=== PATIENT | female | born 1935 | race Caucasian/White ===

== ENCOUNTER 2018-03-11 08:29 | Emergency (ER) | payer MEDICARE, MEDICAID, SELFPAY ==
[2018-03-11 08:36] VITALS: BP 155/79; PULSE 86; RESP 20; TEMP 37.3; O2SAT 99; BMI 23.2
--- NOTE | 2018-03-11 08:41 | ED_ITS ---
HPI - Head Injury General Chief complaint: Head Injury Stated complaint: Fall with Head Laceration Time Seen by Provider: 03/11/18 08:31 Source: patient, family, EMS and RN notes reviewed Limitations: no limitations History of Present Illness HPI Narrative: Patient is an 86-year-old male who presents with head injury. She had an unwitnessed ground level fall at home. She does have a laceration to posterior of her head. No loss of consciousness no nausea no vomiting. She is not on blood thinners. She denies any neck pain numbness or tingling. She is a poor historian so exact history is unknown. Daughter is here now. She was home with a granddaughter and son-in-law. His they did not witness the fall but confirm that there was no loss of consciousness. In fact the patient thinks that she even alerted them to the fact that she fell then they noted blood EMS was called. MD Complaint: head injury Related Data Home Medications Medication Instructions Recorded Confirmed CALCIUM CARBONATE/VITAMIN D3 600 mg PO TID #0 06/27/10 (Oyster Shell Calcium-Vit D Tab) CHOLECALCIFEROL (VITAMIN D3) Q DAY #0 06/27/10 (Vitamin D3) DIPYRIDAMOLE (Persantine) 50 mg PO TID #0 06/27/10 ESCITALOPRAM OXALATE (Lexapro) 20 mg PO Q DAY #0 06/27/10 MULTIVITAMIN (Multivitamin 1 cap PO EVERY DAY #0 06/27/10 -) alendronate 70 mg PO QWEEK #0 06/27/10 03/11/18 docusate sodium [Colace] #0 01/21/17 lovastatin 40 mg PO QDAY #0 01/21/17 03/11/18 propranolol 10 mg PO BID #0 01/21/17 quetiapine [Seroquel] 50 mg PO QDAY #0 01/21/17 03/11/18 lisinopril 10 mg PO BID 03/11/18 03/11/18 sertraline 1 dose PO DIRECTED 03/11/18 03/11/18 Allergies Allergy/AdvReac Type Severity Reaction Status Date / Time No Known Drug Allergies Allergy Verified 03/11/18 09:41 Review of Systems Review of Systems All systems reviewed & are unremarkable except as noted in HPI and below Constitutional Denies chills, Denies fever(s), Denies headache(s), Denies lethargy and Denies weakness Eyes Denies blurry vision, Denies change in vision and Denies diplopia ENT Ears, Nose, Mouth, and Throat: Denies dizziness, Denies facial pain and Denies headache(s) Cardiovascular Denies chest pain, Denies irregular heart rhythm, Denies lightheadedness, Denies palpitations, Denies dyspnea, Denies dyspnea on exertion and Denies orthopnea Respiratory Denies cough, Denies dyspnea, Denies dyspnea on exertion and Denies wheezing Gastrointestinal Gastrointestinal: Denies abdominal pain, Denies change in bowel habits, Denies diarrhea, Denies nausea and Denies vomiting Musculoskeletal Denies back pain, Denies muscle weakness, Denies numbness and Denies tingling Integumentary/Breasts Reports as per HPI Neurologic Denies dizziness, Denies headache(s), Denies numbness, Denies tingling and Denies weakness Endocrine Denies palpitations Hematologic/Lymphatic Denies easy bleeding and Denies easy bruising Allergic/Immunologic Denies wheezing PFSH Social History Smoking Status: Never smoker alcohol intake: never substance use type: does not use Exam Initial Vital Signs Initial Vital Signs: Vital Signs Temperature 99.1 F 03/11/18 08:36 Pulse Rate 86 03/11/18 08:36 Respiratory Rate 20 03/11/18 08:36 Blood Pressure 155/79 H 03/11/18 08:36 Pulse Oximetry 99 03/11/18 08:36 Const General: cooperative and healthy appearing Orientation: alert, awake and oriented x3 HENMT Head: contusion (left posterior scalp) Ears: hearing grossly normal bilaterally Nose: external nose normal Face and sinus: normal facial exam Eyes General: appearance normal, both eyes and all related structures Eyelids: eyelids normal Conjunctivae: conjunctivae normal Sclera: sclerae normal Pupils: PERRL EOM: EOM intact bilaterally Neck Neck: normal visual inspection, trachea midline, No lymphadenopathy, No midline deformity and No JVD Lymphatic: No lymphedema Back/Spine/Pelvis Back: normal to inspection and No back tenderness Cervical Spine: normal cervical lordosis, cervical ROM normal and collar present (placed in ED) Thoracic/Lumbar Spine: thoracic and lumbar spine normal to inspection Skin General: ecchymosis (left posterior scalp) Trauma: abrasion and laceration (1 cm posterior scalp left side) Procedures Laceration Repair Laceration 1: Number of sutures: 1 Technique: other (Staple) Course Orders Ordered: ED Orders 03/11/18 08:59 CT cervical spine wo con Stat 03/11/18 09:59 CT head/brain wo con Stat Vital Signs - 8 hr 03/11/18 08:36 03/11/18 10:11 Temperature 99.1 F Pulse Rate 86 88 Respiratory Rate 20 20 Blood Pressure 155/79 H 141/74 H Pulse Oximetry 99 99 MDM - Head Injury Imaging Data CT scan - head: Radiologist's impression: ROCEDURE: CT HEAD/BRAIN WO CON INDICATIONS: fall backwards hit head TECHNIQUE: Noncontrast 4.5 mm thick angled axial sections acquired from the foramen magnum to the vertex, with coronal and sagittal reformats. For radiation dose reduction, the following was used: automated exposure control, adjustment of mA and/or kV according to patient size. COMPARISON: [facility], , CT HEAD W/O CONTRAST, 08/22/2013, 21: 57. [facility], , CT HEAD W/O CONTRAST, 01/10/2015, 16:06. FINDINGS: Image quality: Excellent. CSF spaces: Basal cisterns are patent. No extra-axial fluid collections. The ventricles are symmetric in size and shape. There is moderate cerebral volume loss, with resultant ventricular and sulcal prominence. Brain: No intracranial hemorrhage, mass, or mass effect. There are subcortical , periventricular and deep white matter hypodensities consistent with moderate to severe chronic small vessel ischemic changes. There is intracranial internal carotid artery atherosclerosis. There is tortuosity of the right vertebral artery redemonstrated with mass effect on the medulla. Skull and face: Calvarium and visualized facial bones appear intact, without suspicious lesions. Sinuses: Visualized sinuses and mastoids are clear. IMPRESSION: 1. No acute intracranial abnormality. 2. Moderate to severe chronic white matter small vessel ischemic changes and moderate cerebral volume loss redemonstrated. C-spine CT: Radiologist's impression: PROCEDURE: CT CERVICAL SPINE WO CON INDICATIONS: fall backwards hit head TECHNIQUE: Noncontrast 3 mm thick sections acquired from the skull base to the T4 level. Sagittal and coronal reformats were then constructed. For radiation dose reduction, the following was used: automated exposure control, adjustment of mA and/or kV according to patient size. COMPARISON: None. FINDINGS: Image quality: Excellent. Bones: No fractures or dislocations. There is minimal retrolisthesis at C4-C5 and C5-C6 as well as minimal anterolisthesis at C6-C7 and C7-T1. These appear similar to the prior study. There is multilevel disc space narrowing including mild/moderate narrowing at C4-C5 and C5-C6. Mild multilevel uncovertebral and facet arthropathy are also demonstrated. Visualized superior ribs are intact. There is cortical scalloping redemonstrated along the inner table of the occipital bone which may represent arachnoid granulations or dural ectasia. Soft tissues: Prevertebral soft tissues are normal in thickness. No paravertebral hematomas. No apical pneumothoraces. There is heterogeneity of the thyroid gland bilaterally with small ill-defined nodules. IMPRESSION: 1. No acute fracture or fixation. 2. Minimal multilevel spondylolisthesis and mild multilevel degenerative changes redemonstrated. Discharge Plan Departure Patient Disposition: Home, Self-Care Clinical Impression: Laceration of occipital scalp, Closed head injury Discharge Date/Time: 03/11/18 10:12 Interventions: ED Discharge Assessment Last Done: 03/11/18 10:11 Instructions: DI for Laceration Repair -- Lissy, Closed Head Injury Activity Restrictions/Additional Instructions: *You have been diagnosed with closed head injury and scalp laceration *What to do: Okay to shower or bathe and shampoo, no hair cuts, no soaking in water no swimming, have staple removed in 5-7 days by her primary care provider *Continue to take medications as directed *Follow up with your primary care provider in 2-3 days *Return to ER if you should have increased confusion, seizure activity, redness , pus, swelling or any new, worsening or concerning symptoms Prescriptions: No Action alendronate 70 mg Tablet 70 mg PO QWEEK Qty: 0 RF: 0 CALCIUM CARBONATE/VITAMIN D3 (Oyster Shell Calcium-Vit D Tab) 600 mg PO TID Qty: 0 RF: 0 DIPYRIDAMOLE (Persantine) 50 mg PO TID Qty: 0 RF: 0 ESCITALOPRAM OXALATE (Lexapro) 20 mg PO Q DAY Qty: 0 RF: 0 MULTIVITAMIN (Multivitamin -) 1 cap PO EVERY DAY Qty: 0 RF: 0 CHOLECALCIFEROL (VITAMIN D3) (Vitamin D3) Q DAY Qty: 0 RF: 0 lovastatin 40 MG tablet 40 mg PO QDAY Qty: 0 RF: 0 docusate sodium [Colace] 100 MG capsule Qty: 0 RF: 0 propranolol 10 MG tablet 10 mg PO BID Qty: 0 RF: 0 quetiapine [Seroquel] 50 MG tablet 50 mg PO QDAY Qty: 0 RF: 0 sertraline 100 mg tablet 1 dose PO DIRECTED RF: 0 lisinopril 10 mg tablet 10 mg PO BID RF: 0 Referrals: Juliet Lucas PA-C [Primary Care Provider] -
--- NOTE | 2018-03-11 08:59 | DI.CT.S_ITS ---
PROCEDURE: CT CERVICAL SPINE WO CON INDICATIONS: fall backwards hit head TECHNIQUE: Noncontrast 3 mm thick sections acquired from the skull base to the T4 level. Sagittal and coronal reformats were then constructed. For radiation dose reduction, the following was used: automated exposure control, adjustment of mA and/or kV according to patient size. COMPARISON: None. FINDINGS: Image quality: Excellent. Bones: No fractures or dislocations. There is minimal retrolisthesis at C4-C5 and C5-C6 as well as minimal anterolisthesis at C6-C7 and C7-T1. These appear similar to the prior study. There is multilevel disc space narrowing including mild/moderate narrowing at C4-C5 and C5-C6. Mild multilevel uncovertebral and facet arthropathy are also demonstrated. Visualized superior ribs are intact. There is cortical scalloping redemonstrated along the inner table of the occipital bone which may represent arachnoid granulations or dural ectasia. Soft tissues: Prevertebral soft tissues are normal in thickness. No paravertebral hematomas. No apical pneumothoraces. There is heterogeneity of the thyroid gland bilaterally with small ill-defined nodules. IMPRESSION: 1. No acute fracture or fixation. 2. Minimal multilevel spondylolisthesis and mild multilevel degenerative changes redemonstrated. Dictated by: Daniel Anand M.D. on 03/11/2018 at 9:12 Approved by: Daniel Anand M.D. on 03/11/2018 at 9:20
[2018-03-11] MEDS: DIPHTH,PERTUSS(ACELL),TET VAC 0.5 ML SYRINGE IM (09:42)
--- NOTE | 2018-03-11 09:59 | DI.CT.S_ITS ---
PROCEDURE: CT HEAD/BRAIN WO CON INDICATIONS: fall backwards hit head TECHNIQUE: Noncontrast 4.5 mm thick angled axial sections acquired from the foramen magnum to the vertex, with coronal and sagittal reformats. For radiation dose reduction, the following was used: automated exposure control, adjustment of mA and/or kV according to patient size. COMPARISON: [facility], , CT HEAD W/O CONTRAST, 08/22/2013, 21:57. [facility], , CT HEAD W/O CONTRAST, 01/10/2015, 16:06. FINDINGS: Image quality: Excellent. CSF spaces: Basal cisterns are patent. No extra-axial fluid collections. The ventricles are symmetric in size and shape. There is moderate cerebral volume loss, with resultant ventricular and sulcal prominence. Brain: No intracranial hemorrhage, mass, or mass effect. There are subcortical, periventricular and deep white matter hypodensities consistent with moderate to severe chronic small vessel ischemic changes. There is intracranial internal carotid artery atherosclerosis. There is tortuosity of the right vertebral artery redemonstrated with mass effect on the medulla. Skull and face: Calvarium and visualized facial bones appear intact, without suspicious lesions. Sinuses: Visualized sinuses and mastoids are clear. IMPRESSION: 1. No acute intracranial abnormality. 2. Moderate to severe chronic white matter small vessel ischemic changes and moderate cerebral volume loss redemonstrated. Dictated by: Daniel Anand M.D. on 03/11/2018 at 9:08 Approved by: Daniel Anand M.D. on 03/11/2018 at 9:12
[2018-03-11 10:11] VITALS: BP 141/74; PULSE 88; RESP 20; O2SAT 99
== END 2018-03-11 10:12 | disposition home or self-care (01) ==
PROVIDERS: Emergency Provider Emergency Medicine; PCP Physician Assistant
DX: S01.01XA Laceration without foreign body of scalp, initial encounter (principal); S09.90XA Unspecified injury of head, initial encounter; W18.30XA Fall on same level, unspecified, initial encounter
CPT/HCPCS: 12001; 70450; 72125; 90471; 90715; 99282; 99284

== ENCOUNTER 2019-07-13 01:07 | Emergency (ER) | payer MEDICARE, SELFPAY ==
[2019-05-26 08:59] VITALS: BMI 22.6
[2019-07-13 01:18] VITALS: BP 95/47; PULSE 77; RESP 18; TEMP 37.1; O2SAT 98
--- NOTE | 2019-07-13 01:28 | DI.RAD.S_ITS ---
PROCEDURE: XR T AND L SPINE 2 TO 3 VIEWS INDICATIONS: recent surgery, fall TECHNIQUE: 2 views acquired of the thoracolumbar spine. COMPARISON: [facility], MR, MR THORACIC SPINE WO CON, 05/27/2019, 11:31. [facility], CR, XR T AND L SPINE 2 TO 3 VIEWS, 05/29/2019, 10:25. FINDINGS: Bones: Thoracolumbar fixation hardware is seen, extending T8-L2. Compression deformities are again seen of T11 and T12, which appear stable. Age-appropriate bony degenerative changes are seen. S-shaped scoliotic curvature is seen. Accentuated thoracic kyphosis is seen. Soft tissues: No suspicious soft tissue calcifications. IMPRESSION: Stable T11 and T12 fractures, without an acute fracture identified. Intact appearing hardware, T8-L2. Note: No significant discrepancy from the preliminary report. Dictated by: Juancho Oneil M.D. on 07/13/2019 at 8:58 Approved by: Juancho Oneil M.D. on 07/13/2019 at 9:00
--- NOTE | 2019-07-13 01:28 | DI.RAD.S_ITS ---
PROCEDURE: XR CHEST 1V INDICATIONS: weakness TECHNIQUE: One view of the chest was acquired. COMPARISON: [facility], CR, XR CHEST 2V, 05/25/2019, 19:27. FINDINGS: Surgical changes and devices: Posterior spinal fixation hardware partially visualized. Lungs and pleura: No interval change or new consolidation. Retrocardiac opacity appears unchanged. No pleural effusions or pneumothorax. Mediastinum: Mediastinal contours appear normal. Heart size is normal. Bones and chest wall: No suspicious bony lesions. Overlying soft tissues appear unremarkable. IMPRESSION: Retrocardiac opacity appears unchanged. This probably represents hiatal hernia based on the appearance of the comparison study dated 05/25/19. No new focal consolidation. Dictated by: Channing Linares M.D. on 07/13/2019 at 8:17 Approved by: Channing Linares M.D. on 07/13/2019 at 8:34
--- NOTE | 2019-07-13 01:32 | ED_ITS ---
HPI - Weakness General Chief complaint: Dizziness Stated complaint: came home from rehab/had another fall/very low bp Time Seen by Provider: 07/13/19 01:11 Source: patient and family Mode of arrival: Wheelchair Limitations: no limitations History of Present Illness HPI Narrative: 83-year-old female nonsmoker with history of hypertension and recent thoracolumbar surgery after a fall resulting in multiple fractures presents with family for evaluation low blood pressure at home. Patient was discharged on Wednesday to home from the rehab facility after 3 weeks. Soon after arrival home the patient had difficulty ambulating to the bathroom and fell, she denies any head, neck or back pain. She denies any trouble controlling bowel or bladder. She denies any pain. She does state that she has felt a bit weak and she has lost 10 lb since being discharged from the hospital into the rehab facility. Patient felt in her baselines state of health and her son did her 11:00 a.m. blood pressure check and noted it to be in the 70s, he recheck him multiple times with the same result. They called the nursing hotline and were directed to the emergency department. MD Complaint: generalized weakness Onset (ago): day(s) Duration: constant Location: generalized Severity: moderate Relieving factors: none Exacerbating factors: none Context: recent surgery Associated symptoms: denies other symptoms Related Data Home Medications Medication Instructions Recorded Confirmed DIPYRIDAMOLE (Persantine) 50 mg PO TID #0 06/27/10 05/26/19 MULTIVITAMIN (Multivitamin 1 cap PO EVERY DAY #0 06/27/10 05/25/19 -) docusate sodium [Colace] 100 mg PO DAILY #0 01/21/17 05/25/19 quetiapine [Seroquel] 50 mg PO QDAY #0 01/21/17 05/25/19 lisinopril 10 mg PO BID 03/11/18 05/25/19 sertraline 1 dose PO DIRECTED 03/11/18 05/25/19 aspirin [Adult Low Dose Aspirin] 81 mg PO DAILY 05/25/19 05/25/19 calcium carbonate [Calcium 500] 500 mg PO DAILY 05/25/19 05/25/19 flaxseed oil 1,000 mg PO DAILY 05/25/19 05/25/19 niacin 500 mg PO DAILY 05/25/19 05/25/19 omega [id number]-oha-iow-fish oil [Fish Oil] 1 cap PO DAILY 05/25/19 05/25/19 Previous Rx's Medication Instructions Recorded acetaminophen 650 mg PO Q6HR PRN #60 tab 06/03/19 bisacodyl 10 mg ME PRN PRN #30 ea 06/03/19 celecoxib [Celebrex] 200 mg PO BID #30 cap 06/03/19 lovastatin 20 mg PO DAILY #30 tab 06/03/19 metoprolol tartrate 25 mg PO Q6HR #30 tab 06/03/19 oxybutynin chloride 5 mg PO DAILY #30 tab 06/03/19 oxycodone 5 mg PO Q3HR PRN #40 tab 06/03/19 cephalexin [Keflex] 500 mg PO TID 7 Days #21 cap 07/13/19 Allergies Allergy/AdvReac Type Severity Reaction Status Date / Time No Known Drug Allergies Allergy Verified 06/14/19 11:26 Review of Systems Constitutional Constitutional: Denies chills, Denies fatigue, Denies fever(s), Denies frequent falls, Denies lethargy and Reports weakness Eyes Eyes: Denies change in vision, Denies eye discharge, Denies irritation and Denies loss of vision ENT Ears, Nose, Mouth, and Throat: Denies change in voice, Denies dizziness, Denies neck pain, Denies sore throat and Denies throat swelling Cardiovascular Cardiovascular: Denies chest pain, Denies irregular heart rhythm, Denies lightheadedness, Denies palpitations, Denies dyspnea, Denies dyspnea on exertion and Denies orthopnea Respiratory Respiratory: Denies cough, Denies dyspnea, Denies dyspnea on exertion and Denies wheezing Gastrointestinal Gastrointestinal: Denies abdominal pain, Denies change in bowel habits, Denies diarrhea, Denies nausea and Denies vomiting Genitourinary Genitourinary: Denies hematuria, Denies flank pain, Denies urinary incontinence and Denies urinary urgency Musculoskeletal Musculoskeletal: Reports back pain, Denies muscle weakness, Denies neck pain, Denies numbness and Denies tingling Integumentary/Breasts Skin/Breast: Denies pruritus, Denies erythema, Denies rash and Denies wounds Neurologic Neurologic: Denies behavioral changes, Denies confusion, Denies dizziness, Denies frequent falls, Denies loss of vision, Denies numbness, Denies tingling and Reports weakness Psychiatric Psychiatric: Denies anxiety, Denies behavioral changes, Denies confusion, Denies depression, Denies homicidal ideation and Denies suicidal ideation Endocrine Endocrine: Denies fatigue, Denies flushing and Denies palpitations Hematologic/Lymphatic Hematologic/Lymphatic: Denies easy bruising Allergic/Immunologic Allergic/Immunologic: Denies urticaria, Denies throat swelling and Denies wheezing Patient History Medical History Atrial fibrillation, new onset (Acute) Compression fracture (Acute) Dehydration (Acute) Leukemia (Acute) Memory deficit (Acute) Urinary incontinence (Acute) Social History (System 06/14/19 @ 11:26 by Madelaine Porter) household members: family Smoking Status: Never smoker alcohol intake: never substance use type: does not use Social History household members: family Smoking Status: Never smoker alcohol intake: never substance use type: does not use alcohol intake frequency: a few times a month Substance Use Type: does not use Exam Narrative Exam Narrative: GENERAL: [84] year old patient appears stated age. Well- nourished, well-developed patient, in mild distress. HEAD: Atraumatic. Normocephalic. EYES: Pupils equal round and reactive. Extraocular motions intact. No scleral icterus. No injection or drainage. ENT: Nose without bleeding, purulent drainage. Throat without erythema, tonsillar hypertrophy or exudate. Airway patent. NECK: Trachea midline. Non tender CARDIOVASCULAR: Regular rate and rhythm without murmurs, gallops, or rubs. RESPIRATORY: Clear to auscultation. Breath sounds equal bilaterally. No wheezes, rales, or rhonchi. GASTROINTESTINAL: Abdomen soft, non-tender, nondistended. EXTREMITIES: No edema or joint tenderness. BACK: Mild tenderness, incision is clean, dry and intact.. No flank tenderness. NEURO: AOx3. SKIN: No rash or erythema of visible areas Initial Vital Signs Initial Vital Signs: Vital Signs Temperature 98.8 F 07/13/19 01:18 Pulse Rate 77 07/13/19 01:18 Respiratory Rate 18 07/13/19 01:18 Blood Pressure 95/47 L 07/13/19 01:18 Pulse Oximetry 98 07/13/19 01:18 Course Orders Ordered: ED Orders 07/13/19 01:28 XR chest 1V Stat XR t and l spine 2 to 3 views Stat 07/13/19 01:32 EKG-12 Lead Stat 07/13/19 01:35 Basic Metabolic Panel Stat Complete Blood Count AUTO DIFF Stat Procalcitonin Stat Troponin I Stat 07/13/19 03:00 Urine Culture Stat Urine Microscopic Stat Discontinued Medications Sodium Chloride (Normal Saline 0.9%) 1,000 mls @ 150 mls/hr IV CONT BABATUNDE Last Infusion: 07/13/19 04:00 Dose: 150 mls/hr Documented by: Admin: 07/13/19 02:00 Dose: 150 mls/hr Documented by: GERRI Sodium Chloride (Normal Saline 0.9%) 500 mls @ 1,000 mls/hr IV BOLUS ONE Stop: 07/13/19 02:50 Last Admin: 07/13/19 02:26 Dose: Not Given Documented by: GERRI Vital Signs Vital signs: Vital Signs - 8 hr 07/13/19 01:18 07/13/19 02:30 07/13/19 03:00 Temperature 98.8 F Pulse Rate 77 90 88 Respiratory Rate 18 22 20 Blood Pressure 95/47 L Blood Pressure [Left Arm] 105/49 L 123/54 L Pulse Oximetry 98 95 96 07/13/19 03:30 Temperature Pulse Rate 97 H Respiratory Rate 18 Blood Pressure Blood Pressure [Left Arm] 123/54 L Pulse Oximetry 96 MDM - Weakness Lab Data Result diagrams: 07/13/19 01:35 07/13/19 01:35 Labs: Lab Results 07/13/19 07/13/19 07/13/19 Range/Units 01:35 01:35 01:35 WBC 29.9 H (4.5-11.0) X10^3/uL RBC 3.79 L (4.0-5.2) X10^6/uL Hgb 10.4 L (12.0-16.0) g/dL Hct 32.7 L (36-46) % MCV 86.2 (80-100) fL MCH 27.4 (26-34) PG MCHC 31.8 (30-36) % RDW 16.1 H (11.6-14.8) % Plt Count 286 (150-400) X10^3/uL Neut % (Auto) Not Reportable Lymph % (Auto) Not Reportable [place] % (Auto) Not Reportable Eos % (Auto) Not Reportable Baso % (Auto) Not Reportable Lymph # (Auto) Not Reportable [place] # (Auto) Not Reportable Baso # (Auto) Not Reportable Total Counted 100 Seg Neutrophils % 26.0 L (38-70) % Lymphocytes % (Manual) 56.0 H (25-45) % Atypical Lymphs % 11.0 H ( - 0) % Monocytes % (Manual) 2.0 (2-11) % Eosinophils % (Manual) 5.0 H (2-4) % Neutrophils # (Manual) 7774 H (2051-6169) /uL Smudge Cells 3+ H RBC Morphology See below Anisocytosis 1+ H Sodium 135 L (137-145) mmol/L Potassium 4.3 (3.4-5.1) mmol/L Chloride 101 (98-107) mmol/L Carbon Dioxide 28 (22-32) mmol/L BUN 25 H (7-17) mg/dL Creatinine 0.60 (0.52-1.04) mg/dL Estimated GFR > 60.0 (>60) mL/min BUN/Creatinine Ratio 41.7 H (6-22) Glucose 105 (80-110) mg/dL Calcium 9.2 (8.4-10.2) mg/dL Troponin I < 0.012 (0.01-0.034) ng/mL Procalcitonin < 0.05 (<0.5) ng/mL Urine RBC (0-5/HPF) Urine WBC (0-5/HPF) Triple Phos Crystals Urine Bacteria (None) Ur Culture Indicated? 07/13/19 Range/Units 03:00 WBC (4.5-11.0) X10^3/uL RBC (4.0-5.2) X10^6/uL Hgb (12.0-16.0) g/dL Hct (36-46) % MCV (80-100) fL MCH (26-34) PG MCHC (30-36) % RDW (11.6-14.8) % Plt Count (150-400) X10^3/uL Neut % (Auto) Lymph % (Auto) [place] % (Auto) Eos % (Auto) Baso % (Auto) Lymph # (Auto) [place] # (Auto) Baso # (Auto) Total Counted Seg Neutrophils % (38-70) % Lymphocytes % (Manual) (25-45) % Atypical Lymphs % ( - 0) % Monocytes % (Manual) (2-11) % Eosinophils % (Manual) (2-4) % Neutrophils # (Manual) (2458-8835) /uL Smudge Cells RBC Morphology Anisocytosis Sodium (137-145) mmol/L Potassium (3.4-5.1) mmol/L Chloride (98-107) mmol/L Carbon Dioxide (22-32) mmol/L BUN (7-17) mg/dL Creatinine (0.52-1.04) mg/dL Estimated GFR (>60) mL/min BUN/Creatinine Ratio (6-22) Glucose (80-110) mg/dL Calcium (8.4-10.2) mg/dL Troponin I (0.01-0.034) ng/mL Procalcitonin (<0.5) ng/mL Urine RBC 0-1/hpf (0-5/HPF) Urine WBC 30-100/hpf H (0-5/HPF) Triple Phos Crystals Few Urine Bacteria Many (>30) H (None) Ur Culture Indicated? Specimen cultured Urine Dip Bedside Urine Glucose Negative Bedside Urine Bilirubin - Negative Bedside Urine Ketone - Negative Urine Specific [place] 1.010 Bedside Urine Occult Blood +/- Bedside Urine Protein + 30 Bedside Urine Urobilinogen - Negative Bedside Urine Nitrite - Negative Bedside Urine Leukocytes +++ 500 Esterase MDM Narrative Medical decision making narrative: Patient is doing much better after IV fluids. She is asymptomatic with orthostatics and able to ambulate without difficulty and the use of a walker. Her labs are very reassuring and after extensive discussion at the bedside there is no admission criteria. We did discuss at length the various options the patient and family have including attempt at admission under observation status but this is thought to not be the most appropriate course. I offered to have them stay here in the department until Case Management comes in later in the morning but they would prefer not to stay in the emergency department until then. They were given contact information for case management and encouraged to speak with their primary care provider to look into other options for placement at home. They have been given return precautions and had questions answered to their apparent satisfaction. Discharge Plan Departure Patient Disposition: Home Clinical Impression: Compression fracture Discharge Date/Time: 07/13/19 04:20 Instructions: Vertebral Compression Fracture Activity Restrictions/Additional Instructions: *You have been diagnosed with [ ongoing pain from compression fracture, UTI ] *What to do: *Take medications as directed: Prescription sent to [facility] in [place] at your request *Follow up with your primary care provider in 2-3 days, call for an appo intment. Let them know you were seen in the Emergency Department and that we ask that you be seen in follow up *Return to ER if you should have any new, worsening or concerning symptoms Prescriptions: New cephalexin [Keflex] 500 mg capsule 500 mg PO TID 7 Days Qty: 21 RF: 0 No Action DIPYRIDAMOLE (Persantine) 50 mg PO TID Qty: 0 RF: 0 MULTIVITAMIN (Multivitamin -) 1 cap PO EVERY DAY Qty: 0 RF: 0 docusate sodium [Colace] 100 MG capsule 100 mg PO DAILY Qty: 0 RF: 0 quetiapine [Seroquel] 50 MG tablet 50 mg PO QDAY Qty: 0 RF: 0 sertraline 100 mg tablet 1 dose PO DIRECTED RF: 0 lisinopril 10 mg tablet 10 mg PO BID RF: 0 omega [id number] oil [Fish Oil] 1,000 mg (120 mg-180 mg) Capsule 1 cap PO DAILY RF: 0 flaxseed oil 1,000 mg Capsule 1,000 mg PO DAILY RF: 0 niacin 500 mg Tablet 500 mg PO DAILY RF: 0 aspirin [Adult Low Dose Aspirin] 81 mg Tablet,Delayed Release (Dr/Ec) 81 mg PO DAILY RF: 0 calcium carbonate [Calcium 500] 500 mg calcium (1,250 mg) Tablet 500 mg PO DAILY RF: 0 celecoxib [Celebrex] 200 mg Capsule 200 mg PO BID Qty: 30 RF: 0 acetaminophen 325 mg Tablet 650 mg PO Q6HR PRN (Reason: As Needed For Fever/Mild Pain) Qty: 60 RF: 0 bisacodyl 10 mg Suppository 10 mg ME PRN PRN (Reason: Constipation) Qty: 30 RF: 0 lovastatin 20 mg Tablet 20 mg PO DAILY Qty: 30 RF: 0 oxybutynin chloride 5 mg Tablet 5 mg PO DAILY Qty: 30 RF: 0 oxycodone 5 mg Tablet 5 mg PO Q3HR PRN (Reason: Pain, Moderate (4-6)) Qty: 40 RF: 0 metoprolol tartrate 25 mg Tablet 25 mg PO Q6HR Qty: 30 RF: 0 Referrals: [facility] [Outside]
[2019-07-13] MEDS: SODIUM CHLORIDE 0.9% 1,000 ML 150 ML IV (02:00)
[2019-07-13 02:03] LABS: Hematocrit 32.7 % (36-46); Hemoglobin 10.4 g/dL (12.0-16.0); Mean Corpuscular HGB Conc 31.8 % (30-36); Mean Corpuscular Hemoglobin 27.4 PG (26-34); Mean Corpuscular Volume 86.2 fL (80-100); Platelet Count 286 X10^3/uL (150-400); Red Blood Cell Count 3.79 X10^6/uL (4.0-5.2); Red Cell Distribution Width 16.1 % (11.6-14.8); White Blood Cell Count 29.9 X10^3/uL (4.5-11.0)
[2019-07-13 02:05] LABS: Add Manual Diff / Slide Review YES
[2019-07-13 02:06] LABS: BUN Creatinine Ratio 41.7 (6-22); Blood Urea Nitrogen 25 mg/dL (7-17); Calcium 9.2 mg/dL (8.4-10.2); Carbon Dioxide 28 mmol/L (22-32); Chloride 101 mmol/L (98-107); Estimated Glomerular Filt Rate > 60.0 mL/min (>60); Glucose 105 mg/dL (80-110); HEMOLYSIS < 15 (0-50); Potassium 4.3 mmol/L (3.4-5.1); Sodium 135 mmol/L (137-145)
[2019-07-13 02:18] LABS: Troponin I < 0.012 ng/mL (0.01-0.034)
[2019-07-13 02:23] LABS: Procalcitonin < 0.05 ng/mL (<0.5)
[2019-07-13 02:30] VITALS: BP 100/35; BP 105/49; PULSE 88; PULSE 90; RESP 11; RESP 22; O2SAT 95
[2019-07-13 03:00] VITALS: BP 123/54; PULSE 88; RESP 20; O2SAT 96
[2019-07-13 03:20] LABS: Bacteria Urine Many (>30); RBC Urine 0-1/HPF (0-5/HPF); WBC Urine 30-100/HPF (0-5/HPF)
[2019-07-13 03:21] LABS: Culture Indicated Urine Specimen Cultured; Triple Phosphate Crystal Urine Few
[2019-07-13 03:30] VITALS: BP 123/54; PULSE 97; RESP 18; O2SAT 96
[2019-07-13 03:43] LABS: Neutrophils Absolute Manual 7774 /uL (3000-5900); Total Cells Counted 100
[2019-07-13 03:44] LABS: Anisocytosis 1+; Smudge Cells 3+
--- NOTE | 2019-07-13 03:45 | PC.NURSE ---
PT was able to sucessfully independently ambulate out of room with walker and RN at side. Dr. hays.
== END 2019-07-13 04:20 | disposition home or self-care (01) ==
PROVIDERS: Emergency Provider Emergency Medicine
DX: S22.089G Unspecified fracture of T11-T12 vertebra, subsequent encounter for fracture with delayed healing (principal); I95.9 Hypotension, unspecified; R53.1 Weakness
CPT/HCPCS: 36415; 71045; 72082; 80048; 81003; 81015; 84145; 84484; 85025; 87077; 87086; 87186; 93005; 96360; 96361; 99283; 99285

== ENCOUNTER 2019-09-23 13:21 | Emergency (ER) | payer MEDICARE, MEDICAID, SELFPAY ==
[2019-05-26 08:59] VITALS: BMI 22.6
--- NOTE | 2019-09-23 13:28 | DI.CT.S_ITS ---
PROCEDURE: CT HEAD/BRAIN WO CON INDICATIONS: glf, confused TECHNIQUE: Noncontrast 4.5 mm thick angled axial sections acquired from the foramen magnum to the vertex, with coronal and sagittal reformats. For radiation dose reduction, the following was used: automated exposure control, adjustment of mA and/or kV according to patient size. COMPARISON: [facility], RG, MRI BRAIN (IAC) W/O CONTRAST, 11/15/2012, 10:48. [facility], RG, MRI BRAIN (IAC) W/O CONTRAST, 11/16/2011, 10:54. [facility], RG, CT HEAD W/O CONTRAST, 10/04/2011, 13:35. [facility], RG, CT HEAD W/O CONTRAST, 01/10/2015, 16:06. [facility], RG, CT HEAD W/O CONTRAST, 08/22/2013, 21:57. [facility], CT, CT FACIAL BONES WO CON, 09/23/2019, 13:35. [facility], CT, CT CERVICAL SPINE WO CON, 09/23/2019, 13:35. [facility], CR, XR LUMBAR SPINE 2-3V, 09/23/2019, 13:26. [facility], CR, XR THORACIC SPINE 2V, 09/23/2019, 13:26. [facility], CT, CT HEAD/BRAIN WO CON, 03/11/2018, 8:46. FINDINGS: Image quality: Excellent. CSF spaces: Basal cisterns are patent. No extra-axial fluid collections. The ventricles are symmetric in size and shape. Brain: No intracranial bleeds or masses. There is cerebral volume loss for age, with resultant ventricular and sulcal prominence. There are periventricular and deep white matter chronic small vessel ischemic changes. There is intracranial internal carotid artery atherosclerosis. Skull and face: There is a right temporal hematoma seen, without an underlying calvarial fracture. Calvarium and visualized facial bones appear intact, without suspicious lesions. Sinuses: Visualized sinuses and mastoids are clear. IMPRESSION: No acute intracranial hemorrhage is seen. Right temporal scalp hematoma seen, without an associated fracture. Note is made of age-appropriate brain parenchymal volume loss and chronic small vessel ischemic changes. Dictated by: Juancho Oneil M.D. on 09/23/2019 at 13:43 Approved by: Juancho Oneil M.D. on 09/23/2019 at 13:46
--- NOTE | 2019-09-23 13:28 | DI.CT.S_ITS ---
PROCEDURE: CT CERVICAL SPINE WO CON INDICATIONS: glf TECHNIQUE: Noncontrast 3 mm thick sections acquired from the skull base to the T4 level. Sagittal and coronal reformats were then constructed. For radiation dose reduction, the following was used: automated exposure control, adjustment of mA and/or kV according to patient size. COMPARISON: [facility], RG, CT CERVICAL SPINE, 08/22/2013, 22:00. [facility], CT, CT FACIAL BONES WO CON, 09/23/2019, 13:35. [facility], CT, CT HEAD/BRAIN WO CON, 09/23/2019, 13:35. [facility], CR, XR LUMBAR SPINE 2-3V, 09/23/2019, 13:26. [facility], CR, XR THORACIC SPINE 2V, 09/23/2019, 13:26. [facility], CT, CT CERVICAL SPINE WO CON, 03/11/2018, 8:46. FINDINGS: Image quality: Excellent. Bones: No fractures or dislocations. Visualized superior ribs are intact. Age-appropriate degenerative changes are seen, including moderate disc space narrowing at C4-C5 and mild to space narrowing at C5-C6. Soft tissues: Prevertebral soft tissues are normal in thickness. No paravertebral hematomas. No apical pneumothoraces. IMPRESSION: No acute fractures are seen. Cervical spine degenerative changes are noted. Dictated by: Juancho Oneil M.D. on 09/23/2019 at 13:46 Approved by: Juancho Oneil M.D. on 09/23/2019 at 13:48
--- NOTE | 2019-09-23 13:28 | DI.RAD.S_ITS ---
PROCEDURE: XR THORACIC SPINE 2V INDICATIONS: glf TECHNIQUE: 2 views of the thoracic spine were acquired. COMPARISON: [facility], CR, XR LUMBAR SPINE 2-3V, 05/25/2019, 19:27. [facility], CR, XR T AND L SPINE 2 TO 3 VIEWS, 05/29/2019, 10:25. [facility], MR, MR THORACIC SPINE WO CON, 05/27/2019, 11:31. [facility], CT, CT FACIAL BONES WO CON, 09/23/2019, 13:35. [facility], CT, CT HEAD/BRAIN WO CON, 09/23/2019, 13:35. [facility], CT, CT CERVICAL SPINE WO CON, 09/23/2019, 13:35. [facility], CR, XR LUMBAR SPINE 2-3V, 09/23/2019, 13:26. [facility], CR, XR T AND L SPINE 2 TO 3 VIEWS, 07/13/2019, 1:37. FINDINGS: Bones: Anterior wedge deformities are again seen involving T11 and T12, which are stable. No acute fractures or dislocations. No suspicious bony lesions. 12 pairs of ribs are noted, and appear intact where visualized. Fixation hardware is again seen T8-L2. Soft tissues: No paravertebral stripe thickening. IMPRESSION: No acute bony abnormalities can be seen. Stable anterior T11 and T12 wedge deformities. Intact appearing hardware, T8-L2. Dictated by: Juancho Oneil M.D. on 09/23/2019 at 13:35 Approved by: Juancho Oneil M.D. on 09/23/2019 at 13:38
--- NOTE | 2019-09-23 13:28 | DI.RAD.S_ITS ---
PROCEDURE: XR LUMBAR SPINE 2-3V INDICATIONS: glf TECHNIQUE: 2 views of the lumbar spine were acquired. COMPARISON: [facility], MR, MR THORACIC SPINE WO CON, 05/27/2019, 11:31. [facility], CT, CT FACIAL BONES WO CON, 09/23/2019, 13:35. [facility], CT, CT HEAD/BRAIN WO CON, 09/23/2019, 13:35. [facility], CT, CT CERVICAL SPINE WO CON, 09/23/2019, 13:35. [facility], CR, XR THORACIC SPINE 2V, 09/23/2019, 13:26. [facility], CR, XR T AND L SPINE 2 TO 3 VIEWS, 07/13/2019, 1:37. [facility], CR, XR CHEST 1V, 07/13/2019, 1:37. [facility], CR, XR T AND L SPINE 2 TO 3 VIEWS, 05/29/2019, 10:25. [facility], CR, XR LUMBAR SPINE 2-3V, 05/25/2019, 19:27. FINDINGS: Bones: 5 nonrib-bearing, lumbar type vertebral bodies are seen. Stable anterior wedge deformities are seen involving T11, T12, and L4. No acute fractures can be seen. No suspicious lytic or blastic lesions are seen. Stable fixation hardware can be seen T8-L2. No findings of hardware failure or hardware loosening are seen. Soft tissues: Overlying bowel gas pattern is normal. No suspicious soft tissue calcifications. IMPRESSION: No acute fractures are seen. Stable anterior wedge deformities are seen at T11, T12, and L4. Intact hardware, T8-L2. Dictated by: Juancho Oneil M.D. on 09/23/2019 at 13:38 Approved by: Juancho Oneil M.D. on 09/23/2019 at 13:40
--- NOTE | 2019-09-23 13:29 | DI.CT.S_ITS ---
PROCEDURE: CT FACIAL BONES WO CON INDICATIONS: hematoma, orbit pain glf TECHNIQUE: Noncontrast 2.5 mm thick axial images acquired from the mandible through the frontal sinuses, with coronal and sagittal reformatting. For radiation dose reduction, the following was used: automated exposure control, adjustment of mA and/or kV according to patient size. COMPARISON: [facility], CT, CT HEAD/BRAIN WO CON, 09/23/2019, 13:35. [facility], CT, CT CERVICAL SPINE WO CON, 09/23/2019, 13:35. [facility], CR, XR LUMBAR SPINE 2-3V, 09/23/2019, 13:26. [facility], CR, XR THORACIC SPINE 2V, 09/23/2019, 13:26. [facility], CR, XR T AND L SPINE 2 TO 3 VIEWS, 07/13/2019, 1:37. FINDINGS: Image quality: Excellent. Bones and teeth: Orbital arrieta are intact. Sinus arrieta show no fracture or deformity. Nasal bones and septum are intact. Visualized portions of the mandible demonstrate no fractures or subluxation. Zygomatic arches are intact. Pterygoid plates are intact. Visualized portions of the skull base and auditory canals are intact. Sinuses: Paranasal sinuses are aerated, without fluid levels, mucosal thickening, or mucoceles. Mastoid air cells are aerated. Soft tissues: A right temporal hematoma can be seen. No enlarged lymph nodes. No soft tissue lacerations or debris. Vascular: Visualized vascular structures appear normal in the absence of contrast. Bony vascular foramina and canals are intact. IMPRESSION: No displaced fractures are seen. There is a right temporal hematoma seen. Dictated by: Juancho Oneil M.D. on 09/23/2019 at 13:41 Approved by: Juancho Oneil M.D. on 09/23/2019 at 13:43
[2019-09-23 13:35] VITALS: BP 155/75; PULSE 86; RESP 16; TEMP 36.4; O2SAT 96
--- NOTE | 2019-09-23 13:44 | ED_ITS ---
HPI - Fall <Sofia Sanabria BURGLAR ALARM INSPECTOR-BC - Last Filed: 09/23/19 16:02> General Chief Complaint: Fall Stated Complaint: Fall Time Seen by Provider: 09/23/19 13:28 Source: EMS Mode of arrival: EMS Limitations: altered mental status History of Present Illness HPI Narrative: The patient is an 83-year-old female nonsmoker with history of compression fracture and her back presents with a chief complaint of a fall. She presents by EMS. Daughter called EMS because the patient fell today. The patient presents without complaints, stated that she has not fallen in a week. The patient states that nothing hurts. She has a visible hematoma on her head lateral to her right eye, bleeding lateral to her right eye. The patient does not know what month it is she does not know who her primary care providers, she does not know where her surgery occurred, but states that it was not here. There are operative notes and the patient's chart from it to for an unstable T12 burst fracture with Dr. Stewart. The patient's family and daughter are not present with her in the emergency department on initial exam. Illustrate a history of leukemia, memory impairment, a poor historian. Given the patient's exam and confusion, modified trauma was activated upon arrival. She presented by ems in a C-collar on backboard. Related Data Home Medications Medication Instructions Recorded Confirmed DIPYRIDAMOLE (Persantine) 50 mg PO TID #0 06/27/10 05/26/19 MULTIVITAMIN (Multivitamin 1 cap PO EVERY DAY #0 06/27/10 05/25/19 -) docusate sodium [Colace] 100 mg PO DAILY #0 01/21/17 05/25/19 quetiapine [Seroquel] 50 mg PO QDAY #0 01/21/17 05/25/19 lisinopril 10 mg PO BID 03/11/18 05/25/19 sertraline 1 dose PO DIRECTED 03/11/18 05/25/19 aspirin [Adult Low Dose Aspirin] 81 mg PO DAILY 05/25/19 05/25/19 calcium carbonate [Calcium 500] 500 mg PO DAILY 05/25/19 05/25/19 flaxseed oil 1,000 mg PO DAILY 05/25/19 05/25/19 niacin 500 mg PO DAILY 05/25/19 05/25/19 omega 2-yfa-fyo-fish oil [Fish Oil] 1 cap PO DAILY 05/25/19 05/25/19 Previous Rx's Medication Instructions Recorded acetaminophen 650 mg PO Q6HR PRN #60 tab 06/03/19 bisacodyl 10 mg UT PRN PRN #30 ea 06/03/19 celecoxib [Celebrex] 200 mg PO BID #30 cap 06/03/19 lovastatin 20 mg PO DAILY #30 tab 06/03/19 metoprolol tartrate 25 mg PO Q6HR #30 tab 06/03/19 oxybutynin chloride 5 mg PO DAILY #30 tab 06/03/19 oxycodone 5 mg PO Q3HR PRN #40 tab 06/03/19 Allergies Allergy/AdvReac Type Severity Reaction Status Date / Time No Known Drug Allergies Allergy Verified 06/14/19 11:26 Review of Systems <MANUELA Kulkarni - Last Filed: 09/23/19 16:02> Review of Systems ROS Unobtainable: Unobtainable due to mental status/LOC Patient History <MANUELA Kulkarni - Last Filed: 09/23/19 16:02> Medical History Atrial fibrillation, new onset (Acute) Compression fracture (Acute) Dehydration (Acute) Leukemia (Acute) Memory deficit (Acute) Urinary incontinence (Acute) Social History household members: family Smoking Status: Never smoker alcohol intake: never substance use type: does not use Smoking Status: Never smoker alcohol intake frequency: a few times a month Substance Use Type: does not use Exam <MANUELA Kulkarni - Last Filed: 09/23/19 16:02> Narrative Exam Narrative: GENERAL: Thin chronically ill-appearing female lying on stretcher HEAD: A see skin exam. No other temporal or scalp tenderness. EYES: Pupils equal round and reactive. Extraocular motions intact. No scleral icterus. No injection or drainage. ENT: Nose without bleeding, purulent drainage or septal hematoma. Throat without erythema, tonsillar hypertrophy or exudate. Uvula midline. Airway patent. NECK: Trachea midline. No JVD or lymphadenopathy. Supple, nontender, no meningeal signs. CARDIOVASCULAR: Regular rate and rhythm without murmurs, gallops, or rubs. RESPIRATORY: Clear to auscultation. Breath sounds equal bilaterally. No wheezes, rales, or rhonchi. No cough. No increased respiratory effort. No accessory muscle use. GASTROINTESTINAL: Abdomen soft, non-tender, nondistended. No hepato- splenomegaly, or palpable masses. No guarding. EXTREMITIES: No clubbing, cyanosis, or edema. No joint tenderness, effusion, or edema noted. Using all extremities. Able to make bilateral office. No pain to pelvis palpation. Able to bridge up to use a bedpan. BACK: Nontender without deformity or crepitance. No flank tenderness. No CT or L-spine pain to palpation. NEURO: Alert to name. Alert to place. Not oriented to situation. Follows commands. SKIN: Hematoma 2 x 3 cm noted lateral to right eye on temporal region. Small abrasion noted lateral to right eye. Ecchymosis noted to right ring finger. Ecchymosis to it to left hand. Initial Vital Signs Initial Vital Signs: Vital Signs Temperature 97.6 F 09/23/19 13:35 Pulse Rate 86 09/23/19 13:35 Respiratory Rate 16 09/23/19 13:35 Blood Pressure 155/75 H 09/23/19 13:35 Pulse Oximetry 96 09/23/19 13:35 <Roberto Metz DO - Last Filed: 09/23/19 16:20> Initial Vital Signs Initial Vital Signs: Vital Signs Temperature 97.6 F 09/23/19 13:35 Pulse Rate 86 09/23/19 13:35 Respiratory Rate 16 09/23/19 13:35 Blood Pressure 155/75 H 09/23/19 13:35 Pulse Oximetry 96 09/23/19 13:35 Scores <MANUELA Kulkarni - Last Filed: 09/23/19 16:02> GCS Chris coma scale eye opening: Spontaneous Crhis coma scale verbal response: Orientated Chris coma scale motor response: Obey commands Chris coma scale total score: 15 Course <MANUELA Kulkarni - Last Filed: 09/23/19 16:02> Orders Ordered: ED Orders 09/23/19 13:28 CT cervical spine wo con Stat CT head/brain wo con Stat XR lumbar spine 2-3V Stat XR thoracic spine 2V Stat 09/23/19 13:29 CT facial bones wo con Stat 09/23/19 14:01 Complete Blood Count AUTO DIFF Stat Comprehensive Metabolic Panel Stat Partial Thromboplastin Time Stat Prothrombin Time INR Stat Reevaluation(s) Reevaluation #1: C-collar removed given negative C-spine CT Time: 14:00 Reevaluation #2: I spoke at length with the patient and her daughter, who the patient lives with. Daughter states that she heard a fall, went upstairs and found her mother on the kitchen. The patient is wheelchair-bound, but the patient's daughter states that she was making a sandwich and had a sandwich making is, knife etcetera out on the counter, indicating that she was out of her wheelchair at the time. She states that the patient was unconscious initially, but then started responding when she was on the phone with EMS dispatch. Time: 15:16 Vital Signs Vital signs: Vital Signs - 8 hr 09/23/19 13:35 09/23/19 14:19 09/23/19 14:30 Temperature 97.6 F Pulse Rate 86 86 85 Respiratory Rate 16 16 16 Blood Pressure 155/75 H Blood Pressure [Left Arm] 154/84 H Blood Pressure [Right Arm] 154/84 H 155/74 H Pulse Oximetry 96 96 96 09/23/19 15:00 09/23/19 15:30 Temperature Pulse Rate 89 87 Respiratory Rate 15 Blood Pressure Blood Pressure [Left Arm] 135/84 Blood Pressure [Right Arm] 136/80 Pulse Oximetry 99 98 <Roberto Metz, DO - Last Filed: 09/23/19 16:20> Orders Ordered: ED Orders 09/23/19 13:28 CT cervical spine wo con Stat CT head/brain wo con Stat XR lumbar spine 2-3V Stat XR thoracic spine 2V Stat 09/23/19 13:29 CT facial bones wo con Stat 09/23/19 14:01 Complete Blood Count AUTO DIFF Stat Comprehensive Metabolic Panel Stat Partial Thromboplastin Time Stat Prothrombin Time INR Stat Vital Signs Vital signs: Vital Signs - 8 hr 09/23/19 13:35 09/23/19 14:19 09/23/19 14:30 Temperature 97.6 F Pulse Rate 86 86 85 Respiratory Rate 16 16 16 Blood Pressure 155/75 H Blood Pressure [Left Arm] 154/84 H Blood Pressure [Right Arm] 154/84 H 155/74 H Pulse Oximetry 96 96 96 09/23/19 15:00 09/23/19 15:30 Temperature Pulse Rate 89 87 Respiratory Rate 15 Blood Pressure Blood Pressure [Left Arm] 135/84 Blood Pressure [Right Arm] 136/80 Pulse Oximetry 99 98 MDM - Fall <Sofia Sanabria, BURGLAR ALARM INSPECTOR-BC - Last Filed: 09/23/19 16:02> Lab Data Result diagrams: 09/23/19 14:01 09/23/19 14:01 Labs: Lab Results 09/23/19 09/23/19 09/23/19 Range/Units 14:01 14:01 14:01 WBC 24.4 H (4.5-11.0) X10^3/uL RBC 4.68 (4.0-5.2) X10^6/uL Hgb 13.0 (12.0-16.0) g/dL Hct 40.6 (36-46) % MCV 86.7 (80-100) fL MCH 27.7 (26-34) PG MCHC 31.9 (30-36) % RDW 16.8 H (11.6-14.8) % Plt Count 145 L (150-400) X10^3/uL Neut % (Auto) Not Reportable Lymph % (Auto) Not Reportable Gates % (Auto) Not Reportable Eos % (Auto) Not Reportable Baso % (Auto) Not Reportable Lymph # (Auto) Not Reportable Gates # (Auto) Not Reportable Baso # (Auto) Not Reportable Total Counted 100 Seg Neutrophils % 41.0 (38-70) % Lymphocytes % (Manual) 17.0 L (25-45) % Atypical Lymphs % 23.0 H ( - 0) % Monocytes % (Manual) 5.0 (2-11) % Eosinophils % (Manual) 2.0 (2-4) % Basophils % (Manual) 9.0 H (0-1) % Blast Cells % 3.0 H (-0) % Neutrophils # (Manual) 44788 H (9359-5961) /uL RBC Morphology See below Anisocytosis 2+ H PT 11.5 (10.1-12.7) SECONDS INR 1.0 (0.9-1.3) APTT 26 L D (26.4-36.2) SECONDS Sodium 140 (137-145) mmol/L Potassium 4.0 (3.4-5.1) mmol/L Chloride 105 (98-107) mmol/L Carbon Dioxide 29 (22-32) mmol/L BUN 23 H (7-17) mg/dL Creatinine 0.60 (0.52-1.04) mg/dL Estimated GFR > 60.0 (>60) mL/min BUN/Creatinine Ratio 38.3 H (6-22) Glucose 111 H (80-110) mg/dL Calcium 8.9 (8.4-10.2) mg/dL Total Bilirubin 0.4 (0.2-1.3) mg/dL AST 33 (14-36) IU/L ALT 16 (<35) IU/L Alkaline Phosphatase 77 (38-126) U/L Total Protein 6.3 (6.3-8.2) g/dL Albumin 3.9 (3.5-5.0) g/dL Globulin 2.4 (1.7-4.1) g/dL Albumin/Globulin Ratio 1.6 (1.0-2.8) Urine Dip Bedside Urine Glucose Negative Bedside Urine Bilirubin - Negative Bedside Urine Ketone - Negative Urine Specific [place] 1.010 Bedside Urine Occult Blood - Negative Bedside Urine pH 6.5 Bedside Urine Protein - Negative Bedside Urine Urobilinogen - Negative Bedside Urine Nitrite - Negative Bedside Urine Leukocytes - Negative Esterase Imaging Data CT face: Radiologist's Impression: [address] [address] [address] Scan Report Signed Patient: Amber Mota BMR#: [id number] : 5Acct:[id number] Age/Sex: 83 / FDate of Service: 09/23/19 Loc: ED Accession Number: [id number] Procedure: CT facial bones wo con Ordering Provider: Sofia Sanabria PROCEDURE: CT FACIAL BONES WO CON INDICATIONS: hematoma, orbit pain glf TECHNIQUE: Noncontrast 2.5 mm thick axial images acquired from the mandible through the frontal sinuses, with coronal and sagittal reformatting. For radiation dose reduction, the following was used: automated exposure control, adjustment of mA and/or kV according to patient size. COMPARISON: [facility], CT, CT HEAD/BRAIN WO CON, 09/23/2019, 13:35. [facility], CT, CT CERVICAL SPINE WO CON, 09/23/2019, 13:35. [facility], CR, XR LUMBAR SPINE 2-3V, 09/23/2019, 13:26. [facility], CR, XR THORACIC SPINE 2V, 09/23/2019, 13:26. [facility], CR, XR T AND L SPINE 2 TO 3 VIEWS, 07/13/2019, 1:37. FINDINGS: Image quality: Excellent. Bones and teeth: Orbital arrieta are intact. Sinus arrieta show no fracture or deformity. Nasal bones and septum are intact. Visualized portions of the mandible demonstrate no fractures or subluxation. Zygomatic arches are intact. Pterygoid plates are intact. Visualized portions of the skull base and auditory canals are intact. Sinuses: Paranasal sinuses are aerated, without fluid levels, mucosal thickening, or mucoceles. Mastoid air cells are aerated. Soft tissues: A right temporal hematoma can be seen. No enlarged lymph nodes. No soft tissue lacerations or debris. Vascular: Visualized vascular structures appear normal in the absence of contrast. Bony vascular foramina and canals are intact. IMPRESSION: No displaced fractures are seen. There is a right temporal hematoma seen. Dictated by: Juancho Oneil M.D. on 09/23/2019 at 13:41 Approved by: Juancho Oneil M.D. on 09/23/2019 at 13:43 T-spine x-ray: Radiologist's Impression: Amber Mota 83 F [address] [address] XRay Report Signed Patient: Amber Mota BMR#: [id number] : 5Acct:[id number] Age/Sex: 83 / FDate of Service: 09/23/19 Loc: ED Accession Number: [id number] Procedure: XR thoracic spine 2V Ordering Provider: Sofia Sanabria PROCEDURE: XR THORACIC SPINE 2V INDICATIONS: glf TECHNIQUE: 2 views of the thoracic spine were acquired. COMPARISON: [facility], CR, XR LUMBAR SPINE 2-3V, 05/25/2019, 19:27. [facility], CR, XR T AND L SPINE 2 TO 3 VIEWS, 05/29/2019, 10:25. [facility], MR, MR THORACIC SPINE WO CON, 05/27/2019, 11:31. [facility], CT, CT FACIAL BONES WO CON, 09/23/2019, 13:35. [facility], CT, CT HEAD/BRAIN WO CON, 09/23/2019, 13:35. [facility], CT, CT CERVICAL SPINE WO CON, 09/23/2019, 13:35. [facility], CR, XR LUMBAR SPINE 2-3V, 09/23/2019, 13:26. [facility], CR, XR T AND L SPINE 2 TO 3 VIEWS, 07/13/2019, 1:37. FINDINGS: Bones: Anterior wedge deformities are again seen involving T11 and T12, which are stable. No acute fractures or dislocations. No suspicious bony lesions. 12 pairs of ribs are noted, and appear intact where visualized. Fixation hardware is again seen T8-L2. Soft tissues: No paravertebral stripe thickening. IMPRESSION: No acute bony abnormalities can be seen. Stable anterior T11 and T12 wedge deformities. Intact appearing hardware, T8-L2. Dictated by: Juancho Oneil M.D. on 09/23/2019 at 13:35 Approved by: Juancho Oneil M.D. on 09/23/2019 at 13:38 Lumbar spine x-ray: Radiologist's Impression: [place] [address] XRay Report Signed Patient: Amber Mota BMR#: [id number] : 5Acct:[id number] Age/Sex: 83 / FDate of Service: 09/23/19 Loc: ED Accession Number: [id number] Procedure: XR lumbar spine 2-3V Ordering Provider: Sofia Sanabria PROCEDURE: XR LUMBAR SPINE 2-3V INDICATIONS: glf TECHNIQUE: 2 views of the lumbar spine were acquired. COMPARISON: [facility], MR, MR THORACIC SPINE WO CON, 05/27/2019, 11:31. [facility], CT, CT FACIAL BONES WO CON, 09/23/2019, 13:35. [facility], CT, CT HEAD/BRAIN WO CON, 09/23/2019, 13:35. [facility], CT, CT CERVICAL SPINE WO CON, 09/23/2019, 13:35. [facility], CR, XR THORACIC SPINE 2V, 09/23/2019, 13:26. [facility], CR, XR T AND L SPINE 2 TO 3 VIEWS, 07/13/2019, 1:37. [facility], CR, XR CHEST 1V, 07/13/2019, 1:37. [facility], CR, XR T AND L SPINE 2 TO 3 VIEWS, 05/29/2019, 10:25. [facility], CR, XR LUMBAR SPINE 2-3V, 05/25/2019, 19:27. FINDINGS: Bones: 5 nonrib-bearing, lumbar type vertebral bodies are seen. Stable anterior wedge deformities are seen involving T11, T12, and L4. No acute fractures can be seen. No suspicious lytic or blastic lesions are seen. Stable fixation hardware can be seen T8-L2. No findings of hardware failure or hardware loosening are seen. Soft tissues: Overlying bowel gas pattern is normal. No suspicious soft tissue calcifications. IMPRESSION: No acute fractures are seen. Stable anterior wedge deformities are seen at T11, T12, and L4. Intact hardware, T8-L2. Dictated by: Juancho Oneil M.D. on 09/23/2019 at 13:38 Approved by: Juancho Oneil M.D. on 09/23/2019 at 13:40 CT scan - head: Radiologist's Impression: [place] [address] CT Scan Report Signed Patient: Amber Mota BMR#: [id number] : 5Acct:[id number] Age/Sex: 83 / FDate of Service: 09/23/19 Loc: ED Accession Number: [id number] Procedure: CT head/brain wo con Ordering Provider: Sofia Sanabria PROCEDURE: CT HEAD/BRAIN WO CON INDICATIONS: glf, confused TECHNIQUE: Noncontrast 4.5 mm thick angled axial sections acquired from the foramen magnum to the vertex, with coronal and sagittal reformats. For radiation dose reduction, the following was used: automated exposure control, adjustment of mA and/or kV according to patient size. COMPARISON: [facility], , MRI BRAIN (IAC) W/O CONTRAST, 2012, 10:48. [facility], RG, MRI BRAIN (IAC) W/O CONTRAST, 11/16/2011, 10:54. [facility], RG, CT HEAD W/O CONTRAST, 10/04/2011, 13:35. [facility], RG, CT HEAD W/O CONTRAST, 01/10/2015, 16:06. [facility], RG, CT HEAD W/O CONTRAST, 08/22/2013, 21:57. [facility], CT, CT FACIAL BONES WO CON, 09/23/2019, 13:35. [facility], CT, CT CERVICAL SPINE WO CON, 09/23/2019, 13:35. [facility], CR, XR LUMBAR SPINE 2-3V, 09/23/2019, 13:26. [facility], CR, XR THORACIC SPINE 2V, 09/23/2019, 13:26. [facility], CT, CT HEAD/BRAIN WO CON, 03/11/2018, 8:46. FINDINGS: Image quality: Excellent. CSF spaces: Basal cisterns are patent. No extra-axial fluid collections. The ventricles are symmetric in size and shape. Brain: No intracranial bleeds or masses. There is cerebral volume loss for age, with resultant ventricular and sulcal prominence. There are periventricular and deep white matter chronic small vessel ischemic changes. There is intracranial internal carotid artery atherosclerosis. Skull and face: There is a right temporal hematoma seen, without an underlying calvarial fracture. Calvarium and visualized facial bones appear intact, without suspicious lesions. Sinuses: Visualized sinuses and mastoids are clear. IMPRESSION: No acute intracranial hemorrhage is seen. Right temporal scalp hematoma seen, without an associated fracture. Note is made of age-appropriate brain parenchymal volume loss and chronic small vessel ischemic changes. Dictated by: Juancho Oneil M.D. on 09/23/2019 at 13:43 Approved by: Juancho Oneil M.D. on 09/23/2019 at 13:46 CT - cervical spine: Radiologist's Impression: [address] [address] [address] Scan Report Signed Patient: Amber Mota BMR#: [id number] : 5Acct:[id number] Age/Sex: 83 / FDate of Service: 09/23/19 Loc: ED Accession Number: [id number] Procedure: CT cervical spine wo con Ordering Provider: Sofia Sanabria PROCEDURE: CT CERVICAL SPINE WO CON INDICATIONS: glf TECHNIQUE: Noncontrast 3 mm thick sections acquired from the skull base to the T4 level. Sagittal and coronal reformats were then constructed. For radiation dose reduction, the following was used: automated exposure control, adjustment of mA and/or kV according to patient size. COMPARISON: [facility], RG, CT CERVICAL SPINE, 08/22/2013, 22:00. [facility], CT, CT FACIAL BONES WO CON, 09/23/2019, 13:35. [facility], CT, CT HEAD/BRAIN WO CON, 09/23/2019, 13:35. [facility], CR, XR LUMBAR SPINE 2- 3V, 09/23/2019, 13:26. [facility], CR, XR THORACIC SPINE 2V, 09/23/2019, 13:26. [facility], CT, CT CERVICAL SPINE WO CON, 03/11/2018, 8:46. FINDINGS: Image quality: Excellent. Bones: No fractures or dislocations. Visualized superior ribs are intact. Age-appropriate degenerative changes are seen, including moderate disc space narrowing at C4-C5 and mild to space narrowing at C5-C6. Soft tissues: Prevertebral soft tissues are normal in thickness. No paravertebral hematomas. No apical pneumothoraces. IMPRESSION: No acute fractures are seen. Cervical spine degenerative changes are noted. Dictated by: Juancho Oneil M.D. on 09/23/2019 at 13:46 Approved by: Juancho Oneil M.D. on 09/23/2019 at 13:48 [facility] Narrative Medical decision making narrative: The patient is an 83-year-old female who presents after ground level fall. It is suspected that the patient was at of wheelchair standing at the counter making a sandwich when she fell. She is supposed to stay in her wheelchair per her daughter. Given her level of confusion upon arrival, a modified trauma was activated even though she is not on blood thinners. Images showed no acute fractures. However given the patient's repetitive questioning, I believe she likely has a concussion in addition to her dementia, though it is at times difficult to differentiate between the two. The patient lives with her daughter, her daughter's and her daughter states her main concern is checking the integrity of her hardware from her spinal surgery. This is shown be intact on x-rays. I discussed the findings at length with the daughter, recommended very close monitoring for the next few days especially given the possibility of concussion. Encourage that the patient and family keep eyes on the patient at all times. Daughter states comfort with taking the patient home. Discussed at length the importance of following up with primary care provider. Encouraged ice on temporal hematoma. Discussed at length coming back to the emergency department for any acute concerns such as chest pain, shortness of breath etcetera <Roberto Ryalyson, DO - Last Filed: 09/23/19 16:20> Lab Data Labs: Lab Results 09/23/19 09/23/19 09/23/19 Range/Units 14:01 14:01 14:01 WBC 24.4 H (4.5-11.0) X10^3/uL RBC 4.68 (4.0-5.2) X10^6/uL Hgb 13.0 (12.0-16.0) g/dL Hct 40.6 (36-46) % MCV 86.7 (80-100) fL MCH 27.7 (26-34) PG MCHC 31.9 (30-36) % RDW 16.8 H (11.6-14.8) % Plt Count 145 L (150-400) X10^3/uL Neut % (Auto) Not Reportable Lymph % (Auto) Not Reportable Gates % (Auto) Not Reportable Eos % (Auto) Not Reportable Baso % (Auto) Not Reportable Lymph # (Auto) Not Reportable [place] # (Auto) Not Reportable Baso # (Auto) Not Reportable Total Counted 100 Seg Neutrophils % 41.0 (38-70) % Lymphocytes % (Manual) 17.0 L (25-45) % Atypical Lymphs % 23.0 H ( - 0) % Monocytes % (Manual) 5.0 (2-11) % Eosinophils % (Manual) 2.0 (2-4) % Basophils % (Manual) 9.0 H (0-1) % Blast Cells % 3.0 H (-0) % Neutrophils # (Manual) 29924 H (6758-9355) /uL RBC Morphology See below Anisocytosis 2+ H PT 11.5 (10.1-12.7) SECONDS INR 1.0 (0.9-1.3) APTT 26 L D (26.4-36.2) SECONDS Sodium 140 (137-145) mmol/L Potassium 4.0 (3.4-5.1) mmol/L Chloride 105 (98-107) mmol/L Carbon Dioxide 29 (22-32) mmol/L BUN 23 H (7-17) mg/dL Creatinine 0.60 (0.52-1.04) mg/dL Estimated GFR > 60.0 (>60) mL/min BUN/Creatinine Ratio 38.3 H (6-22) Glucose 111 H (80-110) mg/dL Calcium 8.9 (8.4-10.2) mg/dL Total Bilirubin 0.4 (0.2-1.3) mg/dL AST 33 (14-36) IU/L ALT 16 (<35) IU/L Alkaline Phosphatase 77 (38-126) U/L Total Protein 6.3 (6.3-8.2) g/dL Albumin 3.9 (3.5-5.0) g/dL Globulin 2.4 (1.7-4.1) g/dL Albumin/Globulin Ratio 1.6 (1.0-2.8) Urine Dip Bedside Urine Glucose Negative Bedside Urine Bilirubin - Negative Bedside Urine Ketone - Negative Urine Specific [place] 1.010 Bedside Urine Occult Blood - Negative Bedside Urine pH 6.5 Bedside Urine Protein - Negative Bedside Urine Urobilinogen - Negative Bedside Urine Nitrite - Negative Bedside Urine Leukocytes - Negative Esterase Discharge Plan Departure Patient Disposition: Home Clinical Impression: Fall from ground level, Laceration Concussion with loss of consciousness Qualifiers: Encounter type: initial encounter Qualified Code(s): S06.0X9A - Concussion with loss of consciousness of unspecified duration, initial encounter Contusion of finger Qualifiers: Encounter type: initial encounter Finger: ring finger Damage to nail status: without damage Laterality: right Qualified Code(s): S60.041A - Contusion of right ring finger without damage to nail, initial encounter Traumatic hematoma of head Qualifiers: Encounter type: initial encounter Qualified Code(s): S00.93XA - Contusion of unspecified part of head, initial encounter Discharge Date/Time: 09/23/19 15:51 Instructions: DI for Concussion, DI for Contusion, DI for Hematoma (Bruise), How to Prevent Falls, DI for Closed Head Injury Activity Restrictions/Additional Instructions: Today your images came back with no acute findings. We did pictures of your fa ce, head, neck, midback and lower back. Your surgical hardware is intact per x-ray However given your exam, I am concerned about a concussion. Please rest. Please be safe at home and try to avoid falls. Please stay in your wheelchair. As discussed, I would like you to stay with family and preferably stay within sight for the next few days. Please follow-up with primary care provider soon as possible Please come back to the emergency department for any acute concerns Prescriptions: No Action DIPYRIDAMOLE (Persantine) 50 mg PO TID Qty: 0 RF: 0 MULTIVITAMIN (Multivitamin -) 1 cap PO EVERY DAY Qty: 0 RF: 0 docusate sodium [Colace] 100 MG capsule 100 mg PO DAILY Qty: 0 RF: 0 quetiapine [Seroquel] 50 MG tablet 50 mg PO QDAY Qty: 0 RF: 0 sertraline 100 mg tablet 1 dose PO DIRECTED RF: 0 lisinopril 10 mg tablet 10 mg PO BID RF: 0 omega [id number] oil [Fish Oil] 1,000 mg (120 mg-180 mg) Capsule 1 cap PO DAILY RF: 0 flaxseed oil 1,000 mg Capsule 1,000 mg PO DAILY RF: 0 niacin 500 mg Tablet 500 mg PO DAILY RF: 0 aspirin [Adult Low Dose Aspirin] 81 mg Tablet,Delayed Release (Dr/Ec) 81 mg PO DAILY RF: 0 calcium carbonate [Calcium 500] 500 mg calcium (1,250 mg) Tablet 500 mg PO DAILY RF: 0 celecoxib [Celebrex] 200 mg Capsule 200 mg PO BID Qty: 30 RF: 0 acetaminophen 325 mg Tablet 650 mg PO Q6HR PRN (Reason: As Needed For Fever/Mild Pain) Qty: 60 RF: 0 bisacodyl 10 mg Suppository 10 mg UT PRN PRN (Reason: Constipation) Qty: 30 RF: 0 lovastatin 20 mg Tablet 20 mg PO DAILY Qty: 30 RF: 0 oxybutynin chloride 5 mg Tablet 5 mg PO DAILY Qty: 30 RF: 0 oxycodone 5 mg Tablet 5 mg PO Q3HR PRN (Reason: Pain, Moderate (4-6)) Qty: 40 RF: 0 metoprolol tartrate 25 mg Tablet 25 mg PO Q6HR Qty: 30 RF: 0 Referrals: Radha Farfan [Non-Staff] - <Roberto Metz DO - Last Filed: 09/23/19 16:20> Sign Out Provider Sign Out Attestation: Dr Metz Co-Sign Statement: I was available for consultation during this patient's emergency department visit. This chart is signed by myself for administrative purposes only. I did not have direct contact with this patient during this visit. They were seen independently by the APC.
[2019-09-23 14:16] LABS: Prothrombin Time 11.5 SECONDS (10.1-12.7)
--- NOTE | 2019-09-23 14:18 | PC.NURSE ---
reports, daughter heard a fall, found pt in the kitchen, blood on the face, pt falling and hitting head on the linoleum floor. occured at 1235 today. takes aspirin 81mg , s/p spine surgery last may. hx of leukemia, osteoporosis, mild dementia.'
[2019-09-23 14:19] VITALS: BP 154/84; PULSE 86; RESP 16; O2SAT 96; O2SAT 97
[2019-09-23 14:19] LABS: PTT Partial Thromboplastin Tim 26 SECONDS (26.4-36.2)
[2019-09-23 14:22] LABS: Alanine Aminotransferase 16 IU/L (<35); Albumin 3.9 g/dL (3.5-5.0); Albumin Globulin Ratio 1.6 (1.0-2.8); Alkaline Phosphatase 77 U/L (38-126); Aspartate Aminotransferase 33 IU/L (14-36); BUN Creatinine Ratio 38.3 (6-22); Bilirubin Total 0.4 mg/dL (0.2-1.3); Blood Urea Nitrogen 23 mg/dL (7-17); Calcium 8.9 mg/dL (8.4-10.2); Carbon Dioxide 29 mmol/L (22-32); Chloride 105 mmol/L (98-107); Estimated Glomerular Filt Rate > 60.0 mL/min (>60); Globulin 2.4 g/dL (1.7-4.1); Glucose 111 mg/dL (80-110); HEMOLYSIS < 15 (0-50); Sodium 140 mmol/L (137-145); Total Protein 6.3 g/dL (6.3-8.2)
[2019-09-23 14:27] LABS: Hematocrit 40.6 % (36-46); Mean Corpuscular HGB Conc 31.9 % (30-36); Mean Corpuscular Hemoglobin 27.7 PG (26-34); Mean Corpuscular Volume 86.7 fL (80-100); Platelet Count 145 X10^3/uL (150-400); Red Blood Cell Count 4.68 X10^6/uL (4.0-5.2); Red Cell Distribution Width 16.8 % (11.6-14.8); White Blood Cell Count 24.4 X10^3/uL (4.5-11.0)
[2019-09-23 14:28] LABS: Add Manual Diff / Slide Review YES
[2019-09-23 14:30] VITALS: BP 155/74; PULSE 85; RESP 16; O2SAT 96
[2019-09-23 15:00] VITALS: BP 135/84; PULSE 89; O2SAT 99
[2019-09-23 15:30] VITALS: BP 136/80; PULSE 87; RESP 15; O2SAT 98
--- NOTE | 2019-09-23 15:51 | PC.NURSE ---
ambulate with assist, steady gait.
--- NOTE | 2019-09-23 15:52 | PC.NURSE ---
hemostasis. pt smiling in good spirit and cooperative with care. skin warm dry pink.
[2019-09-23 16:18] LABS: Anisocytosis 2+; Neutrophils Absolute Manual 10004 /uL (3000-5900); Total Cells Counted 100
== END 2019-09-23 15:51 | disposition home or self-care (01) ==
PROVIDERS: Emergency Provider Nurse Practitioner Family
DX: S00.83XA Contusion of other part of head, initial encounter (principal); S06.0X9A Concussion with loss of consciousness of unspecified duration, initial encounter; S60.041A Contusion of right ring finger without damage to nail, initial encounter; W18.30XA Fall on same level, unspecified, initial encounter; Z87.311 Personal history of (healed) other pathological fracture
CPT/HCPCS: 36415; 70450; 70486; 72070; 72100; 72125; 80053; 81003; 85025; 85610; 85730; 99283; 99284

== ENCOUNTER 2019-11-26 11:05 | Emergency (ER) | payer MEDICARE, MEDICAID, SELFPAY ==
[2019-05-26 08:59] VITALS: BMI 22.6
[2019-11-26 11:08] VITALS: BP 177/110; PULSE 88; RESP 18; TEMP 36.6; O2SAT 99
--- NOTE | 2019-11-26 11:21 | DI.CT.S_ITS ---
PROCEDURE: CT HEAD/BRAIN WO CON INDICATIONS: Unwitnessed fall TECHNIQUE: Noncontrast 4.5 mm thick angled axial sections acquired from the foramen magnum to the vertex, with coronal and sagittal reformats. For radiation dose reduction, the following was used: automated exposure control, adjustment of mA and/or kV according to patient size. COMPARISON: [facility], CT, CT HEAD/BRAIN WO CON, 09/23/2019, 13:35. FINDINGS: Image quality: Excellent. CSF spaces: Basal cisterns are patent. No extra-axial fluid collections. The ventricles are symmetric in size and shape. There is moderate cerebral volume loss, with resultant ventricular and sulcal prominence redemonstrated. Brain: No intracranial hemorrhage, mass, or mass effect. There are subcortical, periventricular and deep white matter hypodensities consistent with moderate chronic small vessel ischemic changes. There is intracranial internal carotid artery atherosclerosis. Skull and face: Calvarium and visualized facial bones appear intact, without suspicious lesions. Sinuses: Visualized sinuses and mastoids are clear. IMPRESSION: 1. No acute intracranial abnormality. 2. Moderate cerebral volume loss and chronic white matter small vessel ischemic changes. Dictated by: Daniel Anand M.D. on 11/26/2019 at 10:54 Approved by: Daniel Anand M.D. on 11/26/2019 at 10:56
--- NOTE | 2019-11-26 11:22 | DI.CT.S_ITS ---
PROCEDURE: CT CERVICAL SPINE WO CON INDICATIONS: Unwitnessed fall TECHNIQUE: Noncontrast 3 mm thick sections acquired from the skull base to the T4 level. Sagittal and coronal reformats were then constructed. For radiation dose reduction, the following was used: automated exposure control, adjustment of mA and/or kV according to patient size. COMPARISON: [facility], CT, CT CERVICAL SPINE WO CON, 03/11/2018, 8:46. [facility], CT, CT CERVICAL SPINE WO CON, 09/23/2019, 13:35. FINDINGS: Image quality: There is mild motion artifact. Bones: No fractures or dislocations. There is a minimal rightward curvature of the cervicothoracic spine. Minimal retrolisthesis demonstrated at C4-C5. There is minimal anterolisthesis at C3-C4. Findings are unchanged from the prior study. There is multilevel degenerative disc disease including [id number] narrowing at C4-C5 and C5-C6. Mild multilevel facet arthropathy also demonstrated throughout the cervical spine. There is cortical scalloping along the inner table of the occipital bone again noted likely representing arachnoid granulations. These appear similar to the prior studies. Visualized superior ribs are intact. Soft tissues: Prevertebral soft tissues are normal in thickness. No paravertebral hematomas. No apical pneumothoraces. IMPRESSION: 1. No acute fracture or subluxation. 2. Mild degenerative changes within the cervical spine and minimal spondylolisthesis as described. 3. Bony scalloping with associated marked cortical thinning of the occipital bone likely representing arachnoid granulations redemonstrated. Dictated by: Daniel Anand M.D. on 11/26/2019 at 10:56 Approved by: Daniel Anand M.D. on 11/26/2019 at 11:02
[2019-11-26 11:32] LABS: Hemoglobin 13.7 g/dL (12.0-16.0); Mean Corpuscular HGB Conc 32.6 % (30-36); Mean Corpuscular Hemoglobin 28.8 PG (26-34); Mean Corpuscular Volume 88.3 fL (80-100); Platelet Count 142 X10^3/uL (150-400); Red Blood Cell Count 4.75 X10^6/uL (4.0-5.2); Red Cell Distribution Width 15.2 % (11.6-14.8)
[2019-11-26 11:43] LABS: Add Manual Diff / Slide Review YES
[2019-11-26 11:46] LABS: Ammonia (NH3) < 9 umol/L (9-30)
[2019-11-26 11:47] LABS: Creatine Kinase 361 U/L (30-135)
[2019-11-26 11:49] LABS: Alanine Aminotransferase 18 IU/L (<35); Albumin 4.1 g/dL (3.5-5.0); Albumin Globulin Ratio 1.5 (1.0-2.8); Alkaline Phosphatase 60 U/L (38-126); BUN Creatinine Ratio 23.3 (6-22); Bilirubin Total 1.1 mg/dL (0.2-1.3); Blood Urea Nitrogen 14 mg/dL (7-17); Calcium 9.1 mg/dL (8.4-10.2); Carbon Dioxide 29 mmol/L (22-32); Chloride 104 mmol/L (98-107); Estimated Glomerular Filt Rate > 60.0 mL/min (>60); Globulin 2.8 g/dL (1.7-4.1); Glucose 97 mg/dL (80-110); Lipase 42 U/L (23-300); Potassium 4.3 mmol/L (3.4-5.1); Sodium 140 mmol/L (137-145); Total Protein 6.9 g/dL (6.3-8.2)
[2019-11-26 11:51] LABS: HEMOLYSIS 97 (0-50)
--- NOTE | 2019-11-26 12:16 | DI.RAD.S_ITS ---
PROCEDURE: XR HIP W PEL IF DONE RT 2V INDICATIONS: was unable to bear weight after fall TECHNIQUE: AP pelvis with lateral view of the right hip. COMPARISON: None. FINDINGS: Bones: No displaced fractures or dislocations. Pelvic ring appears intact. No suspicious bony lesions. Soft tissues: The visualized bowel gas pattern is normal. No suspicious soft tissue calcifications. IMPRESSION: 1. No displaced fracture or dislocation. If clinical concern persists for a radio-occult fracture, further evaluation may be obtained with CT or MRI. Dictated by: Daniel Anand M.D. on 11/26/2019 at 11:58 Approved by: Daniel Anand M.D. on 11/26/2019 at 12:04
[2019-11-26 12:23] LABS: Neutrophils Absolute Manual 7200 /uL (3000-5900); RBC Morphology Normal Morphology; Smudge Cells 2+; Total Cells Counted 100
--- NOTE | 2019-11-26 12:24 | ED.FALL ---
HPI - Fall <SAL Peterson - Last Filed: 11/26/19 22:50> General Chief Complaint: Fall Stated Complaint: unwitnessed fall, ASA 81 mg Time Seen by Provider: 11/26/19 11:21 Source: EMS Mode of arrival: EMS Limitations: other (memory) History of Present Illness HPI Narrative: This is a pleasantly confused 83-year-old female due to dementia, former smoker, who presents to ED with EMS and family member with chief complain of unwitnessed fall this morning. Daughter reports patient has history of dementia, chronic leukemia, frequent falls and AFib who takes daily baby aspirin. Daughter states patient does not complain of pain even she had spine fracture last May 2019. Patient usually uses a walker to transfer herself to a wheelchair with limited ambulation. Patient was found this morning on the floor by family member and daughter noticed patient was not willing to bear weight on the right leg. Also, daughter noticed patient has been vomiting once a day for last 3 days but unsure of fever and patient does not complain of abdominal pain. Patient is usually incontinent for urination. Related Data Home Medications Medication Instructions Recorded Confirmed DIPYRIDAMOLE (Persantine) 50 mg PO TID #0 06/27/10 05/26/19 MULTIVITAMIN (Multivitamin 1 cap PO EVERY DAY #0 06/27/10 05/25/19 -) docusate sodium [Colace] 100 mg PO DAILY #0 01/21/17 05/25/19 quetiapine [Seroquel] 50 mg PO QDAY #0 01/21/17 05/25/19 lisinopril 10 mg PO BID 03/11/18 05/25/19 sertraline 1 dose PO DIRECTED 03/11/18 05/25/19 aspirin [Adult Low Dose Aspirin] 81 mg PO DAILY 05/25/19 05/25/19 calcium carbonate [Calcium 500] 500 mg PO DAILY 05/25/19 05/25/19 flaxseed oil 1,000 mg PO DAILY 05/25/19 05/25/19 niacin 500 mg PO DAILY 05/25/19 05/25/19 omega 8-are-sws-fish oil [Fish Oil] 1 cap PO DAILY 05/25/19 05/25/19 Previous Rx's Medication Instructions Recorded acetaminophen 650 mg PO Q6HR PRN #60 tab 06/03/19 bisacodyl 10 mg RI PRN PRN #30 ea 06/03/19 celecoxib [Celebrex] 200 mg PO BID #30 cap 06/03/19 lovastatin 20 mg PO DAILY #30 tab 06/03/19 metoprolol tartrate 25 mg PO Q6HR #30 tab 06/03/19 oxybutynin chloride 5 mg PO DAILY #30 tab 06/03/19 oxycodone 5 mg PO Q3HR PRN #40 tab 06/03/19 Allergies Allergy/AdvReac Type Severity Reaction Status Date / Time No Known Drug Allergies Allergy Verified 06/14/19 11:26 Review of Systems <SAL Peterson - Last Filed: 11/26/19 22:50> Review of Systems Narrative: General: Denies fever, chills, fatigue, malaise, sweats. HEENT: Denies sinus pain, ear pain, sore throat, difficulty swallowing, dizziness. Respiratory: Denies dyspnea, cough, wheezing, hemoptysis, sputum. Cardiovascular: Denies chest pain, palpitations, orthopnea, edema. Gastrointestinal: Denies nausea, (+) vomiting, abdominal pain, diarrhea, constipation, melena. : Denies dysuria, frequency, (+) history of urinaryincontinence, hematuria, urinary retention. Musculoskeletal: Denies weakness, joint pain or bony pain. Skin: Denies rash, skin lesions, or other. Neurologic: Denies weakness, headache, numbness, change in speech, (+) baseline confusion from dementia, seizures, incoordination. Psychiatric: No concerning psychosocial issues. 12-point review of systems is negative except for those stated above. Patient History <SAL Peterson - Last Filed: 11/26/19 22:50> Medical History Atrial fibrillation, new onset (Acute) Compression fracture (Acute) Dehydration (Acute) Leukemia (Acute) Memory deficit (Acute) Urinary incontinence (Acute) Social History household members: family Smoking Status: Never smoker alcohol intake: never substance use type: does not use Smoking Status: Never smoker alcohol intake frequency: a few times a month Substance Use Type: does not use Exam <DONAVAN PetersonP - Last Filed: 11/26/19 22:50> Narrative Exam Narrative: GEN: Alert, oriented x 3, well appearing and nourished, and in no acute distress. Head: Normal cephalic, atraumatic. No scalp or temporal tenderness, step-offs, palpable mass or rash. EYES: Pupils are equal, round, and reactive to light and accommodation. Extraocular muscles are intact bilaterally. There is no subconjunctival hemorrhage, exudate and sclera non-icteric. ENT: Bilateral auditory canals and tympanic membranes clear without hemotympanum or drainage. Hearing grossly intact. Nose without bleeding, purulent discharge or deviation. Facial sinuses nontender to palpate. Mucous membrane moist, no mucosal lesion. Throat without erythema, tonsillar hypertrophy or exudate. Uvula in midline, airway patent. Neck: Trachea in midline. No JVD, non-tender in mid cervical without lymphadenopathy. No masses or thyroid megaly. Supple, non-tender and no meningeal signs. CARDIAC: Irregular rhythm without murmurs, gallops, or rubs. No chest wall tenderness. No peripheral edema, cyanosis or pallor. Capillary refill is less than 2 seconds. RESPIRATORY: Lungs are clear to auscultate bilaterally. No cough, wheezes, rales, or rhonchi. No stridor, respiratory distress, increase work of breathing, or accessary muscle used. ABD: Abdomen soft, nontender and non-distended. No guarding or rebound tenderness to palpate. Bowel sounds are normal in all 4 quadrants. There is no palpable masses or organomegaly. EXT: Full painless ROM of all extremities with no loss of sensation, strength, effusion or edema. SKIN: Warm, dry, normal color for patient. No erythema, lesions or rash over visible areas. BACK: Nontender without deformity or crepitance. No flank tenderness. NEUROLOGICAL: Alert and oriented to person, place-hospital when given several options to chose. Sensation and motor function intact bilaterally. No facial droops, dysphasia. PSYCHIATRIC: Good judgement and reason, without hallucinations, abnormal affect or abnormal behaviors during the examination. Initial Vital Signs Initial Vital Signs: Vital Signs Temperature 97.9 F 11/26/19 11:08 Pulse Rate 88 11/26/19 11:08 Respiratory Rate 18 11/26/19 11:08 Blood Pressure 177/110 H 11/26/19 11:08 Pulse Oximetry 99 11/26/19 11:08 <Roberto Metz DO - Last Filed: 11/27/19 06:57> Initial Vital Signs Initial Vital Signs: Vital Signs Temperature 97.9 F 11/26/19 11:08 Pulse Rate 88 11/26/19 11:08 Respiratory Rate 18 11/26/19 11:08 Blood Pressure 177/110 H 11/26/19 11:08 Pulse Oximetry 99 11/26/19 11:08 Scores <[facility] - Last Filed: 11/26/19 22:50> GCS Crowder coma scale eye opening: Spontaneous Chris coma scale verbal response: Confused Crowder coma scale motor response: Obey commands Crowder coma scale total score: 14 Course <[facility] - Last Filed: 11/26/19 22:50> Orders Ordered: Discontinued Medications Sodium Chloride (Normal Saline 0.9%) 1,000 mls @ 200 mls/hr IV CONT BABATUNDE Last Infusion: 11/26/19 14:37 Dose: 0 mls/hr Documented by: Infusion: 11/26/19 14:07 Dose: 999 mls/hr Documented by: Admin: 11/26/19 13:30 Dose: 200 mls/hr Documented by: CALIN Vital Signs Vital signs: Vital Signs - 8 hr 11/26/19 14:45 Pulse Rate 90 Respiratory Rate 18 Blood Pressure [Right Arm] 180/80 H <DO Martin Neely Last Filed: 11/27/19 06:57> Orders Ordered: Discontinued Medications Sodium Chloride (Normal Saline 0.9%) 1,000 mls @ 200 mls/hr IV CONT BABATUNDE Last Infusion: 11/26/19 14:37 Dose: 0 mls/hr Documented by: Infusion: 11/26/19 14:07 Dose: 999 mls/hr Documented by: Admin: 11/26/19 13:30 Dose: 200 mls/hr Documented by: CALIN Vital Signs Vital signs: Vital Signs - 8 hr 11/26/19 14:45 Pulse Rate 90 Respiratory Rate 18 Blood Pressure [Right Arm] 180/80 H MDM - Fall <Olaf Huang [facility] - Last Filed: 11/26/19 22:50> Differential Diagnosis Differential diagnosis: Likely other (fall, syncope, fracture, CHI) Medical Records Attestation: I reviewed the patient's medical records. Lab Data Attestation: I reviewed the patient's lab results. Result diagrams: 11/26/19 11:20 11/26/19 11:20 Labs: Lab Results 11/26/19 11/26/19 11/26/19 Range/Units 11:20 11:20 11:20 WBC 24.0 H (4.5-11.0) X10^3/uL RBC 4.75 (4.0-5.2) X10^6/uL Hgb 13.7 (12.0-16.0) g/dL Hct 42.0 (36-46) % MCV 88.3 (80-100) fL MCH 28.8 (26-34) PG MCHC 32.6 (30-36) % RDW 15.2 H (11.6-14.8) % Plt Count 142 L (150-400) X10^3/uL Neut % (Auto) Not Reportable Lymph % (Auto) Not Reportable [place] % (Auto) Not Reportable Eos % (Auto) Not Reportable Baso % (Auto) Not Reportable Lymph # (Auto) Not Reportable [place] # (Auto) Not Reportable Baso # (Auto) Not Reportable Total Counted 100 Seg Neutrophils % 28.0 L (38-70) % Band Neutrophils % 2.0 L (3-7) % Lymphocytes % (Manual) 66.0 H (25-45) % Monocytes % (Manual) 4.0 (2-11) % Neutrophils # (Manual) 7200 H (3703-3888) /uL Smudge Cells 2+ H RBC Morphology Normal morphology Sodium 140 (137-145) mmol/L Potassium 4.3 (3.4-5.1) mmol/L Chloride 104 (98-107) mmol/L Carbon Dioxide 29 (22-32) mmol/L BUN 14 (7-17) mg/dL Creatinine 0.60 (0.52-1.04) mg/dL Estimated GFR > 60.0 (>60) mL/min BUN/Creatinine Ratio 23.3 H (6-22) Glucose 97 (80-110) mg/dL Calcium 9.1 (8.4-10.2) mg/dL Total Bilirubin 1.1 (0.2-1.3) mg/dL AST TNP ALT 18 (<35) IU/L Alkaline Phosphatase 60 (38-126) U/L Ammonia < 9 L (9-30) umol/L Total Creatine Kinase (30-135) U/L Total Protein 6.9 (6.3-8.2) g/dL Albumin 4.1 (3.5-5.0) g/dL Globulin 2.8 (1.7-4.1) g/dL Albumin/Globulin Ratio 1.5 (1.0-2.8) Lipase 42 (23-300) U/L Urine RBC (0-5/HPF) Urine WBC (0-5/HPF) Urine Bacteria (None) Ur Culture Indicated? 11/26/19 11/26/19 Range/Units 11:20 13:45 WBC (4.5-11.0) X10^3/uL RBC (4.0-5.2) X10^6/uL Hgb (12.0-16.0) g/dL Hct (36-46) % MCV (80-100) fL MCH (26-34) PG MCHC (30-36) % RDW (11.6-14.8) % Plt Count (150-400) X10^3/uL Neut % (Auto) Lymph % (Auto) [place] % (Auto) Eos % (Auto) Baso % (Auto) Lymph # (Auto) [place] # (Auto) Baso # (Auto) Total Counted Seg Neutrophils % (38-70) % Band Neutrophils % (3-7) % Lymphocytes % (Manual) (25-45) % Monocytes % (Manual) (2-11) % Neutrophils # (Manual) (6919-0862) /uL Smudge Cells RBC Morphology Sodium (137-145) mmol/L Potassium (3.4-5.1) mmol/L Chloride (98-107) mmol/L Carbon Dioxide (22-32) mmol/L BUN (7-17) mg/dL Creatinine (0.52-1.04) mg/dL Estimated GFR (>60) mL/min BUN/Creatinine Ratio (6-22) Glucose (80-110) mg/dL Calcium (8.4-10.2) mg/dL Total Bilirubin (0.2-1.3) mg/dL AST ALT (<35) IU/L Alkaline Phosphatase (38-126) U/L Ammonia (9-30) umol/L Total Creatine Kinase 361 H (30-135) U/L Total Protein (6.3-8.2) g/dL Albumin (3.5-5.0) g/dL Globulin (1.7-4.1) g/dL Albumin/Globulin Ratio (1.0-2.8) Lipase (23-300) U/L Urine RBC 5-10/hpf H (0-5/HPF) Urine WBC None seen (0-5/HPF) Urine Bacteria None seen (None) Ur Culture Indicated? Cult not indicated Urine Dip Bedside Urine Glucose Negative Bedside Urine Bilirubin - Negative Bedside Urine Ketone - Negative Urine Specific [place] 1.015 Bedside Urine Occult Blood + Bedside Urine pH 8.5 Bedside Urine Protein +/- 15 Bedside Urine Urobilinogen - Negative Bedside Urine Nitrite - Negative Bedside Urine Leukocytes - Negative Esterase Imaging Data CT-Head: Radiologist's Impression: According to PACS reports-no acute intracranial abnormality. Moderate cerebral volume loss and chronic white matter small-vessel ischemic changes. Read by Dr. Daniel Anand. CT-C spine: Radiologist's Impression: No acute fracture or subluxation. Mild degenerative changes within the cervical spine and minimal spondylolisthesis. Bony scalloping with associated marked cortical thinning of the occipital bones likely representing arachnoid granulations redemonstrated. Read by Dr. Daniel Anand XR-Hip and pelvis RT: Radiologist's Impression: [place] [address] XRay Report Signed Patient: Amber Mota BMR#: [id number] : 5Acct:[id number] Age/Sex: 83 / FDate of Service: 11/26/19 Loc: ED Accession Number: [id number] Procedure: XR hip w pel if done RT 2V Ordering Provider: lOaf Huang PROCEDURE: XR HIP W PEL IF DONE RT 2V INDICATIONS: was unable to bear weight after fall TECHNIQUE: AP pelvis with lateral view of the right hip. COMPARISON: None. FINDINGS: Bones: No displaced fractures or dislocations. Pelvic ring appears intact. No suspicious bony lesions. Soft tissues: The visualized bowel gas pattern is normal. No suspicious soft tissue calcifications. IMPRESSION: 1. No displaced fracture or dislocation. If clinical concern persists for a radio-occult fracture, further evaluation may be obtained with CT or MRI. Dictated by: Daniel Anand M.D. on 11/26/2019 at 11:58 Approved by: Daniel Anand M.D. on 11/26/2019 at 12:04 ECG Data Interpretation: SR with PAC rate at 89. Left [place] deviation RI int 146, QRS dur 72, QT/QTc 392/[address] elevation or depression Previous EKG shows afib MDM Narrative Medical decision making narrative: This is a pleasantly confused 83 year female who came in to ED from home by EMS after she had sustained a fall and found on the floor for unknown duration of period. Daughter of patient reports patient had emesis times once per day for last 3 days. Patient's physical exam was on remarkable and denies any discomfort. Patient was afebrile with stable vital signs. Given patient's age and difficulty getting information from the patient, obtained CT of head and neck which were negative for acute findings. Daughter of patient reports patient had difficult time bearing weight on right-sided lower extremities even though patient did not exhibit any discomfort with deep palpation and movement. X-ray of right hip/pelvis obtained with negative for acute findings. Patient has chronic leukemia and showed white count of 24 today (in the past ranged from 54.6-18.8). H&H was stable. Chemistry test was unremarkable except mildy elevated BUN/creatinine ratio of 23.3 and total CK of 361. Patient was medicated with 500 mL of normal saline bolus. Ammonia level was normal. Urine test was negative for infection. According to daughter, patient hardly walks she uses walker to move herself from bed to bedside commode and uses wheelchair for mobility at home. However, patient has been falling frequently with unstable gait. Patient usually stays at home alone during days when family members are work and has a history of dementia and problem with memories. When discussing with family member on test findings and plan to discharge patient to home, daughter states she has difficult time managing the patient's care at home at this time. The patient has been staying with daughter last 11 years. Patient instructed to follow-up with primary care physician for referrals for home health care, physical therapy, occupational therapy for evaluation for unstable gaits and treatment. Patient's daughter states this has been done in the past. I discussed with daughter that to consider long-term care facility for the patient and her safety and she states there were 3 visits from geriatric social work professor in the past but there was no follow-ups made from these visits and she had not follow-up with phone calls. Discussed that the patient was not meeting the criteria for admission today and is not be able be transferred to LTC facility from ER and should follow up with PCP with these requests. The daughter was upset when she was informed with these options. PT was not available to evaluate patient's gait and strength at the time. reinforcing iron worker helper has been contacted for the assistance with community resources and to consider for long-term care. Vidhya was able to visit the patient member's family member at the bedside provided with community resources and she will be following up tomorrow morning and contact a family member as well. Patient was able to stand with a walker and assistance. The family member verbalized understanding in agreement with the treatment plan and discharged to home. <Roberto Metz, DO - Last Filed: 11/27/19 06:57> Lab Data Labs: Lab Results 11/26/19 11/26/19 11/26/19 Range/Units 11:20 11:20 11:20 WBC 24.0 H (4.5-11.0) X10^3/uL RBC 4.75 (4.0-5.2) X10^6/uL Hgb 13.7 (12.0-16.0) g/dL Hct 42.0 (36-46) % MCV 88.3 (80-100) fL MCH 28.8 (26-34) PG MCHC 32.6 (30-36) % RDW 15.2 H (11.6-14.8) % Plt Count 142 L (150-400) X10^3/uL Neut % (Auto) Not Reportable Lymph % (Auto) Not Reportable [place] % (Auto) Not Reportable Eos % (Auto) Not Reportable Baso % (Auto) Not Reportable Lymph # (Auto) Not Reportable [place] # (Auto) Not Reportable Baso # (Auto) Not Reportable Total Counted 100 Seg Neutrophils % 28.0 L (38-70) % Band Neutrophils % 2.0 L (3-7) % Lymphocytes % (Manual) 66.0 H (25-45) % Monocytes % (Manual) 4.0 (2-11) % Neutrophils # (Manual) 7200 H (5484-3476) /uL Smudge Cells 2+ H RBC Morphology Normal morphology Sodium 140 (137-145) mmol/L Potassium 4.3 (3.4-5.1) mmol/L Chloride 104 (98-107) mmol/L Carbon Dioxide 29 (22-32) mmol/L BUN 14 (7-17) mg/dL Creatinine 0.60 (0.52-1.04) mg/dL Estimated GFR > 60.0 (>60) mL/min BUN/Creatinine Ratio 23.3 H (6-22) Glucose 97 (80-110) mg/dL Calcium 9.1 (8.4-10.2) mg/dL Total Bilirubin 1.1 (0.2-1.3) mg/dL AST TNP ALT 18 (<35) IU/L Alkaline Phosphatase 60 (38-126) U/L Ammonia < 9 L (9-30) umol/L Total Creatine Kinase (30-135) U/L Total Protein 6.9 (6.3-8.2) g/dL Albumin 4.1 (3.5-5.0) g/dL Globulin 2.8 (1.7-4.1) g/dL Albumin/Globulin Ratio 1.5 (1.0-2.8) Lipase 42 (23-300) U/L Urine RBC (0-5/HPF) Urine WBC (0-5/HPF) Urine Bacteria (None) Ur Culture Indicated? 11/26/19 11/26/19 Range/Units 11:20 13:45 WBC (4.5-11.0) X10^3/uL RBC (4.0-5.2) X10^6/uL Hgb (12.0-16.0) g/dL Hct (36-46) % MCV (80-100) fL MCH (26-34) PG MCHC (30-36) % RDW (11.6-14.8) % Plt Count (150-400) X10^3/uL Neut % (Auto) Lymph % (Auto) [place] % (Auto) Eos % (Auto) Baso % (Auto) Lymph # (Auto) [place] # (Auto) Baso # (Auto) Total Counted Seg Neutrophils % (38-70) % Band Neutrophils % (3-7) % Lymphocytes % (Manual) (25-45) % Monocytes % (Manual) (2-11) % Neutrophils # (Manual) (4446-8133) /uL Smudge Cells RBC Morphology Sodium (137-145) mmol/L Potassium (3.4-5.1) mmol/L Chloride (98-107) mmol/L Carbon Dioxide (22-32) mmol/L BUN (7-17) mg/dL Creatinine (0.52-1.04) mg/dL Estimated GFR (>60) mL/min BUN/Creatinine Ratio (6-22) Glucose (80-110) mg/dL Calcium (8.4-10.2) mg/dL Total Bilirubin (0.2-1.3) mg/dL AST ALT (<35) IU/L Alkaline Phosphatase (38-126) U/L Ammonia (9-30) umol/L Total Creatine Kinase 361 H (30-135) U/L Total Protein (6.3-8.2) g/dL Albumin (3.5-5.0) g/dL Globulin (1.7-4.1) g/dL Albumin/Globulin Ratio (1.0-2.8) Lipase (23-300) U/L Urine RBC 5-10/hpf H (0-5/HPF) Urine WBC None seen (0-5/HPF) Urine Bacteria None seen (None) Ur Culture Indicated? Cult not indicated Urine Dip Bedside Urine Glucose Negative Bedside Urine Bilirubin - Negative Bedside Urine Ketone - Negative Urine Specific [place] 1.015 Bedside Urine Occult Blood + Bedside Urine pH 8.5 Bedside Urine Protein +/- 15 Bedside Urine Urobilinogen - Negative Bedside Urine Nitrite - Negative Bedside Urine Leukocytes - Negative Esterase Discharge Plan Departure Patient Disposition: Home Clinical Impression: Fall Qualifiers: Encounter type: initial encounter Qualified Code(s): W19.XXXA - Unspecified fall, initial encounter Discharge Date/Time: 11/26/19 16:25 Instructions: How to Prevent Falls Activity Restrictions/Additional Instructions: You have been diagnosed with [ frequent falls and unsteady gait. CT tests of head, c spine, and pelvis/hip with negative findings. Blood counts were stable. Electrolyte tests were unremarkable. CK test result was mildly elevated as 361 with signs of mild dehydration which has been corrected with IV fluid. Urine test result does not indicate infection]. What to do: *Take your medications as directed. No new medications to go home with. [employer] BELT FINISHER was contacted to provide you with some resources to help with you and to navigate the process with your mother's assistance and possible termite inspector care assistance. *Follow up with your primary care provider in 2-3 days, call for an appointment. Let them know you were seen in the ED and that we asked you to be seen in follow up. Please follow-up with a referral for social work, physical therapy, occupational therapy and evaluation. *Return to ED if you have any new, worsening, or concerning symptoms, such as [chest pain, breathing difficulty, unable to tolerate fluids, pain, fever or any acute concerns]. Prescriptions: No Action DIPYRIDAMOLE (Persantine) 50 mg PO TID Qty: 0 RF: 0 MULTIVITAMIN (Multivitamin -) 1 cap PO EVERY DAY Qty: 0 RF: 0 docusate sodium [Colace] 100 MG capsule 100 mg PO DAILY Qty: 0 RF: 0 quetiapine [Seroquel] 50 MG tablet 50 mg PO QDAY Qty: 0 RF: 0 sertraline 100 mg tablet 1 dose PO DIRECTED RF: 0 lisinopril 10 mg tablet 10 mg PO BID RF: 0 omega 5-mos-lri-fish oil [Fish Oil] 1,000 mg (120 mg-180 mg) Capsule 1 cap PO DAILY RF: 0 flaxseed oil 1,000 mg Capsule 1,000 mg PO DAILY RF: 0 niacin 500 mg Tablet 500 mg PO DAILY RF: 0 aspirin [Adult Low Dose Aspirin] 81 mg Tablet,Delayed Release (Dr/Ec) 81 mg PO DAILY RF: 0 calcium carbonate [Calcium 500] 500 mg calcium (1,250 mg) Tablet 500 mg PO DAILY RF: 0 celecoxib [Celebrex] 200 mg Capsule 200 mg PO BID Qty: 30 RF: 0 acetaminophen 325 mg Tablet 650 mg PO Q6HR PRN (Reason: As Needed For Fever/Mild Pain) Qty: 60 RF: 0 bisacodyl 10 mg Suppository 10 mg RI PRN PRN (Reason: Constipation) Qty: 30 RF: 0 lovastatin 20 mg Tablet 20 mg PO DAILY Qty: 30 RF: 0 oxybutynin chloride 5 mg Tablet 5 mg PO DAILY Qty: 30 RF: 0 oxycodone 5 mg Tablet 5 mg PO Q3HR PRN (Reason: Pain, Moderate (4-6)) Qty: 40 RF: 0 metoprolol tartrate 25 mg Tablet 25 mg PO Q6HR Qty: 30 RF: 0 <Roberto Metz, DO - Last Filed: 11/27/19 06:57> Sign Out Provider Sign Out Attestation: Dr Metz Co-Sign Statement: I was available for consultation during this patient's emergency department visit. This chart is signed by myself for administrative purposes only. I did not have direct contact with this patient during this visit. They were seen independently by the APC.
[2019-11-26 13:09] VITALS: BP 138/77; PULSE 85; RESP 18; O2SAT 97
--- NOTE | 2019-11-26 13:23 | PC.NURSE ---
Pt arrived via EMS with c-spine immobilized as precaution. No tenderness upon palpation.
[2019-11-26] MEDS: SODIUM CHLORIDE 0.9% 1,000 ML 200 ML IV (13:30)
[2019-11-26 13:58] LABS: Bacteria Urine None Seen; WBC Urine None Seen (0-5/HPF)
[2019-11-26 14:03] LABS: RBC Urine 5-10/HPF (0-5/HPF)
[2019-11-26 14:04] LABS: Culture Indicated Urine Cult Not Indicated
[2019-11-26 14:45] VITALS: BP 180/80; PULSE 90; RESP 18
--- NOTE | 2019-11-27 09:31 | CM.SWNOTE ---
Addendum entered by Katherine Hallman 11/27/19 16:30: Spoke with Kris at [facility] and he reports that he will touch base with PCP office. Notified daughter of contact. Hopeful that HH can be arranged in outpatient setting. Faxed [facility] expedited referral and received confirmation. 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 Patient is a 83yr old female presenting to the ED via private vehicle after GLF fall? Daughter/Senia Hallman is primary caregiver in the home and at bedside. Additional family members at bedside include granddaughter, and great grandchildren. Spoke with ED provider/SAL Peterson. She reports patient medically cleared for discharge home. At this time no medical diagnosis to admit patient for hospitalization. Documented medical history includes AFIB, Compression fx, dehydration, leukemia, memory deficit, and urinary incontinence. PCP confirmed to be at [facility]# [phone]. Daughter reports patient sees JULIETA Neal. Met with patient and family explained LADLE REPAIRMAN role. Daughter reports that she has had increased difficulty caring for her Mother in the home. Daughter indicates patient requiring more assistance with ADL's than she can provide. LADLE REPAIRMAN discussed long-term options. Patient has 1)Medicare 2)Medicaid as payors. Daughter unsure if patient has applied for [facility]? Currently daughter reports no services in the residence. Notified daughter that LADLE REPAIRMAN would put in expedited referral for [facility]. In addition, encouraged daughter to follow up with PCP in AM on 11-27-19 for home health referral. Daughter provided with senior resource guide with numbers marked for outpatient f/u. Patient resides with daughter in residence in [place] Daughter reports that patient has been primarily w/c bound. Daughter reports increased difficulty with changing patient's diaper. Patient previously has been able to stand up while being changed however, due to increased weakness/falls daughter has had more difficulty. Plus daughter and her spouse work outside the residence. In addition they have disabled daughter in the residence that they care for. During interview patient was able to stand when asked. However, she appeared unstable to stay standing. Daughter did become very emotional during visit, indicating that she is just run down. LADLE REPAIRMAN provided emotional support and reiterated the importance of patient following up with PCP for HH and getting [facility] for long-term services. Expedited application completed and faxed on 11-27-19. In addition, message left with PCP office requesting outpatient appointment MICHELINE. Patient and daughter provided LADLE REPAIRMAN with verbal permission to assist with [facility] and call PCP office in AM on 11-27-19. Daughter notified this AM that office has been called and expedited [facility] application faxed. P: Patient discharging home on 11-26-2019. LADLE REPAIRMAN to follow up with [facility] and PCP. Patient and daughter aware and agreeable. ANALILIA Olmos
== END 2019-11-26 16:25 | disposition home or self-care (01) ==
PROVIDERS: Emergency Medicine; Emergency Provider Nurse Practitioner Family
DX: R41.0 Disorientation, unspecified (principal); F03.90 Unspecified dementia, unspecified severity, without behavioral disturbance, psychotic disturbance, mood disturbance, and anxiety; R79.89 Other specified abnormal findings of blood chemistry; W19.XXXA Unspecified fall, initial encounter; C95.10 Chronic leukemia of unspecified cell type not having achieved remission
CPT/HCPCS: 36415; 70450; 72125; 73502; 80053; 81003; 81015; 82140; 82550; 83690; 85025; 93005; 96360; 99285

== ENCOUNTER 2019-12-21 13:00 | Emergency (ER) | payer MEDICARE, MEDICAID, SELFPAY ==
[2019-05-26 08:59] VITALS: BMI 22.6
[2019-12-21] VITALS (10 sets, daily range): BP systolic 129–196; BP diastolic 70–92; PULSE 87–104; RESP 18–21; TEMP 37; O2SAT 93–98; BMI 24.3
--- NOTE | 2019-12-21 13:32 | DI.RAD.S_ITS ---
PROCEDURE: XR ABDOMEN 1V INDICATIONS: vomiting TECHNIQUE: One view of the abdomen acquired. COMPARISON: [facility], CR, XR LUMBAR SPINE 2-3V, 09/23/2019, 13:26. [facility], CR, XR THORACIC SPINE 2V, 09/23/2019, 13:26. FINDINGS: Surgical changes and devices: Thoracolumbar spine fusion. Bowel: Bowel gas pattern is normal. There is a large amount of stool in colon. Soft tissues: No suspicious abdominal calcifications. Visualized solid organ contours appear normal in size. Bones: No suspicious bony lesions. T7 and T12 compression fractures. IMPRESSION: Large amounts and colon consistent with fecal impaction. Dictated by: Paty House M.D. on 12/21/2019 at 14:21 Approved by: Paty House M.D. on 12/21/2019 at 14:23
--- NOTE | 2019-12-21 13:32 | DI.RAD.S_ITS ---
PROCEDURE: XR CHEST 1V INDICATIONS: sob TECHNIQUE: One view of the chest was acquired. COMPARISON: [facility], CR, XR CHEST 2V, 05/25/2019, 19:27. [facility], CR, XR CHEST 1V, 07/13/2019, 1:37. FINDINGS: Surgical changes and devices: Thoracolumbar spine fusion. Lungs and pleura: There is chronic diffuse interstitial prominence. No pleural effusions or pneumothorax. Mediastinum: Mediastinal contours appear normal. Heart size is moderately increased. Tortuous thoracic aorta which appears aneurysmal. Bones and chest wall: No suspicious bony lesions. Overlying soft tissues appear unremarkable. IMPRESSION: 1. No acute cardiopulmonary disease. 2. Moderate cardiomegaly. 3. Chronic interstitial prominence. 4. Tortuous aorta appears aneurysmal. If clinically indicated, CT may be helpful. Dictated by: Paty House M.D. on 12/21/2019 at 14:10 Approved by: Paty House M.D. on 12/21/2019 at 14:21
--- NOTE | 2019-12-21 13:36 | ED.NAVMDI ---
HPI - Nausea/Vomiting/Diarrhea <Sofia Sanabria, [employer]-BC - Last Filed: 12/21/19 17:44> General Chief complaint: Nausea/Vomiting/Diarrhea Stated complaint: NVD/Fever/Cough/Fatigue Time Seen by Provider: 12/21/19 13:18 Source: patient and family Mode of arrival: Wheelchair Limitations: altered mental status (dementia ) History of Present Illness HPI Narrative: Her the patient is an 84-year-old female nonsmoker with history of memory deficit who presents with a chief complaint of low-grade fevers, nausea, vomiting, shortness of breath and a dry cough for the past week. All family members in the house have similar symptoms, though to varying degrees. Patient does have dementia, she presents with the daughter who gives the majority of her history and symptoms. Patient has been vomiting at least once per day, at various times. She has not taken anything to feel better at home. She does have a history of AFib, T11 compression fracture, memory deficit and urinary incontinence. That the patient has been very tired with decreased appetite. Related Data Home Medications Medication Instructions Recorded Confirmed DIPYRIDAMOLE (Persantine) 50 mg PO TID #0 06/27/10 05/26/19 MULTIVITAMIN (Multivitamin 1 cap PO EVERY DAY #0 06/27/10 05/25/19 -) docusate sodium [Colace] 100 mg PO DAILY #0 01/21/17 05/25/19 quetiapine [Seroquel] 50 mg PO QDAY #0 01/21/17 05/25/19 lisinopril 10 mg PO BID 03/11/18 05/25/19 sertraline 1 dose PO DIRECTED 03/11/18 05/25/19 aspirin [Adult Low Dose Aspirin] 81 mg PO DAILY 05/25/19 05/25/19 calcium carbonate [Calcium 500] 500 mg PO DAILY 05/25/19 05/25/19 flaxseed oil 1,000 mg PO DAILY 05/25/19 05/25/19 niacin 500 mg PO DAILY 05/25/19 05/25/19 omega 1-fws-spt-fish oil [Fish Oil] 1 cap PO DAILY 05/25/19 05/25/19 Previous Rx's Medication Instructions Recorded acetaminophen 650 mg PO Q6HR PRN #60 tab 06/03/19 bisacodyl 10 mg MA PRN PRN #30 ea 06/03/19 celecoxib [Celebrex] 200 mg PO BID #30 cap 06/03/19 lovastatin 20 mg PO DAILY #30 tab 06/03/19 metoprolol tartrate 25 mg PO Q6HR #30 tab 06/03/19 oxybutynin chloride 5 mg PO DAILY #30 tab 06/03/19 oxycodone 5 mg PO Q3HR PRN #40 tab 06/03/19 furosemide 20 mg PO DAILY #14 tab 12/21/19 ondansetron 4 mg PO Q6H PRN #14 tab 12/21/19 Allergies Allergy/AdvReac Type Severity Reaction Status Date / Time No Known Drug Allergies Allergy Verified 06/14/19 11:26 Review of Systems <MANUELA Kulkarni - Last Filed: 12/21/19 17:44> Review of Systems Narrative: GENERAL: See HPI HEENT: Denies sinus pain, ear pain, sore throat, difficulty swallowing, dizziness. RESPIRATORY: See HPI CARDIOVASCULAR: Denies chest pain, palpitations, orthopnea, edema, GASTROINTESTINAL: See HPI : Denies dysuria, frequency, incontinence, hematuria, urinary retention. MUSCULOSKELETAL: denies weakness, joint pain, or bony pain SKIN: Denies rash, skin lesions, or other NEUROLOGIC: Denies weakness, headache, numbness, change in speech, confusion, seizures, incoordination. PSYCHIATRIC: No concerning psychosocial issues. 12 point review of systems is negative except for those stated above Patient History <MANUELA Kulkarni - Last Filed: 12/21/19 17:44> Medical History Atrial fibrillation, new onset (Acute) Compression fracture (Acute) Dehydration (Acute) Leukemia (Acute) Memory deficit (Acute) Urinary incontinence (Acute) Social History household members: family Smoking Status: Never smoker alcohol intake: never substance use type: does not use Smoking Status: Never smoker alcohol intake frequency: a few times a month Substance Use Type: does not use Exam <MANUELA Kulkarni - Last Filed: 12/21/19 17:44> Narrative Exam Narrative: GENERAL: Elderly female lying on stretcher with mask on in no acute distress HEAD: Atraumatic. Normocephalic. No temporal or scalp tenderness. EYES: Pupils equal round and reactive. Extraocular motions intact. No scleral icterus. No injection or drainage. ENT: Nose without bleeding, purulent drainage or septal hematoma. Throat without erythema, tonsillar hypertrophy or exudate. Uvula midline. Airway patent. NECK: Trachea midline. No JVD or lymphadenopathy. Supple, nontender, no meningeal signs. CARDIOVASCULAR: Regular rate and rhythm without murmurs, gallops, or rubs. RESPIRATORY: Clear to auscultation. Breath sounds equal bilaterally. No wheezes, rales, or rhonchi. No cough. No increased respiratory effort. No accessory muscle use. GASTROINTESTINAL: Abdomen soft, non-tender, nondistended. No hepato-splenomegaly, or palpable masses. No guarding. Active bowel sounds all 4 quadrants. EXTREMITIES: No clubbing, cyanosis, or edema. No joint tenderness, effusion, or edema noted. BACK: Nontender without deformity or crepitance. No flank tenderness. NEURO: AOx3. SKIN: No rash or erythema on visible skin Initial Vital Signs Initial Vital Signs: Vital Signs Temperature 98.6 F 12/21/19 13:14 Pulse Rate 104 H 12/21/19 13:14 Respiratory Rate 18 12/21/19 13:14 Blood Pressure 129/76 12/21/19 13:14 Pulse Oximetry 93 12/21/19 13:14 <Roberto Metz DO - Last Filed: 12/21/19 17:50> Initial Vital Signs Initial Vital Signs: Vital Signs Temperature 98.6 F 12/21/19 13:14 Pulse Rate 104 H 12/21/19 13:14 Respiratory Rate 18 12/21/19 13:14 Blood Pressure 129/76 12/21/19 13:14 Pulse Oximetry 93 12/21/19 13:14 Course <MANUELA Kulkarni - Last Filed: 12/21/19 17:44> Orders Ordered: ED Orders 12/21/19 13:20 C-Reactive Protein Quant Stat Complete Blood Count AUTO DIFF Stat Comprehensive Metabolic Panel Stat D Dimer Stat Ferritin Stat Lactate (Lactic Acid) Stat Magnesium Stat NT-proBNP (BNP-Adult 18+) Stat Partial Thromboplastin Time Stat Procalcitonin Stat Prothrombin Time INR Stat Troponin & CK Cardiac Panel Stat 12/21/19 13:32 XR abdomen 1V Stat XR chest 1V Stat 12/21/19 13:45 Influenza A & B (PCR) Stat 12/21/19 13:47 EKG-12 Lead Stat 12/21/19 14:30 Blood Culture Stat 12/21/19 15:15 CT chest w con Stat Sodium Chloride (Normal Saline 0.9%) 1,000 mls @ 150 mls/hr IV CONT BABATUNDE Last Infusion: 12/21/19 17:46 Dose: 0 mls/hr Documented by: Admin: 12/21/19 15:45 Dose: 150 mls/hr Documented by: MARTIN Discontinued Medications Albuterol (Ventolin Hfa Prepack) 1 box MISC SEEINSTR ONE Stop: 12/21/19 16:57 Last Admin: 12/21/19 17:09 Dose: 1 box Documented by: VERNA Furosemide (Lasix) 20 mg PO NOW ONE Stop: 12/21/19 17:07 Last Admin: 12/21/19 17:26 Dose: 20 mg Documented by: MARTIN Sodium Chloride (Normal Saline 0.9%) 1,000 mls @ 1,000 mls/hr IV BOLUS ONE Stop: 12/21/19 16:24 Last Admin: 12/21/19 17:26 Dose: Not Given Documented by: MARTIN Vital Signs Vital signs: Vital Signs - 8 hr 12/21/19 13:14 12/21/19 13:30 12/21/19 14:00 Temperature 98.6 F Pulse Rate 104 H 91 H 88 Respiratory Rate 18 20 19 Blood Pressure 129/76 Blood Pressure [Left Arm] 137/70 154/85 H Pulse Oximetry 93 94 98 12/21/19 14:30 12/21/19 14:35 12/21/19 15:00 Temperature Pulse Rate 88 87 94 H Respiratory Rate 20 21 21 Blood Pressure Blood Pressure [Left Arm] 154/85 H 170/82 H 196/92 H Pulse Oximetry 98 98 94 12/21/19 15:30 12/21/19 16:00 12/21/19 17:10 Temperature Pulse Rate 94 H 93 H 98 H Respiratory Rate 21 20 Blood Pressure Blood Pressure [Left Arm] 178/87 H 187/75 H Pulse Oximetry 96 96 95 12/21/19 17:24 Temperature Pulse Rate 93 H Respiratory Rate 20 Blood Pressure Blood Pressure [Left Arm] 158/72 H Pulse Oximetry 94 <Roberto Isaías, DO - Last Filed: 12/21/19 17:50> Orders Ordered: ED Orders 12/21/19 13:20 C-Reactive Protein Quant Stat Complete Blood Count AUTO DIFF Stat Comprehensive Metabolic Panel Stat D Dimer Stat Ferritin Stat Lactate (Lactic Acid) Stat Magnesium Stat NT-proBNP (BNP-Adult 18+) Stat Partial Thromboplastin Time Stat Procalcitonin Stat Prothrombin Time INR Stat Troponin & CK Cardiac Panel Stat 12/21/19 13:32 XR abdomen 1V Stat XR chest 1V Stat 12/21/19 13:45 Influenza A & B (PCR) Stat 12/21/19 13:47 EKG-12 Lead Stat 12/21/19 14:30 Blood Culture Stat 12/21/19 15:15 CT chest w con Stat Sodium Chloride (Normal Saline 0.9%) 1,000 mls @ 150 mls/hr IV CONT BABATUNDE Last Infusion: 12/21/19 17:46 Dose: 0 mls/hr Documented by: Admin: 12/21/19 15:45 Dose: 150 mls/hr Documented by: MARTIN Discontinued Medications Albuterol (Ventolin Hfa Prepack) 1 box MISC SEEINSTR ONE Stop: 12/21/19 16:57 Last Admin: 12/21/19 17:09 Dose: 1 box Documented by: VERNA Furosemide (Lasix) 20 mg PO NOW ONE Stop: 12/21/19 17:07 Last Admin: 12/21/19 17:26 Dose: 20 mg Documented by: MARTIN Sodium Chloride (Normal Saline 0.9%) 1,000 mls @ 1,000 mls/hr IV BOLUS ONE Stop: 12/21/19 16:24 Last Admin: 12/21/19 17:26 Dose: Not Given Documented by: MARTIN Vital Signs Vital signs: Vital Signs - 8 hr 12/21/19 13:14 12/21/19 13:30 12/21/19 14:00 Temperature 98.6 F Pulse Rate 104 H 91 H 88 Respiratory Rate 18 20 19 Blood Pressure 129/76 Blood Pressure [Left Arm] 137/70 154/85 H Pulse Oximetry 93 94 98 12/21/19 14:30 12/21/19 14:35 12/21/19 15:00 Temperature Pulse Rate 88 87 94 H Respiratory Rate 20 21 21 Blood Pressure Blood Pressure [Left Arm] 154/85 H 170/82 H 196/92 H Pulse Oximetry 98 98 94 12/21/19 15:30 12/21/19 16:00 12/21/19 17:10 Temperature Pulse Rate 94 H 93 H 98 H Respiratory Rate 21 20 Blood Pressure Blood Pressure [Left Arm] 178/87 H 187/75 H Pulse Oximetry 96 96 95 12/21/19 17:24 Temperature Pulse Rate 93 H Respiratory Rate 20 Blood Pressure Blood Pressure [Left Arm] 158/72 H Pulse Oximetry 94 MDM - Nausea/Vomiting/Diarrhea <RAMONA Kulkarni-BC - Last Filed: 12/21/19 17:44> Lab Data Result diagrams: 12/21/19 13:20 12/21/19 13:20 Labs: Lab Results 12/21/19 12/21/19 12/21/19 Range/Units 13:20 13:20 13:20 WBC 21.6 H (4.5-11.0) X10^3/uL RBC 4.52 (4.0-5.2) X10^6/uL Hgb 12.9 (12.0-16.0) g/dL Hct 39.7 (36-46) % MCV 87.8 (80-100) fL MCH 28.5 (26-34) PG MCHC 32.5 (30-36) % RDW 14.8 (11.6-14.8) % Plt Count 204 (150-400) X10^3/uL Neut % (Auto) Not Reportable Lymph % (Auto) Not Reportable [place] % (Auto) Not Reportable Eos % (Auto) Not Reportable Baso % (Auto) Not Reportable Lymph # (Auto) Not Reportable [place] # (Auto) Not Reportable Baso # (Auto) Not Reportable Total Counted 100 Seg Neutrophils % 30.0 L (38-70) % Lymphocytes % (Manual) 64.0 H (25-45) % Atypical Lymphs % 3.0 H ( - 0) % Monocytes % (Manual) 2.0 (2-11) % Eosinophils % (Manual) 1.0 L (2-4) % Neutrophils # (Manual) 6480 H (0936-8832) /uL Smudge Cells 1+ H RBC Morphology Normal morphology PT 12.6 (10.1-12.7) SECONDS INR 1.1 (0.9-1.3) APTT 25 L (26.4-36.2) SECONDS D-Dimer (<230) ng/mL Sodium (137-145) mmol/L Potassium (3.4-5.1) mmol/L Chloride (98-107) mmol/L Carbon Dioxide (22-32) mmol/L BUN (7-17) mg/dL Creatinine (0.52-1.04) mg/dL Estimated GFR (>60) mL/min BUN/Creatinine Ratio (6-22) Glucose (80-110) mg/dL Lactate (0.7-2.1) mmol/L Calcium (8.4-10.2) mg/dL Magnesium 2.6 H (1.6-2.3) mg/dL Ferritin (11-264) ng/mL Total Bilirubin (0.2-1.3) mg/dL AST (14-36) IU/L ALT (<35) IU/L Alkaline Phosphatase (38-126) U/L Total Creatine Kinase 87 (30-135) U/L CK-MB (CK-2) TNP CK-MB (CK-2) Rel Index TNP Troponin I < 0.012 (0.01-0.034) ng/mL C-Reactive Protein (<1.0) mg/dL NT-Pro-B Natriuret Pep 2090 H (<450) pg/mL Total Protein (6.3-8.2) g/dL Albumin (3.5-5.0) g/dL Globulin (1.7-4.1) g/dL Albumin/Globulin Ratio (1.0-2.8) Procalcitonin (<0.5) ng/mL Influenza A (RT-PCR) (NEGATIVE) Influenza B (RT-PCR) (NEGATIVE) 12/21/19 12/21/19 12/21/19 Range/Units 13:20 13:20 13:20 WBC (4.5-11.0) X10^3/uL RBC (4.0-5.2) X10^6/uL Hgb (12.0-16.0) g/dL Hct (36-46) % MCV (80-100) fL MCH (26-34) PG MCHC (30-36) % RDW (11.6-14.8) % Plt Count (150-400) X10^3/uL Neut % (Auto) Lymph % (Auto) [place] % (Auto) Eos % (Auto) Baso % (Auto) Lymph # (Auto) [place] # (Auto) Baso # (Auto) Total Counted Seg Neutrophils % (38-70) % Lymphocytes % (Manual) (25-45) % Atypical Lymphs % ( - 0) % Monocytes % (Manual) (2-11) % Eosinophils % (Manual) (2-4) % Neutrophils # (Manual) (3861-6645) /uL Smudge Cells RBC Morphology PT (10.1-12.7) SECONDS INR (0.9-1.3) APTT (26.4-36.2) SECONDS D-Dimer (<230) ng/mL Sodium 139 (137-145) mmol/L Potassium 3.7 (3.4-5.1) mmol/L Chloride 99 (98-107) mmol/L Carbon Dioxide 31 (22-32) mmol/L BUN 21 H (7-17) mg/dL Creatinine 0.59 (0.52-1.04) mg/dL Estimated GFR > 60.0 (>60) mL/min BUN/Creatinine Ratio 35.6 H (6-22) Glucose 137 H (80-110) mg/dL Lactate 2.5 H (0.7-2.1) mmol/L Calcium 10.1 (8.4-10.2) mg/dL Magnesium (1.6-2.3) mg/dL Ferritin (11-264) ng/mL Total Bilirubin 0.9 (0.2-1.3) mg/dL AST 43 H (14-36) IU/L ALT 17 (<35) IU/L Alkaline Phosphatase 59 (38-126) U/L Total Creatine Kinase (30-135) U/L CK-MB (CK-2) CK-MB (CK-2) Rel Index Troponin I (0.01-0.034) ng/mL C-Reactive Protein (<1.0) mg/dL NT-Pro-B Natriuret Pep (<450) pg/mL Total Protein 7.0 (6.3-8.2) g/dL Albumin 4.2 (3.5-5.0) g/dL Globulin 2.8 (1.7-4.1) g/dL Albumin/Globulin Ratio 1.5 (1.0-2.8) Procalcitonin < 0.05 (<0.5) ng/mL Influenza A (RT-PCR) (NEGATIVE) Influenza B (RT-PCR) (NEGATIVE) 12/21/19 12/21/19 12/21/19 Range/Units 13:20 13:20 13:20 WBC (4.5-11.0) X10^3/uL RBC (4.0-5.2) X10^6/uL Hgb (12.0-16.0) g/dL Hct (36-46) % MCV (80-100) fL MCH (26-34) PG MCHC (30-36) % RDW (11.6-14.8) % Plt Count (150-400) X10^3/uL Neut % (Auto) Lymph % (Auto) [place] % (Auto) Eos % (Auto) Baso % (Auto) Lymph # (Auto) [place] # (Auto) Baso # (Auto) Total Counted Seg Neutrophils % (38-70) % Lymphocytes % (Manual) (25-45) % Atypical Lymphs % ( - 0) % Monocytes % (Manual) (2-11) % Eosinophils % (Manual) (2-4) % Neutrophils # (Manual) (2586-9457) /uL Smudge Cells RBC Morphology PT (10.1-12.7) SECONDS INR (0.9-1.3) APTT (26.4-36.2) SECONDS D-Dimer 484 H (<230) ng/mL Sodium (137-145) mmol/L Potassium (3.4-5.1) mmol/L Chloride (98-107) mmol/L Carbon Dioxide (22-32) mmol/L BUN (7-17) mg/dL Creatinine (0.52-1.04) mg/dL Estimated GFR (>60) mL/min BUN/Creatinine Ratio (6-22) Glucose (80-110) mg/dL Lactate (0.7-2.1) mmol/L Calcium (8.4-10.2) mg/dL Magnesium (1.6-2.3) mg/dL Ferritin 22 (11-264) ng/mL Total Bilirubin (0.2-1.3) mg/dL AST (14-36) IU/L ALT (<35) IU/L Alkaline Phosphatase (38-126) U/L Total Creatine Kinase (30-135) U/L CK-MB (CK-2) CK-MB (CK-2) Rel Index Troponin I (0.01-0.034) ng/mL C-Reactive Protein < 0.5 (<1.0) mg/dL NT-Pro-B Natriuret Pep (<450) pg/mL Total Protein (6.3-8.2) g/dL Albumin (3.5-5.0) g/dL Globulin (1.7-4.1) g/dL Albumin/Globulin Ratio (1.0-2.8) Procalcitonin (<0.5) ng/mL Influenza A (RT-PCR) (NEGATIVE) Influenza B (RT-PCR) (NEGATIVE) 12/21/19 12/21/19 Range/Units 13:45 16:00 WBC (4.5-11.0) X10^3/uL RBC (4.0-5.2) X10^6/uL Hgb (12.0-16.0) g/dL Hct (36-46) % MCV (80-100) fL MCH (26-34) PG MCHC (30-36) % RDW (11.6-14.8) % Plt Count (150-400) X10^3/uL Neut % (Auto) Lymph % (Auto) [place] % (Auto) Eos % (Auto) Baso % (Auto) Lymph # (Auto) [place] # (Auto) Baso # (Auto) Total Counted Seg Neutrophils % (38-70) % Lymphocytes % (Manual) (25-45) % Atypical Lymphs % ( - 0) % Monocytes % (Manual) (2-11) % Eosinophils % (Manual) (2-4) % Neutrophils # (Manual) (6663-1777) /uL Smudge Cells RBC Morphology PT (10.1-12.7) SECONDS INR (0.9-1.3) APTT (26.4-36.2) SECONDS D-Dimer (<230) ng/mL Sodium (137-145) mmol/L Potassium (3.4-5.1) mmol/L Chloride (98-107) mmol/L Carbon Dioxide (22-32) mmol/L BUN (7-17) mg/dL Creatinine (0.52-1.04) mg/dL Estimated GFR (>60) mL/min BUN/Creatinine Ratio (6-22) Glucose (80-110) mg/dL Lactate 1.6 (0.7-2.1) mmol/L Calcium (8.4-10.2) mg/dL Magnesium (1.6-2.3) mg/dL Ferritin (11-264) ng/mL Total Bilirubin (0.2-1.3) mg/dL AST (14-36) IU/L ALT (<35) IU/L Alkaline Phosphatase (38-126) U/L Total Creatine Kinase (30-135) U/L CK-MB (CK-2) CK-MB (CK-2) Rel Index Troponin I (0.01-0.034) ng/mL C-Reactive Protein (<1.0) mg/dL NT-Pro-B Natriuret Pep (<450) pg/mL Total Protein (6.3-8.2) g/dL Albumin (3.5-5.0) g/dL Globulin (1.7-4.1) g/dL Albumin/Globulin Ratio (1.0-2.8) Procalcitonin (<0.5) ng/mL Influenza A (RT-PCR) Flu a negative (NEGATIVE) Influenza B (RT-PCR) Flu b negative (NEGATIVE) Urine Dip Bedside Urine Glucose Negative Bedside Urine Bilirubin - Negative Bedside Urine Ketone - Negative Urine Specific [place] 1.010 Bedside Urine Occult Blood +/- Bedside Urine pH 8.5 Bedside Urine Protein - Negative Bedside Urine Urobilinogen - Negative Bedside Urine Nitrite - Negative Bedside Urine Leukocytes - Negative Esterase Imaging Data Chest x-ray: Radiologist's Impression: [facility] [address] [place] [id number] XRay Report Signed Patient: Amber Mota BMR#: [id number] : 5Acct:[id number] Age/Sex: 84 / FDate of Service: 12/21/19 Loc: ED Accession Number: [id number] Procedure: XR chest 1V Ordering Provider: Elly,Sofia [employer]-BC PROCEDURE: XR CHEST 1V INDICATIONS: sob TECHNIQUE: One view of the chest was acquired. COMPARISON: [facility], CR, XR CHEST 2V, 05/25/2019, 19:27. [facility], CR, XR CHEST 1V, 07/13/2019, 1:37. FINDINGS: Surgical changes and devices: Thoracolumbar spine fusion. Lungs and pleura: There is chronic diffuse interstitial prominence. No pleural effusions or pneumothorax. Mediastinum: Mediastinal contours appear normal. Heart size is moderately increased. Tortuous thoracic aorta which appears aneurysmal. Bones and chest wall: No suspicious bony lesions. Overlying soft tissues appear unremarkable. IMPRESSION: 1. No acute cardiopulmonary disease. 2. Moderate cardiomegaly. 3. Chronic interstitial prominence. 4. Tortuous aorta appears aneurysmal. If clinically indicated, CT may be helpful. Dictated by: Paty House M.D. on 12/21/2019 at 14:10 Approved by: Paty House M.D. on 12/21/2019 at 14:21 Abdominal x-ray: Radiologist's Impression: [address] [place] [address] XRay Report Signed Patient: Amber Mota BMR#: [id number] : 5Acct:[id number] Age/Sex: 84 / FDate of Service: 12/21/19 Loc: ED Accession Number: [id number] Procedure: XR abdomen 1V Ordering Provider: Sofia SanabriaP-BC PROCEDURE: XR ABDOMEN 1V INDICATIONS: vomiting TECHNIQUE: One view of the abdomen acquired. COMPARISON: [facility], CR, XR LUMBAR SPINE 2-3V, 09/23/2019, 13:26. [facility], CR, XR THORACIC SPINE 2V, 09/23/2019, 13:26. FINDINGS: Surgical changes and devices: Thoracolumbar spine fusion. Bowel: Bowel gas pattern is normal. There is a large amount of stool in colon. Soft tissues: No suspicious abdominal calcifications. Visualized solid organ contours appear normal in size. Bones: No suspicious bony lesions. T7 and T12 compression fractures. IMPRESSION: Large amounts and colon consistent with fecal impaction. Dictated by: Paty House M.D. on 12/21/2019 at 14:21 Approved by: Paty House M.D. on 12/21/2019 at 14:23 CT scan - chest: Radiologist's Impression: [address] [place] [address] CT Scan Report Signed Patient: Amber Mota BMR#: [id number] : 5Acct:[id number] Age/Sex: 84 / FDate of Service: 12/21/19 Loc: ED Accession Number: [id number] Procedure: CT chest w con Ordering Provider: Sofia Sanabria PROCEDURE: CT CHEST W CON INDICATIONS: sob, aorta irreg on xray TECHNIQUE: After the administration of intravenous contrast, 5 mm thick sections acquired from the pulmonary apices to the posterior costophrenic angles. 1 mm axial lung, 5 mm thick coronal and sagittal reformats and 7 mm axial MIP were acquired. For radiation dose reduction, the following was used: automated exposure control, adjustment of mA and/or kV according to patient size. COMPARISON: [facility], CR, XR LUMBAR SPINE 2-3V, 09/23/2019, 13:26. [facility], CR, XR CHEST 1V, 12/21/2019, 13:44. FINDINGS: Image quality: Diagnostic. Lungs and pleura: No acute air space opacities. No pleural effusions or pneumothorax. Central and peripheral airways are patent and normal in caliber. Mediastinum: Heart size is normal. No pericardial effusion. No mediastinal or hilar adenopathy by size criteria. Coronary and aortic atherosclerosis is present. There is no evidence of aneurysm of the thoracic aorta. The soft tissue density noted on the chest radiograph is related to a large hiatal hernia with partial extension of the stomach into the left hemithorax. Fluid is seen within the esophagus. The wall of the esophagus does not appear to be significantly thickened. Bones and chest wall: No suspicious bony lesions. Postoperative changes at the thoracolumbar junction are identified. Compression deformities are noted involving the T11 and T12 vertebra, unchanged. No new compression deformities or displaced fractures are appreciated. No axillary or supraclavicular adenopathy by size criteria. Thyroid gland is not adequately evaluated on this study.. Abdomen: Visualized upper abdominal solid organs appear normal. Upper abdominal bowel loops are normal in caliber. IMPRESSION: 1. No evidence of thoracic aortic aneurysm. 2. Soft tissue density on the chest radiographs correlates with a large hiatal hernia with partial extension of the stomach into the left thoracic cavity. 3. No acute cardiopulmonary process. ECG Data Attestation: I personally reviewed and interpreted this ECG as follows: Interpretation: Sinus rhythm. Ventricular 92. PC noted. QRS 77. No ST elevation or depression MDM Narrative Medical decision making narrative: The patient is an 84-year-old female who presents with a chief complaint of fatigue, cough, fevers at home per visiting nurse, vomiting. 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 The patient was without vomiting throughout her stay in the emergency department, denies pain and in no acute distress. Her influenza test came back negative, x-rays concerning for constipation/developing the fecal impaction x-ray has no acute findings. I discussed at length with the patient's daughter treating her constipation. She has no pain to abdominal palpation and is in no acute distress throughout her stay in the emergency department. She is without chest pain, oxygenating well, has a negative troponin. The patient has abnormal LFTs, normal ferritin, negative procalcitonin, and repeat lactate is negative at 1.6. The patient does have a elevated BNP at 2090, and daughter states that she has been on Lasix in the past. Her troponin is negative and she is without chest pain, oxygenating well. Patient was given dose of Lasix in the emergency department. Given that the patient is hemodynamically stable, without acute complaints, I discussed patient with Dr Metz, and we elected to discharge the patient home with p.o. Lasix as this would be an optimal environment for her. Daughter is in accordance with this and states understanding of plan of care. She states she will follow up with primary care provider. Discussed that chronic virus testing will take almost a week to come back, that she needs to take severe precautions in the meantime. Discussed at length treatment for constipation, coming back to the emergency department any acute concerns. Patient daughter no questions or concerns upon discharge and state understanding of return precautions as well as follow-up care. She was that vomiting throughout her stay in the emergency department is able to tolerate p.o. fluids. <Roberto Metz, DO - Last Filed: 12/21/19 17:50> Lab Data Labs: Lab Results 03/26/20 03/26/20 03/26/20 Range/Units 13:20 13:20 13:20 WBC 21.6 H (4.5-11.0) X10^3/uL RBC 4.52 (4.0-5.2) X10^6/uL Hgb 12.9 (12.0-16.0) g/dL Hct 39.7 (36-46) % MCV 87.8 (80-100) fL MCH 28.5 (26-34) PG MCHC 32.5 (30-36) % RDW 14.8 (11.6-14.8) % Plt Count 204 (150-400) X10^3/uL Neut % (Auto) Not Reportable Lymph % (Auto) Not Reportable [place] % (Auto) Not Reportable Eos % (Auto) Not Reportable Baso % (Auto) Not Reportable Lymph # (Auto) Not Reportable [place] # (Auto) Not Reportable Baso # (Auto) Not Reportable Total Counted 100 Seg Neutrophils % 30.0 L (38-70) % Lymphocytes % (Manual) 64.0 H (25-45) % Atypical Lymphs % 3.0 H ( - 0) % Monocytes % (Manual) 2.0 (2-11) % Eosinophils % (Manual) 1.0 L (2-4) % Neutrophils # (Manual) 6480 H (5977-7220) /uL Smudge Cells 1+ H RBC Morphology Normal morphology PT 12.6 (10.1-12.7) SECONDS INR 1.1 (0.9-1.3) APTT 25 L (26.4-36.2) SECONDS D-Dimer (<230) ng/mL Sodium (137-145) mmol/L Potassium (3.4-5.1) mmol/L Chloride (98-107) mmol/L Carbon Dioxide (22-32) mmol/L BUN (7-17) mg/dL Creatinine (0.52-1.04) mg/dL Estimated GFR (>60) mL/min BUN/Creatinine Ratio (6-22) Glucose (80-110) mg/dL Lactate (0.7-2.1) mmol/L Calcium (8.4-10.2) mg/dL Magnesium 2.6 H (1.6-2.3) mg/dL Ferritin (11-264) ng/mL Total Bilirubin (0.2-1.3) mg/dL AST (14-36) IU/L ALT (<35) IU/L Alkaline Phosphatase (38-126) U/L Total Creatine Kinase 87 (30-135) U/L CK-MB (CK-2) TNP CK-MB (CK-2) Rel Index TNP Troponin I < 0.012 (0.01-0.034) ng/mL C-Reactive Protein (<1.0) mg/dL NT-Pro-B Natriuret Pep 2090 H (<450) pg/mL Total Protein (6.3-8.2) g/dL Albumin (3.5-5.0) g/dL Globulin (1.7-4.1) g/dL Albumin/Globulin Ratio (1.0-2.8) Procalcitonin (<0.5) ng/mL Influenza A (RT-PCR) (NEGATIVE) Influenza B (RT-PCR) (NEGATIVE) 12/21/19 12/21/19 12/21/19 Range/Units 13:20 13:20 13:20 WBC (4.5-11.0) X10^3/uL RBC (4.0-5.2) X10^6/uL Hgb (12.0-16.0) g/dL Hct (36-46) % MCV (80-100) fL MCH (26-34) PG MCHC (30-36) % RDW (11.6-14.8) % Plt Count (150-400) X10^3/uL Neut % (Auto) Lymph % (Auto) [place] % (Auto) Eos % (Auto) Baso % (Auto) Lymph # (Auto) [place] # (Auto) Baso # (Auto) Total Counted Seg Neutrophils % (38-70) % Lymphocytes % (Manual) (25-45) % Atypical Lymphs % ( - 0) % Monocytes % (Manual) (2-11) % Eosinophils % (Manual) (2-4) % Neutrophils # (Manual) (4984-4548) /uL Smudge Cells RBC Morphology PT (10.1-12.7) SECONDS INR (0.9-1.3) APTT (26.4-36.2) SECONDS D-Dimer (<230) ng/mL Sodium 139 (137-145) mmol/L Potassium 3.7 (3.4-5.1) mmol/L Chloride 99 (98-107) mmol/L Carbon Dioxide 31 (22-32) mmol/L BUN 21 H (7-17) mg/dL Creatinine 0.59 (0.52-1.04) mg/dL Estimated GFR > 60.0 (>60) mL/min BUN/Creatinine Ratio 35.6 H (6-22) Glucose 137 H (80-110) mg/dL Lactate 2.5 H (0.7-2.1) mmol/L Calcium 10.1 (8.4-10.2) mg/dL Magnesium (1.6-2.3) mg/dL Ferritin (11-264) ng/mL Total Bilirubin 0.9 (0.2-1.3) mg/dL AST 43 H (14-36) IU/L ALT 17 (<35) IU/L Alkaline Phosphatase 59 (38-126) U/L Total Creatine Kinase (30-135) U/L CK-MB (CK-2) CK-MB (CK-2) Rel Index Troponin I (0.01-0.034) ng/mL C-Reactive Protein (<1.0) mg/dL NT-Pro-B Natriuret Pep (<450) pg/mL Total Protein 7.0 (6.3-8.2) g/dL Albumin 4.2 (3.5-5.0) g/dL Globulin 2.8 (1.7-4.1) g/dL Albumin/Globulin Ratio 1.5 (1.0-2.8) Procalcitonin < 0.05 (<0.5) ng/mL Influenza A (RT-PCR) (NEGATIVE) Influenza B (RT-PCR) (NEGATIVE) 12/21/19 12/21/19 12/21/19 Range/Units 13:20 13:20 13:20 WBC (4.5-11.0) X10^3/uL RBC (4.0-5.2) X10^6/uL Hgb (12.0-16.0) g/dL Hct (36-46) % MCV (80-100) fL MCH (26-34) PG MCHC (30-36) % RDW (11.6-14.8) % Plt Count (150-400) X10^3/uL Neut % (Auto) Lymph % (Auto) [place] % (Auto) Eos % (Auto) Baso % (Auto) Lymph # (Auto) [place] # (Auto) Baso # (Auto) Total Counted Seg Neutrophils % (38-70) % Lymphocytes % (Manual) (25-45) % Atypical Lymphs % ( - 0) % Monocytes % (Manual) (2-11) % Eosinophils % (Manual) (2-4) % Neutrophils # (Manual) (2102-9545) /uL Smudge Cells RBC Morphology PT (10.1-12.7) SECONDS INR (0.9-1.3) APTT (26.4-36.2) SECONDS D-Dimer 484 H (<230) ng/mL Sodium (137-145) mmol/L Potassium (3.4-5.1) mmol/L Chloride (98-107) mmol/L Carbon Dioxide (22-32) mmol/L BUN (7-17) mg/dL Creatinine (0.52-1.04) mg/dL Estimated GFR (>60) mL/min BUN/Creatinine Ratio (6-22) Glucose (80-110) mg/dL Lactate (0.7-2.1) mmol/L Calcium (8.4-10.2) mg/dL Magnesium (1.6-2.3) mg/dL Ferritin 22 (11-264) ng/mL Total Bilirubin (0.2-1.3) mg/dL AST (14-36) IU/L ALT (<35) IU/L Alkaline Phosphatase (38-126) U/L Total Creatine Kinase (30-135) U/L CK-MB (CK-2) CK-MB (CK-2) Rel Index Troponin I (0.01-0.034) ng/mL C-Reactive Protein < 0.5 (<1.0) mg/dL NT-Pro-B Natriuret Pep (<450) pg/mL Total Protein (6.3-8.2) g/dL Albumin (3.5-5.0) g/dL Globulin (1.7-4.1) g/dL Albumin/Globulin Ratio (1.0-2.8) Procalcitonin (<0.5) ng/mL Influenza A (RT-PCR) (NEGATIVE) Influenza B (RT-PCR) (NEGATIVE) 12/21/19 12/21/19 Range/Units 13:45 16:00 WBC (4.5-11.0) X10^3/uL RBC (4.0-5.2) X10^6/uL Hgb (12.0-16.0) g/dL Hct (36-46) % MCV (80-100) fL MCH (26-34) PG MCHC (30-36) % RDW (11.6-14.8) % Plt Count (150-400) X10^3/uL Neut % (Auto) Lymph % (Auto) [place] % (Auto) Eos % (Auto) Baso % (Auto) Lymph # (Auto) [place] # (Auto) Baso # (Auto) Total Counted Seg Neutrophils % (38-70) % Lymphocytes % (Manual) (25-45) % Atypical Lymphs % ( - 0) % Monocytes % (Manual) (2-11) % Eosinophils % (Manual) (2-4) % Neutrophils # (Manual) (9236-7939) /uL Smudge Cells RBC Morphology PT (10.1-12.7) SECONDS INR (0.9-1.3) APTT (26.4-36.2) SECONDS D-Dimer (<230) ng/mL Sodium (137-145) mmol/L Potassium (3.4-5.1) mmol/L Chloride (98-107) mmol/L Carbon Dioxide (22-32) mmol/L BUN (7-17) mg/dL Creatinine (0.52-1.04) mg/dL Estimated GFR (>60) mL/min BUN/Creatinine Ratio (6-22) Glucose (80-110) mg/dL Lactate 1.6 (0.7-2.1) mmol/L Calcium (8.4-10.2) mg/dL Magnesium (1.6-2.3) mg/dL Ferritin (11-264) ng/mL Total Bilirubin (0.2-1.3) mg/dL AST (14-36) IU/L ALT (<35) IU/L Alkaline Phosphatase (38-126) U/L Total Creatine Kinase (30-135) U/L CK-MB (CK-2) CK-MB (CK-2) Rel Index Troponin I (0.01-0.034) ng/mL C-Reactive Protein (<1.0) mg/dL NT-Pro-B Natriuret Pep (<450) pg/mL Total Protein (6.3-8.2) g/dL Albumin (3.5-5.0) g/dL Globulin (1.7-4.1) g/dL Albumin/Globulin Ratio (1.0-2.8) Procalcitonin (<0.5) ng/mL Influenza A (RT-PCR) Flu a negative (NEGATIVE) Influenza B (RT-PCR) Flu b negative (NEGATIVE) Urine Dip Bedside Urine Glucose Negative Bedside Urine Bilirubin - Negative Bedside Urine Ketone - Negative Urine Specific [place] 1.010 Bedside Urine Occult Blood +/- Bedside Urine pH 8.5 Bedside Urine Protein - Negative Bedside Urine Urobilinogen - Negative Bedside Urine Nitrite - Negative Bedside Urine Leukocytes - Negative Esterase Discharge Plan Departure Patient Disposition: Home Clinical Impression: Elevated brain natriuretic peptide (BNP) level, Viral illness Constipation Qualifiers: Constipation type: unspecified constipation type Qualified Code(s): K59.00 - Constipation, unspecified Clinical Impression: (Ruled Out): Compression fracture Instructions: DI for Viral Upper Respiratory Infection -- Adult, DI for Constipation, DI for Nausea -- Adult, DI for Vomiting -- Adult, Furosemide (By mouth) Activity Restrictions/Additional Instructions: Thank you for trusting us with your care today. Your lab work is suspicious for fluid retention. I have sent a prescription of Lasix to [facility]. You have taken this before. Please do not combine this does with your as needed for leg swelling dose. Your abdominal x-ray is very concerning for severe constipation. Please use your MiraLax, docusate, senna as needed. You can always try prbd-sho-cdojbmt milk of magnesia and/or magnesium citrate. And old nursing tract is warm prune juice mixed with warm applesauce topped with a tab of butter. You have been diagnosed with a viral illness, which based on your symptoms, labs and imaging is suspicious for coronavirus. We will call you when your [place] virus testing results, whether it is positive or negative. This can take almost a week. *What to do: * per recommendations from the CDC and the [facility] Department of Health * stay home except to get medical care. Restrict activities outside your home, except for getting medical care. Do not go to work, school, or public areas. Avoid using public transportation, ride sharing, or taxis. * separate yourself from other people in your home. * call ahead before visiting your doctor * Wear a face mask * Cover your coughs and sneezes * Clean your hands often * Avoid sharing household items * Clean all high-touch services every day * Monitor your symptoms and seek prompt medical attention if your illness is worsening, particularly with difficulty in breathing. I also sent a prescription of an as-needed nausea medication to [facility]. Please follow-up with primary care provider in the next few days. Please call to make an appointment. Please come back to emergency department for any acute concerns such as inability keep down fluids, chest pain, concern of heart attack or stroke. Prescriptions: New furosemide 20 mg tablet 20 mg PO DAILY Qty: 14 RF: 0 ondansetron 4 mg tablet,disintegrating 4 mg PO Q6H PRN (Reason: nausea and vomiting) Qty: 14 RF: 0 No Action DIPYRIDAMOLE (Persantine) 50 mg PO TID Qty: 0 RF: 0 MULTIVITAMIN (Multivitamin -) 1 cap PO EVERY DAY Qty: 0 RF: 0 docusate sodium [Colace] 100 MG capsule 100 mg PO DAILY Qty: 0 RF: 0 quetiapine [Seroquel] 50 MG tablet 50 mg PO QDAY Qty: 0 RF: 0 sertraline 100 mg tablet 1 dose PO DIRECTED RF: 0 lisinopril 10 mg tablet 10 mg PO BID RF: 0 omega 8-ywl-sow-fish oil [Fish Oil] 1,000 mg (120 mg-180 mg) Capsule 1 cap PO DAILY RF: 0 flaxseed oil 1,000 mg Capsule 1,000 mg PO DAILY RF: 0 niacin 500 mg Tablet 500 mg PO DAILY RF: 0 aspirin [Adult Low Dose Aspirin] 81 mg Tablet,Delayed Release (Dr/Ec) 81 mg PO DAILY RF: 0 calcium carbonate [Calcium 500] 500 mg calcium (1,250 mg) Tablet 500 mg PO DAILY RF: 0 celecoxib [Celebrex] 200 mg Capsule 200 mg PO BID Qty: 30 RF: 0 acetaminophen 325 mg Tablet 650 mg PO Q6HR PRN (Reason: As Needed For Fever/Mild Pain) Qty: 60 RF: 0 bisacodyl 10 mg Suppository 10 mg MA PRN PRN (Reason: Constipation) Qty: 30 RF: 0 lovastatin 20 mg Tablet 20 mg PO DAILY Qty: 30 RF: 0 oxybutynin chloride 5 mg Tablet 5 mg PO DAILY Qty: 30 RF: 0 oxycodone 5 mg Tablet 5 mg PO Q3HR PRN (Reason: Pain, Moderate (4-6)) Qty: 40 RF: 0 metoprolol tartrate 25 mg Tablet 25 mg PO Q6HR Qty: 30 RF: 0 Referrals: Radha Farfan [Non-Staff] - <Roebrto Metz DO - Last Filed: 12/21/19 17:50> [facility] Dr Metz Co-Sign Statement: I was available for consultation during this patient's emergency department visit. This chart is signed by myself for administrative purposes only. I did not have direct contact with this patient during this visit. They were seen independently by the APC.
[2019-12-21 13:49] LABS: INR 1.1 (0.9-1.3); Prothrombin Time 12.6 SECONDS (10.1-12.7)
[2019-12-21 13:51] LABS: PTT Partial Thromboplastin Tim 25 SECONDS (26.4-36.2)
[2019-12-21 13:54] LABS: Add Manual Diff / Slide Review YES; Hematocrit 39.7 % (36-46); Hemoglobin 12.9 g/dL (12.0-16.0); Mean Corpuscular HGB Conc 32.5 % (30-36); Mean Corpuscular Hemoglobin 28.5 PG (26-34); Mean Corpuscular Volume 87.8 fL (80-100); Platelet Count 204 X10^3/uL (150-400); Red Blood Cell Count 4.52 X10^6/uL (4.0-5.2); Red Cell Distribution Width 14.8 % (11.6-14.8); White Blood Cell Count 21.6 X10^3/uL (4.5-11.0)
[2019-12-21 13:55] LABS: Creatine Kinase 87 U/L (30-135); Magnesium 2.6 mg/dL (1.6-2.3)
[2019-12-21 13:56] LABS: Lactate (Lactic Acid) 2.5 mmol/L (0.7-2.1)
[2019-12-21 13:57] LABS: Alanine Aminotransferase 17 IU/L (<35); Albumin 4.2 g/dL (3.5-5.0); Albumin Globulin Ratio 1.5 (1.0-2.8); Alkaline Phosphatase 59 U/L (38-126); Aspartate Aminotransferase 43 IU/L (14-36); BUN Creatinine Ratio 35.6 (6-22); Bilirubin Total 0.9 mg/dL (0.2-1.3); Blood Urea Nitrogen 21 mg/dL (7-17); Calcium 10.1 mg/dL (8.4-10.2); Carbon Dioxide 31 mmol/L (22-32); Chloride 99 mmol/L (98-107); Estimated Glomerular Filt Rate > 60.0 mL/min (>60); Globulin 2.8 g/dL (1.7-4.1); Glucose 137 mg/dL (80-110); HEMOLYSIS 27 (0-50); Potassium 3.7 mmol/L (3.4-5.1); Sodium 139 mmol/L (137-145)
[2019-12-21 14:10] LABS: Troponin I < 0.012 ng/mL (0.01-0.034)
[2019-12-21 14:21] LABS: D Dimer 484 ng/mL (<230)
[2019-12-21 14:27] LABS: Procalcitonin < 0.05 ng/mL (<0.5)
[2019-12-21 14:35] LABS: Influenza A - CEPHEID Flu A NEGATIVE (NEGATIVE); Influenza B - CEPHEID Flu B NEGATIVE (NEGATIVE)
[2019-12-21 14:40] LABS: NT-proBNP (BNP-Adult 18+) 2090 pg/mL (<450)
[2019-12-21 14:51] LABS: Ferritin 22 ng/mL (11-264)
[2019-12-21 14:54] LABS: Neutrophils Absolute Manual 6480 /uL (3000-5900); Smudge Cells 1+; Total Cells Counted 100
[2019-12-21 14:55] LABS: RBC Morphology Normal Morphology
[2019-12-21 15:01] LABS: C-Reactive Protein Quant < 0.5 mg/dL (<1.0)
--- NOTE | 2019-12-21 15:15 | DI.CT.S_ITS ---
PROCEDURE: CT CHEST W CON INDICATIONS: sob, aorta irreg on xray TECHNIQUE: After the administration of intravenous contrast, 5 mm thick sections acquired from the pulmonary apices to the posterior costophrenic angles. 1 mm axial lung, 5 mm thick coronal and sagittal reformats and 7 mm axial MIP were acquired. For radiation dose reduction, the following was used: automated exposure control, adjustment of mA and/or kV according to patient size. COMPARISON: [facility], CR, XR LUMBAR SPINE 2-3V, 09/23/2019, 13:26. [facility], CR, XR CHEST 1V, 12/21/2019, 13:44. FINDINGS: Image quality: Diagnostic. Lungs and pleura: No acute air space opacities. No pleural effusions or pneumothorax. Central and peripheral airways are patent and normal in caliber. Mediastinum: Heart size is normal. No pericardial effusion. No mediastinal or hilar adenopathy by size criteria. Coronary and aortic atherosclerosis is present. There is no evidence of aneurysm of the thoracic aorta. The soft tissue density noted on the chest radiograph is related to a large hiatal hernia with partial extension of the stomach into the left hemithorax. Fluid is seen within the esophagus. The wall of the esophagus does not appear to be significantly thickened. Bones and chest wall: No suspicious bony lesions. Postoperative changes at the thoracolumbar junction are identified. Compression deformities are noted involving the T11 and T12 vertebra, unchanged. No new compression deformities or displaced fractures are appreciated. No axillary or supraclavicular adenopathy by size criteria. Thyroid gland is not adequately evaluated on this study.. Abdomen: Visualized upper abdominal solid organs appear normal. Upper abdominal bowel loops are normal in caliber. IMPRESSION: 1. No evidence of thoracic aortic aneurysm. 2. Soft tissue density on the chest radiographs correlates with a large hiatal hernia with partial extension of the stomach into the left thoracic cavity. 3. No acute cardiopulmonary process. Dictated by: Rakan Gutiérrez M.D. on 12/21/2019 at 14:55 Approved by: Rakan Gutiérrez M.D. on 12/21/2019 at 14:59
[2019-12-21 15:43] LABS: Reflexed Lactate in 2 Hours Y
[2019-12-21] MEDS: SODIUM CHLORIDE 0.9% 1,000 ML 150 ML IV (15:45)
[2019-12-21 16:20] LABS: Lactate 2HR (Lactic Acid Rflx) 1.6 mmol/L (0.7-2.1)
[2019-12-21] MEDS: ALBUTEROL HFA PREPACK 1 BOX MISC (17:09)
[2019-12-21] MEDS: FUROSEMIDE 20 MG TABLET PO (17:26)
[2019-12-23 09:10] LABS: COVID19 Sendout Not Detected (Not Detected)
== END 2019-12-21 18:14 | disposition home or self-care (01) ==
PROVIDERS: Emergency Provider Nurse Practitioner Family
DX: R79.89 Other specified abnormal findings of blood chemistry (principal); B34.9 Viral infection, unspecified; K59.00 Constipation, unspecified; I48.91 Unspecified atrial fibrillation; R41.3 Other amnesia; F03.90 Unspecified dementia, unspecified severity, without behavioral disturbance, psychotic disturbance, mood disturbance, and anxiety; R06.02 Shortness of breath; R11.10 Vomiting, unspecified; R50.9 Fever, unspecified
CPT/HCPCS: 36415; 71045; 71260; 74018; 80053; 81003; 82550; 82728; 83605; 83735; 83880; 84145; 84484; 85025; 85379; 85610; 85730; 86140; 87040; 87502; 87635; 93005; 94640; 96360; 96361; 99285; Q9967

== ENCOUNTER → 2020-02-23 14:24 | Outpatient (CLI) | payer MEDICARE, MEDICAID, SELFPAY ==
[2019-05-26 08:59] VITALS: BMI 22.6
--- NOTE | 2020-02-23 | DI.CT.S_ITS ---
PROCEDURE: CT ABDOMEN PELVIS W CON INDICATIONS: Nausea with vomiting, unspecified TECHNIQUE: After the administration of oral and intravenous contrast, 5 mm thick sections acquired from the diaphragms to the symphysis. 5 mm thick coronal and sagittal reformats were performed. For radiation dose reduction, the following was used: automated exposure control, adjustment of mA and/or kV according to patient size. COMPARISON: [facility], CR, XR CHEST 1V, 12/21/2019, 13:44. [facility], CR, XR CHEST 1V, 07/13/2019, 1:37. [facility], CT, CT CHEST W CON, 12/21/2019, 15:33. FINDINGS: Image quality: Excellent. ABDOMEN: Lung bases: Lung bases are free of pneumonia but there is compressive atelectasis at the left lung base associated with a very large hiatal hernia that contains oral contrast. This structure has a transverse dimension of approximately 15.2 cm and a maximal AP dimension of up to 9.9 cm. The morphology of this hiatal hernia raises question of whether a gastric inversion is present with the greater curvature of the stomach directed cephalad. Heart size is normal but the heart is somewhat displaced forward by the large hiatal hernia behind. The descending thoracic aorta is tortuous through this area of the lower left hemithorax. Solid organs: Liver is normal in size and enhancement. Gallbladder appears normal. Biliary system is non-dilated. Pancreas enhances normally but there is at the pancreatic head a water density cystlike structure measuring up to 1.5 x 1.7 cm seen on series 2 image 30. No pancreatic ductal distention is associated.. Spleen is normal in size and enhancement. No adrenal nodules. Kidneys are normal in size and enhancement, without hydronephrosis. Peritoneum and bowel: Stomach, small bowel, and colon loops are normal in caliber and wall thickness. No free fluid or air. Nodes and vessels: No retroperitoneal or mesenteric adenopathy. Aorta and inferior vena cava are normal in caliber. Miscellaneous: No ventral hernias. PELVIS: Genitourinary: Bladder wall thickness is mildly prominent, without polypoid mass, but with the bladder wall along much of its perimeter measuring up to 7 mm.. Miscellaneous: No adenopathy. There is a moderate-sized inguinal hernia on the right, with small bowel extending into the subcutaneous fat in that area with the hernia protrusion measuring up to 4.4 cm. There is no sign of incarceration or strangulation of the small bowel involved at this time. What appears to be the appendix at the right lower quadrant contains several rounded calcifications, but no inflammation is associated. Bones: No suspicious bony lesions. No vertebral body compression fractures. Extensive spine fusion procedure has been performed extending from the low thoracic through the lumbosacral spine. No operative complications seen. IMPRESSION: 1. Unusually large hiatal hernia compressing the cardiac silhouette anteriorly, and with a morphology raising concern for presence of gastric inversion (greater curvature of the stomach rotated into the chest and directed cephalad). Surgical consultation is recommended if this has not yet been evaluated. 2. Compressive atelectasis is present to a mild degree adjacent to the left lung base but no pneumonia is seen. 3. Within the abdomen there is moderate colonic obstipation, and at the right lower quadrant what may be several rounded calcific phleboliths can be seen in the expected area of the appendix, without appendiceal dilatation or inflammation. 4. Water density cystlike structure at the pancreatic head is present measuring up to 1.7 x 1.5 cm. A sidebranch IPMN could produce this appearance and followup contrast enhanced CT or MR scanning through this area in 6 months is recommended. 5. Extensive spine fusion surgery, no operative complications seen. Metal artifact mildly degrades quality of visualization, however. Dictated by: Neto Nolasco M.D. on 02/23/2020 at 16:43 Approved by: Neto Nolasco M.D. on 02/23/2020 at 16:53
[2020-02-23 15:39] LABS: Estimated Glomerular Filt Rate > 60.0 mL/min (>60)
== END ==
PROVIDERS: Family Medicine; PCP Physician Assistant Medical; Referring Provider Physician Assistant Medical; Visit Provider Physician Assistant Medical
DX: R11.2 Nausea with vomiting, unspecified (principal); K44.9 Diaphragmatic hernia without obstruction or gangrene; K86.9 Disease of pancreas, unspecified; K59.00 Constipation, unspecified; K40.90 Unilateral inguinal hernia, without obstruction or gangrene, not specified as recurrent; J98.11 Atelectasis; Z98.1 Arthrodesis status
CPT/HCPCS: 36415; 74177; 82565

== ENCOUNTER → 2020-03-09 14:39 | Outpatient (CLI) | payer MEDICARE, MEDICAID, SELFPAY ==
[2019-05-26 08:59] VITALS: BMI 22.6
[2020-03-10 02:35] LABS: COVID19 Sendout Not Detected (Not Detect)
== END ==
PROVIDERS: PCP Physician Assistant Medical; Visit Provider Physician Assistant
DX: Z01.812 Encounter for preprocedural laboratory examination (principal)
CPT/HCPCS: 87635

== ENCOUNTER 2020-03-12 10:40 | Inpatient (IN) | payer MEDICARE, MEDICAID, SELFPAY ==
[2019-05-26 08:59] VITALS: BMI 22.6
[2020-03-06 13:30] VITALS: BMI 22.8
[2020-03-11 15:00] VITALS: BP 162/72; PULSE 72; RESP 14; TEMP 36.5; O2SAT 92
[2020-03-12] VITALS (16 sets, daily range): BP systolic 108–154; BP diastolic 61–87; PULSE 66–82; RESP 12–24; TEMP 36.2–37.2; O2SAT 69–100; BMI 22.8
[2020-03-12] MEDS: LACTATED RINGERS 1,000 ML 42 ML IV (11:15)
--- NOTE | 2020-03-12 11:28 | SUR.PREOP ---
Dr. Hinds made aware of bolus protocol for epidural, ordered 250 mls bolus. In room 5 for spinal
[2020-03-12] MEDS: CEFAZOLIN 2 GM/100 ML FROZ.PIGGY IV (11:50)
--- NOTE | 2020-03-12 11:52 | SUR.PREOP ---
See documentation flow sheet for epidural cath placed pre-op by Dr. Valadez. Pt position assisted by Rosa Carmona, LUPILLO. Pt drowsy and awake throughout procedure, responses appropriate. Daughter present throughout. Tolerated test dose well; did not report any change in how she felt, even when asked. End procedure 1148. To OR by Rosa Carmona RN. Stable
--- NOTE | 2020-03-12 12:15 | SUR.OPER ---
Supine on padded OR bed, head on pillow, arms secured on padded arm boards at <90 degrees abduction, legs uncrossed, safety belt at thigh, tape over blanket over lower legs.
[2020-03-12] MEDS: LACTATED RINGERS 1,000 ML 100 ML IV ×2 (13:23→15:34)
--- NOTE | 2020-03-12 13:56 | DI.RAD.S_ITS ---
PROCEDURE: XR CHEST 1V INDICATIONS: status post hiatal hernia repair r/o pneumothorax TECHNIQUE: One view of the chest was acquired. COMPARISON: [facility], CR, XR CHEST 1V, 12/21/2019, 13:44. FINDINGS: Surgical changes and devices: Thoracolumbar fixation rods. Lungs and pleura: Mild increased pulmonary vascularity. No pneumothorax. Increased left lobe/retrocardiac opacities. Mediastinum: Mediastinal contours appear normal. Heart size is normal. Hiatal hernia is present. Bones and chest wall: No suspicious bony lesions. Overlying soft tissues appear unremarkable. IMPRESSION: Increased vascularity suggestive of edema. Opacities are present in the left base and retrocardiac region. This could represent focal edema and/or development of atelectasis or pneumonia. Dictated by: Brooke Salguero M.D. on 03/12/2020 at 14:53 Approved by: Brooke Salguero M.D. on 03/12/2020 at 14:57
--- NOTE | 2020-03-12 14:02 | P.OP_ITS ---
Operative Date/Time/Diagnoses Date of procedure: 03/12/20 Time of procedure: 14:02 Pre-op diagnosis: Hiatal hernia Post-op diagnosis: same Procedure & Clinicians Procedure: Open hiatal hernia repair, gastrostomy tube placement Same procedure as scheduled: Yes Indications: This 84-year-old woman in a wheelchair who has severe dysphagia and difficulty breathing secondary to a large paraesophageal hernia. The majority of her stomach is within the left chest as well as partially twisted upon itself. Surgeon: Glenroy Douglass Tannery Gummer: Amor Goff Click Yes if Unassisted: Yes Anesthesia Type: General Operative Notes Findings: Large paraesophageal hernia within the left chest Specimen(s): none sent Estimated Blood Loss (mL): 50 Procedure in detail: Patient was brought to the operating room and placed on table. Bilateral lower extremity compression devices were applied. General anesthesia was induced she was intubated with an endotracheal tube. She received 2 g of Ancef prior to skin incision. She was prepped and draped in sterile fashion. Time-out was performed. An upper midline incision was made with a knife and the subcutaneous tissues were divided with electrocautery. The falciform ligament was resected using the LigaSure. The Bookwalter retractor was placed. And the patient was placed in steep reverse Trendelenburg. Left lobe of the liver was retracted away and the stomach was carefully reduced out of the left chest. At this point a nasogastric tube could be advanced into the stomach and its position palpated within the stomach and the esophagus. Working on the lesser curvature of the stomach the pars flacida was carefuly incisied and the right heri was approached. The right heri was then carefully dissected off of the gastroesophageal junction. With the right heri free its anterior and posterior leaflets were identified. With the stomach entirely retracted into the abdomen the right heri was then reapproximated using interrupted Ethibond suture x 2 to close to diaphramatic defect. Next a gastrostomy tube was fashioned. Two concentric rings of pursestring using 2 0 silk were fashioned in the proximal aspect of the stomach. Four-quadrant pexy sutures were then placed in the stomach into the anterior abdominal wall in all 4 quadrants. A incision was made in the left upper quadrant through the skin subcutaneous tissue and then the gastrostomy tube 22 [place] was then and the 1st through the abdominal wall and a gastrostomy was made in the stomach within the pursestring. The tube was advanced into the stomach and then the pursestrings were tied. The stomach was then pexy to the anterior abdominal wall using the silk sutures. Two additional and some interrupted silk sutures were used to pexy the fundus of the stomach to the anterior abdominal wall. Hemostasis was checked and satisfied with this the abdomen was closed. The fascia was closed in a running fashion using 0 point PDS suture the subcutaneous tissues reapproximated using 3 0 Vicryl the skin closed in a running fashion with 4 0 Monocryl. Patient t olerated the procedure well she was extubated transferred to the postoperative care unit in stable condition. A postoperative chest x-ray demonstrates no evidence of pneumothorax. Complications: none Post-operative Condition: stable Disposition: ICU
--- NOTE | 2020-03-12 14:35 | SUR.PHASEI ---
patient has sensation to torso when I touch her. States it feels like pressure when I touch her, Epidural infusing at a continuos rate of 6ml/hr.
--- NOTE | 2020-03-12 15:12 | SUR.PHASEI ---
Per mariam Tamayo for epidural site to have a small amount of blood at insertion site.
--- NOTE | 2020-03-12 15:19 | PC.NURSE ---
Postop Note Pt arrived to room 229 at 1500. Drowsy but awakens readily to voice, able to answer questions. Denies pain. Epidural infusing at 6 ml/hr, site with sanguinous drainage but with intact dressing. NSR in the 70s. Beltran in place and draining clear yellow urine. Dressing to abdomen is C/D/I, G tube intact. Belongings at bedside. Oriented to room and to bed/tv/call light controls and call light within reach. Bed alarm on.
[2020-03-12] MEDS: FENT 2MCG/ML BUPIV 0.125% EPI 200 MCG/100 ML PLAST..BAG 6 MCG EPIDURAL ×2 (15:39→23:28)
--- NOTE | 2020-03-12 19:21 | PC.NURSE ---
Evening shift note: Pt arrived via bed from PACU at 1510, connected to monitor, post-op vitals taken. Pt denies pain, VSS, epidural infusing at 6ml/hr continuous rate. Abdominal dressing CDI with G tube present and not connected to suction per Dr. Douglass. Pt is alert and answers yes to all questions, per Dr. Douglass pt is a poor historian and daughter (who usually answers her questions) has left for the day.Oriented to call light system and room, pt states she has not further needs at this time, will continue to monitor.
[2020-03-12] MEDS: HYDROMORPHONE 0.5 MG INJ IV (19:33)
[2020-03-12] MEDS: METOPROLOL IR 25 MG TABLET PO (20:28)
[2020-03-12] MEDS: QUETIAPINE 25 MG TABLET 50 MG PO (20:28)
[2020-03-13] VITALS (7 sets, daily range): BP systolic 111–170; BP diastolic 58–81; PULSE 71–87; RESP 13–84; TEMP 36.3–37.9; O2SAT 90–97
[2020-03-13] MEDS: LACTATED RINGERS 1,000 ML 100 ML IV ×2 (01:37→13:36)
--- NOTE | 2020-03-13 04:53 | PC.NURSE ---
AM shift Assumed care of Pt. @ 0300, resting quietly, no c/o pain. On assessment, epidural @ 6mls/hr, site with slight serosang weeping. Pt has PP+ able to wiggle toes and lift feet slightly from bed. Denies pain, unable to verbalize dermatome level. Will agree to assessment questions,( Can you feel pressure when I touch here?) But cannot differentiate sensation to this RN. Appears to have a change in sensation at the L1 dermatome, but pt has been inconsistant. Comfortable, according to Pt. Oral care provided, and mouth swabs at bedside. Call light in reach. BA active.
[2020-03-13 05:08] LABS: Hematocrit 34.8 % (36-46); Hemoglobin 11.4 g/dL (12.0-16.0); Mean Corpuscular HGB Conc 32.8 % (30-36); Mean Corpuscular Hemoglobin 27.9 PG (26-34); Platelet Count 168 X10^3/uL (150-400); Red Cell Distribution Width 14.6 % (11.6-14.8); White Blood Cell Count 19.5 X10^3/uL (4.5-11.0)
[2020-03-13 05:14] LABS: Add Manual Diff / Slide Review YES; Blood Urea Nitrogen 15 mg/dL (7-17); Calcium 8.9 mg/dL (8.4-10.2); Carbon Dioxide 27 mmol/L (22-32); Chloride 103 mmol/L (98-107); Estimated Glomerular Filt Rate > 60.0 mL/min (>60); Glucose 86 mg/dL (80-110); HEMOLYSIS < 15 (0-50); Phosphorous 4.3 mg/dL (2.8-4.1); Potassium 4.2 mmol/L (3.4-5.1); Sodium 136 mmol/L (137-145)
[2020-03-13 05:41] LABS: Neutrophils Absolute Manual 7215 /uL (3000-5900); RBC Morphology Normal Morphology; Total Cells Counted 100
--- NOTE | 2020-03-13 06:00 | DI.RAD.S_ITS ---
PROCEDURE: FL BARIUM SWALLOW INDICATIONS: POD 1 SP hiatal hernia repair COMPARISON: [facility], CT, CT CHEST W CON, 12/21/2019, 15:33. FINDINGS: Patient is unable to stand. Patient was inclined on the fluoroscopy table to about 35?. Features Reporter image was acquired. The patient was given 2 sips of water which was well tolerated. The patient was administered sips of oral contrast. Oral contrast is seen transiting the esophagus and into the stomach. No obvious leak is demonstrated. There is some pooling of contrast in the periform sinus region. The patient had mild coughing. No aspiration of oral contrast is identified. Overall the exam was well tolerated. Evaluation of the complication is limited due to patient positioning. IMPRESSION: No obvious leak of the oral enteric contrast post fundoplication. Dictated by: Zeferino Brock M.D. on 03/13/2020 at 9:42 Approved by: Zeferino Brock M.D. on 03/13/2020 at 9:49
[2020-03-13] MEDS: METOPROLOL IR 25 MG TABLET PO ×2 (09:39→21:34)
[2020-03-13] MEDS: SERTRALINE 50 MG TABLET 150 MG PO (09:39)
[2020-03-13] MEDS: LOVASTATIN 20 MG TABLET PO (09:50)
--- NOTE | 2020-03-13 10:12 | PC.NURSE ---
Addendum entered by Yulisa Mackenzie R.N. 03/13/20 14:52: tele d/c'd, after epidural removal, also d/c'd ubaldo all per md orders- tolerating advancement of diet to soft diet- denies nausea - medicated with oxycodone at 1330 for abd pain- g-tube stable - required transfer of 2 to chair and bed Addendum entered by Yulisa Mackenzie R.N. 03/13/20 11:30: pt bathed and assisted by 2 staff members to chair- she is able to transfer with assistance but unable to bear full weight and is a fall risk as is her baseline- she is mostly wheelchair bound and tolerating clear liquids well and advanced diet to full liquids for noon time meal- updated daughter via telephone and she will be arriving around lunch time. Grain Roaster and discharge planning to meet with pt and daughter upon her arrival. Original Note: pt denies pain and is pleasant affect- decreased epidural gtt to 3mls from 6mls with no change in pain c/o- but increased hr from 72-82 bpm- resp rate 4-16 - taking clear liquids without difficulty or cough noted- denies any nausea - tolerated po rx well this am
--- NOTE | 2020-03-13 11:03 | CM.DANOTE ---
Addendum entered by ANALILIA Garcia 03/13/20 14:03: ADD: Per RN, epidural is now out and ordered PT/OT and still pending for initial eval. SW met bedside with pt and Dtr/JOHN Bai and confirmed pt lives at home with Dtr the past 10 years and was recently on service with [facility] but pt improved enough to be discharged off HH. Dtr states pt can ambulate fairly well but gets dizzy spells and a high fall risk so pt does not ambulate without family nearby and therefore mostly uses the w/c to reduce risk of fall. Dtr states that pt has been accepted at [facility] in [place] and they were anticipating pt move in soon but no set date as Dtr states she was waiting for patient to complete her multiple medical appointments first as pt will need to be on a 2 week quarantine when she moves into their facility. SW discussed d/c plans and Dtr plans on d/c home with new HH prior to move into [facility]. SW provided the HH Choice List and Dtr preference is to try a new HH agency [facility] SW called [facility] and she states they are a week out before they can open pt to service and recommended calling another agency. [facility] called [facility] with new referral and TALIB Nichols faxed clinicals to review. Plan: SW to follow closely for PT/OT initial eval and recommendations to confirm pt safe for d/c home with Dtr and new HH referral to [facility] . F2F needed if HH at d/c. ANALILIA Garcia Original Note: Patient is an 84 year old female who was admitted on 03/12/20 for Lap Leslie. Pt has [facility] and [facility] for insurance and her PCP is Dr. Radha Farfan. EMR was reviewed. Per Surgeon, pt with large paraesophogeal hernia requiring surgery as limiting pt's airway. Per RN, pt had surgical procedure and a poor historian who currently has epidural and tolerating full liquids this morning. SW met bedside with pt and RN briefly as pt is a poor historian and explained role and updated white board and pt's Dtr/JOHN Bai to be bedside today around noon. Pt confirmed that she lives in [place] with her Dtr Joselin and son inlaw and is mostly independent with ADL's and relies on family for transportation. Pt states its been challenging to adjust to the change of living with her Dtr rather than independently but she feels that its been very helpful not living alone and having family for regular assist when needed. Pt was last admitted in Apr 2019 for fall and compression fx and discharged to [facility] rehab prior to d/c home. PT/OT orders may be needed towards helping identify discharge planning needs. Plan: SW to follow for further bedside assessment when Dtr arrives today around 1200 as pt poor historian towards determining d/c planning needs. ANALILIA Garcia Discharge Planning/Care Management CM Discharge Assessment Start: 03/13/20 10:53 Freq: Status: Active Protocol: Document 03/13/20 10:53 BF (Rec: 03/13/20 11:03 BF [id number]) Discharge Planning Assessment Assigned Catapult And Arresting Gear Officer MODESTO Wooten DPOA/Assigned Designee Name Bhumika Hallman Dtr Contact Information [phone] Advance Directives? Yes Advance Directives on File No: Unknown History Provided By Patient,Family Member,Medical Record Has Patient been admitted in last 30 No days? Prior Living Arrangements House Household Members family Type of transporation used prior to Relies on Others admit Comment Lives with Dtbeatris and son israel and relies on their transportation Independent with ADL's Yes: mostly Is patient alert and oriented? Yes: mostly Needs Assistance With Meal Prep,Managing Medications ,Home Chores / Shopping Caregiver for Another No Comment Waiting for possible PT/OT orders towards determining d/c needs Barriers to Discharge No Discharge Plan Home with Home Health Transportation Arrangement Dtr will be bedside today and available for transport if safe for home Additional Comment Waiting for further eval and assessment to determine needs Whiteboard Updated in Patient Room with Yes name and ext. # of Catapult And Arresting Gear Officer Review Status In Process Please Provide Date Initial DC 03/13/20 Assessment Was Performed Next Review Type Continued Stay Review Pre-Anesthesia Assessment Start: 03/06/20 13:30 Freq: Status: Complete Protocol: Document 03/06/20 13:30 CAB (Rec: 03/06/20 14:28 CAB [id number]) Pre-Anesthesia Assessment PAC Comment Daughter states Mom never complains of pain Patient Information Reviewed Via On-site Review Assessment Completed With Child Comment Pt w/mobility, memory issues. Comment COVID-19 screen scheduled @ Primary Care Provider Radha Farfan Seen Specialist in Last 12 Months Yes Specialist Seen Emergency,General surgeon, Oncologist,Orthopedist Primary Language British Preferred Language British Chart Calculator Required No Height 154.94 cm Weight 54.885 kg Body Mass Index (BMI) 22.8 Hearing Ability Hard of Hearing,Use of Hearing Aid Visual Assist Glasses Dentition Type Partial- Upper,Full- Upper Barriers to Learning Memory Hx Anesthesia Reactions No Hx Family Anesthesia Reaction Yes: Daughter became violent, combative Hx Malignant Hyperthermia No Hx Blood Transfusions No Anesthesia Review Requested No Steam Cleaning Machine Operator Yes alcohol intake current alcohol intake frequency holidays/special occasions only Smoking Status Former smoker how long ago did patient quit smoking Quit 30+ years ago Substance Use Type does not use Pain Present Denied Pain History of Falling (Recent or History of Yes ) Patient is completely paralyzed or No completely immobile Prosthesis or Orthotic Device Wheelchair Mental Status Forgets limitations Comment Pt able to walk, has instability and balance issues Is patient on oxygen? No Does patient have SEN/SOB No: Daughter states pt denies Hx Sleep Apnea No Comment Cough w/eating Currently Taking a Beta Mario Yes: Metoprolol Can You Climb a Flight of Stairs Without Doesn't use stairs SOB Hx Chest Pain No Hx SOB No Hx Syncope or Dizziness No Anti-Coagulant Therapy Yes: 81mg ASA Hx Pacemaker/ICD No Pacemaker Rep Required? No Diet Type At Home Regular dysphagia No: Boost 2x/day Gastrointestinal Symptoms Constipation,Vomiting Bladder Pattern Incontinent Urinary Catheter Present No Hx Urinary Self Catheterization No Diabetes No Patient No Lactating No Hx Drug Resistant Organism No Presence of External or Internal Medical Yes: Lumbar hardware Devices Have you had any close contact with No someone diagnosed with COVID-19? Evaluation/Screening for possible COVID- Yes 19 infection completed? Marital Status / Lives With family Prior Living Arrangements House Support System Child/Children Does the Patient Have Assistance After Yes Surgery Patient Discharge Plan Description Return Home Comment Pt advised 1 week length of stay per surgeon Feels Safe in Current Environment Yes Been Physically Hurt or Threatened By a No Person in Current Environment Do you have thoughts of harming yourself None or others? Are you currently considering suicide? No Do you have a plan to hurt yourself or No Plan others? Do You Have Any Spiritual Beliefs That No May Affect Your HC Choices? Do You Have Any Cultural Practices That No May Affect Your HC Choices? Who Can We Speak to About Patient's Care Family, friends Identifying Code for Release of Patient Declines to issue Information Health Care Proxy/Next of Kin Bhumika (daughter) Health Care Proxy [phone] Emergency Contact Name Bhumika (daughter) Emergency Contact [phone] Advance Directives? Yes Advance Directives on File Yes: Unknown Power of Cotton Farmer Yes: Unknown Power of Cotton Farmer Name Bhumika (temi) Power of Cotton Farmer [phone] PAC Instructions Durable medical equipment, Medications to take/avoid,No ETOH/petroleum product on skin DOS,NPO,Pre-surgical wash, Sturdy shoes/comfortable clothes,Do not bring valuables and remove jewelry
[2020-03-13] MEDS: OXYCODONE IR 5 MG TABLET PO ×2 (13:36→22:16)
--- NOTE | 2020-03-13 14:34 | DIET.PN ---
Dietary Progress Note Assessment: 84y 1d s/p daniela r/t severe dysphagia and difficulty breathing secondary to a large paraesophageal hernia. The majority of her stomach is within the left chest as well as partially twisted upon itself. Pt has g-tube but family prefers not to need to use it for nutrition support if at all possible. Pt has been living c daughter for 10 years, no one knew about this condition until recently. Per doctor reccs pt has been drinking 3 Boosts per day for ~1mo to maintain weight. Pt went to SNF last fall and lost 10#, today, pt is within 3kg of her UBW. Per pt's daughter, pt takes 1.5 hours to eat a meal, often pocketing meat in cheeks and spitting out into garbage can. Recc 1:1 cueing for meals. Pt has issues c chronic constipation, is taking senna and dulcolax daily, if no BM in 2d, pt has magnesium citrate. Per pt's daughter, when BMs happen they are huge, dry, and compacted, needing to be cut apart with military exchange wireless manager to flush down toilet. BM schedule is something that pt's daughter monitors closely. Questions for surgeon includes how to manage hernia on right abdomen, to use belt or not, and how to care for g-tube site. HT: 154.9cm WT: 54.9kg UBW: 57kg BMI: 22.9 Labs: phos 4.3 H MNA: 8 @ risk for malnutrition Maged: 14 @ risk for skin breakdown Interventions: 1. Per surgery will trial pt on easy chew POs (1/2 serving meatloaf c potatoes) tonight for tolerance. 2. Recc pt's familiar chocolate ONS daily, will send up bid. Diet Order: Full Liquid advancing to Easy Chew for dinner EER: 60g PRO (1.2g/kg per healing), 1600kcal (30kcal/kg) Monitoring/Evaluations: PO tolerance
--- NOTE | 2020-03-13 16:17 | PM.PNPO.1 ---
Subjective Subjective Date Patient Seen: 03/13/20 Time Patient Seen: 16:17 Interval history: Feeling well. No acute overnight events. No nausea no vomiting no fever. Was started on liquid diet today and tolerated without dysphagia Exam Vital Signs (past 8 hours): - 03/13/20 11:39 03/13/20 15:00 Temperature 100.3 F H 99.4 F Pulse Rate 80 78 Respiratory Rate 14 15 Blood Pressure 111/58 L 150/67 H Pulse Oximetry 91 96 Oxygen Delivery Method Room Air Oxygen Flow Rate 0 Narrative Exam Narrative: General elderly woman alert following commands no acute distress appears comfortable Abdomen soft appropriately tender to palpation midline incision clean dry intact. Clamped gastric tube Extremities warm well perfused Objective Labs Result Diagrams: 03/13/20 04:35 03/13/20 04:35 Labs: Laboratory Results - last 24 hr 03/12/20 03/13/20 03/13/20 15:00 04:35 04:35 WBC 19.5 H RBC 4.10 Hgb 11.4 L Hct 34.8 L MCV 85.0 MCH 27.9 MCHC 32.8 RDW 14.6 Plt Count 168 Neut % (Auto) Not Reportable Lymph % (Auto) Not Reportable [place] % (Auto) Not Reportable Eos % (Auto) Not Reportable Baso % (Auto) Not Reportable Lymph # (Auto) Not Reportable [place] # (Auto) Not Reportable Baso # (Auto) Not Reportable Total Counted 100 Seg Neutrophils % 36.0 L Band Neutrophils % 1.0 L Lymphocytes % (Manual) 51.0 H Atypical Lymphs % 8.0 H Monocytes % (Manual) 4.0 Neutrophils # (Manual) 7215 H RBC Morphology Normal morphology Sodium 136 L Potassium 4.2 Chloride 103 Carbon Dioxide 27 BUN 15 Creatinine 0.60 Estimated GFR > 60.0 BUN/Creatinine Ratio 25.0 H Glucose 86 Calcium 8.9 Phosphorus 4.3 H Magnesium 2.0 Nasal Screen MRSA (PCR) Negative for mrsa Assessment & Plan Post-op Postoperative Procedures: Procedures Operation Date: 03/12/20 11:45 Actual Procedures Side Surgeon p Open Hiatal Hernia Repair with gastrostomy tube placement Not Applicable Glenroy Douglass MD Postoperative status narrative: 84-year-old woman postoperative day 1 status post open hiatal hernia repair with gastropexy and gastrostomy tube placement doing well. She had a postoperative esophagram today which demonstrates no evidence of leak. She was started on a clear liquid diet which she tolerated will advance to regular today. Pain is been very well controlled the epidural was leaking it was some wean her pain remained under control and it was subsequently removed. Beltran removed. -regular diet -PT OT -decrease IV fluids to 75 -SCDs will start prophylactic Lovenox tomorrow
[2020-03-13] MEDS: HYDROMORPHONE 0.5 MG INJ IV (18:44)
--- NOTE | 2020-03-13 19:01 | PT.IIE ---
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 (03/12/20) Surgery Performed Operation Date: 03/12/20 11:45 Actual Procedures p Open Hiatal Hernia Repair with gastrostomy tube placement(Not Applicable) - Glenroy Douglass MD Surgical History (Last Updated 03/06/20 @ 14:20 by Ritika Payne RN) H/O spinal fusion (Acute 05/29/19) H/O: hysterectomy (Acute) History of 2 sections (Acute) Medical History (Last Updated 03/06/20 @ 14:20 by Ritika Payne RN) Atrial fibrillation, new onset (Acute) Compression fracture (Acute) Dehydration (Acute) Edema (Acute) Fracture, finger (Acute) Leukemia (Acute) Memory deficit (Acute) Syncope (Acute) Urinary incontinence (Acute) Physical Therapy Inpatient Evaluation/Re-Eval M1 PT/OT-IP Prior Functional Status Start: 03/13/20 17:53 Freq: NEEDED Status: Active Protocol: Document 03/13/20 17:54 (Rec: 03/13/20 19:01 [id number]) Medical Review Prior Functional Status Medical History Reviewed Yes Diet/Fluid Consistency Regular Communication Per nursing, pt is a poor historian and has dementia at [facility]. Mobility and Gait Per SW, Dtr states pt can ambulate fairly well with 4 WW but gets dizzy spells and a high fall risk so pt does not ambulate without family nearby and therefore mostly uses the w/c to reduce risk of fall. Activities of Daily Living and IADL's Per SW, pt is mostly independent with ADL's and relies on family for transportation. Dtr has been assisting with some patrick care after toileting recently. Pt is incontinent of bowel and bladder at times. Dtr assists with showering, manage medication. Pt states its been challenging to adjust to the change of living with her Dtr rather than independently but she feels that its been very helpful not living alone and having family for regular assist when needed Prior Functional Level (Other details) Pt had multiple falls. Social History Household Members family Living Arrangements House Number of Floors (Floors) One Floor Number of Stairs To Enter/Railing? 3 LIYAH with L rail back door with B rails x 3 steps Home Environment Standard Height Toilet,Walk in Shower,Built-In Shower Seat Home Equipment Four Wheel Walker,Straight Cane,Raised Toilet Seat w/ Armrests,Grab Bars In Shower Employment Status Retired Additional Social History Comment Pt lives with her dtr Joselin and son in law in [facility]. Dtr states that pt has been accepted at [facility] in [place]. PMG includes HTN, hyperlipidemia,dementia, hydrocephalus, leukemia. Pt had hx of falls and had severe compresison deformities of T11-T12. Pt was last admitted in Apr 2019 for fall and compression fx and discharged to [facility] rehab prior to d/c home. M2 PT-IP Current Condition Start: 03/13/20 17:53 Freq: NEEDED Status: Active Protocol: Document 03/13/20 17:54 (Rec: 03/13/20 19:01 [id number]) Physical Therapy Current Condition Current Condition Evaluation Date 03/13/20 Treatment Diagnosis s/p Open Hiatal Hernia Repair, difficulty in walking Onset Date 03/12/20 Precautions Abdominal Surgery Precautions Log Roll,Lifting Restrictions, Gait Belt above Incisional Area Weight Bearing Status Weight Bearing Status Full Weight Bearing M3 PT-IP Subjective Start: 03/13/20 17:53 Freq: NEEDED Status: Active Protocol: Document 03/13/20 17:54 (Rec: 03/13/20 19:01 [id number]) Subjective Physical Therapy Visit Type Type Initial Evaluation Visit Start Time 18:10 Visit Stop Time 18:35 Total Visit Minutes 25 Number of TRAVELING PASSENGER AGENT Visits 0 Physical Therapy Visit Comments Patient Comments Im doing pretty good Therapy Pain Assessment Pain When Pain Assessed During Mobility Pain Present Pain Present Denied Pain M4 PT-IP Mobility and Gait Start: 03/13/20 17:53 Freq: NEEDED Status: Active Protocol: Document 03/13/20 17:54 (Rec: 03/13/20 19:01 [id number]) PT-Bed Mobility Assessment Supine to Sit Supine to Sit Minimal Assistance,Bedrails Scooting Scooting to Edge of Bed Contact Guard Assistance PT-Transfer Assessment Sit to and From Stand Sit to and from Stand Minimal Assistance,Use of Upper Extremities Equipment Transfer Assistive Device Bed Rail,Gait Belt,Front Wheeled Walker Orthotic/Prosthetic Devices or Brace: No Transfers Transfer Destination Bed,Chair Transfer Technique FWW/ counter Transfer Ability Level of Assist Moderate Assistance,2 Person Assistance,Use of Upper Extremities Comments Mobility Comments Pt was in elevated head of bed finishing her dinner upon PT arrival. BP at 154/74. Pt was unable to recall date, time, events and home situation but able to follow 1 step simple command. She agreed to get OOB and sit in chair afterwards. Pt was able to pivot herself from seated position (40 degrees elevated HOB) to R side slowly with use of bedrails to pull. She then scooted towards EOB by pulling edge of bed and nearby chair armrest. Pt then stood up with min A by pull to stand from FWW. Pt instructed pt to amb to sink counter for pericare with chair follow. She needed assistance to manuever her walk for turns and needed cues to keep herself close to walker. Pt amb with R foot drag and needed cue for clearance. She then held on to sink counter with 1UE and combed her hair who also has difficulty standing upright. Pt then requested to sit down and she needed cue for hand placement for descend. Wheeled [facility] and requested RN to place chair alarm. Pt BP at 170/81 with HR 114. Pt appeared to have slight SOB but denied any discomfort. Gait Assessment Gait Gait Assistance Required: Moderate Assistance,2 Person Assist Distance (Feet) 4 Able to Maintain Weight Bearing Status Yes During Gait Assistive Devices Assistive Device Gait Belt,Front Wheeled Walker Orthotic/Prosthetic Devices or Brace: No Gait Deviations General Gait Pattern Antalgic,Decreased Stride Length,Decreased Feet Clearance,Flexed Trunk,Step-to Gait Factors Limiting Gait Function Factors Limiting Gait Function Decreased Activity Tolerance, Decreased Strength,Difficulty Following Directions,Limited Range of Motion,Pain,Poor Balance,Poor Safety Awareness, Respiratory Distress Comments Gait Comments see mobility comments Stair Climbing Assessment Comments Stair Climbing Comments did not assess PT-Balance Assessment Sitting Balance and Reactions Static Sitting Balance Ability Good Dynamic Sitting Balance Ability Good Standing Balance and Reactions Static Standing Balance Ability Fair Dynamic Standing Balance Ability Poor Device Used FWW M5 PT-IP Objective Assessments Start: 03/13/20 17:53 Freq: NEEDED Status: Active Protocol: Document 03/13/20 17:54 (Rec: 03/13/20 19:01 [id number]) Orientation Orientation/Cognition Level of Alertness Alert Orientation Name Language Function Ability Word Finding Difficulties,Hard of Hearing Safety Awareness Decreased Safety Awareness Memory Description Short Term Impaired,Head Teller Impaired Comments pt able to follow 1 step simple command but did not recall recent and past event. She also does not know her home environment. Gross Range of Motion Upper Extremity ROM Assessment Within Functional Limits Lower Extremity ROM Assessment Within Functional Limits Strength Upper Extremity Strength Assessment Within Functional Limits Lower Extremity Strength Assessment Within Functional Limits Coordination Assessment Gross Coordination Gross Coordination WNL Sensation Assessment Sensation Gross Sensation WNL Muscle Tone Muscle Tone WNL Yes M6 PT-IP Treatment Start: 03/13/20 17:53 Freq: NEEDED Status: Active Protocol: Document 03/13/20 17:54 (Rec: 03/13/20 19:01 [id number]) Physical Therapy Treatment Education Education Provided Precautions,Safety M7 PT-IP Assessment and Plan Start: 03/13/20 17:53 Freq: NEEDED Status: Active Protocol: Document 03/13/20 17:54 (Rec: 03/13/20 19:01 [id number]) PT Summary Assessment and Plan Potential Rehabilitation Potential Good Status of Condition at Evaluation Evolving Summary Impairments Pain,ROM,Strength,Balance, Cognition,Bed Mobility, Transfers,Gait,Activity Tolerance Assessment Summary This is a high complexity evalution for this 84 yo female s/p POD1 Open Hiatal Hernia Repair with gastrostomy tube placement. Pt 's PLOF = w/c bound mostly but ambulatory with 4WW with constant supervision from family, along with hx of falls ; mod independent for ADLs with family assistance as needed. Upon assessment, pt denies discomfort / pain but overall needed 2PA and FWW for minimal mobility. Pt has poor safety awareness and only able to follow 1step simple command possibly d/t dementia. Pt currently will need SNF care due to high fall risks, extensive care needed for her medical condition. However, . Pt is possibly able to return home with family assistance and partipate outpatient wound care rehab if she's medically stable and cont to progress. Goals Bed Mobility Goal Minimal Assistance Transfer Goal Minimal Assistance,Front Wheeled Walker Gait Goal Minimal Assistance,Front Wheel Walker Gait Distance 20 Other Goals w/c transfer with 1pa with FWW toilet/ BSC transfer with 1pa with FWW family education on post op precautions Days to Meet Goals 10 Frequency of Treatment Frequency Of Treatment Once a Day Treatment Plan Physical Therapy Treatment Plan Bed Mobility Training,Transfer Training,Gait Training, Therapeutic Exercise,Balance Retraining,Post Op Education, Discharge Planning,Hot or Cold Pack,Manual Therapy Other Recommendations and Next Treatment w/c transfer with FWW Focus toilet/ BSC transfer with FWW family education on post op precautions Recommendations To Nursing Amount of Assist Needed 2 Person Assist Discharge Recommendations PT Discharge Recommendations Home with Assistance,Home Health Equipment Needed for Home Before FWW needed if d/c home Discharge Transportation Needs at Discharge Private Vehicle
[2020-03-13] MEDS: QUETIAPINE 25 MG TABLET 50 MG PO (21:34)
[2020-03-14 00:50] VITALS: BP 142/87; PULSE 88; RESP 16; TEMP 36.5; O2SAT 91
[2020-03-14] MEDS: LACTATED RINGERS 1,000 ML 75 ML IV (00:58)
[2020-03-14] MEDS: HYDROMORPHONE 0.5 MG INJ IV (00:58)
[2020-03-14 05:04] VITALS: BP 143/83; PULSE 85; RESP 16; TEMP 36.8; O2SAT 92
[2020-03-14 05:12] LABS: Hematocrit 33.5 % (36-46); Mean Corpuscular HGB Conc 32.9 % (30-36); Mean Corpuscular Hemoglobin 27.9 PG (26-34); Mean Corpuscular Volume 84.8 fL (80-100); Platelet Count 162 X10^3/uL (150-400); Red Blood Cell Count 3.95 X10^6/uL (4.0-5.2); Red Cell Distribution Width 14.5 % (11.6-14.8); White Blood Cell Count 22.2 X10^3/uL (4.5-11.0)
[2020-03-14 05:15] LABS: Add Manual Diff / Slide Review YES
[2020-03-14 05:19] LABS: BUN Creatinine Ratio 18.6 (6-22); Blood Urea Nitrogen 11 mg/dL (7-17); Calcium 8.7 mg/dL (8.4-10.2); Carbon Dioxide 31 mmol/L (22-32); Chloride 99 mmol/L (98-107); Estimated Glomerular Filt Rate > 60.0 mL/min (>60); Glucose 115 mg/dL (80-110); HEMOLYSIS < 15 (0-50); Magnesium 1.9 mg/dL (1.6-2.3); Phosphorous 3.5 mg/dL (2.8-4.1); Potassium 4.2 mmol/L (3.4-5.1); Sodium 133 mmol/L (137-145)
[2020-03-14 05:46] LABS: Neutrophils Absolute Manual 7104 /uL (3000-5900); Poikilocytosis 1+; Total Cells Counted 100
[2020-03-14 08:06] VITALS: BP 137/64; PULSE 88; RESP 14; TEMP 37; O2SAT 90
[2020-03-14 09:31] LABS: Procalcitonin 0.42 ng/mL (<0.5)
[2020-03-14 11:00] VITALS: BP 149/72; PULSE 82; RESP 18; TEMP 37.1; O2SAT 93
[2020-03-14] MEDS: OXYCODONE IR 5 MG TABLET PO (13:15)
[2020-03-14] MEDS: ENOXAPARIN 30 MG/0.3 ML SYRINGE SUBCUT (13:16)
[2020-03-14] MEDS: METOPROLOL IR 25 MG TABLET PO (13:16)
--- NOTE | 2020-03-14 13:22 | PC.NURSE ---
Addendum entered by Stephanie Terrazas R.N. 03/14/20 15:55: Daughter became quite frustrated about getting walker and PT prior to leaving hospital, I am having a panic attack from wearing this mask I need to leave now! Assist Pt and daughter to car, with d/c paperwork and teaching cut short, but daughter has number to nurses station and surgery office for concerns. Addendum entered by Stephanie Terrazas R.N. 03/14/20 15:27: Pt working with OT, has needed 2 P transfer for weakness as w/c bound at home. Daughter into discuss teaching, and brought up placement at [facility] in [place], which was pending prior to surgery. Daughter requesting further PT, discussion with daughter about baseline w/c status and what goals of PT would be with home health. Apperently able to get admitted to [facility] facility 03/19/2020 This has caused concern with nursing d/t new g tube placement. Education provided about g tube and no care needed, except monitor for excess drainage ect. Binder requested from chief nursing executive to protect from clothing. Original Note: Am shift pt tolerating soft general diet well. No c/o pain. PO oxycodone given prior to d/c home. Await d/c teaching for daughter to arrive.
[2020-03-14] MEDS: SERTRALINE 50 MG TABLET 150 MG PO (14:01)
[2020-03-14] MEDS: LOVASTATIN 20 MG TABLET PO (14:02)
--- NOTE | 2020-03-14 14:16 | PM.DS.1 ---
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 She has significant dysphagia and tolerates mostly liquids has significant regurgitation and presents for an open hiatal hernia repair. Discharge Providers Provider Date of admission: 03/12/20 10:40 Discharge Date: 03/14/20 Primary care physician: Radha Farfan Consults: 03/12/20 16:06 Consult to Dietitian, Adult Routine Comment: Reason For Exam: weight loss 03/13/20 12:25 Consult to Occupational Therapy Evaluate & Treat Comment: Physician Instructions: Evaluate and treat Consult to Physical Therapy Evaluate & Treat Comment: Physician Instructions: Evaluate and Treat Discharge provider: Glenroy Douglass MD Summary Hospital Course Discharge Diagnosis: Paraesophageal hernia Hospital Course: Patient underwent a open paraesophageal hernia repair with gastropexy and gastrostomy tube placement on 03/12. She tolerated the operation well she had no pneumothorax. An esophagram done on postoperative day 1 demonstrates no leak and normal passage of contrast. She was started on a diet which was advanced and on the day of discharge 03/14 she is tolerating a regular diet without nausea vomiting or dysphagia. Her a gastrostomy tube has remained clamped. 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 She is stable for discharge at this time. Status at Discharge Cognitive/behavioral status at discharge: oriented Time Spent with Patient Time spent: Greater than 30 minutes Exam Vital Signs (past 8 hours): - 03/14/20 08:06 03/14/20 11:00 Temperature 98.6 F 98.7 F Pulse Rate 88 82 Respiratory Rate 14 18 Blood Pressure 137/64 149/72 H Pulse Oximetry 90 L 93 Oxygen Delivery Method Room Air Oxygen Flow Rate 0 Narrative Exam Narrative: General elderly woman alert following commands noted acute distress uncomfortable Chest nonlabored respiration Abdomen soft appropriately tender to palpation midline incision clean dry intact. Gastrostomy tube left upper quadrant in place and clamped Objective Labs Result Diagrams: 03/14/20 04:47 03/14/20 04:47 Labs: Laboratory Results - last 24 hr 03/14/20 03/14/20 03/14/20 04:47 04:47 04:47 WBC 22.2 H RBC 3.95 L Hgb 11.0 L Hct 33.5 L MCV 84.8 MCH 27.9 MCHC 32.9 RDW 14.5 Plt Count 162 Neut % (Auto) Not Reportable Lymph % (Auto) Not Reportable [place] % (Auto) Not Reportable Eos % (Auto) Not Reportable Baso % (Auto) Not Reportable Lymph # (Auto) Not Reportable [place] # (Auto) Not Reportable Baso # (Auto) Not Reportable Total Counted 100 Seg Neutrophils % 32.0 L Lymphocytes % (Manual) 60.0 H Atypical Lymphs % 5.0 H Monocytes % (Manual) 2.0 Eosinophils % (Manual) 1.0 L Neutrophils # (Manual) 7104 H RBC Morphology See below Poikilocytosis 1+ H Sodium 133 L Potassium 4.2 Chloride 99 Carbon Dioxide 31 BUN 11 Creatinine 0.59 Estimated GFR > 60.0 BUN/Creatinine Ratio 18.6 Glucose 115 H Calcium 8.7 Phosphorus 3.5 Magnesium 1.9 Procalcitonin 0.42 Discharge Plan Discharge Plan Patient Disposition: Home Discharge comment: Keep gastrostomy tube in place. No need to flush or otherwise manipulate. Will remove in 6 weeks time. Diet as tolerated. Discharge orders & Medications Prescriptions: New docusate sodium [Colace] 100 mg capsule 100 mg PO BID Qty: 30 RF: 0 oxycodone 5 mg tablet 5 mg PO Q6H PRN (Reason: pain) Qty: 25 RF: 0 acetaminophen [Tylenol] 325 mg capsule 650 mg PO QID PRN (Reason: pain) Qty: 60 RF: 0 Continued multivitamin Capsule 1 cap PO DAILY Qty: 0 RF: 0 docusate sodium [Colace] 100 MG capsule 100 mg PO DAILY Qty: 0 RF: 0 quetiapine [Seroquel] 50 MG tablet 50 mg PO QDAY Qty: 0 RF: 0 sertraline 100 mg tablet 150 mg PO DAILY RF: 0 omega 1-[id number] oil [Fish Oil] 1,000 mg (120 mg-180 mg) Capsule 1 cap PO DAILY RF: 0 flaxseed oil 1,000 mg Capsule 1,000 mg PO DAILY RF: 0 aspirin [Adult Low Dose Aspirin] 81 mg Tablet,Delayed Release (Dr/Ec) 81 mg PO DAILY RF: 0 calcium carbonate [Calcium 500] 500 mg calcium (1,250 mg) Tablet 500 mg PO DAILY RF: 0 acetaminophen 325 mg Tablet 650 mg PO Q6HR PRN (Reason: As Needed For Fever/Mild Pain) Qty: 60 RF: 0 bisacodyl 10 mg Suppository 10 mg FL PRN PRN (Reason: Constipation) Qty: 30 RF: 0 lovastatin 20 mg Tablet 20 mg PO DAILY Qty: 30 RF: 0 ondansetron 4 mg tablet,disintegrating 4 mg PO Q6H PRN (Reason: nausea and vomiting) Qty: 14 RF: 0 omeprazole 20 mg Capsule,Delayed Release(Dr/Ec) 20 mg PO DAILY RF: 0 furosemide 20 mg tablet 20 mg PO DAILY PRN (Reason: Edema) RF: 0 metoprolol tartrate 25 mg tablet 25 mg PO BID RF: 0 Follow up/Referrals: Glenroy Douglass MD [Physician] - Radha Farfan [Primary Care Provider] - Diet/Activity/Treatments Diet: Regular Skin/Wound/Dressing Care Report to your healthcare provider any signs of infection, such as:: chills, fever, increased pain, unusual drainage and unusual redness Visit Report/Discharge Packet Instructions: Gastrostomy: Permanent and Temporary, DI for Hiatal Hernia, DI for Prescription Opioid Use, [facility]: Wound Care Visit Report Forms: Patient Portal/API, Stroke Signs & Symptoms Discharge Data Primary Care Provider: Radha Farfan
--- NOTE | 2020-03-14 14:59 | CM.DPC ---
Addendum entered by Brenna Bermudez LPN 03/14/20 15:22: DCP proves to be a bit tangled with some misunderstanding on all sides. Have worked with OT/RN Stephanie/pt's daughter Bhumika/Amina Mcgowan and RN team of [facility] in [place] to get a plan in place. All is now set for pt to admit to [facility] on Monday 03/12. PCP Radha Farfan will be part of this process as she will be doing the admission orders. This has been weeks in the planning with RNs Marnie and Mona at the facility confirming that pt has been accepted for some time but daughter Bhumika has been putting it off. Bhumika is now wanting to do this move MICHELINE. Roslyn/Amina BENOIT will call the PCP and obtain orders for HH RN for wound care as the [facility] cannot admit someone with this need without the HH. She will follow up for the Face/Face and etc with the PCP. She provides her cell number for followup with [facility] Marnie and Mona and is available by her cell for further discussion with Bhumika. Roslyn Bose's cell: [phone]. Bhumika will now take pt home as planned and be caring for her until Wednesday. RN Stephanie doing teach for small gauze dressing around G-tube site. Am faxing d/c orders which address the G[facility] to [facility]. ( [facility]: tel: [phone] and fax: [phone].) Original Note: DCP: continued: case received and a d/c to home order was noted by Dr. Douglass. HH services were not ordered. had stated that pt would be going into a facility and thus HH was not needed. Pt will have the gastrostomy in place for 6 weeks in case it is needed but is not being used at this time. Pt's daughter is here now to discuss this further.
--- NOTE | 2020-03-14 15:19 | OT.IP.EVAL ---
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 (03/12/20) Surgery Performed Operation Date: 03/12/20 11:45 Actual Procedures p Open Hiatal Hernia Repair with gastrostomy tube placement(Not Applicable) - Glenroy Douglass MD Past Medical History (Last Updated 03/06/20 @ 14:20 by Ritika Payne, RN) Atrial fibrillation, new onset (Acute) Compression fracture (Acute) Dehydration (Acute) Edema (Acute) Fracture, finger (Acute) Leukemia (Acute) Memory deficit (Acute) Syncope (Acute) Urinary incontinence (Acute) Surgical History (Last Updated 03/06/20 @ 14:20 by Ritika Payne RN) H/O spinal fusion (Acute 05/29/19) H/O: hysterectomy (Acute) History of 2 sections (Acute) Occupational Therapy Inpatient Evaluation/Re-Eval M2 OT-IP Current Condition Start: 03/14/20 16:51 Freq: Status: Active Protocol: Document 03/14/20 14:22 [facility] (Rec: 03/14/20 17:14 [facility] [id number]) Occupational Therapy Current Condition Current Condition Evaluation Date 03/14/20 Treatment Diagnosis s/p open hiatal hernia repair Diagnosis Onset Date 03/12/20 Post Operative Precautions Abdominal Surgery Precautions Log Roll,Lifting Restrictions, Gait Belt above Incisional Area Weight Bearing Status Weight Bearing Status Weight Bear as Tolerated M3 OT- IP Subjective and Pain Start: 03/14/20 16:51 Freq: Status: Active Protocol: Document 03/14/20 14:22 [facility] (Rec: 03/14/20 17:14 [facility] [id number]) OT- Subjective Occupational Therapy Visit Type Type Initial Evaluation Visit Start Time 14:22 Visit Stop Time 15:19 Total Visit Minutes 57 Occupational Therapy Visit Comments Patient Comments Pt with nursing aid and in the process on getting dressed to go home. Pt's daughter present for caregiver training . Patient/Caregiver Goals TO go home. OT Pain Assessment Pain When Pain Assessed At Rest Pain Present Pain Present Denied Pain M4 OT- IP ADL's Start: 03/14/20 16:51 Freq: Status: Active Protocol: Document 03/14/20 14:22 [facility] (Rec: 03/14/20 17:14 [facility] [id number]) OT [id number] Comments OT Self-Feeding Comments Not at meal time. OT ADL-Grooming Comments OT Grooming Comments Not performed. OT ADL-Dressing General Eval Upper Body Dressing Ability Minimal Assistance Lower Body Dressing Ability Maximum Assistance Areas Needing Assistance Underpants/Brief,Pants/Shorts, Socks,Shoes Comments OT Dressing Comments MAX A for all LB dressing needs and ALBERTA for UB dressing needs. Prior pr able to assist for al ADL needs. OT ADL-Toileting General Evaluation Toileting Ability Total Assistance Areas Needing Assistance Manage Clothing,Perform Perineal Hygiene Devices Toileting Assistive Devices Commode Comments OT Toileting Comments Pt incontinent and needing two person assist to help one person to stand with pt and another for hygiene and pants management needs. At home per daughter pt able to stand with grab bar next to the toilet. Suggested pt to wear brief at all times. OT ADL-Bathing Comments OT Bathing Comments Not performed M5 OT- IP IADL's Start: 03/14/20 16:51 Freq: Status: Active Protocol: Document 03/14/20 14:22 [facility] (Rec: 03/14/20 17:14 [facility] [id number]) OT-Instrumental Activities of Daily Living Deficits IADL Deficits Identified Deficits Home Safety Awareness Awareness of Need for Assistance at Home Decreased Awareness Medication Management Medication Management Caregiver Administers Money Management Money Management Caregiver Provides Assistance Meal Preparation Meal Preparation Caregiver Provides Assist Real Estate Instructor Real Estate Instructor Caregiver Provides Assist Driving Driving Caregiver Provides Assist M6 OT- IP Functional Cognition Start: 03/14/20 16:51 Freq: Status: Active Protocol: Document 03/14/20 14:22 [facility] (Rec: 03/14/20 17:14 [facility] [id number]) Cognitive Factors Limiting Selfcare Function Cognitive Ability Level of Alertness Alert Patient Orientation Name Attention Span Ability Capable of Focused Attention, Capable of Sustained Attention Ability to Follow Commands Able to Follow One Step Commands Memory Description Short Term Impaired Safety Awareness Underestimates Need for Assistance Problem Solving Ability Unable to Identify Errors, Needs Assist to Identify Solutions Cognitive Comments Cognitive Assessment Comments Pt a bit hard of hearing, decreased short term memory and needing simple concrete cues to follow. M7 OT- IP Mobility and Balance Start: 03/14/20 16:51 Freq: Status: Active Protocol: Document 03/14/20 14:22 [facility] (Rec: 03/14/20 17:14 [facility] [id number]) OT-Transfer Assessment Sit to and From Stand Sit to and from Stand Moderate Assistance,Maximum Assistance Transfers Transfer Ability Moderate Assistance,Maximum Assistance Technique Transfer Destination Bedside Commode,Chair, Wheelchair Transfer Technique Stand Step Pivot Devices Transfer Assistive Devices Gait Belt,Standard Walker Comments Mobility Comments Able to educated pt's daughter to lane/doff gait belt and how to assist pt for transfer needs. Pt's daughter states her daughter does the physical lifting. Pt's daughter states they just mainly do transfers to and from the wc at this time. COMB TENDER came in and joined the discussion of how pt gets into the house. Pt's daughter states they carry the wc up and down the steps, recommended to call for fire department or get an ambulance. COMB TENDER to trial steps with pt . OT- Balance Assessment Sitting Balance and Reactions Static Sitting Balance Ability Good Dynamic Sitting Balance Ability Fair Standing Balance and Reactions Static Standing Balance Ability Poor Dynamic Standing Balance Ability Poor M8 OT- IP Objective Assessments Start: 03/14/20 16:51 Freq: Status: Active Protocol: Document 03/14/20 14:22 [facility] (Rec: 03/14/20 17:14 [facility] [id number]) OT Gross Range of Motion Upper Extremity Range of Motion Assessment Within Functional Limits OT Strength Upper Extremity Strength Assessment Within Functional Limits M9 OT- IP Assessment and Plan Start: 03/14/20 16:51 Freq: Status: Active Protocol: Document 03/14/20 14:22 [facility] (Rec: 03/14/20 17:14 [facility] [id number]) OT Summary Assessment and Plan Potential Rehabilitation Potential Good Analytic Complexity at Evaluation Low Summary OT Impairments Balance,Functional Cognition, Functional Mobility,Dressing, Toileting,Bathing,Toilet Transfers,Shower Transfers, Activity Tolerance Progress Towards Goals Slow Progress due to Activity Tolerance,Slow Progress due to Cognition Assessment Summary Pt low complexity and s/p hiatal hernia repair and now needing more assist for ADL and functional mobility needs. Pt daughter present for caregiver training and aware that pt will need more assist at home. Home health would also be beneficial for pt to do and beneficial to family to continue the caregiver training needs. Goals Grooming Goal Independent Dressing Goal Minimal Assistance Toileting Goal Minimal Assistance Bathing Goal Moderate Assistance Toilet Transfer Goal Minimal Assistance Shower Transfer Goal Minimal Assistance Patient/Caregiver Education Goal Caregiver Independent Assisting Patient Days to Meet Goals 10 Frequency of Treatment Frequency Of Treatment Once a Day Treatment Plan OT Treatment Plan ADL Training,Functional Cognition Training,Functional Mobility,Patient/Family Education,Discharge Planning Discharge Recommendations OT Discharge Recommendations Home with / Assist,Home Health Home Equipment Needs BSC,FWW Transportation Needs at Discharge Private Vehicle
--- NOTE | 2020-03-14 16:03 | PT.IPTN ---
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 (03/12/20) Surgery Performed Operation Date: 03/12/20 11:45 Actual Procedures p Open Hiatal Hernia Repair with gastrostomy tube placement(Not Applicable) - Glenroy Douglass MD Physical Therapy Treatment Note M2 PT-IP Current Condition Start: 03/13/20 17:53 Freq: NEEDED Status: Discharge Protocol: Document 03/13/20 17:54 [facility] (Rec: 03/13/20 19:01 HH [id number]) Physical Therapy Current Condition Current Condition Evaluation Date 03/13/20 Treatment Diagnosis s/p Open Hiatal Hernia Repair, difficulty in walking Onset Date 03/12/20 Precautions Abdominal Surgery Precautions Log Roll,Lifting Restrictions, Gait Belt above Incisional Area Weight Bearing Status Weight Bearing Status Full Weight Bearing M3 PT-IP Subjective Start: 03/13/20 17:53 Freq: NEEDED Status: Discharge Protocol: Document 03/14/20 16:37 SP (Rec: 03/14/20 17:40 SP [id number]) Subjective Physical Therapy Visit Type Type Treatment Note Visit Start Time 15:10 Visit Stop Time 16:03 Total Visit Minutes 53 Notes Daughter in room for caregiver training. Number of VOCATIONAL REHABILITATION TEACHER Visits 1 Physical Therapy Visit Comments Patient Comments Pt willing to work with therapy pre DC including gait, stair mgt. Therapy Pain Assessment Pain Present Pain Present Denied Pain M4 PT-IP Mobility and Gait Start: 03/13/20 17:53 Freq: NEEDED Status: Discharge Protocol: Document 03/14/20 16:37 SP (Rec: 03/14/20 17:40 SP [id number]) PT-Transfer Assessment Sit to and From Stand Sit to and from Stand Minimal Assistance,Moderate Assistance,1 Person Assistance ,Use of Upper Extremities Equipment Transfer Assistive Device Gait Belt,Front Wheeled Walker Orthotic/Prosthetic Devices or Brace: No Transfers Transfer Destination Wheelchair Transfer Technique pt ambulated using fWW. Transfer Ability Level of Assist Moderate Assistance,1 Person Assistance,Use of Upper Extremities Comments Mobility Comments Pt was seated in w/c when arrived finishing up OT session and nursing initiating DC paperwork. VOCATIONAL REHABILITATION TEACHER/ OT discussed importance of 4 stair (home) mgt training before discharge for awareness patient's strength ability to mobilize using 1 HR with support through gait belt safer over family's plan to lift patient in w/c with many persons as has done in the past. VOCATIONAL REHABILITATION TEACHER discouraged lifting patient due to safety concerns for everyone involved. Therapist provided Mod A of 1 Sit to stand from w/c Max cuing pushup from w/chair, upright posture and body close to FWW during forward movement approx 10 ft with therapist before required seated rest and provided cuing to daughter to please follow with w/c secondary to decreased strength and activity tolerance. VOCATIONAL REHABILITATION TEACHER pushed patient down to stairs in w/c . Daughter completed sit to stand wtih patient from w/c near stairs side cuing to daughter to linotype operator front while using gait belt under arms and telling patient Max cues for hand placement push up from chair and upright posture. Pt required Max cuing and YAVAP[place]-APACHE for only use of L HR assimulate home environment facing L HR best while side stepping, daughter unable to assist and redirect patient safely so therapist took over Mod A of 1 person to assist patient ascend/descend 3 stairs and support of therapist leg behind patient's hips for further support for upright posture and decrease hip hinge trunk flexion with Max cues for UE/ LE repositioning and good follow through for completion. Pt step pivot transfer stairs to w/c Min A of 1 person. VOCATIONAL REHABILITATION TEACHER suggested use of fWW during transfers and UE support provided from front to daughter and agreeable for home use. DC planning personnel placed orders for FWW and VOCATIONAL REHABILITATION TEACHER dispensed. Therapy recommending SNF or 19/04 assist with HH PT. Pt able to go when when medically cleared . Daughter asked for assist with car transfer, Mod of 1 person SPT, Max A to lateral scoot to center in front passengar's seat and Mod A for BLE into car. Gait Assessment Gait Gait Assistance Required: Moderate Assistance,1 Person Assist Distance (Feet) 10 Able to Maintain Weight Bearing Status Yes During Gait Assistive Devices Assistive Device Gait Belt,Front Wheeled Walker Orthotic/Prosthetic Devices or Brace: No Gait Deviations General Gait Pattern Antalgic,Decreased Stride Length,Decreased Feet Clearance,Flexed Trunk,Step-to Gait Factors Limiting Gait Function Factors Limiting Gait Function Decreased Activity Tolerance, Decreased Strength,Difficulty Following Directions,Limited Range of Motion,Pain,Poor Balance,Poor Safety Awareness Comments Gait Comments see mobility comments Stair Climbing Assessment Evaluation Level of Assist On Stairs Moderate Assistance,1 Person Assistance Devices Stair Climbing Assistive Devices Left Railing Technique/Endurance Stair Climbing Direction Ascend and Descend Stair Climbing Technique Step to Step Number of Steps Climbed 3 Stair Climbing Set # Repetitions (reps) 1 Comments Stair Climbing Comments See mobility comments. PT-Balance Assessment Sitting Balance and Reactions Static Sitting Balance Ability Good Dynamic Sitting Balance Ability Fair Standing Balance and Reactions Static Standing Balance Ability Poor Dynamic Standing Balance Ability Poor Device Used FWW M5 PT-IP Objective Assessments Start: 03/13/20 17:53 Freq: NEEDED Status: Discharge Protocol: Document 03/13/20 17:54 HH (Rec: 03/13/20 19:01 HH [id number]) Orientation Orientation/Cognition Level of Alertness Alert Orientation Name Language Function Ability Word Finding Difficulties,Hard of Hearing Safety Awareness Decreased Safety Awareness Memory Description Short Term Impaired,Mcc Impaired Comments pt able to follow 1 step simple command but did not recall recent and past event. She also does not know her home environment. Gross Range of Motion Upper Extremity ROM Assessment Within Functional Limits Lower Extremity ROM Assessment Within Functional Limits Strength Upper Extremity Strength Assessment Within Functional Limits Lower Extremity Strength Assessment Within Functional Limits Coordination Assessment Gross Coordination Gross Coordination WNL Sensation Assessment Sensation Gross Sensation WNL Muscle Tone Muscle Tone WNL Yes M6 PT-IP Treatment Start: 03/13/20 17:53 Freq: NEEDED Status: Discharge Protocol: Document 03/14/20 16:37 SP (Rec: 03/14/20 17:40 SP [id number]) Physical Therapy Treatment Education Education Provided Precautions,Safety M7 PT-IP Assessment and Plan Start: 03/13/20 17:53 Freq: NEEDED Status: Discharge Protocol: Document 03/14/20 16:37 SP (Rec: 03/14/20 17:40 SP [id number]) PT Summary Assessment and Plan Potential Rehabilitation Potential Good Status of Condition at Evaluation Evolving Summary Impairments Pain,ROM,Strength,Balance, Cognition,Bed Mobility, Transfers,Gait,Activity Tolerance Assessment Summary Pt has poor safety awareness and only able to follow 1 step simple command possibly d/t dementia. sit to stand Mod A of 1 person using FWW. Unsafe to use 4WW at this time, family and patient agreed for placing order adn dispensing FWW pre DC today. Gait Mod A of 1 person from front using FWW with therapist pacing pace /speed/ positioning of FWW with need and second person follow with w/c secondary to decrease strength and activity tolerance, max cuing for body closer to/stay within FWW ( demonstrates flexed trunk posture and unable to control FWW speed. Pt currently will require SNF care due to high fall risks, extensive care needed for her medical condition. However pt is able to return home with family assistance and partipate outpatient wound care rehab if she's medically stable and cont to progress. Goals Bed Mobility Goal Minimal Assistance Transfer Goal Minimal Assistance,Front Wheeled Walker Gait Goal Minimal Assistance,Front Wheel Walker Gait Distance 20 Other Goals w/c transfer with 1pa with FWW toilet/ BSC transfer with 1pa with FWW family education on post op precautions Days to Meet Goals 10 Frequency of Treatment Frequency Of Treatment Once a Day Treatment Plan Physical Therapy Treatment Plan Bed Mobility Training,Transfer Training,Gait Training, Therapeutic Exercise,Balance Retraining,Post Op Education, Discharge Planning,Hot or Cold Pack,Manual Therapy Other Recommendations and Next Treatment w/c transfer with FWW Focus toilet/ BSC transfer with FWW family education on post op precautions Recommendations To Nursing Amount of Assist Needed 1 Person Assist Discharge Recommendations PT Discharge Recommendations Home with Assistance,Home Health Equipment Needed for Home Before FWW needed if d/c home Discharge Transportation Needs at Discharge Private Vehicle
== END 2020-03-14 16:00 | disposition home or self-care (01) | DRG 327 ==
LOC: AC 10:42 → ICU 10:47
PROVIDERS: Admitting Provider Surgery; PCP Physician Assistant Medical; Referring Provider Surgery; Visit Provider Surgery
PROC: 0BQT0ZZ Repair Diaphragm, Open Approach (ICD-10-PCS; CPT 44140; principal; 2020-03-12 11:45)
DX: K44.9 Diaphragmatic hernia without obstruction or gangrene (principal); C95.10 Chronic leukemia of unspecified cell type not having achieved remission; I48.91 Unspecified atrial fibrillation; Z01.812 Encounter for preprocedural laboratory examination; Z11.59 Encounter for screening for other viral diseases
CPT/HCPCS: 36415; 71045; 74220; 80048; 83735; 84100; 84145; 85025; 87635; 87797; 94762; 97116; 97163; 97165; 97530; 97535; J0330; J0690; J1170; J1650; J2405; J2704; J3010

== ENCOUNTER 2020-04-24 13:17 | Inpatient (IN) | payer MEDICARE, MEDICAID, SELFPAY ==
[2020-04-18 12:16] VITALS: BMI 22.8
[2020-04-24] VITALS (20 sets, daily range): BP systolic 100–148; BP diastolic 52–101; PULSE 68–144; RESP 12–25; TEMP 36.7–37.1; O2SAT 92–98; BMI 22.4
--- NOTE | 2020-04-24 13:47 | DI.RAD.S_ITS ---
PROCEDURE: XR CHEST 1V INDICATIONS: Chest pain TECHNIQUE: One view of the chest was acquired. COMPARISON: [facility], [facility], XR CHEST 1V, 03/12/2020, 14:00. FINDINGS: Surgical changes and devices: Postoperative changes are present related to previous thoracolumbar fusion, which is not adequately characterized. Lungs and pleura: The aeration of the lungs is similar to the previous exam. No definite areas of consolidation are evident. An area of increased attenuation is seen overlying the anterior right 4th rib, likely representing superimposed shadows. No pleural effusions or pneumothorax. Mediastinum: Mediastinal contours appear normal. Heart size is normal. Bones and chest wall: No suspicious bony lesions. Overlying soft tissues appear unremarkable. IMPRESSION: No definite acute cardiopulmonary process is evident. Small focus of increased density within the right mid to lower lung probably represents superimposed soft tissues, including the anterior right 4th rib. However, pneumonia cannot be completely excluded. Dictated by: Rakan Gutiérrez M.D. on 04/24/2020 at 13:08 Approved by: Rakan Gutiérrez M.D. on 04/24/2020 at 13:10
--- NOTE | 2020-04-24 13:54 | ED.ARRPALP ---
HPI - Arrhythmia/Palpitations General Chief Complaint: Arrhythmia/Palpitations Stated Complaint: rapid heart palps Time Seen by Provider: 04/24/20 13:45 Source: patient and family Mode of arrival: Wheelchair Limitations: no limitations History of Present Illness HPI narrative: Patient complains of palpitations constantly for the past 2 days. No chest pain no dyspnea. No syncope. History atrial fibrillation on baby aspirin and metoprolol. Over the past year family physician has tapered metoprolol. Due to low blood pressure. No history of cardioversion. Patient here with daughter No recent illness cough cold congestion fever chills. White count noted on CBC. Patient has history of leukemia MD complaint: rapid heart beat and heart racing Related Data Home Medications Medication Instructions Recorded Confirmed multivitamin 1 cap PO DAILY #0 06/27/10 04/24/20 docusate sodium [Colace] 100 mg PO DAILY #0 01/21/17 04/24/20 quetiapine [Seroquel] 50 mg PO QDAY #0 01/21/17 04/24/20 sertraline 200 mg PO DAILY 03/11/18 04/24/20 aspirin [Adult Low Dose Aspirin] 81 mg PO DAILY 05/25/19 04/24/20 calcium carbonate [Calcium 500] 500 mg PO DAILY 05/25/19 04/24/20 flaxseed oil 1,000 mg PO DAILY 05/25/19 04/24/20 omega 1-ias-occ-fish oil [Fish Oil] 1 cap PO DAILY 05/25/19 04/24/20 furosemide 20 mg PO DAILY PRN 03/06/20 04/24/20 metoprolol tartrate 25 mg PO BID 03/06/20 04/24/20 omeprazole 20 mg PO DAILY 03/06/20 04/24/20 Previous Rx's Medication Instructions Recorded acetaminophen 650 mg PO Q6HR PRN #60 tab 06/03/19 lovastatin 20 mg PO DAILY #30 tab 06/03/19 ondansetron 4 mg PO Q6H PRN #14 tab 12/21/19 acetaminophen [Tylenol] 650 mg PO QID PRN #60 cap 03/14/20 docusate sodium [Colace] 100 mg PO BID #30 cap 03/14/20 Allergies Allergy/AdvReac Type Severity Reaction Status Date / Time No Known Drug Allergies Allergy Verified 04/18/20 12:15 Review of Systems Review of Systems Narrative: GENERAL: Denies chills, fatigue, malaise, fever, sweats. HEENT: Denies sinus pain, ear pain, sore throat, difficulty swallowing, dizziness. RESPIRATORY: Denies dyspnea, cough, wheezing, hemoptysis, sputum. CARDIOVASCULAR: Denies chest pain, orthopnea, edema, complains of palpitations GASTROINTESTINAL: Denies nausea, vomiting, abdominal pain, diarrhea, constipation, melena. : Denies dysuria, frequency, incontinence, hematuria, urinary retention. MUSCULOSKELETAL: denies weakness, joint pain, or bony pain SKIN: Denies rash, skin lesions, or other NEUROLOGIC: Denies weakness, headache, numbness, change in speech, confusion, seizures, incoordination. PSYCHIATRIC: No concerning psychosocial issues. ROS Unobtainable: All systems reviewed & are unremarkable except as noted in HPI and below Patient History Medical History Atrial fibrillation, new onset (Acute) Compression fracture (Acute) Dehydration (Acute) Edema (Acute) Fracture, finger (Acute) Leukemia (Acute) Memory deficit (Acute) Syncope (Acute) Urinary incontinence (Acute) Surgical History H/O spinal fusion (Acute 05/29/19) H/O: hysterectomy (Acute) History of 2 sections (Acute) Social History household members: family Smoking Status: Former smoker alcohol intake: never substance use type: does not use Smoking Status: Former smoker alcohol intake frequency: a few times a month Substance Use Type: does not use Exam Narrative Exam Narrative: GENERAL: patient appears stated age. Well-nourished, well-developed patient, in no distress, not toxic HEAD: Atraumatic. Normocephalic. EYES: Pupils equal round and reactive. Extraocular motions intact. No scleral icterus. No injection or drainage. ENT: Nose without bleeding, purulent drainage. Throat without erythema, tonsillar hypertrophy or exudate. Airway patent. NECK: Trachea midline. Non tender CARDIOVASCULAR: Regular rate and rhythm without murmurs, gallops, or rubs. Tachycardic RESPIRATORY: Clear to auscultation. Breath sounds equal bilaterally. No wheezes, rales, or rhonchi. GASTROINTESTINAL: Abdomen soft, non-tender, nondistended. EXTREMITIES: No edema or joint tenderness. BACK: Nontender without deformity or crepitance. No flank tenderness. NEURO: AOx3. SKIN: No rash or erythema of visible areas PSYCH: Not anxious, is cooperative Initial Vital Signs Initial Vital Signs: Vital Signs Pulse Rate 144 H 04/24/20 13:38 Respiratory Rate 19 04/24/20 13:38 Blood Pressure 138/85 04/24/20 13:38 Pulse Oximetry 98 04/24/20 13:38 Course Course Decision to Admit Date: 04/24/20 Decision to Admit time: 14:34 Orders Ordered: Acetaminophen (Tylenol) 650 mg PO Q6HR PRN PRN Reason: Fever/Mild Pain (1-3) Aspirin (Aspirin Ec) 81 mg PO DAILY BABATUNDE Enoxaparin Sodium (Lovenox) 50 mg 1 mg/kg (50 mg) SUBCUT BID BABATUNDE DILTIAZEM (Diltiazem 125 Mg/125 Ml-D5w) 125 mg in 125 mls @ 5 mls/hr IV TITRATE BABATUNDE; Protocol Last Admin: 04/25/20 06:51 Dose: 15 mg/hr, 15 mls/hr Documented by: Titration: 04/25/20 06:51 Dose: 15 mg/hr, 15 mls/hr Documented by: Titration: 04/25/20 06:31 Dose: 15 mg/hr, 15 mls/hr Documented by: Titration: 04/25/20 05:33 Dose: 10 mg/hr, 10 mls/hr Documented by: Titration: 04/25/20 00:55 Dose: 5 mg/hr, 5 mls/hr Documented by: Titration: 04/24/20 23:31 Dose: 2.5 mg/hr, 2.5 mls/hr Documented by: Titration: 04/24/20 20:58 Dose: 5 mg/hr, 5 mls/hr Documented by: Titration: 04/24/20 16:29 Dose: 10 mg/hr, 10 mls/hr Documented by: Titration: 04/24/20 15:45 Dose: 10 mg/hr, 10 mls/hr Documented by: Titration: 04/24/20 15:16 Dose: 7.5 mg/hr, 7.5 mls/hr Documented by: Admin: 04/24/20 14:49 Dose: 5 mg/hr, 5 mls/hr Documented by: RICHARDIN Sodium Chloride (Normal Saline 0.9%) 1,000 mls @ 100 mls/hr IV CONT BABATUNDE Last Admin: 04/25/20 05:17 Dose: 100 mls/hr Documented by: Infusion: 04/25/20 05:17 Dose: 100 mls/hr Documented by: Admin: 04/24/20 19:38 Dose: 100 mls/hr Documented by: JAS Lovastatin (Mevacor) 20 mg PO DAILY [facility] Metoprolol Tartrate (Lopressor) 25 mg PO BID [facility] Last Admin: 04/24/20 20:17 Dose: 25 mg Documented by: JAS Quetiapine Fumarate (Seroquel) 50 mg PO DAILY [facility] Last Admin: 04/24/20 20:17 Dose: 50 mg Documented by: JAS Sertraline HCl (Zoloft) 200 mg PO DAILY [facility] Discontinued Medications Diltiazem HCl (Cardizem) 10 mg IV NOW ONE Stop: 04/24/20 13:48 Last Admin: 04/24/20 14:20 Dose: 10 mg Documented by: BROOK Enoxaparin Sodium (Lovenox) 50 mg 1 mg/kg (50 mg) SUBCUT NOW ONE Stop: 04/24/20 15:57 Last Admin: 04/24/20 16:06 Dose: 50 mg Documented by: RICHARDIN Sodium Chloride (Normal Saline 0.9%) 500 mls @ 1,000 mls/hr IV BOLUS ONE Stop: 04/24/20 14:35 Last Infusion: 04/24/20 15:05 Dose: 0 mls/hr Documented by: Admin: 04/24/20 14:22 Dose: 1,000 mls/hr Documented by: VIRIM Sodium Chloride (Normal Saline 0.9%) 1,000 mls @ 1,000 mls/hr IV BOLUS ONE Stop: 04/24/20 18:37 Last Admin: 04/24/20 18:07 Dose: 1,000 mls/hr Documented by: TERESAART Metoprolol Tartrate (Lopressor) 5 mg IV NOW ONE Stop: 04/24/20 15:48 Last Admin: 04/24/20 16:07 Dose: 5 mg Documented by: JORDANA Ondansetron HCl (Zofran) 4 mg IV NOW ONE Stop: 04/24/20 14:07 Last Admin: 04/24/20 14:21 Dose: 4 mg Documented by: AUSTINOTEDorie Reevaluation(s) Reevaluation #1: There is no change with 10 mg bolus of Cardizem. Starting Cardizem drip now Time: 14:35 Reevaluation #2: Heart rate still 141 but stable blood pressure. Will increase Cardizem drip. Adding metoprolol 5 mg IV as requested by dovetailer Time: 15:49 Consultations Consultation #1: s/w dr topete, dovetailer. Recommends increasing Cardizem drip as well as adding metoprolol 5 mg IV, need to speak with family regarding anticoagulation, possibly heparin. Admit to hospitalist Time: 15:49 Consultation #2: Spoke with hospitalist Dr. Torres, do not start heparin, give Lovenox, I did speak with patient and family they do agree at this time during hospital visit with Lovenox Vital Signs Vital signs: Vital Signs - 8 hr 04/24/20 13:38 04/24/20 14:20 04/24/20 14:25 Pulse Rate 144 H 140 H Respiratory Rate 19 Blood Pressure 138/85 142/85 H 123/71 Pulse Oximetry 98 04/24/20 14:30 04/24/20 14:45 04/24/20 14:47 Pulse Rate 143 H 143 H 143 H Respiratory Rate 19 17 14 Blood Pressure 100/64 123/79 148/64 H Pulse Oximetry 93 95 96 04/24/20 15:00 04/24/20 15:15 04/24/20 15:30 Pulse Rate 141 H 141 H 141 H Respiratory Rate 12 19 17 Blood Pressure 132/76 133/84 137/82 Pulse Oximetry 94 92 96 MDM - Arrhythmia/Palpitations Differential Diagnosis Differential diagnosis: Likely palpitations, artial fibrillation and artial flutter Lab Data Result diagrams: 04/24/20 13:51 04/24/20 13:51 Labs: Lab Results 04/24/20 04/24/2020 Range/Units 13:51 13:51 13:51 WBC 30.9 H* (4.5-11.0) X10^3/uL RBC 5.14 (4.0-5.2) X10^6/uL Hgb 13.5 (12.0-16.0) g/dL Hct 42.7 (36-46) % MCV 83.0 (80-100) fL MCH 26.3 (26-34) PG MCHC 31.7 (30-36) % RDW 15.8 H (11.6-14.8) % Plt Count 245 (150-400) X10^3/uL Neut % (Auto) Not Reportable Lymph % (Auto) Not Reportable [place] % (Auto) Not Reportable Eos % (Auto) Not Reportable Baso % (Auto) Not Reportable Lymph # (Auto) Not Reportable [place] # (Auto) Not Reportable Baso # (Auto) Not Reportable Total Counted 100 Seg Neutrophils % 39.0 (38-70) % Lymphocytes % (Manual) 43.0 (25-45) % Atypical Lymphs % 17.0 H ( - 0) % Basophils % (Manual) 1.0 (0-1) % Neutrophils # (Manual) 14807 H (5482-3936) /uL Smudge Cells 2+ H RBC Morphology See below PT 13.1 H (10.1-12.7) SECONDS INR 1.1 (0.9-1.3) APTT 29 D (26.4-36.2) SECONDS Sodium 136 L (137-145) mmol/L Potassium 3.8 (3.4-5.1) mmol/L Chloride 98 (98-107) mmol/L Carbon Dioxide 31 (22-32) mmol/L BUN 28 H (7-17) mg/dL Creatinine 0.63 (0.52-1.04) mg/dL Estimated GFR > 60.0 (>60) mL/min BUN/Creatinine Ratio 44.4 H (6-22) Glucose 123 H (80-110) mg/dL Calcium 9.2 (8.4-10.2) mg/dL Magnesium 2.6 H (1.6-2.3) mg/dL Total Bilirubin 1.2 (0.2-1.3) mg/dL AST 27 (14-36) IU/L ALT 12 (<35) IU/L Alkaline Phosphatase 107 (38-126) U/L Total Creatine Kinase 33 (30-135) U/L CK-MB (CK-2) TNP CK-MB (CK-2) Rel Index TNP Troponin I < 0.012 (0.01-0.034) ng/mL Total Protein 7.1 (6.3-8.2) g/dL Albumin 4.2 (3.5-5.0) g/dL Globulin 2.9 (1.7-4.1) g/dL Albumin/Globulin Ratio 1.4 (1.0-2.8) TSH (0.47-4.68) uIU/mL 04/24/20 Range/Units 13:51 WBC (4.5-11.0) X10^3/uL RBC (4.0-5.2) X10^6/uL Hgb (12.0-16.0) g/dL Hct (36-46) % MCV (80-100) fL MCH (26-34) PG MCHC (30-36) % RDW (11.6-14.8) % Plt Count (150-400) X10^3/uL Neut % (Auto) Lymph % (Auto) [place] % (Auto) Eos % (Auto) Baso % (Auto) Lymph # (Auto) [place] # (Auto) Baso # (Auto) Total Counted Seg Neutrophils % (38-70) % Lymphocytes % (Manual) (25-45) % Atypical Lymphs % ( - 0) % Basophils % (Manual) (0-1) % Neutrophils # (Manual) (7584-3257) /uL Smudge Cells RBC Morphology PT (10.1-12.7) SECONDS INR (0.9-1.3) APTT (26.4-36.2) SECONDS Sodium (137-145) mmol/L Potassium (3.4-5.1) mmol/L Chloride (98-107) mmol/L Carbon Dioxide (22-32) mmol/L BUN (7-17) mg/dL Creatinine (0.52-1.04) mg/dL Estimated GFR (>60) mL/min BUN/Creatinine Ratio (6-22) Glucose (80-110) mg/dL Calcium (8.4-10.2) mg/dL Magnesium (1.6-2.3) mg/dL Total Bilirubin (0.2-1.3) mg/dL AST (14-36) IU/L ALT (<35) IU/L Alkaline Phosphatase (38-126) U/L Total Creatine Kinase (30-135) U/L CK-MB (CK-2) CK-MB (CK-2) Rel Index Troponin I (0.01-0.034) ng/mL Total Protein (6.3-8.2) g/dL Albumin (3.5-5.0) g/dL Globulin (1.7-4.1) g/dL Albumin/Globulin Ratio (1.0-2.8) TSH 1.97 (0.47-4.68) uIU/mL Imaging Data Chest x-ray: Radiologist's Impresson: [address] [address] XRay Report Signed Patient: Amber Mota BMR#: [id number] : 5Acct:[id number] Age/Sex: 84 / FDate of Service: 04/24/20 Loc: ED Accession Number: [id number] Procedure: XR chest 1V Ordering Provider: Malvin Mixon MD PROCEDURE: XR CHEST 1V INDICATIONS: Chest pain TECHNIQUE: One view of the chest was acquired. COMPARISON: [facility], , XR CHEST 1V, 03/12/2020, 14:00. FINDINGS: Surgical changes and devices: Postoperative changes are present related to previous thoracolumbar fusion, which is not adequately characterized. Lungs and pleura: The aeration of the lungs is similar to the previous exam. No definite areas of consolidation are evident. An area of increased attenuation is seen overlying the anterior right 4th rib, likely representing superimposed shadows. No pleural effusions or pneumothorax. Mediastinum: Mediastinal contours appear normal. Heart size is normal. Bones and chest wall: No suspicious bony lesions. Overlying soft tissues appear unremarkable. IMPRESSION: No definite acute cardiopulmonary process is evident. Small focus of increased density within the right mid to lower lung probably represents superimposed soft tissues, including the anterior right 4th rib. However, pneumonia cannot be completely excluded. Dictated by: Rakan Gutiérrez M.D. on 04/24/2020 at 13:08 Approved by: Rakan Gutiérrez M.D. on 04/24/2020 at 13:10 ECG Data Attestation: I personally reviewed and interpreted this ECG as follows: Interpretation: Atrial flutter ventricular rate 143 with RVR MDM Narrative Medical decision making narrative: Patient admitted 1 year ago for new onset atrial fibrillation. Anticoagulation contraindicated due to frequent falls. Patient was placed on Cardizem drip last time to help rate control. Starting Cardizem drip today Discharge Plan Departure Patient Disposition: Admitted As Inpatient Clinical Impression: Atrial flutter Qualifiers: Atrial flutter type: unspecified Qualified Code(s): I48.92 - Unspecified atrial flutter Discharge Date/Time: 04/24/20 16:45 Referrals: Radha Farfan [Primary Care Provider] - Admit Date/Time: 04/24/20 16:11 Admit Provider: Kendell Torres
--- NOTE | 2020-04-24 13:55 | PC.NURSE ---
Patient arrives to ED accompanied by her daughter. Both have difficulty giving description of symptoms and patient history and state her PCP should have called. Patient states her feeling of abnormal HR and chest flutter began on Wednesday evening. She was being seen at her PCP office today and they told her to come into the ED after seeing her abnormal HR on their monitor. Patient denies current chest pain and SOB. Patient is A&Ox2. Per daughter patient does have cardiac history and sees a provider in town but unable to remember name. States patient has been on metoprolol for last year and that has helped with her HR and BP.
[2020-04-24 13:59] LABS: Hematocrit 42.7 % (36-46); Hemoglobin 13.5 g/dL (12.0-16.0); Mean Corpuscular HGB Conc 31.7 % (30-36); Mean Corpuscular Hemoglobin 26.3 PG (26-34); Platelet Count 245 X10^3/uL (150-400); Red Blood Cell Count 5.14 X10^6/uL (4.0-5.2); Red Cell Distribution Width 15.8 % (11.6-14.8)
[2020-04-24 14:01] LABS: Add Manual Diff / Slide Review YES; White Blood Cell Count 30.9 X10^3/uL (4.5-11.0)
[2020-04-24 14:08] LABS: INR 1.1 (0.9-1.3); Prothrombin Time 13.1 SECONDS (10.1-12.7)
[2020-04-24 14:10] LABS: PTT Partial Thromboplastin Tim 29 SECONDS (26.4-36.2)
[2020-04-24 14:14] LABS: Alanine Aminotransferase 12 IU/L (<35); Albumin 4.2 g/dL (3.5-5.0); Albumin Globulin Ratio 1.4 (1.0-2.8); Alkaline Phosphatase 107 U/L (38-126); Aspartate Aminotransferase 27 IU/L (14-36); BUN Creatinine Ratio 44.4 (6-22); Bilirubin Total 1.2 mg/dL (0.2-1.3); Blood Urea Nitrogen 28 mg/dL (7-17); Calcium 9.2 mg/dL (8.4-10.2); Carbon Dioxide 31 mmol/L (22-32); Chloride 98 mmol/L (98-107); Creatine Kinase 33 U/L (30-135); Estimated Glomerular Filt Rate > 60.0 mL/min (>60); Globulin 2.9 g/dL (1.7-4.1); Glucose 123 mg/dL (80-110); HEMOLYSIS < 15 (0-50); Magnesium 2.6 mg/dL (1.6-2.3); Potassium 3.8 mmol/L (3.4-5.1); Sodium 136 mmol/L (137-145); Total Protein 7.1 g/dL (6.3-8.2)
[2020-04-24] MEDS: dilTIAZem 5 MG/ML SDV 10 MG IV (14:20)
[2020-04-24] MEDS: ONDANSETRON 4 MG/2 ML INJ IV (14:21)
[2020-04-24 14:22] LABS: Neutrophils Absolute Manual 12051 /uL (3000-5900); Total Cells Counted 100
[2020-04-24] MEDS: SODIUM CHLORIDE 0.9% 500 ML 1000 ML IV (14:22)
[2020-04-24 14:26] LABS: Smudge Cells 2+; Troponin I < 0.012 ng/mL (0.01-0.034)
[2020-04-24 14:47] LABS: Thyroid Stimulating Hormone 1.97 uIU/mL (0.47-4.68)
[2020-04-24] MEDS: DILTIAZEM 125 MG/125 ML PIGGYBACK IV (14:49)
[2020-04-24] MEDS: ENOXAPARIN 100 MG/ML SYRINGE 50 MG SUBCUT (16:06)
[2020-04-24] MEDS: METOPROLOL TARTRATE 5 MG/5 ML INJ IV (16:07)
--- NOTE | 2020-04-24 17:40 | DI.CT.S_ITS ---
PROCEDURE: CT ABDOMEN W CON INDICATIONS: leukocytosis, recent g-tube removal, nausea/vomiting TECHNIQUE: After the administration of oral and intravenous contrast, 5 mm thick sections acquired from the diaphragms to the iliac crests. 5 mm thick coronal and sagittal reformats were acquired. For radiation dose reduction, the following was used: automated exposure control, adjustment of mA and/or kV according to patient size. COMPARISON: [facility], CT, CT ABDOMEN PELVIS W CON, 02/23/2020, 15:26. FINDINGS: Image quality: Excellent. Lung bases: Lung bases demonstrate mild atelectatic changes, particularly at the left lung base overlying a hiatal hernia. There is a small left pleural effusion.. Heart size is normal. Solid organs: Liver is mildly diffusely hypodense. Gallbladder contains dependent hyperdense bile and a few stones at the fundus. The distal common duct appears mildly prominent, redundant, and tortuous. A discrete calcification is not identified. The pancreas is diminutive and the visible portion enhances normally. No ductal dilatation. There is a corticomedullary cyst in the medial lower pole of the right kidney. No hydronephrosis. The spleen is normal size. Peritoneum and bowel: Moderate to large hiatal hernia is present containing the gastric cardia. The gastric antrum is closely apposed to the anterior abdominal wall. A G-tube tract is identified. There is no associated fluid collection or inflammation. There is no gastric outlet obstruction as contrast is seen in small and large bowel. The visible small and large bowel loops are normal caliber. No visible free fluid or free air Nodes and vessels: No retroperitoneal or mesenteric adenopathy by size criteria. Aorta and inferior vena cava are normal in size. There is considerable tortuosity of the abdominal aorta Bones: No suspicious bony lesions. There are numerous vertebral body fractures in the visible thoracic and lumbar spine. There is fusion hardware in the visible lower thoracic spine.. Miscellaneous: No ventral hernias. IMPRESSION: 1. The G-tube tract is identified and there is no surrounding inflammation or adjacent fluid collection. The distal stomach remains apposed to the anterior abdominal wall. 2. No free fluid or free air. 3. Moderate to large stomach containing hiatal hernia, decreased in size compared to the prior study. 4. Small left pleural effusion. 5. Probable cholelithiasis. 6. Mild hepatic steatosis. 7. Numerous thoracolumbar compression fractures. No change in number or extent compared to the prior study. Dictated by: Cally Lovelace M.D. on 04/24/2020 at 20:05 Approved by: Cally Lovelace M.D. on 04/24/2020 at 20:14
[2020-04-24 17:57] LABS: COVID19 -Nasal RAPID Negative (Negative)
[2020-04-24] MEDS: SODIUM CHLORIDE 0.9% 1,000 ML 1000 ML IV (18:07)
--- NOTE | 2020-04-24 18:36 | P.HP_ITS ---
History of Present Illness History of Present Illness Date Patient Seen: 04/24/20 Time Patient Seen: 18:38 Chief complaint: heart palps Narrative: Amber Mota is an 83-year-old female patient with a past medical history significant for hypertension, hyperlipidemia, dementia, hydrocephalus, CLL which is not currently under treatment, paroxysmal atrial fibrillation, and gait disturbance who presented to the ED at the direction for primary care provider who found the patient to have a heart rate of 143 in her office. For the past 2 weeks patient has complained of nausea and vomiting and difficulty eating. She had a paraesophageal hernia repair approximately [address] Douglass. She had her G-tube which was securing the stomach removed approximately a week ago. Dr. Douglass urge her to follow-up with her primary care provider who she saw today, and in the primary care provider's office she had the fast heart rate as noted above. At times the patient will both endorsed chest pain, palpitations, shortness of breath and at times will denies these symptoms. She has a history of dementia and history is difficult to obtain. Obtain history primarily from daughter who was at bedside, but has been unable to see the patient due to COVID-19 at her care facility. Daughter states that that care facilities reported some emesis after pills. But was more shocked when she was weighed today and she has lost 30 lb over the past 6 weeks or so since her surgery. In the emergency room, patient was tachycardic to the 140s in atrial fibrillation. Her blood pressure was unremarkable. She was normotensive. ER discussed with the patient's cart pusher, Dr. topete whom recommended dilt gtt and IV metoprolol. Patient was then admitted to ICU for afib with dilt gtt. Patient History Medical History Atrial fibrillation, new onset (Acute) Compression fracture (Acute) Dehydration (Acute) Edema (Acute) Fracture, finger (Acute) Leukemia (Acute) Memory deficit (Acute) Syncope (Acute) Urinary incontinence (Acute) Surgical History H/O spinal fusion (Acute 05/29/19) H/O: hysterectomy (Acute) History of 2 sections (Acute) Family & Social History Social History: household members family Safety & Behavioral: Feels Safe in Current Yes Environment Been Physically Hurt or No Threatened By a Person Suicidal Ideation Description None Tobacco & Substance use: Smoking Status Former smoker alcohol intake never alcohol intake frequency a few times a month Substance Use Type does not use Meds Home Medications and Allergies Home Medications Medication Instructions Recorded Confirmed Type multivitamin 1 cap PO DAILY #0 06/27/10 04/24/20 History docusate sodium [Colace] 100 mg PO DAILY #0 01/21/17 04/24/20 History quetiapine [Seroquel] 50 mg PO QDAY #0 01/21/17 04/24/20 History sertraline 200 mg PO DAILY 03/11/18 04/24/20 History aspirin [Adult Low Dose Aspirin] 81 mg PO DAILY 05/25/19 04/24/20 History calcium carbonate [Calcium 500] 500 mg PO DAILY 05/25/19 04/24/20 History flaxseed oil 1,000 mg PO DAILY 05/25/19 04/24/20 History omega 0-gkb-xmc-fish oil [Fish Oil] 1 cap PO DAILY 05/25/19 04/24/20 History acetaminophen 650 mg PO Q6HR PRN #60 tab 06/03/19 04/24/20 Rx lovastatin 20 mg PO DAILY #30 tab 06/03/19 04/24/20 Rx ondansetron 4 mg PO Q6H PRN #14 tab 12/21/19 04/24/20 Rx furosemide 20 mg PO DAILY PRN 03/06/20 04/24/20 History metoprolol tartrate 25 mg PO BID 03/06/20 04/24/20 History omeprazole 20 mg PO DAILY 03/06/20 04/24/20 History acetaminophen [Tylenol] 650 mg PO QID PRN #60 cap 03/14/20 04/24/20 Rx docusate sodium [Colace] 100 mg PO BID #30 cap 03/14/20 04/24/20 Rx Allergies Allergy/AdvReac Type Severity Reaction Status Date / Time No Known Drug Allergies Allergy Verified 04/18/20 12:15 Review of Systems Review of Systems Narrative: All other systems reviewed with the patient and are negative unless otherwise stated. Exam Vital Signs (past 8 hours): - 04/24/20 13:38 04/24/20 14:20 04/24/20 14:25 Temperature Pulse Rate 144 H 140 H Respiratory Rate 19 Blood Pressure 138/85 142/85 H 123/71 Pulse Oximetry 98 04/24/20 14:30 04/24/20 14:45 04/24/20 14:47 Temperature Pulse Rate 143 H 143 H 143 H Respiratory Rate 19 17 14 Blood Pressure 100/64 123/79 148/64 H Pulse Oximetry 93 95 96 04/24/20 15:00 04/24/20 15:15 04/24/20 15:30 Temperature Pulse Rate 141 H 141 H 141 H Respiratory Rate 12 19 17 Blood Pressure 132/76 133/84 137/82 Pulse Oximetry 94 92 96 04/24/20 15:45 04/24/20 16:00 04/24/20 16:15 Temperature Pulse Rate 142 H 143 H 141 H Respiratory Rate 20 14 15 Blood Pressure 144/101 H 129/88 108/78 Pulse Oximetry 96 94 94 04/24/20 16:22 04/24/20 16:45 04/24/20 17:45 Temperature 98.8 F 98.1 F Pulse Rate 135 H 134 H 122 H Respiratory Rate 25 H 24 15 Blood Pressure 114/77 111/71 113/58 L Pulse Oximetry 94 92 92 Oxygen Delivery Method Room Air Narrative Exam Narrative: GENERAL APPEARANCE: chronically ill appearing, elderly female, thin, in no acute distress. SKIN: Inspection of the skin reveals no rashes, ulcerations or petechiae. HEENT: Normocephalic atraumatic, extraocular muscles are intact, oropharynx is clear and mucous membranes are moist, neck is supple without adenopathy NECK: Supple and symmetric. There was no thyroid enlargement, and no tenderness, or masses were felt. CHEST: Normal AP diameter and normal contour without any kyphoscoliosis. LUNGS: Auscultation of the lungs revealed no wheezes, rhonchi, or rales. CARDIOVASCULAR: There was a regular rate and rhythm without any murmurs, gallops, rubs. Peripheral pulses were 2+ and symmetric. ABDOMEN: Soft and nontender with normal bowel sounds. No ascites was noted. MUSCULOSKELETAL: There was no tenderness or effusions noted. Muscle strength and tone were normal. EXTREMITIES: No cyanosis, clubbing or edema. NEUROLOGIC: Alert and oriented x 2. Normal affect. Gait was normal. Strength is +5/5 in the Upper Extremities and Lower Extremities Bilaterally. Sensation to touch was normal. Objective Labs Result Diagrams: 04/24/20 13:51 04/24/20 13:51 Labs: Laboratory Results - last 24 hr 04/24/20 04/24/20 04/24/20 13:51 13:51 13:51 WBC 30.9 H* RBC 5.14 Hgb 13.5 Hct 42.7 MCV 83.0 MCH 26.3 MCHC 31.7 RDW 15.8 H Plt Count 245 Neut % (Auto) Not Reportable Lymph % (Auto) Not Reportable Gaston % (Auto) Not Reportable Eos % (Auto) Not Reportable Baso % (Auto) Not Reportable Lymph # (Auto) Not Reportable Gaston # (Auto) Not Reportable Baso # (Auto) Not Reportable Total Counted 100 Seg Neutrophils % 39.0 Lymphocytes % (Manual) 43.0 Atypical Lymphs % 17.0 H Basophils % (Manual) 1.0 Neutrophils # (Manual) 56588 H Smudge Cells 2+ H RBC Morphology See below PT 13.1 H INR 1.1 APTT 29 D Sodium 136 L Potassium 3.8 Chloride 98 Carbon Dioxide 31 BUN 28 H Creatinine 0.63 Estimated GFR > 60.0 BUN/Creatinine Ratio 44.4 H Glucose 123 H Calcium 9.2 Magnesium 2.6 H Total Bilirubin 1.2 AST 27 ALT 12 Alkaline Phosphatase 107 Total Creatine Kinase 33 CK-MB (CK-2) TNP CK-MB (CK-2) Rel Index TNP Troponin I < 0.012 Total Protein 7.1 Albumin 4.2 Globulin 2.9 Albumin/Globulin Ratio 1.4 TSH Nasal Screen MRSA (PCR) COVID-19 PCR 04/24/20 04/24/20 13:51 17:00 WBC RBC Hgb Hct MCV MCH MCHC RDW Plt Count Neut % (Auto) Lymph % (Auto) Gaston % (Auto) Eos % (Auto) Baso % (Auto) Lymph # (Auto) Gaston # (Auto) Baso # (Auto) Total Counted Seg Neutrophils % Lymphocytes % (Manual) Atypical Lymphs % Basophils % (Manual) Neutrophils # (Manual) Smudge Cells RBC Morphology PT INR APTT Sodium Potassium Chloride Carbon Dioxide BUN Creatinine Estimated GFR BUN/Creatinine Ratio Glucose Calcium Magnesium Total Bilirubin AST ALT Alkaline Phosphatase Total Creatine Kinase CK-MB (CK-2) CK-MB (CK-2) Rel Index Troponin I Total Protein Albumin Globulin Albumin/Globulin Ratio TSH 1.97 Nasal Screen MRSA (PCR) Negative for mrsa COVID-19 PCR Negative Assessment & Plan Assessment & Plan narrative: Amber Mota is an 83-year-old female patient with a past medical history significant for hypertension, hyperlipidemia, dementia, hydrocephalus, CLL which is not currently under treatment, paroxysmal atrial fibrillation, and gait disturbance who presented to the ED at the direction for primary care provider who found the patient to have a heart rate of 143 in her office, admitted for afib with RVR to the ICU on diltiazem infusion and for protein calorie malnutrition. 1.. Atrial fibrillation /flutter with rapid ventricular response, paroxysmal, present on admission. - likely secondary to severe dehydration and protein calorie malnutrition based on history of losing 30 pounds recently. -12 lead EKG demonstrated atrial fibrillation with RVR without heart block or no signs of acute ischemia such as ST elevation or depression. -Troponin within normal limits <0.012 -CHADS2 Vasc score 6. However, patient was previously deemed high risk of bleeding due to recurrent falls. ER discussed with daughter regarding AC and she reportedly agreed for continued AC. Will continue on lovenox for now, but will need re-discussion. -Initial potassium 3.8 and Mg 1.2. Will replete with IV K+ 40 meq. -Previous Echocardiogram demonstrated atrial fibrillation, normal LV size, wall thickness and systolic function with EF 60-65%, severe left atrial enlargement; moderate right atrial enlargement.normal chamber sizes, mild mitral annular calcification with moderate associated mitral regurgitation, otherwise no significant valvular abnormalities. Will order repeat. -Patient received diltiazem infusino in the ER with IV metoprolol x1. If no pathology with abdomen resume metoprolol 25 mg BID and continue fluid hydration. Continue diltiazem infusion for now. 2. Moderate to severe dementia with dehydration, chronic, present on admission. Stable. -Patient has history of behavioral disturbance that is well controlled on Seroquel and sertraline. 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 -Occupational therapy performed SLUMS previous admission which the patient scored 12/30 indicative of moderate to severe dementia. -Continue home Seroquel 50 mg daily and sertraline 100 mg daily. -Unclear if dehydration and malnutrition is due to progressive dementia, abdominal pathology ,esophageal pathology. 3. nausea / vomiting, present on admission - recent paraesophageal hernia repair [address] Douglass. Gastric tube removed 1 week ago (placed for support). - will further evaluate for intra-abdominal pathology with CT abd/pelvis - consider surgery consultation urgently if abdominal pathology or tomorrow with Dr. Douglass if more benign. 4. Hyperlipidemia, chronic, present on admission. Stable. -Continue home lovastatin 40 mg daily at bedtime. -Continue heart healthy diet. 5. Hypertension, chronic, present on admission. Stable. -Discontinued lisinopril initially due to hypotension from several long-acting rate control medications. Restarted but changed lisinopril from 10 mg twice daily to once daily to avoid hypotension. 6. History of CLL, untreated, present on admission. Presumed stable. -Patient has history of CLL which is indolent and has never underwent treatment. 7. Osteoporosis, chronic, present on admission. Stable. -Patient has been on alendronate. -Once compression fractures have healed in 2-3 months may consider initiation of Prolia or Forteo. -Continue calcium and vitamin D3 supplementation 1 tab twice daily. 8. Acute severe protein calorie malnutrition - weight loss of 30 lbs reported in 6 weeks. Milk Vendor has been consulted. Disposition: Admit to ICU for afib requiring diltiazem infusion. Daughter is requesting possibility of alternative placement given nutrition issues at her current living facility. DVT: started on lovenox FENGI: NPO pending CT scan.
[2020-04-24] MEDS: SODIUM CHLORIDE 0.9% 1,000 ML 100 ML IV (19:38)
--- NOTE | 2020-04-24 19:49 | PC.NURSE ---
164 Pt arrived via gurney from ED with daughter at bedside, pt moved to bed via slide board. Diltiazem gtt infusing at 10ml/hr per order. Pt able to state name, situation, place and . Connect pt to monitor, during the weight process, daughter noted that mother had lost almost 30 pounds in the last 5 weeks. Daughter Bhumika stated that she was not aware that pt had not been eating much (pt currently resides at [facility] in [place]) due to COVID 19 daughter is not allowed to see mother. Both daughter and pt are poor historians, not quite sure of Provider names. Daughter Bhumika able to confirm pt medication list, but not sure when pt took medications last. Pt noted to be retching and provided a emesis bag for pt, both daughter and pt noted that pt had been vomiting for at least a week (if not 2 weeks), daughter was told by the facility that it was happening mostly after taking pills. Daughter also stated that she had been notified that pt was a picky eater and only wants to drink ensures. Dr Torres at bedside, talking to both patient and daughter, orders placed for CT with oral contrast, able to have pt drink almost half, but it was a struggle for pt to drink. Pt taken down to CT, tolerated procedure well. Back to room, oriented to room and call light system, no further needs at this time, will continue to monitor.
[2020-04-24] MEDS: QUETIAPINE 25 MG TABLET 50 MG PO (20:17)
[2020-04-24] MEDS: METOPROLOL IR 25 MG TABLET PO (20:17)
--- NOTE | 2020-04-24 21:58 | DI.ECHO.S_ITS ---
[facility]---------+ [facility] +---------+ : : [address] [place] : : : : [id number] : : : : Phone: [phone]+ Echocardiogram Report + + :Name: JAMSHID CORLEY Study Date: 04/25/2020 Height: 60 in : :[facility] Weight: 114 lb: : Gender: Female BSA: 1.5 m2 : :: 1935 Age: 84 yrs BP: 90/52 mmHg: :Reason For Study: AFIB W/ RVR : :Ordering Physician: : :HOWARDISTALESIA Performed By: Cristine Mckoy : :Referring: LACHELLE CAMACHO : + + Interpretation Summary The left ventricle is normal in size and wall thickness. The ejection fraction is estimated to be 55-60%. LVEF has not changed since prior study. Diastolic parameters suggest a restrictive filling pattern consistent with probable significantly elevated filling pressures. The right ventricle is mildly dilated. The right ventricular systolic function is normal. There is severe pulmonary hypertension. The right ventricular systolic pressure is estimated to be at least 86 mmHg based on an estimated right atrial pressure of 15 mm Hg. Compared to the prior echo exam, there has been an increase in the severity of pulmonary hypertension. Prior RVSP was around 30-35 mmHg. The left atrium is severely dilated. The right atrium is moderate to severely dilated. There is mild to moderate mitral annular calcification. There is mild to moderate mitral regurgitation. There is severe tricuspid regurgitation. Compared to the prior echo exam, there has been no change in TR severity. The aortic root is normal size. Procedure: A two-dimensional transthoracic echocardiogram with color flow and Doppler was performed. The study quality was technically adequate. Comparison is made with the echocardiogram of 05/26/2019. The patient was in atrial fibrillation with heart rates between 74-110 bpm during the exam. Left Ventricle: The left ventricle is normal in size and wall thickness. The ejection fraction is estimated to be 55-60%. Diastolic parameters suggest a restrictive filling pattern consistent with probable significantly elevated filling pressures. Right Ventricle: The right ventricle is mildly dilated. The right ventricular systolic function is normal. Atria: The left atrium is severely dilated. The right atrium is moderate to severely dilated. There is no Doppler evidence for an interatrial shunt. Mitral Valve: The mitral valve leaflets are mildly calcified. There is mild to moderate mitral annular calcification. There is mild to moderate mitral regurgitation. There are multiple regurgitant jets present. Aortic Valve: The aortic valve is trileaflet. The aortic valve opens well. The aortic valve is mildly calcified. There is no aortic valve stenosis. There is mild aortic regurgitation. Tricuspid Valve: The tricuspid valve is normal in structure but is abnormal in function. There is severe tricuspid regurgitation. Compared to the prior echo exam, there has been no change in TR severity. There is severe pulmonary hypertension. The right ventricular systolic pressure is estimated to be at least 86 mmHg based on an estimated right atrial pressure of 15 mm Hg. Compared to the prior echo exam, there has been an increase in the severity of pulmonary hypertension. Pulmonic Valve: The pulmonic valve is not well visualized. There is mild pulmonic regurgitation. Great Vessels: The aortic root is normal size. The ascending aorta is normal in size. The IVC is dilated (diameter is greater than 2.1 cm) and it collapses less than 50% with a sniff. This suggests a high right atrial pressure of 15 mm Hg. Pericardium/ Pleura There is no pericardial effusion. There is no pleural effusion. MMode/2D Measurements & Calculations LVIDd: 3.7 cm LVOT diam: 2.0 cm LVIDs: 2.5 cm Ao root diam: 3.1 cm FS: 33.7 % asc Aorta Diam: 3.1 cm EPSS: 1.1 cm Ao Arch Diam (Prox Trans): 2.0 cm IVSd: 0.86 cm LVPWd: 0.86 cm LV marquez. diameter/BSA (cm/m^2): 2.5 LV sys. diameter/BSA (cm/m^2): 1.7 LA A2 area: 27.2 cm2 RA long axis: 5.3 cm LA A4 area: 19.4 cm2 RA area: 19.8 cm2 LA length (vol): 5.7 cm RA vol: 62.7 ml LA vol: 78.4 ml RA : 42.6 ml/m2 LA vol index: 53.4 ml/m2 IVC diam: 2.4 cm RVD1 (basal): 4.0 cm TAPSE: 2.0 cm Doppler Measurements & Calculations Ao V2 max: 125.6 cm/sec LVOT Max J Luis: 79.6 cm/sec Ao V2 mean: 86.1 cm/sec LV V1 max P.5 mmHg Ao max P.3 mmHg LV V1 VTI: 14.0 cm Ao mean P.4 mmHg ARLENE(I,D): 2.1 cm2 Ao V2 VTI: 21.3 cm ARLENE(V,D): 2.0 cm2 sev ratio: 0.66 ARLENE indexed to BSA (cm^2/m^2): 1.4 AI P1/2t: 660.7 msec AI dec slope: 185.9 cm/sec2 MV E max j luis: 133.5 cm/sec TR max j luis: 414.9 cm/sec MV A max j luis: 59.6 cm/sec TR max P.9 mmHg MV E/A: 2.2 Med Peak E' J Luis: 6.3 cm/sec E/E' med: 21.1 Lat Peak E' J Luis: 7.9 cm/sec E/E' lat: 16.8 E/e' average: 19.0 MV dec time: 0.22 sec SV(LVOT): 44.4 ml Reading Physician:05:48 PM
[2020-04-25] VITALS (17 sets, daily range): BP systolic 90–142; BP diastolic 50–76; PULSE 67–132; RESP 12–24; TEMP 35.8–37.1; O2SAT 93–98
--- NOTE | 2020-04-25 00:31 | PC.NURSE ---
Addendum entered by Marlee José R.N. 04/25/20 05:34: HR continues to run in the 120-130s. BP Stable. Increased dilt gtt to 10ml/hr per protocol Addendum entered by Marlee José R.N. 04/25/20 00:55: Pt HR now sustaining 130s. Dilt gtt increased to 5ml/hr. Bp at 95/60. Vijay HUANG aware Original Note: Late entry 2330 - 7 beat vtach run. Pt asymptomatic denies any complaints. BP at 96/52 HR runnning in the 60-70s. Dilt gtt decreased to 2.5 mls/HR. Notified Vijay HUANG. Per Vijay continue with Dilt gtt and continue to monitor
[2020-04-25] MEDS: SODIUM CHLORIDE 0.9% 1,000 ML 100 ML IV ×2 (05:17→18:50)
[2020-04-25] MEDS: DILTIAZEM 125 MG/125 ML PIGGYBACK 15 MG IV (06:51)
[2020-04-25 08:46] LABS: Alanine Aminotransferase 11 IU/L (<35); Albumin 3.2 g/dL (3.5-5.0); Albumin Globulin Ratio 1.4 (1.0-2.8); Alkaline Phosphatase 84 U/L (38-126); Aspartate Aminotransferase 26 IU/L (14-36); BUN Creatinine Ratio 31.4 (6-22); Bilirubin Unconjugated 0.8 mg/dL (0.0-1.1); Blood Urea Nitrogen 16 mg/dL (7-17); Calcium 7.8 mg/dL (8.4-10.2); Carbon Dioxide 23 mmol/L (22-32); Chloride 106 mmol/L (98-107); Estimated Glomerular Filt Rate > 60.0 mL/min (>60); Globulin 2.3 g/dL (1.7-4.1); Glucose 92 mg/dL (80-110); HEMOLYSIS < 15 (0-50); Hematocrit 35.9 % (36-46); Hemoglobin 11.4 g/dL (12.0-16.0); Magnesium 2.2 mg/dL (1.6-2.3); Mean Corpuscular HGB Conc 31.9 % (30-36); Mean Corpuscular Hemoglobin 26.5 PG (26-34); Mean Corpuscular Volume 83.1 fL (80-100); Platelet Count 195 X10^3/uL (150-400); Potassium 3.6 mmol/L (3.4-5.1); Red Blood Cell Count 4.32 X10^6/uL (4.0-5.2); Red Cell Distribution Width 15.6 % (11.6-14.8); Sodium 135 mmol/L (137-145); Total Protein 5.5 g/dL (6.3-8.2); White Blood Cell Count 25.4 X10^3/uL (4.5-11.0)
[2020-04-25 08:51] LABS: Add Manual Diff / Slide Review YES
[2020-04-25 09:06] LABS: Neutrophils Absolute Manual 10160 /uL (3000-5900); Platelet Estimate Adequate on smear; RBC Morphology Normal Morphology; Smudge Cells 2+; Total Cells Counted 100
[2020-04-25] MEDS: METOPROLOL IR 25 MG TABLET 50 MG PO (09:15)
[2020-04-25] MEDS: LOVASTATIN 20 MG TABLET PO (09:15)
[2020-04-25] MEDS: ASPIRIN EC 81 MG TABLET PO (09:15)
[2020-04-25] MEDS: SERTRALINE 50 MG TABLET 200 MG PO (09:15)
[2020-04-25] MEDS: ENOXAPARIN 60 MG/0.6 ML SYRINGE 50 MG SUBCUT ×2 (09:15→20:49)
[2020-04-25] MEDS: QUETIAPINE 25 MG TABLET 50 MG PO (09:15)
[2020-04-25 09:25] LABS: Procalcitonin < 0.05 ng/mL (<0.5)
--- NOTE | 2020-04-25 11:08 | PM.CN ---
History of Present Illness Consult details Date Patient Seen: 04/25/20 Time Patient Seen: 11:08 Chief complaint: heart palps Narrative: This is a 84-year-old woman who underwent a open hiatal hernia repair with gastrostomy tube placement 6 weeks ago. She was admitted to the hospital yesterday for atrial fibrillation with RVR. Her gastrostomy tube was removed last week and a surgical clinic and at that time she was tolerating a diet. She was having some occasional nausea and vomiting at her care facility when she was given her meds on an empty stomach however she was drinking protein shakes and eating small meals. At the time of admission she is afebrile, white blood cell count 25, hematocrit 36, creatinine 0.5. Imaging on admission includes a chest x-ray which was grossly normal, and a CT of her abdomen which demonstrates that the stomach is well apposed to the abdominal wall at the gastrostomy tube site there is no free fluid or 5 air, and there is a partial recurrence of her hiatal hernia. Meds Home Medications and Allergies Home Medications Medication Instructions Recorded Confirmed Type multivitamin 1 cap PO DAILY #0 06/27/10 04/24/20 History docusate sodium [Colace] 100 mg PO DAILY #0 01/21/17 04/24/20 History quetiapine [Seroquel] 50 mg PO QDAY #0 01/21/17 04/24/20 History sertraline 200 mg PO DAILY 03/11/18 04/24/20 History aspirin [Adult Low Dose Aspirin] 81 mg PO DAILY 05/25/19 04/24/20 History calcium carbonate [Calcium 500] 500 mg PO DAILY 05/25/19 04/24/20 History flaxseed oil 1,000 mg PO DAILY 05/25/19 04/24/20 History omega 7-mmf-tne-fish oil [Fish Oil] 1 cap PO DAILY 05/25/19 04/24/20 History acetaminophen 650 mg PO Q6HR PRN #60 tab 06/03/19 04/24/20 Rx lovastatin 20 mg PO DAILY #30 tab 06/03/19 04/24/20 Rx ondansetron 4 mg PO Q6H PRN #14 tab 12/21/19 04/24/20 Rx furosemide 20 mg PO DAILY PRN 03/06/20 04/24/20 History metoprolol tartrate 25 mg PO BID 03/06/20 04/24/20 History omeprazole 20 mg PO DAILY 03/06/20 04/24/20 History acetaminophen [Tylenol] 650 mg PO QID PRN #60 cap 03/14/20 04/24/20 Rx docusate sodium [Colace] 100 mg PO BID #30 cap 03/14/20 04/24/20 Rx Allergies Allergy/AdvReac Type Severity Reaction Status Date / Time No Known Drug Allergies Allergy Verified 04/18/20 12:15 Review of Systems Review of Systems ROS: Yes All systems reviewed with the patient and are negative except as otherwise documented Exam Vital Signs (past 8 hours): - 04/25/20 04:00 04/25/20 04:39 04/25/20 05:00 Temperature Pulse Rate 76 119 H 128 H Respiratory Rate 12 Blood Pressure 118/69 110/63 124/76 Pulse Oximetry 93 94 04/25/20 06:02 04/25/20 06:30 04/25/20 08:00 Temperature 98.7 F Pulse Rate 125 H 132 H 75 Respiratory Rate 17 18 20 Blood Pressure 126/67 104/71 126/75 Pulse Oximetry 95 96 04/25/20 10:15 Temperature 97.6 F Pulse Rate 71 Respiratory Rate 24 Blood Pressure 130/52 L Pulse Oximetry 93 Oxygen Delivery Method Room Air Oxygen Flow Rate 0 Narrative Exam Narrative: General-no acute distress, thin elderly woman HEENT-moist mucous membranes, no scleral icterus Neck-supple, no lymphadenopathy Chest- non labored respirations, clear to auscultation bilaterally Cardiac-atrial fibrillation on the monitor, no peripheral edema Abdomen-soft, nontender, non distended, gastrostomy tube site is healed Extremities-warm, well perfused Neurological-alert, no focal deficits Objective Labs Result Diagrams: 04/25/20 08:16 04/25/20 08:16 Labs: Laboratory Results - last 24 hr 04/24/20 04/24/20 04/24/20 13:51 13:51 13:51 WBC 30.9 H* RBC 5.14 Hgb 13.5 Hct 42.7 MCV 83.0 MCH 26.3 MCHC 31.7 RDW 15.8 H Plt Count 245 Neut % (Auto) Not Reportable Lymph % (Auto) Not Reportable [place] % (Auto) Not Reportable Eos % (Auto) Not Reportable Baso % (Auto) Not Reportable Lymph # (Auto) Not Reportable [place] # (Auto) Not Reportable Baso # (Auto) Not Reportable Total Counted 100 Seg Neutrophils % 39.0 Lymphocytes % (Manual) 43.0 Atypical Lymphs % 17.0 H Monocytes % (Manual) Basophils % (Manual) 1.0 Neutrophils # (Manual) 24575 H Smudge Cells 2+ H Platelet Estimate RBC Morphology See below PT 13.1 H INR 1.1 APTT 29 D Sodium 136 L Potassium 3.8 Chloride 98 Carbon Dioxide 31 BUN 28 H Creatinine 0.63 Estimated GFR > 60.0 BUN/Creatinine Ratio 44.4 H Glucose 123 H Calcium 9.2 Magnesium 2.6 H Total Bilirubin 1.2 Conjugated Bilirubin Unconjugated Bilirubin AST 27 ALT 12 Alkaline Phosphatase 107 Total Creatine Kinase 33 CK-MB (CK-2) TNP CK-MB (CK-2) Rel Index TNP Troponin I < 0.012 Total Protein 7.1 Albumin 4.2 Globulin 2.9 Albumin/Globulin Ratio 1.4 Procalcitonin TSH Nasal Screen MRSA (PCR) COVID-19 PCR 04/24/20 04/24/20 04/25/20 13:51 17:00 08:16 WBC 25.4 H RBC 4.32 Hgb 11.4 L Hct 35.9 L MCV 83.1 MCH 26.5 MCHC 31.9 RDW 15.6 H Plt Count 195 Neut % (Auto) Not Reportable Lymph % (Auto) Not Reportable [place] % (Auto) Not Reportable Eos % (Auto) Not Reportable Baso % (Auto) Not Reportable Lymph # (Auto) Not Reportable [place] # (Auto) Not Reportable Baso # (Auto) Not Reportable Total Counted 100 Seg Neutrophils % 40.0 Lymphocytes % (Manual) 57.0 H Atypical Lymphs % Monocytes % (Manual) 3.0 Basophils % (Manual) Neutrophils # (Manual) 13528 H Smudge Cells 2+ H Platelet Estimate Adequate on smear RBC Morphology Normal morphology PT INR APTT Sodium Potassium Chloride Carbon Dioxide BUN Creatinine Estimated GFR BUN/Creatinine Ratio Glucose Calcium Magnesium Total Bilirubin Conjugated Bilirubin Unconjugated Bilirubin AST ALT Alkaline Phosphatase Total Creatine Kinase CK-MB (CK-2) CK-MB (CK-2) Rel Index Troponin I Total Protein Albumin Globulin Albumin/Globulin Ratio Procalcitonin TSH 1.97 Nasal Screen MRSA (PCR) Negative for mrsa COVID-19 PCR Negative 04/25/20 04/25/20 08:16 08:16 WBC RBC Hgb Hct MCV MCH MCHC RDW Plt Count Neut % (Auto) Lymph % (Auto) [place] % (Auto) Eos % (Auto) Baso % (Auto) Lymph # (Auto) [place] # (Auto) Baso # (Auto) Total Counted Seg Neutrophils % Lymphocytes % (Manual) Atypical Lymphs % Monocytes % (Manual) Basophils % (Manual) Neutrophils # (Manual) Smudge Cells Platelet Estimate RBC Morphology PT INR APTT Sodium 135 L Potassium 3.6 Chloride 106 Carbon Dioxide 23 BUN 16 Creatinine 0.51 L Estimated GFR > 60.0 BUN/Creatinine Ratio 31.4 H Glucose 92 Calcium 7.8 L Magnesium 2.2 Total Bilirubin 1.0 Conjugated Bilirubin 0.0 Unconjugated Bilirubin 0.8 AST 26 ALT 11 Alkaline Phosphatase 84 Total Creatine Kinase CK-MB (CK-2) CK-MB (CK-2) Rel Index Troponin I Total Protein 5.5 L Albumin 3.2 L Globulin 2.3 Albumin/Globulin Ratio 1.4 Procalcitonin < 0.05 TSH Nasal Screen MRSA (PCR) COVID-19 PCR Assessment & Plan Assessment & Plan narrative: 84-year-old woman 6 weeks after a open hiatal hernia repair admitted to the hospital for atrial fibrillation with RVR. I reviewed her imaging and laboratory studies, the imaging shows that she has partial recurrence of her hiatal hernia however majority of her stomach is within the abdomen and it is also adherent to the abdominal wall where the gastrostomy tube had been previously placed. There is no evidence of free air free or free fluid. She has been able to tolerate liquid diet and addition to small meals for the past 6 weeks and she may resume a regular diet at this time. In regards to the partial recurrence of her hiatal hernia I would recommend no further surgical intervention for several reasons. #1. She had a operation 6 weeks ago and at this time she would have extremely dense intra-abdominal adhesions making any sort of operation extremely difficult with a significant risk of injury/morbidity. #2. She is elderly, has poor functional status is wheelchair-bound and becoming increasingly demented and therefore I think she is no longer a candidate for any further elective surgery. I suspect she will need more intensive outpatient caregiving for her advancing dementia once her afib is resolved.
--- NOTE | 2020-04-25 11:20 | P.PN_ITS ---
Subjective Subjective Date Patient Seen: 04/25/20 Interval history: Amber Mota is an 84-year-old female patient with a past medical history significant for hypertension, hyperlipidemia, dementia, hydrocephalus, CLL which is not currently under treatment, paroxysmal atrial fibrillation and gait disturbance who presented to the ED at the [facility] for primary care provider who found the patient to have a heart rate of 143 in office. The patient is resting in bed and appears comfortable. Patient has advanced dementia at baseline and is alert oriented to person only. She has no complaints and denies headache, shortness of breath, chest pain, abdominal pain, nausea, vomiting, fever, chills, dysuria, diarrhea or constipation. She is incontinent but voiding without difficulty. She has not had a bowel movement since admission and bowel regimen will be implemented. Exam Vital Signs (past 8 hours): - 04/25/20 04:00 04/25/20 04:39 04/25/20 05:00 Temperature Pulse Rate 76 119 H 128 H Respiratory Rate 12 Blood Pressure 118/69 110/63 124/76 Pulse Oximetry 93 94 04/25/20 06:02 04/25/20 06:30 04/25/20 08:00 Temperature 98.7 F Pulse Rate 125 H 132 H 75 Respiratory Rate 17 18 20 Blood Pressure 126/67 104/71 126/75 Pulse Oximetry 95 96 04/25/20 10:15 Temperature 97.6 F Pulse Rate 71 Respiratory Rate 24 Blood Pressure 130/52 L Pulse Oximetry 93 Oxygen Delivery Method Room Air Oxygen Flow Rate 0 Narrative Exam Narrative: General: Elderly thin frail female lying in bed and in no acute distress, moderate to severe dementia at baseline but appropriately interactive otherwise. HEENT: Normocephalic, atraumatic. External ears without defect. Pupils equal, round, and reactive to light. Anicteric sclerae, moist conjunctivae, and no lid lag. Oropharynx free of erythema and cobble stoning with moist mucosa. Neck: Supple with full range of motion. No jugular venous distension. No lymphadenopathy or thyromegaly. Cardiovascular: Irregularly irregular without murmurs, rubs, or gallops appreciated. Pulmonary: Clear to auscultation bilaterally without crackles, wheezes, or rhonchi. Normal respiratory effort with no use of accessory muscles. Abdomen: Soft, bowel sounds nontender, nondistended. No hepatosplenomegaly or masses appreciated. Extremities: No clubbing, cyanosis, or edema. Skin: Normal temperature, turgor, and texture; no rash, ulcers, or subcutaneous nodules appreciated. Neurological: Cranial nerves grossly intact. Psychiatric: Normal mood and affect. Alert and oriented to person only. Modera te to severe dementia at baseline with short and long-term memory recall deficit. Objective Labs Result Diagrams: 04/25/20 08:16 04/26/20 04:35 Labs: Laboratory Results - last 24 hr 04/24/20 04/24/20 04/24/20 13:51 13:51 13:51 WBC 30.9 H* RBC 5.14 Hgb 13.5 Hct 42.7 MCV 83.0 MCH 26.3 MCHC 31.7 RDW 15.8 H Plt Count 245 Neut % (Auto) Not Reportable Lymph % (Auto) Not Reportable [place] % (Auto) Not Reportable Eos % (Auto) Not Reportable Baso % (Auto) Not Reportable Lymph # (Auto) Not Reportable [place] # (Auto) Not Reportable Baso # (Auto) Not Reportable Total Counted 100 Seg Neutrophils % 39.0 Lymphocytes % (Manual) 43.0 Atypical Lymphs % 17.0 H Monocytes % (Manual) Basophils % (Manual) 1.0 Neutrophils # (Manual) 30109 H Smudge Cells 2+ H Platelet Estimate RBC Morphology See below PT 13.1 H INR 1.1 APTT 29 D Sodium 136 L Potassium 3.8 Chloride 98 Carbon Dioxide 31 BUN 28 H Creatinine 0.63 Estimated GFR > 60.0 BUN/Creatinine Ratio 44.4 H Glucose 123 H Calcium 9.2 Magnesium 2.6 H Total Bilirubin 1.2 Conjugated Bilirubin Unconjugated Bilirubin AST 27 ALT 12 Alkaline Phosphatase 107 Total Creatine Kinase 33 CK-MB (CK-2) TNP CK-MB (CK-2) Rel Index TNP Troponin I < 0.012 Total Protein 7.1 Albumin 4.2 Globulin 2.9 Albumin/Globulin Ratio 1.4 Procalcitonin TSH Nasal Screen MRSA (PCR) COVID-19 PCR 04/24/20 04/24/20 04/25/20 13:51 17:00 08:16 WBC 25.4 H RBC 4.32 Hgb 11.4 L Hct 35.9 L MCV 83.1 MCH 26.5 MCHC 31.9 RDW 15.6 H Plt Count 195 Neut % (Auto) Not Reportable Lymph % (Auto) Not Reportable [place] % (Auto) Not Reportable Eos % (Auto) Not Reportable Baso % (Auto) Not Reportable Lymph # (Auto) Not Reportable [place] # (Auto) Not Reportable Baso # (Auto) Not Reportable Total Counted 100 Seg Neutrophils % 40.0 Lymphocytes % (Manual) 57.0 H Atypical Lymphs % Monocytes % (Manual) 3.0 Basophils % (Manual) Neutrophils # (Manual) 54100 H Smudge Cells 2+ H Platelet Estimate Adequate on smear RBC Morphology Normal morphology PT INR APTT Sodium Potassium Chloride Carbon Dioxide BUN Creatinine Estimated GFR BUN/Creatinine Ratio Glucose Calcium Magnesium Total Bilirubin Conjugated Bilirubin Unconjugated Bilirubin AST ALT Alkaline Phosphatase Total Creatine Kinase CK-MB (CK-2) CK-MB (CK-2) Rel Index Troponin I Total Protein Albumin Globulin Albumin/Globulin Ratio Procalcitonin TSH 1.97 Nasal Screen MRSA (PCR) Negative for mrsa COVID-19 PCR Negative 04/25/20 04/25/20 08:16 08:16 WBC RBC Hgb Hct MCV MCH MCHC RDW Plt Count Neut % (Auto) Lymph % (Auto) [place] % (Auto) Eos % (Auto) Baso % (Auto) Lymph # (Auto) [place] # (Auto) Baso # (Auto) Total Counted Seg Neutrophils % Lymphocytes % (Manual) Atypical Lymphs % Monocytes % (Manual) Basophils % (Manual) Neutrophils # (Manual) Smudge Cells Platelet Estimate RBC Morphology PT INR APTT Sodium 135 L Potassium 3.6 Chloride 106 Carbon Dioxide 23 BUN 16 Creatinine 0.51 L Estimated GFR > 60.0 BUN/Creatinine Ratio 31.4 H Glucose 92 Calcium 7.8 L Magnesium 2.2 Total Bilirubin 1.0 Conjugated Bilirubin 0.0 Unconjugated Bilirubin 0.8 AST 26 ALT 11 Alkaline Phosphatase 84 Total Creatine Kinase CK-MB (CK-2) CK-MB (CK-2) Rel Index Troponin I Total Protein 5.5 L Albumin 3.2 L Globulin 2.3 Albumin/Globulin Ratio 1.4 Procalcitonin < 0.05 TSH Nasal Screen MRSA (PCR) COVID-19 PCR Assessment & Plan Assessment & Plan narrative: Amber Mota is an 84-year-old female patient with a past medical history significant for hypertension, hyperlipidemia, dementia, hydrocephalus, CLL which is not currently under treatment, paroxysmal atrial fibrillation and gait disturbance who presented to the ED at the direction for primary care provider who found the patient to have a heart rate of 143 in office. 1. Paroxysmal atrial fibrillation/flutter with rapid ventricular response, present on admission. RVR resolved. -Likely secondary to severe dehydration and protein calorie malnutrition. -EKG demonstrated atrial fibrillation with RVR without heart block or acute ischemia such as ST elevation or depression. -Troponin negative at <0.012. -CHADS2 Vasc score 6. However, patient was previously deemed high risk of bl eeding due to recurrent falls. ED discussed with daughter regarding anticoagulation and she reportedly agreed for continued AC. Will continue on lovenox for now, but will need re-discussion. -Continue to monitor electrolytes and replete as necessary. Potassium 3.6 and Mg 2.2. Plan to give potassium chloride 40 mEq IV x1. Goal K > 4.0 and Mg > 2.0. -Previous Echocardiogram demonstrated atrial fibrillation, normal LV size, wall thickness and systolic function with EF 60-65%, severe left atrial enlargement; moderate right atrial enlargement, normal chamber sizes, mild mitral annular calcification with moderate associated mitral regurgitation, otherwise no significant valvular abnormalities. Ordered repeat echocardiogram, pending. -Patient was on diltiazem gtt and received metoprolol tartrate 50 mg PO x 1 and converted to sinus rhythm and was titrated off diltiazem gtt. Plan to continue metoprolol tartrate 25 mg twice daily and may need to adjust dose depending upon heart rate. Continue IV fluid hydration with normal saline at 100 mL/hr for now. -Urinalysis appears grossly infected with urine culture pending. No systemic signs of infection and will hold off on antibiotics until urine culture results. 2. Moderate to severe dementia with dehydration, chronic, present on admission. Stable. -Patient has history of behavioral disturbance that is well controlled on Seroquel and sertraline. Patient is pleasant and cooperative with significantly short and fpc memory impairment. -Occupational therapy previously performed SLUMS in which the patient scored +12/30 indicative of moderate to severe dementia. -Continue home Seroquel 50 mg daily and sertraline 200 mg daily. -Etiology of dehydration and malnutrition is most likely due to progressive dementia and to a lesser extent persistent hiatal hernia. 3. Nausea and vomiting, acute on chronic present on admission -Patient with recent paraesophageal hernia repair and gastric tube placed for nutritional support by Dr. Douglass 6 weeks ago. Gastric tube removed 1 week ago. -CT abdomen and pelvis demonstrated G-tube tract is identified without surrounding inflammation or adjacent fluid collection, distal stomach remains apposed to the anterior abdominal wall with no free fluid or free air, moderate to large stomach containing hiatal hernia, decreased in size compared to the prior study. -Consulted general surgery, Dr. Douglass, who recommended continued nutritional support and stomach with hiatal hernia and previous gastrostomy tube with removal are stable. He also recommends against any further elective surgical intervention as patient is a poor candidate due to age, nutritional status and advancing dementia. 4. Hyperlipidemia, chronic, present on admission. Stable. -Continue home lovastatin 20 mg daily at bedtime. 5. Hypertension, chronic, present on admission. Stable. -Continue metoprolol tartrate as above. Discontinued furosemide. 6. History of CLL, untreated, present on admission. Presumed stable. -Patient has history of CLL which is indolent and she has never underwent treatment. 7. Osteoporosis, chronic, present on admission. Stable. -Patient is currently not medically treated. Previously the patient was treated with alendronate. 8. Severe protein calorie malnutrition, likely acute on chronic, present on admission. Stable. -Consulted dietitian for evaluation treatment. We appreciate her time and recommendations. Code status: Full code DVT: Lovenox Disposition: Patient likely discharge to assisted living facility tomorrow if heart rate remains controlled.
--- NOTE | 2020-04-25 11:34 | PC.NURSE ---
Addendum entered by Channing Linares R.N. 04/25/20 14:47: Pt was assisted up to the chair for weight by chair scale and for lunch. Pt required 2PA with FWW and gait belt. Pt mostly sleeping this afternoon. Did not eat lunch. She ate very little breakfast. She mostly just chewed the food up and spit it back out. Gave pt ensure enlive. Currently sitting up to the chair, sleeping. Chair alarm on. Call light in reach. Original Note: Pt coverted to SR PACS ~1005. Subsequent BPs trending low. Called to Dr. Hodgson 1115. Reported BP 75/43 (55). Pt denies symptoms such as dizziness/lightheadedness. She is mentating at baseline. Currently irritable due to having been straight cath'd for UA. Orders rec'd to monitor BP and notify for MAP less than 55 and/or symptoms of hypotension.
[2020-04-25 11:36] LABS: Bilirubin Urine UA NEGATIVE (NEGATIVE); Color Urine UA YELLOW; Glucose Urine UA NEGATIVE (Negative); Ketones Urine UA 1+ (NEGATIVE); Leukocyte Esterase Urine UA NEGATIVE (NEGATIVE); Nitrite Urine UA POSITIVE (Negative); Occult Blood Urine UA 2+ (Negative); Protein Urine UA NEGATIVE (Negative); Specific Gravity Urine UA 1.015 (1.000-1.035); Urobilinogen Urine UA 0.2 E.U./dL (0.2)
[2020-04-25 11:37] LABS: Appearance Urine UA SL CLOUDY; pH Urine UA 5.5 (4.5-8.0)
[2020-04-25 11:48] LABS: Bacteria Urine Many (>30); RBC Urine 1-5/HPF (0-5/HPF); WBC Urine 10-30/HPF (0-5/HPF)
[2020-04-25 11:49] LABS: Culture Indicated Urine Specimen Cultured
--- NOTE | 2020-04-25 11:49 | CM.DANOTE ---
Addendum entered by Brenna Bermudez LPN 04/25/20 14:30: Spoke now with Sandee/automobile contract clerk. She is seeing pt now. Confirms no significant weight loss and has requested the incorrect 41 Kg be removed from the pt's white board. (she discussed same with LUPILLO Snell). She will update Dr. Hodgson re her recommendations. She notes the specialized jello product given to pt at the [facility] is an excellent choice. She agrees to call pt's daughter to give her an update. Will fax her note tomorrow to both [facility] and to [facility]. Addendum entered by Brenna Bermudez LPN 04/25/20 12:16: Have spoken now with pt's daughter Bhumika, with [facility] LUPILLO Dye and with [facility]. Bhumika says it has been difficult having her mother in a facility during COVID times as family cannot visit. She says her mother tells her everything is fine but she is now concerned re ? of weight loss. She states she was in the room when the staff at obtains wt of 41 kg. Have looked at the EMR weight records and see 54.9 kg when pt was here 03/12/20 and then 52 kg on 04/24. Have spoken to the facility and they see a wt of 117 lbs around time of pt's admission and recent wt was 115 lbs. LUPILLO Dye says that pt does have a poor appetite and they are using alternatives such as Ensure clear and a specialized high protein jello product that pt seems to like. Dr. Hodgson is aware and have alerted LUPILLO Snell (as the room white board currently states wt of 41 kg). Bhumika says this is her major concern about keeping her mother at the facility. Bhumika also wondered about [facility] and if they were still seeing her mother. [facility] confirms pt did go off RN services a couple weeks ago. Bhumika would like to see them back in again. Referral is given now with plan for RN and PT. Will obtain Face/Face from Dr. Hodgson. All, including Bhumika, are aware that Dr. Hodgson is planning for a d/c back to the facility tomorrow. LUPILLO Dye says only new medication changes will be needed in script form. Bhumika will pick pt up but says she has an appt she cannot miss and wonders about 1730 tile picker time. Advised her to talk with Marnie to see pt they can take pt back that late. Had discussion with Bhumika regarding her thought of getting pt to a different memory care or other care home setting. Explained that pt would need to d/c to her facility setting at this time, unless Bhumika wishes to take her to her home again but that she could continue to work with her mother's Kurt electronics commodity manager on alternative facilities. Bhumika said she had already sent a letter to that person with her complaints. P: at this point plan is for a return to [facility] tomorrow with [facility] and PT and daughter transport. Did ask Dr. Hodgson to talk with Bhumika if at all possible for an overall update. ANASTACIO Bray has now confirmed admissions status as INPT. CMsp Magdalena has agreed to fax clinicals to [facility] and to [facility]. Original Note: Discharge Planning/Care Management DCP: assessment: case received, EMR reviewed and met with pt during Team Bedside Rounds. Pt is an 84 year old female who admitted yesterday afternoon to care of hospitalist team. Consulting: Dr. Douglass/[facility] Payer: Medicare and Medicaid Pt carries dx of dementia and her daughter Bhumika Hallman is her advocate: Home # [phone] (her cell has very poor reception clerk). Admission status: in review, per ANASTACIO Bray. Dr. Hodgson states that pt will likely be ready to return to her facility tomorrow. CM Discharge Assessment Start: 04/25/20 11:42 Freq: Status: Active Protocol: Document 04/25/20 11:42 ITV (Rec: 04/25/20 11:49 ITV [id number]) Discharge Planning Assessment Advance Directives? Yes Advance Directives on File No: Unknown History Provided By Patient,Family Member,Medical Record Has Patient been admitted in last 30 No days? Comment last admission was in February: to 03/14 with a d/c to home and then to [facility] with [facility] with a couple of days. Pt continues to reside at the Memory care facility under her Medicaid. Prior Living Arrangements Assisted Living Facility Name Admitted From: [facility] Willing to Return to Facility? Yes Independent with ADL's No Is patient alert and oriented? No: is alert Comment was open to [facility] which was d/c'd on 04/10. Whiteboard Updated in Patient Room with Yes name and ext. # of Orthotic Assistant Review Status In Process
[2020-04-25] MEDS: POTASSIUM CHLORIDE 40 MEQ in SODIUM CHLORIDE 0.9% 500 ML 130 ML IV (13:40)
--- NOTE | 2020-04-25 14:14 | DIET.PN ---
Addendum entered by Sandee Nolan 04/25/20 15:43: attempted to contact pts daughter, Bhumika at [phone] to reassure pt has not lost significant weight, but went to voicemail both times. Can try again Wednesday or message can be relayed by Care Management. Original Note: Dietary Progress Note Assessment: 84y F admitted for heart palpitations and rapid heart beat referred to nutrition for pt reported wt loss of 20# in 6w and assess for malnutrition. Pt is s/p daniela procedure for paraesophageal hernia c Dr. Douglass. Pt had G-tube installed to help secure stomach in place, but not to be used for nutrition support. This Gtube was removed 1w ago and pt has been experiencing nausea, vomiting, and difficulty eating for 2w. Pt has SLUMS of 09/25 indicating moderate to severe dementia. According to pts extensive weight hx in [facility], UBW is 55kg for past several years and today, pt is 54kg showing weight stability. Pt was admitted at 52kg c sx of dehydration including BUN:Cr 44.4 H, BUN 28 H, rapid heart rate (144 bpm) and output of 200mL dark yellow urine today. HT: 152.4cm WT: 54kg UBW: 55kg (-1.9% in 8w, nonsevere) BMI: 23.3 Labs: Bun:Cr 44.4 H, BUN 28 H, WBC 25.4 H Nutrition Diagnosis: dehydration r/t inadequate fluid intake aeb diminished thirst response c advanced age (84y), diminished thirst response c advancing dementia, 2w N/V, rapid heart rate (144 bpm), elevated labs (BUN:Cr 44.4, BUN 28), urine output on 04/25/20 of 200cc dark yellow, weight gain +2kg after hydration. Interventions: 1. Recc implementing strategies for encouraging hydration in home environment including favorite beverages in multiple locations of home, continued cuing to drink, targeting intake of water containing foods (soup, fruit, popcicles).
[2020-04-25] MEDS: METOPROLOL IR 25 MG TABLET PO (20:49)
--- NOTE | 2020-04-25 21:30 | PC.NURSE ---
2100- Patient would not take her po metoprolol. Patient agitated and spit the pill out. Will monitor.
[2020-04-26 00:33] VITALS: TEMP 36.7
[2020-04-26 00:48] VITALS: BP 111/59
[2020-04-26 04:06] VITALS: BP 116/59; PULSE 75; RESP 15; TEMP 36.2; O2SAT 96
[2020-04-26] MEDS: SODIUM CHLORIDE 0.9% 1,000 ML 100 ML IV (04:08)
[2020-04-26 05:24] LABS: BUN Creatinine Ratio 40.4 (6-22); Blood Urea Nitrogen 19 mg/dL (7-17); Calcium 7.5 mg/dL (8.4-10.2); Carbon Dioxide 22 mmol/L (22-32); Chloride 112 mmol/L (98-107); Estimated Glomerular Filt Rate > 60.0 mL/min (>60); Glucose 92 mg/dL (80-110); HEMOLYSIS < 15 (0-50); Hematocrit 29.8 % (36-46); Hemoglobin 9.4 g/dL (12.0-16.0); Magnesium 2.2 mg/dL (1.6-2.3); Mean Corpuscular HGB Conc 31.6 % (30-36); Mean Corpuscular Hemoglobin 26.4 PG (26-34); Mean Corpuscular Volume 83.8 fL (80-100); Platelet Count 173 X10^3/uL (150-400); Potassium 3.7 mmol/L (3.4-5.1); Red Blood Cell Count 3.56 X10^6/uL (4.0-5.2); Red Cell Distribution Width 15.8 % (11.6-14.8); Sodium 136 mmol/L (137-145); White Blood Cell Count 24.1 X10^3/uL (4.5-11.0)
[2020-04-26 06:10] LABS: Add Manual Diff / Slide Review YES
[2020-04-26 07:27] LABS: Anisocytosis 2+; Neutrophils Absolute Manual 6989 /uL (3000-5900); Smudge Cells 2+; Total Cells Counted 100
[2020-04-26 07:28] LABS: Microcytosis 1+
[2020-04-26 08:00] VITALS: BP 119/58; PULSE 89; RESP 14; TEMP 36.6; O2SAT 95
[2020-04-26] MEDS: ASPIRIN EC 81 MG TABLET PO (08:46)
[2020-04-26] MEDS: METOPROLOL IR 25 MG TABLET PO (08:46)
[2020-04-26] MEDS: ENOXAPARIN 60 MG/0.6 ML SYRINGE 50 MG SUBCUT (08:46)
[2020-04-26] MEDS: SERTRALINE 50 MG TABLET 200 MG PO (08:46)
[2020-04-26] MEDS: LOVASTATIN 20 MG TABLET PO (08:47)
[2020-04-26] MEDS: QUETIAPINE 25 MG TABLET 50 MG PO (08:57)
--- NOTE | 2020-04-26 10:26 | P.DS_ITS ---
History of Present Illness History of Present Illness Date Patient Seen: 04/24/20 Chief complaint: heart palps Narrative: Written by Dr. Torres: Amber Mota is an 83-year-old female patient with a past medical history significant for hypertension, hyperlipidemia, dementia, hydrocephalus, CLL which is not currently under treatment, paroxysmal atrial fibrillation, and gait disturbance who presented to the ED at the direction for primary care provider who found the patient to have a heart rate of 143 in her office. For the past 2 weeks patient has complained of nausea and vomiting and difficulty eating. She had a paraesophageal hernia repair approximately [address] Douglass. She had her G-tube which was securing the stomach removed approximately a week ago. Dr. Douglass urge her to follow-up with her primary care provider who she saw today, and in the primary care provider's office she had the fast heart rate as noted above. At times the patient will both endorsed chest pain, palpitations, shortness of breath and at times will denies these symptoms. She has a history of dementia and history is difficult to obtain. Obtain history primarily from daughter who was at bedside, but has been unable to see the patient due to COVID-19 at her care facility. Daughter states that that care facilities reported some emesis after pills. But was more shocked when she was weighed today and she has lost 30 lb over the past 6 weeks or so since her surge ry. In the emergency room, patient was tachycardic to the 140s in atrial fibrillation. Her blood pressure was unremarkable. She was normotensive. ER discussed with the patient's core worker, Dr. topete whom recommended dilt gtt and IV metoprolol. Patient was then admitted to ICU for afib with dilt gtt. Discharge Providers Provider Date of admission: 04/24/20 16:11 Discharge Date: 04/26/20 Primary care physician: Radha Farfan Consults: 04/24/20 17:15 Consult to Dietitian, Adult Routine Comment: Reason For Exam: weight loss of 20 pounds 04/25/20 11:00 Consult to General Surgery Routine Comment: Consulting Provider: Glenroy Douglass Reason for consultation: severe protein calorie malnutrition, hiatal hernia, recent G-tube removal Has provider been notified: Yes 04/26/20 09:27 Consult to Home Health Routine Comment: Signature has the referral Reason For Exam: CY RN/OT/PT Discharge provider: Carola Hodgson DO Summary Hospital Course Discharge Diagnosis: 1. Paroxysmal atrial fibrillation/flutter with rapid ventricular response, present on admission. RVR resolved. 2. Moderate to severe dementia with dehydration, chronic, present on admission. Stable. 3. Nausea and vomiting, acute on chronic, present on admission. Resolved. 4. Hyperlipidemia, chronic, present on admission. Stable. 5. Hypertension, chronic, present on admission. Stable. 6. History of CLL, untreated, present on admission. Presumed stable. 7. Osteoporosis, chronic, present on admission. Stable. 8. Severe pulmonary hypertension, secondary to severe tricuspid regurgitation, present on admission. Stable. 9. Ruled out protein calorie malnutrition. Hospital Course: Amber Mota is an 84-year-old female patient with a past medical history significant for hypertension, hyperlipidemia, dementia, hydrocephalus, CLL which is not currently under treatment, paroxysmal atrial fibrillation and gait disturbance who presented to the ED at the [facility] for primary care provider who found the patient to have a heart rate of 143 in office. 1. Paroxysmal atrial fibrillation/flutter with rapid ventricular response, present on admission. RVR resolved. -Likely secondary to severe dehydration and protein calorie malnutrition. -EKG demonstrated atrial fibrillation with RVR without heart block or acute ischemia such as ST elevation or depression. -Troponin negative at <0.012. -CHADS2 Vasc score 6. However, patient was previously deemed high risk of bleeding due to recurrent falls and anticoagulation was not continued at time of discharge and may be revisited per PCP. -Continued to monitor electrolytes and replete as necessary. Potassium 3.6 and Mg 2.2. Received potassium chloride 40 mEq IV x 2. Goal K > 4.0 and Mg > 2.0. -Echocardiogram demonstrated LV normal in size, wall thickness and systolic function with EF 55-60%, diastolic parameters suggest a restrictive filling pattern consistent with probable significantly elevated filling pressures, RV mildly dilated with normal systolic function, severe pulmonary hypertension with RVSP 86 mmHg compared to prior echo with RVSP 30-35 mmHg, left atrium is severely dilated, right atrium is moderate to severely dilated, mild to moderate mitral annular calcification, mild to moderate mitral regurgitation, severe tricuspid regurgitation. -Patient was on diltiazem gtt and received metoprolol tartrate 50 mg PO x 1 and converted to sinus rhythm and was titrated off diltiazem gtt. Continued home metoprolol tartrate 25 mg twice daily which continue to control heart rate 70- 90s. Continued IV fluid hydration until adequately hydrated then discontinued. -Patient with urine culture growing > 100,000 CFU Gram-negative bacilli, however, patient is asymptomatic (no more confused than baseline and denies symptoms) with no systemic signs of infection therefore likely asymptomatic bacteriuria and antibiotics not indicated. 2. Moderate to severe dementia with dehydration, chronic, present on admission. Stable. -Patient has history of behavioral disturbance that is well controlled on Seroquel and sertraline. Patient is pleasant and cooperative with significantly short and retirement memory impairment. -Occupational therapy previously performed SLUMS in which the patient scored +12/30 indicative of moderate to severe dementia. -Continued home Seroquel 50 mg daily and sertraline 200 mg daily. -Etiology of dehydration and malnutrition is most likely due to progressive dementia and to a lesser extent persistent hiatal hernia. 3. Nausea and vomiting, acute on chronic, present on admission. Resolved. -Patient with recent paraesophageal hernia repair and gastric tube placed for nutritional support by Dr. Douglass 6 weeks ago. Gastric tube removed 1 week ago. -CT abdomen and pelvis demonstrated G-tube tract is identified without surrounding inflammation or adjacent fluid collection, distal stomach remains apposed to the anterior abdominal wall with no free fluid or free air, moderate to large stomach containing hiatal hernia, decreased in size compared to the prior study. -Consulted general surgery, Dr. Douglass, who recommended continued nutritional support and stomach with hiatal hernia and previous gastrostomy tube with removal are stable. He also recommends against any further elective surgical intervention as patient is a poor candidate due to age, nutritional status and advancing dementia. 4. Hyperlipidemia, chronic, present on admission. Stable. -Continued home lovastatin 20 mg daily at bedtime. 5. Hypertension, chronic, present on admission. Stable. -Continued metoprolol tartrate as above. Held furosemide 20 mg as needed for shortness of breath. 6. History of CLL, untreated, present on admission. Presumed stable. -Patient has history of CLL which is indolent and she has never underwent treatment. 7. Osteoporosis, chronic, present on admission. Stable. -Patient is currently not medically treated. Previously the patient was treated with alendronate. 8. Severe pulmonary hypertension, secondary to severe tricuspid regurgitation, present on admission. Stable. -Unclear cause of severe pulmonary hypertension but likely due to severe tricuspid regurgitation. Patient did not require oxygen. -Held furosemide 20 mg daily as needed for shortness of breath as patient was severely dehydrated upon admission. 9. Severe protein calorie malnutrition ruled out. -BMI 22. Patient's weight has been stable at 52-54 kg. Patient had weight documented by nursing staff as 41 kg in room which was incorrect measurement. Patient is high risk of protein calorie malnutrition due to advanced dementia, indolent cancer, age and previous/residual hiatal hernia. -Consulted dietitian and we appreciate her time and recommendations. Exam Vital Signs (past 8 hours): - 04/26/20 04:06 04/26/20 08:00 Temperature 97.1 F L 97.8 F Pulse Rate 75 89 Respiratory Rate 15 14 Blood Pressure 116/59 L 119/58 L Pulse Oximetry 96 95 Oxygen Delivery Method Room Air Oxygen Flow Rate 0 Narrative Exam Narrative: General: Elderly thin and frail female lying in bed and in no acute distress, moderate to severe dementia at baseline, appropriately interactive. HEENT: Normocephalic, atraumatic. External ears without defect. Pupils equal, round, and reactive to light. Anicteric sclerae, moist conjunctivae, and no lid lag. Oropharynx free of erythema and cobble stoning with moist mucosa. Neck: Supple with full range of motion. No jugular venous distension. No lymphadenopathy or thyromegaly. Cardiovascular: Regular rhythm and rate without murmurs, rubs, or gallops appreciated. Pulmonary: Clear to auscultation bilaterally without crackles, wheezes, or rhonchi. Normal respiratory effort with no use of accessory muscles. Abdomen: Soft, bowel sounds nontender, nondistended. No hepatosplenomegaly or masses appreciated. Extremities: No clubbing, cyanosis, or edema. Skin: Normal temperature, turgor, and texture; no rash, ulcers, or subcutaneous nodules appreciated. Neurological: Cranial nerves grossly intact. Psychiatric: Normal mood and affect. Occasionally irritable and slightly behavioral refusing to talk. Alert and oriented to person only. Moderate to severe dementia at baseline with short and long-term memory recall deficit. Objective Labs Result Diagrams: 04/26/20 04:35 04/26/20 04:35 Labs: Laboratory Results - last 24 hr 04/25/20 04/26/20 04/26/20 10:50 04:35 04:35 WBC 24.1 H RBC 3.56 L Hgb 9.4 L Hct 29.8 L MCV 83.8 MCH 26.4 MCHC 31.6 RDW 15.8 H Plt Count 173 Neut % (Auto) Not Reportable Lymph % (Auto) Not Reportable [place] % (Auto) Not Reportable Eos % (Auto) Not Reportable Baso % (Auto) Not Reportable Lymph # (Auto) Not Reportable [place] # (Auto) Not Reportable Baso # (Auto) Not Reportable Total Counted 100 Seg Neutrophils % 29.0 L Lymphocytes % (Manual) 59.0 H Atypical Lymphs % 2.0 H Monocytes % (Manual) 10.0 Neutrophils # (Manual) 6989 H Smudge Cells 2+ H RBC Morphology See below Anisocytosis 2+ H Microcytosis 1+ H Sodium 136 L Potassium 3.7 Chloride 112 H Carbon Dioxide 22 BUN 19 H Creatinine 0.47 L Estimated GFR > 60.0 BUN/Creatinine Ratio 40.4 H Glucose 92 Calcium 7.5 L Magnesium 2.2 Urine Color Yellow Urine Appearance Sl cloudy Urine pH 5.5 Ur Specific Ophelia 1.015 Urine Protein Negative Urine Glucose (UA) Negative Urine Ketones 1+ H Urine Occult Blood 2+ H Urine Nitrate Positive H Urine Bilirubin Negative Urine Urobilinogen 0.2 Ur Leukocyte Esterase Negative Urine RBC 1-5/hpf Urine WBC 10-30/hpf H Urine Bacteria Many (>30) H Ur Culture Indicated? Specimen cultured Discharge Plan Discharge Plan Patient Disposition: Assisted Living Other facility: [facility] with home health Under care of provider: PCP Discharge comment: Recc implementing strategies for encouraging hydration in [facility] environment including favorite beverages in multiple locations of home, continued cuing to drink, targeting intake of water containing foods (soup, fruit, popcicles). Discharge orders & Medications Discharge Orders: Discharge (Order); Ordered 04/26/20 Ordered By: Carola Hodgson Prescriptions: Continued multivitamin Capsule 1 cap PO DAILY Qty: 0 RF: 0 docusate sodium [Colace] 100 MG capsule 100 mg PO DAILY Qty: 0 RF: 0 quetiapine [Seroquel] 50 MG tablet 50 mg PO QDAY Qty: 0 RF: 0 sertraline 100 mg tablet 200 mg PO DAILY RF: 0 omega 1-eaz-[id number]-fish oil [Fish Oil] 1,000 mg (120 mg-180 mg) Capsule 1 cap PO DAILY RF: 0 flaxseed oil 1,000 mg Capsule 1,000 mg PO DAILY RF: 0 aspirin [Adult Low Dose Aspirin] 81 mg Tablet,Delayed Release (Dr/Ec) 81 mg PO DAILY RF: 0 calcium carbonate [Calcium 500] 500 mg calcium (1,250 mg) Tablet 500 mg PO DAILY RF: 0 acetaminophen 325 mg Tablet 650 mg PO Q6HR PRN (Reason: As Needed For Fever/Mild Pain) Qty: 60 RF: 0 lovastatin 20 mg Tablet 20 mg PO DAILY Qty: 30 RF: 0 ondansetron 4 mg tablet,disintegrating 4 mg PO Q6H PRN (Reason: nausea and vomiting) Qty: 14 RF: 0 omeprazole 20 mg Capsule,Delayed Release(Dr/Ec) 20 mg PO DAILY RF: 0 furosemide 20 mg tablet 20 mg PO DAILY PRN (Reason: Edema) RF: 0 metoprolol tartrate 25 mg tablet 25 mg PO BID RF: 0 docusate sodium [Colace] 100 mg capsule 100 mg PO BID Qty: 30 RF: 0 acetaminophen [Tylenol] 325 mg capsule 650 mg PO QID PRN (Reason: pain) Qty: 60 RF: 0 Follow up/Referrals: Radha Farfan [Primary Care Provider] - 3-5 Days (*Appt. on April 30, 2020 with Radha Farfan @ [phone]. [phone]) Diet/Activity/Treatments Diet: Diet as Tolerated Diet comment: Interventions: Activity: Activity as tolerated with FWW and physical and occupational therapy [facility] Rehab type: Physical therapy and Occupational therapy Visit Report/Discharge Packet Instructions: DI for Atrial Fibrillation, How to Prevent Falls Visit Report Forms: Patient Portal/API, Stroke Signs & Symptoms Discharge Data Primary Care Provider: Radha Farfan Discharges patient from system. Discharge Date/Time: 04/26/20 13:00
--- NOTE | 2020-04-26 10:51 | CM.DPC ---
Addendum entered by Brenna Bermudez LPN 04/26/20 11:09: Have spoken now with LUPILLO Dye at the [facility] facility. She confirms all is fine for the pt to return today and is aware that Bhumika will be here at about 1130 and will take pt to the facility via car. Will follow prn until pt leaves. LUPILLO Snell has been updated. LUPILLO Dye has confirmed that no nurse/nurse report call is needed. Original Note: DCP: continued: Spoke with Dr. Hodgson this morning and she confirmed pt was stable for d/c back to her memory care facility and with the addition of HHS. She noted culture was pending for the UA but she did not expect to order an antibiotic. She stated no medication changes were need. Have called Bhumika now and she will be here at 1130 to transport her mother back to her facility. [facility]: Face/Face is completed. This plus RN/OT/PT orders, ase certified technician progress note and the progress note of yesterday from Dr. Hodgson are now faxed. DC summary will follow once it is finalized. (EILEEN Nichols is assisting with this). Will fax same and including the signed medication list and COVID- test to [facility]. Will talk with LUPILLO Dye or Mona. Will check in with daughter once she arrives.
[2020-04-26] MEDS: ONDANSETRON 4 MG ODT SL (12:54)
--- NOTE | 2020-04-26 12:59 | PC.NURSE ---
Daughter arrived to bedside ~1200. Daughter had multiple questions regarding diagnoses, medications regimen, f/u appt, plan of care. Reviewed dx of a fib. Reviewed medication list and notified daughter that no new medications are ordered and current med regimen is unchanged from just admission med rec. She has additional questions about need for anticoagulation for a fib, bowel med regimen, etc. Placed call to Dr. Hodgson re daughter's questions about medications. Dr. Hodgson states she can come by but it may be a considerable amount of time. Updated to daughter who states she can address those questions with PCP. She has no further questions regarding that. Pt is up to w/c with lunch tray. She is mainly drinking ensure. Called into room by daughter. Daughter states that the pt made a face that indicates she will soon vomit. Daughter reports that her mother is nauseas. Pt denies nausea when asked and states I don't think I'm going to throw up. Asked pt directly if she was nauseas and she states Not yet. Daughter is requesting that pt receive zofran ODT. Called to Dr. Hodgson. Reported assessment findings. Orders received and implemented. Pt left with all belongings (dentures, glasses, jewlery, clothes, shoes, etc). via own w/c in no distress. Transferred to [facility] with 1PA and gait belt.
--- NOTE | 2020-04-29 13:26 | CM.DPC ---
DCP cont: Faxed discharge summary to [facility] at fax # [phone] and to [facility] at fax # [phone]. Fax confirmations scanned in. Magdalena Theodore, [facility] [place]
== END 2020-04-26 13:00 | DRG 309 ==
LOC: ED 15:55 → AC 16:11 → ICU 16:59
PROVIDERS: Internal Medicine; Admitting Provider Internal Medicine; Emergency Provider Emergency Medicine; PCP Physician Assistant Medical; Referring Provider Emergency Medicine; Visit Provider Internal Medicine
DX: I48.91 Unspecified atrial fibrillation (principal); C91.10 Chronic lymphocytic leukemia of B-cell type not having achieved remission; G91.9 Hydrocephalus, unspecified; I48.92 Unspecified atrial flutter; I27.20 Pulmonary hypertension, unspecified; F03.90 Unspecified dementia, unspecified severity, without behavioral disturbance, psychotic disturbance, mood disturbance, and anxiety; Z68.22 Body mass index [BMI] 22.0-22.9, adult; E86.0 Dehydration; R11.2 Nausea with vomiting, unspecified; I10 Essential (primary) hypertension; E78.5 Hyperlipidemia, unspecified; I07.1 Rheumatic tricuspid insufficiency; Z87.891 Personal history of nicotine dependence; Z11.59 Encounter for screening for other viral diseases
CPT/HCPCS: 36415; 71045; 74160; 80048; 80053; 80076; 81001; 82550; 83735; 84145; 84443; 84484; 85025; 85610; 85730; 87077; 87086; 87186; 87635; 87797; 93005; 93306; 96365; 96366; 96372; 96375; 99284; J1650; J2405; J3480; Q9967

== ENCOUNTER → 2020-05-18 14:46 | Outpatient (ROUT) | payer SELFPAY ==
[2020-04-24 16:33] VITALS: BMI 22.4
[2020-05-20 09:29] LABS: COVID19 Sendout Not Detected (Not Detected)
== END ==
PROVIDERS: PCP Physician Assistant Medical; Visit Provider Internal Medicine
DX: Z11.59 Encounter for screening for other viral diseases (principal)
CPT/HCPCS: 87635

== ENCOUNTER 2020-05-22 13:48 | Emergency (ER) | payer MEDICARE, MEDICAID, SELFPAY ==
[2020-04-24 16:33] VITALS: BMI 22.4
[2020-05-22] VITALS (10 sets, daily range): BP systolic 133–150; BP diastolic 68–82; PULSE 108–147; RESP 16–23; TEMP 37.3; O2SAT 93–100; BMI 22.4
--- NOTE | 2020-05-22 14:00 | ED.ARRPALP ---
HPI - Arrhythmia/Palpitations General Chief Complaint: Arrhythmia/Palpitations Stated Complaint: thinks in AFIB, sent by Doctor Evonne Time Seen by Provider: 05/22/20 13:54 Source: patient, family and old records reviewed Limitations: no limitations History of Present Illness HPI narrative: Patient is an 84-year-old female with history of paroxysmal atrial fibrillation presenting in atrial fibrillation. She was seen by Dr. Douglass today for follow-up hernia surgery from February found to be in AFib with RVR and sent to the ED for further evaluation. Daughter states that she just had a 2 week stay at [facility] for atrial fibrillation and now lives at [facility]. She says in the hospital she was on metoprolol and Cardizem and is now just on metoprolol. Patient herself is completely asymptomatic and denies any chest pain palpitations or shortness of breath says that she feels fine. Related Data Home Medications Medication Instructions Recorded Confirmed multivitamin 1 cap PO DAILY #0 06/27/10 05/22/20 docusate sodium [Colace] 100 mg PO DAILY #0 01/21/17 05/22/20 quetiapine [Seroquel] 50 mg PO QDAY #0 01/21/17 05/22/20 sertraline 200 mg PO DAILY 03/11/18 05/22/20 aspirin [Adult Low Dose Aspirin] 81 mg PO DAILY 05/25/19 05/22/20 calcium carbonate [Calcium 500] 500 mg PO DAILY 05/25/19 05/22/20 flaxseed oil 1,000 mg PO DAILY 05/25/19 05/22/20 omega 5-fng-xdy-fish oil [Fish Oil] 1 cap PO DAILY 05/25/19 05/22/20 furosemide 20 mg PO DAILY PRN 03/06/20 05/22/20 metoprolol tartrate 25 mg PO BID 03/06/20 05/22/20 omeprazole 20 mg PO DAILY 03/06/20 05/22/20 Previous Rx's Medication Instructions Recorded acetaminophen 650 mg PO Q6HR PRN #60 tab 06/03/19 lovastatin 20 mg PO DAILY #30 tab 06/03/19 ondansetron 4 mg PO Q6H PRN #14 tab 12/21/19 acetaminophen [Tylenol] 650 mg PO QID PRN #60 cap 03/14/20 docusate sodium [Colace] 100 mg PO BID #30 cap 03/14/20 metoprolol tartrate 50 mg PO BID #20 tab 05/22/20 Allergies Allergy/AdvReac Type Severity Reaction Status Date / Time No Known Drug Allergies Allergy Verified 05/22/20 13:59 Review of Systems Review of Systems Narrative: GENERAL: Denies chills, fatigue, malaise, fever, sweats, travel HEENT: Denies sinus pain, ear pain, sore throat, difficulty swallowing, neck pain RESPIRATORY: Denies dyspnea, cough, wheezing, hemoptysis, sputum. CARDIOVASCULAR: See HPI GASTROINTESTINAL: Denies nausea, vomiting, abdominal pain, diarrhea, constipation, melena. : Denies dysuria, frequency, incontinence, hematuria, urinary retention, flank pain. MUSCULOSKELETAL: Denies weakness, joint pain, or bony pain SKIN: No rash, no erythema, no pruritus NEUROLOGIC: Denies weakness, dizziness, headache, numbness, change in speech, confusion PSYCHIATRIC: No concerning psychosocial issues. 12 point review of systems is negative except for those stated above and HPI Patient History Medical History Atrial fibrillation, new onset (Acute) Compression fracture (Acute) Dehydration (Acute) Edema (Acute) Fracture, finger (Acute) Leukemia (Acute) Memory deficit (Acute) Syncope (Acute) Urinary incontinence (Acute) Surgical History H/O spinal fusion (Acute 05/29/19) H/O: hysterectomy (Acute) History of 2 sections (Acute) Social History household members: family Smoking Status: Former smoker alcohol intake: never substance use type: does not use Smoking Status: Former smoker alcohol intake frequency: a few times a month Substance Use Type: does not use Exam Initial Vital Signs Initial Vital Signs: Vital Signs Temperature 99.1 F 05/22/20 13:59 Pulse Rate 125 H 05/22/20 13:59 Respiratory Rate 17 05/22/20 13:59 Blood Pressure 133/82 05/22/20 13:59 Pulse Oximetry 97 05/22/20 13:59 GENERAL: Alert pleasant elderly female HEENT: Head atraumatic,EOMI, pupils reactive, face symmetric, moist mucous membranes CARDIOVASCULAR: Irregularly irregular tachycardic RESPIRATORY: Breath sounds equal bilaterally, no wheezes rales or rhonchi. ABDOMEN: Soft, nontender. Normoactive bowel sounds all 4 quadrants. No guarding or rebound. EXTREMITIES: Normal range of motion, no clubbing or edema. Neurovascularly intact NEUROLOGICAL: Alert and oriented x4.Normal gait and speech. SKIN: Warm, dry, no laceration, no petechiae, no rashes or lesions. Course Orders Ordered: ED Orders 05/22/20 14:00 Complete Blood Count AUTO DIFF Stat Comprehensive Metabolic Panel Stat Magnesium Stat NT-proBNP (BNP-Adult 18+) Stat Partial Thromboplastin Time Stat Prothrombin Time INR Stat Thyroid Stimulating Hormone Stat Troponin & CK Cardiac Panel Stat 05/22/20 14:14 XR chest 1V Stat Discontinued Medications Diltiazem HCl (Cardizem) 10 mg IV NOW ONE Stop: 05/22/20 14:14 Last Admin: 05/22/20 14:21 Dose: 10 mg Documented by: EDWIGE Diltiazem HCl (Cardizem) 10 mg IV NOW ONE Stop: 05/22/20 15:44 Last Admin: 05/22/20 15:49 Dose: 10 mg Documented by: EDWIGE Sodium Chloride (Normal Saline 0.9%) 1,000 mls @ 150 mls/hr IV CONT BABATUNDE Last Infusion: 05/22/20 16:56 Dose: 0 mls/hr Documented by: AUSTINOTEDorie Admin: 05/22/20 14:22 Dose: 150 mls/hr Documented by: EDWIGE DILTIAZEM (Diltiazem 125 Mg/125 Ml-D5w) 125 mg in 125 mls @ 5 mls/hr IV TITRATE BABATUNDE; Protocol Last Admin: 05/22/20 16:17 Dose: Not Given Documented by: EDWIGE Metoprolol Tartrate (Lopressor) 25 mg PO NOW ONE Stop: 05/22/20 15:35 Last Admin: 05/22/20 15:49 Dose: 25 mg Documented by: EDWIGE Vital Signs Vital signs: Vital Signs - 8 hr 05/22/20 13:59 05/22/20 14:21 05/22/20 14:39 Temperature 99.1 F Pulse Rate 125 H 147 H 108 H Respiratory Rate 17 16 Blood Pressure 133/82 150/80 H Pulse Oximetry 97 100 05/22/20 14:40 05/22/20 15:00 05/22/20 15:30 Temperature Pulse Rate 110 H 126 H 127 H Respiratory Rate 17 17 18 Blood Pressure 146/78 H 145/68 H 134/81 Pulse Oximetry 100 93 96 05/22/20 15:49 05/22/20 16:00 05/22/20 16:30 Temperature Pulse Rate 131 H 122 H 122 H Respiratory Rate 23 18 Blood Pressure 134/81 145/70 H 139/80 Pulse Oximetry 94 97 05/22/20 16:56 Temperature Pulse Rate 122 H Respiratory Rate Blood Pressure 139/80 Pulse Oximetry 94 MDM - Arrhythmia/Palpitations Lab Data Attestation: I reviewed the patient's lab results. Result diagrams: 05/22/20 14:00 05/22/20 14:00 Labs: Lab Results 05/22/20 05/22/20 05/22/20 Range/Units 14:00 14:00 14:00 WBC 30.9 H* (4.5-11.0) X10^3/uL RBC 4.64 (4.0-5.2) X10^6/uL Hgb 11.9 L (12.0-16.0) g/dL Hct 38.2 (36-46) % MCV 82.4 (80-100) fL MCH 25.6 L (26-34) PG MCHC 31.1 (30-36) % RDW 17.5 H (11.6-14.8) % Plt Count 389 (150-400) X10^3/uL Neut % (Auto) Not Reportable Lymph % (Auto) Not Reportable Henderson % (Auto) Not Reportable Eos % (Auto) Not Reportable Baso % (Auto) Not Reportable Lymph # (Auto) Not Reportable Henderson # (Auto) Not Reportable Baso # (Auto) Not Reportable Total Counted 100 Seg Neutrophils % 34.0 L (38-70) % Band Neutrophils % 1.0 L (3-7) % Lymphocytes % (Manual) 49.0 H (25-45) % Atypical Lymphs % 13.0 H ( - 0) % Monocytes % (Manual) 1.0 L (2-11) % Eosinophils % (Manual) 2.0 (2-4) % Neutrophils # (Manual) 86648 H (9027-7096) /uL Smudge Cells 2+ H RBC Morphology See below Anisocytosis 1+ H PT 13.3 H (10.1-12.7) SECONDS INR 1.2 (0.9-1.3) APTT 30 (26.4-36.2) SECONDS Sodium 139 (137-145) mmol/L Potassium 4.3 (3.4-5.1) mmol/L Chloride 101 (98-107) mmol/L Carbon Dioxide 30 (22-32) mmol/L BUN 14 (7-17) mg/dL Creatinine 0.54 (0.52-1.04) mg/dL Estimated GFR > 60.0 (>60) mL/min BUN/Creatinine Ratio 25.9 H (6-22) Glucose 137 H (80-110) mg/dL Calcium 9.3 (8.4-10.2) mg/dL Magnesium (1.6-2.3) mg/dL Total Bilirubin 0.6 (0.2-1.3) mg/dL AST 45 H (14-36) IU/L ALT 18 (<35) IU/L Alkaline Phosphatase 121 (38-126) U/L Total Creatine Kinase (30-135) U/L CK-MB (CK-2) CK-MB (CK-2) Rel Index Troponin I (0.01-0.034) ng/mL NT-Pro-B Natriuret Pep 1610 H (<450) pg/mL Total Protein 7.2 (6.3-8.2) g/dL Albumin 3.9 (3.5-5.0) g/dL Globulin 3.3 (1.7-4.1) g/dL Albumin/Globulin Ratio 1.2 (1.0-2.8) TSH (0.47-4.68) uIU/mL 05/22/20 05/22/20 Range/Units 14:00 14:00 WBC (4.5-11.0) X10^3/uL RBC (4.0-5.2) X10^6/uL Hgb (12.0-16.0) g/dL Hct (36-46) % MCV (80-100) fL MCH (26-34) PG MCHC (30-36) % RDW (11.6-14.8) % Plt Count (150-400) X10^3/uL Neut % (Auto) Lymph % (Auto) Henderson % (Auto) Eos % (Auto) Baso % (Auto) Lymph # (Auto) Henderson # (Auto) Baso # (Auto) Total Counted Seg Neutrophils % (38-70) % Band Neutrophils % (3-7) % Lymphocytes % (Manual) (25-45) % Atypical Lymphs % ( - 0) % Monocytes % (Manual) (2-11) % Eosinophils % (Manual) (2-4) % Neutrophils # (Manual) (9249-3072) /uL Smudge Cells RBC Morphology Anisocytosis PT (10.1-12.7) SECONDS INR (0.9-1.3) APTT (26.4-36.2) SECONDS Sodium (137-145) mmol/L Potassium (3.4-5.1) mmol/L Chloride (98-107) mmol/L Carbon Dioxide (22-32) mmol/L BUN (7-17) mg/dL Creatinine (0.52-1.04) mg/dL Estimated GFR (>60) mL/min BUN/Creatinine Ratio (6-22) Glucose (80-110) mg/dL Calcium (8.4-10.2) mg/dL Magnesium 2.1 (1.6-2.3) mg/dL Total Bilirubin (0.2-1.3) mg/dL AST (14-36) IU/L ALT (<35) IU/L Alkaline Phosphatase (38-126) U/L Total Creatine Kinase 64 (30-135) U/L CK-MB (CK-2) TNP CK-MB (CK-2) Rel Index TNP Troponin I 0.015 (0.01-0.034) ng/mL NT-Pro-B Natriuret Pep (<450) pg/mL Total Protein (6.3-8.2) g/dL Albumin (3.5-5.0) g/dL Globulin (1.7-4.1) g/dL Albumin/Globulin Ratio (1.0-2.8) TSH 2.27 (0.47-4.68) uIU/mL ECG Data Attestation: I personally reviewed and interpreted this ECG as follows: Prior ECG tracings: available for review Interpretation: Atrial fibrillation with RVR rate [address] changes similar to prior EKG MDM Narrative Medical decision making narrative: Patient has CLL, white count is at baseline for her. She is completely asymptomatic in atrial fibrillation. I have reviewed [facility] she was in sinus rhythm upon discharge thought to have gone into atrial fibrillation secondary to volume depletion. She was placed on metoprolol as an outpatient. Her heart rate initially slowed with Cardizem and then increased again to 122. I discussed case with hospitalist Dr. her montiel he recommended that patient's but overall be increased to 50 mg twice a day and she follow-up with her primary care doctor on does not need to be admitted to the hospital because she is asymptomatic and rate is relatively controlled. Patient was not placed on anticoagulation initially because she was a fall risk but now she gets around by wheelchair however she recently had a GI bleed a couple weeks ago. I discussed with daughter that she is probably not a good candidate for anticoagulation however with persistent atrial fibrillation and atrial flutter risk of stroke. I discussed all findings with the patient and daughter, Education has been performed regarding treatment plan, diagnosis, warning signs and symptoms and all concerns have been addressed. Verbally agree with and understood all of the above. Discharge Plan Departure Patient Disposition: Home Clinical Impression: Atrial flutter Qualifiers: Atrial flutter type: unspecified Qualified Code(s): I48.92 - Unspecified atrial flutter Discharge Date/Time: 05/22/20 16:57 Instructions: DI for Atrial Flutter Activity Restrictions/Additional Instructions: *You have been diagnosed with atrial flutter *What to do: At this time it is recommended that he follow up with her primary care provider. You are still in atrial flutter is. Discussed with you anticoagulation however it is felt that you are not a good candidate for anticoagulation due to recent GI bleed and history of falling. *Continue to take medications as directed Increase metoprolol to 50 mg twice a day--> SENT TO [facility] *Follow up with your primary care provider in 2-3 days *Return to ER if you should have chest pain shortness of breath palpitations dizziness falling or any new, worsening or concerning symptoms Prescriptions: New metoprolol tartrate 50 mg tablet 50 mg PO BID Qty: 20 RF: 0 No Action multivitamin Capsule 1 cap PO DAILY Qty: 0 RF: 0 docusate sodium [Colace] 100 MG capsule 100 mg PO DAILY Qty: 0 RF: 0 quetiapine [Seroquel] 50 MG tablet 50 mg PO QDAY Qty: 0 RF: 0 sertraline 100 mg tablet 200 mg PO DAILY RF: 0 omega 0-byc-tqi-fish oil [Fish Oil] 1,000 mg (120 mg-180 mg) Capsule 1 cap PO DAILY RF: 0 flaxseed oil 1,000 mg Capsule 1,000 mg PO DAILY RF: 0 aspirin [Adult Low Dose Aspirin] 81 mg Tablet,Delayed Release (Dr/Ec) 81 mg PO DAILY RF: 0 calcium carbonate [Calcium 500] 500 mg calcium (1,250 mg) Tablet 500 mg PO DAILY RF: 0 acetaminophen 325 mg Tablet 650 mg PO Q6HR PRN (Reason: As Needed For Fever/Mild Pain) Qty: 60 RF: 0 lovastatin 20 mg Tablet 20 mg PO DAILY Qty: 30 RF: 0 ondansetron 4 mg tablet,disintegrating 4 mg PO Q6H PRN (Reason: nausea and vomiting) Qty: 14 RF: 0 omeprazole 20 mg Capsule,Delayed Release(Dr/Ec) 20 mg PO DAILY RF: 0 furosemide 20 mg tablet 20 mg PO DAILY PRN (Reason: Edema) RF: 0 metoprolol tartrate 25 mg tablet 25 mg PO BID RF: 0 docusate sodium [Colace] 100 mg capsule 100 mg PO BID Qty: 30 RF: 0 acetaminophen [Tylenol] 325 mg capsule 650 mg PO QID PRN (Reason: pain) Qty: 60 RF: 0 Referrals: Radha Farfan [Primary Care Provider] -
--- NOTE | 2020-05-22 14:14 | DI.RAD.S_ITS ---
PROCEDURE: XR CHEST 1V INDICATIONS: chest pain TECHNIQUE: One view of the chest was acquired. COMPARISON: [facility], CR, XR CHEST 1V, 04/24/2020, 13:49. [facility], CR, XR CHEST 1V, 03/12/2020, 14:00. FINDINGS: Surgical changes and devices: Extensive spine surgical intervention, crossing from the low thoracic spine below the imaging margin. Lungs and pleura: Lungs are unchanged with interstitial prominence, mild in severity. No pleural effusions or pneumothorax. Mediastinum: Mediastinal contours appear normal. Heart size is slightly enlarged, chronically. Bones and chest wall: No suspicious bony lesions. Overlying soft tissues appear unremarkable. IMPRESSION: Chronic interstitial prominence, chronic mild cardiomegaly, source of new pain not found. Old right-sided rib fractures inferiorly again noted. Dictated by: Neot Nolasco M.D. on 05/22/2020 at 14:47 Approved by: Neto Nolasco M.D. on 05/22/2020 at 14:48
[2020-05-22] MEDS: dilTIAZem 5 MG/ML SDV 10 MG IV ×2 (14:21→15:49)
[2020-05-22 14:22] LABS: Hematocrit 38.2 % (36-46); Hemoglobin 11.9 g/dL (12.0-16.0); INR 1.2 (0.9-1.3); Mean Corpuscular HGB Conc 31.1 % (30-36); Mean Corpuscular Hemoglobin 25.6 PG (26-34); Mean Corpuscular Volume 82.4 fL (80-100); Platelet Count 389 X10^3/uL (150-400); Prothrombin Time 13.3 SECONDS (10.1-12.7); Red Blood Cell Count 4.64 X10^6/uL (4.0-5.2); Red Cell Distribution Width 17.5 % (11.6-14.8)
[2020-05-22] MEDS: SODIUM CHLORIDE 0.9% 1,000 ML 150 ML IV (14:22)
[2020-05-22 14:25] LABS: Add Manual Diff / Slide Review YES; PTT Partial Thromboplastin Tim 30 SECONDS (26.4-36.2)
[2020-05-22 14:26] LABS: Creatine Kinase 64 U/L (30-135); Magnesium 2.1 mg/dL (1.6-2.3)
[2020-05-22 14:27] LABS: Alanine Aminotransferase 18 IU/L (<35); Albumin 3.9 g/dL (3.5-5.0); Albumin Globulin Ratio 1.2 (1.0-2.8); Alkaline Phosphatase 121 U/L (38-126); Aspartate Aminotransferase 45 IU/L (14-36); BUN Creatinine Ratio 25.9 (6-22); Bilirubin Total 0.6 mg/dL (0.2-1.3); Blood Urea Nitrogen 14 mg/dL (7-17); Calcium 9.3 mg/dL (8.4-10.2); Carbon Dioxide 30 mmol/L (22-32); Chloride 101 mmol/L (98-107); Estimated Glomerular Filt Rate > 60.0 mL/min (>60); Globulin 3.3 g/dL (1.7-4.1); Glucose 137 mg/dL (80-110); HEMOLYSIS < 15 (0-50); Potassium 4.3 mmol/L (3.4-5.1); Sodium 139 mmol/L (137-145); Total Protein 7.2 g/dL (6.3-8.2); White Blood Cell Count 30.9 X10^3/uL (4.5-11.0)
[2020-05-22 14:36] LABS: NT-proBNP (BNP-Adult 18+) 1610 pg/mL (<450)
[2020-05-22 14:39] LABS: Troponin I 0.015 ng/mL (0.01-0.034)
[2020-05-22 14:47] LABS: Neutrophils Absolute Manual 10815 /uL (3000-5900); Total Cells Counted 100
[2020-05-22 14:48] LABS: Anisocytosis 1+
[2020-05-22 14:49] LABS: Smudge Cells 2+
[2020-05-22 15:01] LABS: Thyroid Stimulating Hormone 2.27 uIU/mL (0.47-4.68)
[2020-05-22] MEDS: METOPROLOL IR 25 MG TABLET PO (15:49)
== END 2020-05-22 16:57 | disposition home or self-care (01) ==
PROVIDERS: Emergency Provider Emergency Medicine; PCP Physician Assistant Medical
DX: I48.92 Unspecified atrial flutter (principal)
CPT/HCPCS: 36415; 71045; 80053; 82550; 83735; 83880; 84443; 84484; 85025; 85610; 85730; 93005; 96361; 96374; 96376; 99284

== ENCOUNTER → 2020-05-30 14:02 | Outpatient (CLI) | payer MEDICARE, MEDICAID, SELFPAY ==
[2020-04-24 16:33] VITALS: BMI 22.4
--- NOTE | 2020-05-30 | DI.RAD.S_ITS ---
PROCEDURE: XR HIP W PEL IF DONE LT 2V INDICATIONS: LEFT HIP TO LEFT FOOT PAIN TECHNIQUE: AP pelvis with lateral view(s) of the left hip(s). COMPARISON: [facility], CR, XR HIP W PEL IF DONE RT 2V, 11/26/2019, 12:12. FINDINGS: Bones: No fractures or dislocations. [id number] symmetric hip joint osteoarthritis. Pelvic ring appears intact. No suspicious bony lesions. Prior lumbosacral spine fusion rods partially visualized. Soft tissues: The visualized bowel gas pattern is normal. No suspicious soft tissue calcifications. IMPRESSION: [id number] symmetric hip joint osteoarthritis, no trauma found. Prior spine fusion surgical procedure partially visualized at the mid lumbosacral spine extending cephalad. Dictated by: Neto Nolasco M.D. on 05/30/2020 at 15:57 Approved by: Neto Nolasco M.D. on 05/30/2020 at 15:58
== END ==
PROVIDERS: PCP Physician Assistant Medical; Referring Provider Nurse Practitioner; Visit Provider Nurse Practitioner
DX: M25.552 Pain in left hip (principal); M79.672 Pain in left foot; M16.12 Unilateral primary osteoarthritis, left hip; Z98.1 Arthrodesis status
CPT/HCPCS: 73502

== ENCOUNTER → 2020-05-31 16:09 | Outpatient (CLI) | payer MEDICARE, MEDICAID, SELFPAY ==
[2020-04-24 16:33] VITALS: BMI 22.4
--- NOTE | 2020-05-31 | DI.RAD.S_ITS ---
PROCEDURE: XR FOOT LT 2V INDICATIONS: rule out fracture of left ankle and foot TECHNIQUE: 3 views of the foot were acquired. COMPARISON: None. FINDINGS: Bones: No fractures or dislocations. No suspicious bony lesions. Soft tissues: No tibiotalar joint effusion. Achilles tendon appears normal. IMPRESSION: No acute radiographic findings. If pain persists, followup imaging in 5-7 days is recommended to exclude occult fracture. Dictated by: Herminia Silva M.D. on 05/31/2020 at 16:34 Approved by: Herminia Silva M.D. on 05/31/2020 at 16:35
--- NOTE | 2020-05-31 | DI.RAD.S_ITS ---
PROCEDURE: XR ANKLE LT 2V INDICATIONS: rule out fracture of left ankle and foot TECHNIQUE: 2 views of the ankle were acquired. COMPARISON: [facility], CR, XR FOOT LT 2V, 05/31/2020, 16:03. FINDINGS: Bones: No fractures or dislocations. Ankle mortise is normally aligned. No suspicious bony lesions. Soft tissues: There is moderate lateral malleolar soft tissue swelling. No tibiotalar joint effusion. Achilles tendon appears normal. IMPRESSION: Soft tissue swelling without underlying bony abnormality. If pain persists, followup imaging in 5-7 days is recommended to exclude occult fracture. Dictated by: Herminia Silva M.D. on 05/31/2020 at 16:39 Approved by: Herminia Silva M.D. on 05/31/2020 at 16:40
== END ==
PROVIDERS: PCP Physician Assistant Medical; Referring Provider Nurse Practitioner; Visit Provider Nurse Practitioner
DX: M79.672 Pain in left foot (principal); M79.89 Other specified soft tissue disorders
CPT/HCPCS: 73600; 73620

== ENCOUNTER → 2020-07-15 10:50 | Outpatient (CLI) | payer MEDICARE, MEDICAID, SELFPAY ==
[2020-04-24 16:33] VITALS: BMI 22.4
--- NOTE | 2020-07-15 | DI.RAD.S_ITS ---
PROCEDURE: XR CHEST 2V INDICATIONS: Pneumonia, unspecified organism TECHNIQUE: 2 views of the chest were acquired. COMPARISON: [facility], CR, XR CHEST 1V, 05/22/2020, 14:28. [facility], CR, XR CHEST 1V, 04/24/2020, 13:49. FINDINGS: Surgical changes and devices: Stable over time, thoraco lumbosacral spine fusion devices.. Lungs and pleura: Lungs are mildly abnormal with a mild interstitial prominence previously present. No pleural effusions or pneumothorax. Mediastinum: Mediastinal contours are normal except for a moderate-sized hiatal hernia behind the heart containing an air-fluid level. Heart size is at the upper limits of normal. Bones and chest wall: No suspicious bony abnormalities. Soft tissues appear unremarkable. IMPRESSION: No pneumonia found. Moderate-sized hiatal hernia with air-fluid level behind the heart. Mild interstitial prominence, perhaps related to prior smoking. No area of dense alveolar consolidation is found. Dictated by: Neto Nolasco M.D. on 07/15/2020 at 12:34 Approved by: Neto Nolasco M.D. on 07/15/2020 at 12:46
== END ==
PROVIDERS: PCP Physician Assistant Medical; Referring Provider Nurse Practitioner; Visit Provider Nurse Practitioner
DX: J18.9 Pneumonia, unspecified organism (principal); K44.9 Diaphragmatic hernia without obstruction or gangrene
CPT/HCPCS: 71046

== ENCOUNTER → 2020-07-16 16:03 | Outpatient (ROUT) | payer MEDICARE, MEDICAID, SELFPAY ==
[2020-04-24 16:33] VITALS: BMI 22.4
[2020-07-16 16:05] LABS: RBC Urine None Seen (0-5/HPF)
[2020-07-16 16:09] LABS: Appearance Urine UA CLOUDY; Bilirubin Urine UA NEGATIVE (NEGATIVE); Color Urine UA YELLOW; Glucose Urine UA NEGATIVE (Negative); Ketones Urine UA NEGATIVE (NEGATIVE); Leukocyte Esterase Urine UA 2+ (NEGATIVE); Nitrite Urine UA NEGATIVE (Negative); Occult Blood Urine UA TRACE-INTACT (Negative); Protein Urine UA NEGATIVE (Negative); Specific Gravity Urine UA 1.015 (1.000-1.035); Urobilinogen Urine UA 0.2 E.U./dL (0.2)
[2020-07-16 16:13] LABS: Bacteria Urine Many (>30); Culture Indicated Urine Specimen Cultured; Squamous Epithelial Cell Urine 1-5 /HPF (0-5/HPF); WBC Urine 5-10/HPF (0-5/HPF)
== END ==
PROVIDERS: PCP Physician Assistant Medical; Visit Provider Internal Medicine
DX: N39.0 Urinary tract infection, site not specified (principal)
CPT/HCPCS: 81001; 87077; 87086; 87186

== ENCOUNTER → 2021-06-06 08:14 | Outpatient (ROUT) | payer MEDICARE, MEDICAID, SELFPAY ==
[2020-04-24 16:33] VITALS: BMI 22.4
[2021-06-06 08:35] LABS: Appearance Urine UA CLOUDY; Bilirubin Urine UA NEGATIVE (NEGATIVE); Color Urine UA YELLOW; Glucose Urine UA NEGATIVE (Negative); Ketones Urine UA NEGATIVE (NEGATIVE); Leukocyte Esterase Urine UA NEGATIVE (NEGATIVE); Nitrite Urine UA NEGATIVE (Negative); Occult Blood Urine UA NEGATIVE (Negative); Protein Urine UA 1+ (Negative); Urobilinogen Urine UA 0.2 E.U./dL (0.2)
[2021-06-06 08:46] LABS: Amorphous Sediment Urine 1+; Bacteria Urine Many (>30); Culture Indicated Urine Specimen Cultured; RBC Urine 1-5/HPF (0-5/HPF); Squamous Epithelial Cell Urine 1-5 /HPF (0-5/HPF); Transitional Epi Cells Urine 1-5/HPF (0-5/HPF); WBC Urine 1-5/HPF (0-5/HPF)
== END ==
PROVIDERS: PCP Physician Assistant Medical; Visit Provider Emergency Medicine
DX: R39.198 Other difficulties with micturition (principal)
CPT/HCPCS: 81001; 87086

== ENCOUNTER 2021-12-28 21:36 | Inpatient (IN) | payer MEDICARE, MEDICAID, SELFPAY ==
[2020-04-24 16:33] VITALS: BMI 22.4
[2021-12-28] VITALS (7 sets, daily range): BP systolic 143; BP diastolic 76; PULSE 82–91; RESP 17–23; O2SAT 92–95
[2021-12-28] MEDS: PANTOPRAZOLE 40 MG VIAL IV (22:23)
[2021-12-28 22:30] LABS: Add Manual Diff / Slide Review NO; Basophils Absolute Auto 0 /uL (0-100); Basophils Percent Auto 0.2 % (0-2); Eosinophils Absolute Auto 0 /uL (0-450); Hemoglobin 14.2 g/dL (12.0-16.0); Lymphocytes Absolute Auto 9600 /uL (1100-4500); Lymphocytes Percent Auto 48.1 % (25-40); Mean Corpuscular HGB Conc 32.2 % (30-36); Mean Corpuscular Hemoglobin 28.4 PG (26-34); Mean Corpuscular Volume 88.3 fL (80-100); Monocytes Absolute Auto 500 /uL (0-900); Monocytes Percent Auto 2.5 % (3-14); Neutrophils Absolute Auto 9800 /uL (1500-7000); Neutrophils Percent Auto 49.2 % (50-75); Platelet Count 142 X10^3/uL (150-400); Red Blood Cell Count 4.99 X10^6/uL (4.0-5.2); White Blood Cell Count 19.9 X10^3/uL (4.5-11.0)
[2021-12-28 22:35] LABS: INR 1.2 (0.9-1.3)
[2021-12-28 22:38] LABS: PTT Partial Thromboplastin Tim 28 SECONDS (26.4-36.2)
[2021-12-28 22:39] LABS: Alanine Aminotransferase 16 IU/L (<35); Albumin 3.9 g/dL (3.5-5.0); Albumin Globulin Ratio 1.4 (1.0-2.8); Alkaline Phosphatase 74 U/L (38-126); Aspartate Aminotransferase 34 IU/L (14-36); BUN Creatinine Ratio 45.5 (6-22); Bilirubin Total 1.1 mg/dL (0.2-1.3); Blood Urea Nitrogen 25 mg/dL (7-17); Carbon Dioxide 22 mmol/L (22-32); Chloride 110 mmol/L (98-107); Estimated Glomerular Filt Rate > 60.0 mL/min (>60); Globulin 2.8 g/dL (1.7-4.1); Glucose 164 mg/dL (80-110); HEMOLYSIS 23 (0-50); Potassium 3.7 mmol/L (3.4-5.1); Sodium 142 mmol/L (137-145); Total Protein 6.7 g/dL (6.3-8.2)
[2021-12-28 22:40] LABS: Lactate (Lactic Acid) 2.5 mmol/L (0.7-2.1)
[2021-12-29] VITALS (14 sets, daily range): BP systolic 113–195; BP diastolic 61–88; PULSE 82–109; RESP 16–21; TEMP 36.6–37.3; O2SAT 92–95
[2021-12-29 00:24] LABS: Reflexed Lactate in 2 Hours Y
--- NOTE | 2021-12-29 01:01 | ED_ITS ---
HPI - GI Bleed General Chief complaint: GI Bleed Stated complaint: GI Bleed Time Seen by Provider: 12/28/21 22:08 Source: EMS Mode of arrival: EMS History of Present Illness HPI Narrative: Patient is an 86-year-old female with history of GI bleeding, CLL, anemia, hypertension, Atrial fibrillation,constant constipation, dementia presenting today with dark stools. She was sent over for evaluation. Since being in the emergency department for numerous hours she has actually had his bright red blood per rectum his in the depends. She is having minimal abdominal discomfort. No nausea or vomiting. She is not a great historian most history is taken from daughter. She is taking aspirin daily. patient was admitted to [facility] 05/08/2020 for esophagitis which was causing blood loss and anemia. Related Data Home Medications Medication Instructions Recorded Confirmed multivitamin 1 cap PO DAILY #0 06/27/10 11/20/20 docusate sodium 100 mg capsule 100 mg PO DAILY #0 01/21/17 11/20/20 (Colace) quetiapine 50 mg tablet (Seroquel) 50 mg PO QDAY #0 01/21/17 11/20/20 aspirin 81 mg tablet,delayed 81 mg PO DAILY 05/25/19 11/20/20 release (Adult Low Dose Aspirin) metoprolol tartrate 25 mg tablet 25 mg PO BID 03/06/20 05/22/20 ferrous gluconate 324 mg (37.5 mg 324 mg PO DAILY 11/20/20 11/20/20 iron) tablet lisinopril 5 mg tablet 5 mg PO DAILY 11/20/20 11/20/20 pantoprazole 40 mg tablet,delayed 40 mg PO DAILY 11/20/20 11/20/20 release (Protonix) polyethylene glycol 3350 17 17 g PO DAILY 11/20/20 11/20/20 gram/dose oral powder sucralfate 1 gram tablet 1 g PO BID 11/20/20 11/20/20 Previous Rx's Medication Instructions Recorded ondansetron 4 mg disintegrating 4 mg PO Q6H PRN #14 tab 12/21/19 tablet acetaminophen 325 mg capsule 650 mg PO QID PRN #60 cap 03/14/20 (Tylenol) docusate sodium 100 mg capsule 100 mg PO BID #30 cap 03/14/20 (Colace) metoprolol tartrate 50 mg tablet 50 mg PO BID #20 tab 05/22/20 Allergies Allergy/AdvReac Type Severity Reaction Status Date / Time No Known Drug Allergies Allergy Verified 11/20/20 13:05 Review of Systems Review of Systems Narrative: GENERAL: Denies chills, fatigue, malaise, fever, sweats, travel HEENT: Denies sinus pain, ear pain, sore throat, difficulty swallowing, neck pain RESPIRATORY: Denies dyspnea, cough, wheezing, hemoptysis, sputum. CARDIOVASCULAR: Denies chest pain, palpitations, orthopnea, edema GASTROINTESTINAL: See HPI : Denies dysuria, frequency, incontinence, hematuria, urinary retention, flank pain. MUSCULOSKELETAL: Denies weakness, joint pain, or bony pain SKIN: No rash, no erythema, no pruritus NEUROLOGIC: Denies weakness, dizziness, headache, numbness, change in speech, confusion PSYCHIATRIC: No concerning psychosocial issues. 12 point review of systems is negative except for those stated above and HPI Patient History Medical History Compression fracture Dehydration Edema Essential hypertension Fracture, finger Leukemia Memory deficit Paroxysmal atrial fibrillation Syncope Urinary incontinence Surgical History H/O spinal fusion (05/29/19) H/O: hysterectomy History of 2 sections Social History household members: family Smoking Status: Former smoker alcohol intake: never substance use type: does not use Smoking Status: Former smoker alcohol intake frequency: a few times a month Substance Use Type: does not use Exam Initial Vital Signs Initial Vital Signs: Vital Signs Blood Pressure 143/76 H 12/28/21 21:38 GENERAL: Alert pleasant 86-year-old female HEENT: Head atraumatic,EOMI, pupils reactive, face symmetric, moist mucous membranes CARDIOVASCULAR: Regular rate and rhythm without murmurs, rubs or gallops. RESPIRATORY: Breath sounds equal bilaterally, no wheezes rales or rhonchi. ABDOMEN: Soft, minimal lower abdominal tenderness no guarding rebound RECTAL: Significant bright red blood per rectum EXTREMITIES: Normal range of motion, no clubbing or edema. Neurovascularly intact NEUROLOGICAL: Moving all extremities SKIN: Warm, dry, no laceration, no petechiae, no rashes or lesions. Course Orders Ordered: ED Orders 12/28/21 22:02 Type and Screen Stat 12/28/21 22:17 Complete Blood Count AUTO DIFF Stat Comprehensive Metabolic Panel Stat Lactate (Lactic Acid) Stat Partial Thromboplastin Time Stat Prothrombin Time INR Stat Acetaminophen (Acetaminophen 325 Mg Tablet) 650 mg PO Q6HR PRN PRN Reason: Fever/Mild Pain (1-3) Sodium Chloride (Normal Saline 0.9%) 1,000 mls @ 100 mls/hr IV CONT BABATUNDE Last Admin: 12/29/21 02:48 Dose: 100 mls/hr Documented by: MINAL Lisinopril (Lisinopril 20 Mg Tablet) 20 mg PO DAILY BABATUNDE Metoprolol Succinate (Metoprolol Er 50 Mg Tablet) 100 mg PO BID BABATUNDE Naloxone HCl (Naloxone 0.4 Mg/Ml Vial) 0.2 mg IV Q2MIN PRN PRN Reason: Opiate Reversal Pantoprazole Sodium (Pantoprazole 40 Mg Vial) 40 mg IV BID BABATUNDE Quetiapine Fumarate (Quetiapine 25 Mg Tablet) 12.5 mg PO BEDTIME BABATUNDE Discontinued Medications Pantoprazole Sodium (Pantoprazole 40 Mg Vial) 40 mg IV NOW ONE Stop: 12/28/21 22:09 Last Admin: 12/28/21 22:23 Dose: 40 mg Documented by: ZINA Vital Signs Vital signs: Vital Signs - 8 hr 12/28/21 21:38 12/28/21 21:40 12/28/21 21:45 Pulse Rate 90 91 H Respiratory Rate 18 Blood Pressure 143/76 H 143/76 H Pulse Oximetry 92 94 12/28/21 22:00 12/28/21 22:30 12/28/21 23:00 Pulse Rate 84 84 84 Respiratory Rate 22 17 23 Blood Pressure Pulse Oximetry 95 94 95 12/28/21 23:30 12/29/21 00:00 12/29/21 00:30 Pulse Rate 82 85 82 Respiratory Rate 17 18 20 Blood Pressure Pulse Oximetry 95 95 95 12/29/21 01:00 12/29/21 01:30 Pulse Rate 86 86 Respiratory Rate 19 18 Blood Pressure Pulse Oximetry 94 95 MDM - GI Bleed Lab Data Result diagrams: 12/28/21 22:17 12/28/21 22:17 Labs: Lab Results 04/03/22 04/03/22 04/03/22 Range/Units 22:02 22:17 22:17 WBC 19.9 H (4.5-11.0) X10^3/uL RBC 4.99 (4.0-5.2) X10^6/uL Hgb 14.2 (12.0-16.0) g/dL Hct 44.0 (36-46) % MCV 88.3 (80-100) fL MCH 28.4 (26-34) PG MCHC 32.2 (30-36) % RDW 15.0 H (11.6-14.8) % Plt Count 142 L (150-400) X10^3/uL Neut % (Auto) 49.2 L (50-75) % Lymph % (Auto) 48.1 H (25-40) % [place] % (Auto) 2.5 L (3-14) % Eos % (Auto) 0.0 L (2-4) % Baso % (Auto) 0.2 (0-2) % Neut # (Auto) 9800 H (7824-7744) /uL Lymph # (Auto) 9600 H (7128-8622) /uL [place] # (Auto) 500 (0-900) /uL Eos # (Auto) 0 (0-450) /uL Baso # (Auto) 0 (0-100) /uL PT (10.1-12.7) SECONDS INR (0.9-1.3) APTT (26.4-36.2) SECONDS Sodium 142 (137-145) mmol/L Potassium 3.7 (3.4-5.1) mmol/L Chloride 110 H (98-107) mmol/L Carbon Dioxide 22 (22-32) mmol/L BUN 25 H (7-17) mg/dL Creatinine 0.55 (0.52-1.04) mg/dL Estimated GFR > 60.0 (>60) mL/min BUN/Creatinine Ratio 45.5 H (6-22) Glucose 164 H (80-110) mg/dL Lactate (0.7-2.1) mmol/L Calcium 9.0 (8.4-10.2) mg/dL Total Bilirubin 1.1 (0.2-1.3) mg/dL AST 34 (14-36) IU/L ALT 16 (<35) IU/L Alkaline Phosphatase 74 (38-126) U/L Total Protein 6.7 (6.3-8.2) g/dL Albumin 3.9 (3.5-5.0) g/dL Globulin 2.8 (1.7-4.1) g/dL Albumin/Globulin Ratio 1.4 (1.0-2.8) SARS-CoV-2 (PCR) (Negative) Blood Type A Positive Antibody Screen Negative 12/28/21 12/28/21 12/29/21 Range/Units 22:17 22:17 00:30 WBC (4.5-11.0) X10^3/uL RBC (4.0-5.2) X10^6/uL Hgb (12.0-16.0) g/dL Hct (36-46) % MCV (80-100) fL MCH (26-34) PG MCHC (30-36) % RDW (11.6-14.8) % Plt Count (150-400) X10^3/uL Neut % (Auto) (50-75) % Lymph % (Auto) (25-40) % [place] % (Auto) (3-14) % Eos % (Auto) (2-4) % Baso % (Auto) (0-2) % Neut # (Auto) (0087-9044) /uL Lymph # (Auto) (8887-5505) /uL [place] # (Auto) (0-900) /uL Eos # (Auto) (0-450) /uL Baso # (Auto) (0-100) /uL PT 13.0 H (10.1-12.7) SECONDS INR 1.2 (0.9-1.3) APTT 28 (26.4-36.2) SECONDS Sodium (137-145) mmol/L Potassium (3.4-5.1) mmol/L Chloride (98-107) mmol/L Carbon Dioxide (22-32) mmol/L BUN (7-17) mg/dL Creatinine (0.52-1.04) mg/dL Estimated GFR (>60) mL/min BUN/Creatinine Ratio (6-22) Glucose (80-110) mg/dL Lactate 2.5 H 2.0 (0.7-2.1) mmol/L Calcium (8.4-10.2) mg/dL Total Bilirubin (0.2-1.3) mg/dL AST (14-36) IU/L ALT (<35) IU/L Alkaline Phosphatase (38-126) U/L Total Protein (6.3-8.2) g/dL Albumin (3.5-5.0) g/dL Globulin (1.7-4.1) g/dL Albumin/Globulin Ratio (1.0-2.8) SARS-CoV-2 (PCR) (Negative) Blood Type Antibody Screen 12/29/21 Range/Units 01:29 WBC (4.5-11.0) X10^3/uL RBC (4.0-5.2) X10^6/uL Hgb (12.0-16.0) g/dL Hct (36-46) % MCV (80-100) fL MCH (26-34) PG MCHC (30-36) % RDW (11.6-14.8) % Plt Count (150-400) X10^3/uL Neut % (Auto) (50-75) % Lymph % (Auto) (25-40) % [place] % (Auto) (3-14) % Eos % (Auto) (2-4) % Baso % (Auto) (0-2) % Neut # (Auto) (0188-6108) /uL Lymph # (Auto) (6995-9954) /uL [place] # (Auto) (0-900) /uL Eos # (Auto) (0-450) /uL Baso # (Auto) (0-100) /uL PT (10.1-12.7) SECONDS INR (0.9-1.3) APTT (26.4-36.2) SECONDS Sodium (137-145) mmol/L Potassium (3.4-5.1) mmol/L Chloride (98-107) mmol/L Carbon Dioxide (22-32) mmol/L BUN (7-17) mg/dL Creatinine (0.52-1.04) mg/dL Estimated GFR (>60) mL/min BUN/Creatinine Ratio (6-22) Glucose (80-110) mg/dL Lactate (0.7-2.1) mmol/L Calcium (8.4-10.2) mg/dL Total Bilirubin (0.2-1.3) mg/dL AST (14-36) IU/L ALT (<35) IU/L Alkaline Phosphatase (38-126) U/L Total Protein (6.3-8.2) g/dL Albumin (3.5-5.0) g/dL Globulin (1.7-4.1) g/dL Albumin/Globulin Ratio (1.0-2.8) SARS-CoV-2 (PCR) Negative (Negative) Blood Type Antibody Screen MDM Narrative Medical decision making narrative: the patient is hemodynamically stable not tachycardic or hypotensive hemoglobin hematocrit within normal limits. But date she does have quite a bit of blood gross his rectal bleeding in her diaper with blood clots. She is given a dose of Protonix. She does have leukocytosis likely from her CLL which is actually improved from previous. Dr. Gonzales of the inpatient symptoms test results and agrees with hospitalist admission. Rosette Linares, APC, Accepts patient for inpatient Discharge Plan Departure Patient Disposition: Admitted As Inpatient Clinical Impression: Acute GI bleeding Admit Date/Time: 12/29/21 01:30 Admit Provider: Aliyah Linares
[2021-12-29 01:53] LABS: COVID19 -Nasal RAPID Negative (Negative)
--- NOTE | 2021-12-29 02:33 | P.HP_ITS ---
History of Present Illness History of Present Illness Date Patient Seen: 12/29/21 Time Patient Seen: 02:00 Chief complaint: GI Bleed Narrative: Amber Mota is an 86 y.o. resident of [facility] with indolent CLL, atrial fibrillation not anticoagulated, hypertension, and dementia who was transferred to the ED due to having bloody stool. Patient is unable to provide a history due to her dementia, but daughter is present to provide a history. Daughter states that the patient has had lifelong constipation and normally uses stool softeners and laxatives on a regular basis. She states that she has been under pressure by the facility to take her off those medications in addition to her medications to help control agitation as a result of her dementia. She states that the patient has had a several day history of ?the runs?. She was concerned with the bloody bowel movements that she might be having upper GI bleeding. The patient was at [facility] in April of 2020 with an upper GI bleed that turned out to be due to taking alendronate and having and esophagitis that was found on upper endoscopy. During that stay she was also very constipated and efforts were made to help clear the impaction. The patient can not answer questions however she denies any pain or issues and the daughter states that the patient will never endorse any problems. Upon presentation to the emergency department she was in AFib with RVR and is known to be and proxy is so small atrial fibrillation she was initially anticoagulated with aspirin but that was discontinued due to recent history of GI bleeds. Patient was administered IV Protonix 40 mg in the ED. she is afebrile, blood pressure 153/68, heart rate 109, respiratory rate 18, oxygen saturation of 92% on 2 L and she weighs 58.5 kg. Her WBC is 19.9 indicative of her CLL, hemoglobin and hematocrit are within normal limits, her platelet count is 142, glucose is slightly the elevated at 164, and COVID-19 PCR is negative. She is in a positive blood type however is unlikely she will need a blood transfusion. Patient History Medical History Compression fracture Dehydration Edema Essential hypertension Fracture, finger Leukemia Memory deficit Paroxysmal atrial fibrillation Syncope Urinary incontinence Surgical History H/O spinal fusion (05/29/19) H/O: hysterectomy History of 2 sections Family & Social History Social History: household members family Prior Living Arrangements Skilled Nurse Facility Safety & Behavioral: Feels Safe in Current Yes Environment Been Physically Hurt or No Threatened By a Person Suicidal Ideation Description None Suicide Plan Description No Plan Tobacco & Substance use: Smoking Status Former smoker alcohol intake never alcohol intake frequency a few times a month Substance Use Type does not use Meds Home Medications and Allergies Home Medications Medication Instructions Recorded Confirmed Type multivitamin 1 cap PO DAILY #0 06/27/10 11/20/20 History docusate sodium 100 mg capsule 100 mg PO DAILY #0 01/21/17 11/20/20 History (Colace) quetiapine 50 mg tablet (Seroquel) 50 mg PO QDAY #0 01/21/17 11/20/20 History aspirin 81 mg tablet,delayed 81 mg PO DAILY 05/25/19 11/20/20 History release (Adult Low Dose Aspirin) ondansetron 4 mg disintegrating 4 mg PO Q6H PRN #14 tab 12/21/19 11/20/20 Rx tablet metoprolol tartrate 25 mg tablet 25 mg PO BID 03/06/20 05/22/20 History acetaminophen 325 mg capsule 650 mg PO QID PRN #60 cap 03/14/20 11/20/20 Rx (Tylenol) docusate sodium 100 mg capsule 100 mg PO BID #30 cap 03/14/20 11/20/20 Rx (Colace) metoprolol tartrate 50 mg tablet 50 mg PO BID #20 tab 05/22/20 11/20/20 Rx ferrous gluconate 324 mg (37.5 mg 324 mg PO DAILY 11/20/20 11/20/20 History iron) tablet lisinopril 5 mg tablet 5 mg PO DAILY 11/20/20 11/20/20 History pantoprazole 40 mg tablet,delayed 40 mg PO DAILY 11/20/20 11/20/20 History release (Protonix) polyethylene glycol 3350 17 17 g PO DAILY 11/20/20 11/20/20 History gram/dose oral powder sucralfate 1 gram tablet 1 g PO BID 11/20/20 11/20/20 History Allergies Allergy/AdvReac Type Severity Reaction Status Date / Time No Known Drug Allergies Allergy Verified 11/20/20 13:05 Review of Systems Review of Systems ROS: Yes unobtainable due to mental status Exam Vital Signs (past 8 hours): - 12/28/21 21:38 12/28/21 21:40 12/28/21 21:45 Pulse Rate 90 91 H Respiratory Rate 18 Blood Pressure 143/76 H 143/76 H Pulse Oximetry 92 94 12/28/21 22:00 12/28/21 22:30 12/28/21 23:00 Pulse Rate 84 84 84 Respiratory Rate 22 17 23 Blood Pressure Pulse Oximetry 95 94 95 12/28/21 23:30 12/29/21 00:00 12/29/21 00:30 Pulse Rate 82 85 82 Respiratory Rate 17 18 20 Blood Pressure Pulse Oximetry 95 95 95 12/29/21 01:00 12/29/21 01:30 12/29/21 01:33 Pulse Rate 86 86 87 Respiratory Rate 19 18 17 Blood Pressure 195/75 H Pulse Oximetry 94 95 94 12/29/21 01:41 Pulse Rate 90 Respiratory Rate 17 Blood Pressure 167/75 H Pulse Oximetry 95 Oxygen Delivery Method Room Air Narrative Exam Narrative: Gen: Alert, oriented, well-nourished 86 y.o. female, confused HEENT: normocephalic, atraumatic, conjunctiva clear, sclera non-icteric, oral mucosa pink and moist Neck: supple, full ROM, no JVD, trachea is midline Resp: Lungs CTA, non-labored breathing CV: irregularly irregular, no murmur or rubs Abd: soft, non-tender, normoactive BTs Skin: no lesions or rashes, dry and intact Neuro: Alert and pleasantly confused w/no focal deficits. Speech clear and coherent. Extremities: moves all 4 extremities, is ambulatory, negative Yasmani?s sign Psyche: normal mood and affect. Objective Labs Result Diagrams: 12/28/21 22:17 12/28/21 22:17 Labs: Laboratory Results - last 24 hr 12/28/21 12/28/21 12/28/21 22:02 22:17 22:17 WBC 19.9 H RBC 4.99 Hgb 14.2 Hct 44.0 MCV 88.3 MCH 28.4 MCHC 32.2 RDW 15.0 H Plt Count 142 L Neut % (Auto) 49.2 L Lymph % (Auto) 48.1 H [place] % (Auto) 2.5 L Eos % (Auto) 0.0 L Baso % (Auto) 0.2 Neut # (Auto) 9800 H Lymph # (Auto) 9600 H [place] # (Auto) 500 Eos # (Auto) 0 Baso # (Auto) 0 PT INR APTT Sodium 142 Potassium 3.7 Chloride 110 H Carbon Dioxide 22 BUN 25 H Creatinine 0.55 Estimated GFR > 60.0 BUN/Creatinine Ratio 45.5 H Glucose 164 H Lactate Calcium 9.0 Total Bilirubin 1.1 AST 34 ALT 16 Alkaline Phosphatase 74 Total Protein 6.7 Albumin 3.9 Globulin 2.8 Albumin/Globulin Ratio 1.4 SARS-CoV-2 (PCR) Blood Type A Positive Antibody Screen Negative 12/28/21 12/28/21 12/29/21 22:17 22:17 00:30 WBC RBC Hgb Hct MCV MCH MCHC RDW Plt Count Neut % (Auto) Lymph % (Auto) [place] % (Auto) Eos % (Auto) Baso % (Auto) Neut # (Auto) Lymph # (Auto) [place] # (Auto) Eos # (Auto) Baso # (Auto) PT 13.0 H INR 1.2 APTT 28 Sodium Potassium Chloride Carbon Dioxide BUN Creatinine Estimated GFR BUN/Creatinine Ratio Glucose Lactate 2.5 H 2.0 Calcium Total Bilirubin AST ALT Alkaline Phosphatase Total Protein Albumin Globulin Albumin/Globulin Ratio SARS-CoV-2 (PCR) Blood Type Antibody Screen 12/29/21 01:29 WBC RBC Hgb Hct MCV MCH MCHC RDW Plt Count Neut % (Auto) Lymph % (Auto) [place] % (Auto) Eos % (Auto) Baso % (Auto) Neut # (Auto) Lymph # (Auto) [place] # (Auto) Eos # (Auto) Baso # (Auto) PT INR APTT Sodium Potassium Chloride Carbon Dioxide BUN Creatinine Estimated GFR BUN/Creatinine Ratio Glucose Lactate Calcium Total Bilirubin AST ALT Alkaline Phosphatase Total Protein Albumin Globulin Albumin/Globulin Ratio SARS-CoV-2 (PCR) Negative Blood Type Antibody Screen Assessment & Plan Assessment & Plan narrative: Amber Mota is admitted for further evaluation and management of what appears to be a rectal bleed. 1. Suspected lower GI bleed, acute and present on admission * It is possible she has an impacted stool bolus and that liquid stool is passing around it. * Dr. Gonzales was consulted in the ED and plans to scope her. * Currently NPO 2. Chronic constipation * Abdominal KUB in the am to assess if excess amount of stool * She has a protocol for constipation at the facility which includes polyethylene glycol, senna and milk of magnesia 3. Atrial fibrillation with RVR, chronic * She was worked up and diagnosed with paroxsysmal atrial fibrillation in 2018. * Last echo done in March 2020 indicated an EF of 55-60% with right ventricular dilation and and pulmonary hypertension, both atriums are moderate to severely dilated. She also has calcified mitral valve leaflets with mild to moderate regurgitation, and severe tricuspid regurgitation and severe pulmonary hypertension. * She will be continued on metoprolol tartrate 100 mg bid for rate and pressure control 4. Essential hypertension, chronic * Continue home dose of lisinopril 20 mg p.o. daily 5. Dementia with behavioral disturbance, chronic * Continue home doses of quetiapine 12.5 mg at bedtime 6. Advance care planning * Discussed the patient's code status with her daughter as she is a full code. The daughter seems to be reluctant to change the patient's code status and not discuss the matter at this time. VTE Prophylaxis: Wells risk score 3.0 X Bilateral SCDs pharmacological prophy laxis due to active bleeding Patient is admitted to the inpatient service due to the severity of disease, risks of further disease progression and this stay is expected to exceed 2 midnights. FEN: IV fluids: NS at 100 ml/hour , diet: NPO, labs: CBC, C/BMP, liver enzymes, Mag, PT/INR Consultants Dr. Gonzales, General Surgery, care and involvement in the patient?s care is appreciated. Dispo: eventual d/c to her facility Code status: Full Code as discussed with the patient's daughter, Bhumika Hallman, patient's surrogate and POA. [X] I have utilized all available immediate resources to obtain, update, or review of the patient's current medications COVID-19 COVID-19 status: Negative Result date/Date tested (Pos, Neg/Pending): 12/29/21 Scores Wells' Criteria for PE Clinical signs and symptoms of DVT: No PE is #1 Dx or equally likely: No Heart rate > 100: Yes Immobilization at least 3 days or surg in previous 4 weeks: Yes History of PE or DVT: No Hemoptysis: No Malignancy w/Treatment within 6 months or palliative: Yes Wells' PE Score total: 4.0 Quality VTE Deep Vein Thrombosis/Pulmonary Embolism Present on Admission: No MIPS - Admit I confirm the patient?s Advance Care Plan is present, Code status is documented, Surrogate decision maker is in patient?s record [If Yes, STOP here]: Yes MIPS - DC The patient has current or prior documentation of left ventricular ejection fraction (LVEF) less than 40%, or moderate or severely depressed left ventricular systolic function.: No
[2021-12-29] MEDS: SODIUM CHLORIDE 0.9% 1,000 ML 100 ML IV ×2 (02:48→12:38)
[2021-12-29 05:33] LABS: Hematocrit 44.1 % (36-46); Hemoglobin 14.4 g/dL (12.0-16.0); Mean Corpuscular HGB Conc 32.5 % (30-36); Mean Corpuscular Hemoglobin 28.6 PG (26-34); Mean Corpuscular Volume 87.9 fL (80-100); Platelet Count 135 X10^3/uL (150-400); Red Blood Cell Count 5.02 X10^6/uL (4.0-5.2); Red Cell Distribution Width 14.9 % (11.6-14.8); White Blood Cell Count 27.1 X10^3/uL (4.5-11.0)
[2021-12-29 05:35] LABS: Add Manual Diff / Slide Review YES; BUN Creatinine Ratio 43.6 (6-22); Blood Urea Nitrogen 24 mg/dL (7-17); Calcium 8.8 mg/dL (8.4-10.2); Carbon Dioxide 23 mmol/L (22-32); Chloride 110 mmol/L (98-107); Estimated Glomerular Filt Rate > 60.0 mL/min (>60); Glucose 181 mg/dL (80-110); HEMOLYSIS < 15 (0-50); Magnesium 2.2 mg/dL (1.6-2.3); Potassium 3.9 mmol/L (3.4-5.1); Sodium 142 mmol/L (137-145)
[2021-12-29 05:58] LABS: Neutrophils Absolute Manual 13550 /uL (3000-5900); Total Cells Counted 100
[2021-12-29 06:00] LABS: RBC Morphology Normal Morphology; Smudge Cells 1+
--- NOTE | 2021-12-29 08:24 | DI.RAD.S_ITS ---
PROCEDURE: XR ABDOMEN 1V INDICATIONS: constipation TECHNIQUE: One view of the abdomen acquired. COMPARISON: [facility], CT, CT ABDOMEN W CON, 04/24/2020, 19:05. [facility], CR, XR CHEST 2V, 07/15/2020, 10:41. [facility], CR, XR ABDOMEN 1V, 12/21/2019, 13:44. FINDINGS: Surgical changes and devices: Thoracolumbar fixation hardware is partially seen. Lucency seen involving the right screw the L2 level. Bowel: Bowel gas pattern is normal. The volume of stool does not appear excessive. Soft tissues: No suspicious abdominal calcifications. Visualized solid organ contours appear normal in size. Pelvic phleboliths are incidentally noted. Bones: No suspicious bony lesions. Age-appropriate bony degenerative changes are seen. IMPRESSION: The amount colonic stool does not appear excessive. Likely early loosening change of the right L2 screw. Dictated by: Juancho Oneil M.D. on 12/29/2021 at 8:09 Approved by: Juancho Oneil M.D. on 12/29/2021 at 8:13
--- NOTE | 2021-12-29 08:27 | PM.EVENT ---
Event Note Date Patient Seen: 12/29/21 Event Note (Rapid Response, Code, or fall): bowel prep today. abd film to see how constipated she is, and colonoscopy tomorrow w anesthesia.
[2021-12-29] MEDS: PANTOPRAZOLE 40 MG VIAL IV ×2 (09:31→21:33)
[2021-12-29] MEDS: METOPROLOL ER 50 MG TABLET 100 MG PO ×2 (09:31→21:32)
[2021-12-29] MEDS: lisinopriL 20 MG TABLET PO (09:32)
[2021-12-29 10:13] LABS: Albumin 3.5 g/dL (3.5-5.0); Albumin Globulin Ratio 1.3 (1.0-2.8); Alkaline Phosphatase 68 U/L (38-126); Aspartate Aminotransferase 34 IU/L (14-36); Bilirubin Total 1.8 mg/dL (0.2-1.3); Bilirubin Unconjugated 1.9 mg/dL (0.0-1.1); Globulin 2.7 g/dL (1.7-4.1); HEMOLYSIS < 15 (0-50); Total Protein 6.2 g/dL (6.3-8.2)
[2021-12-29 10:20] LABS: Alanine Aminotransferase 21 IU/L (<35)
[2021-12-29] MEDS: PEG3350/SOD SULF,BICARB,CL/KCL 4,000 ML SOLUTION 4000 ML PO (11:45)
--- NOTE | 2021-12-29 11:51 | PC.NURSE ---
Patient incontinent of mixed liquid stool/urine in brief with brigitte blood and blood clots x 1. Unable to obtain urine or stool sample for ordered labs. Dr. Schmid notified/updated. Will continue to follow. Order for straight cath obtained if patient is unable to void separately in next couple tries.
--- NOTE | 2021-12-29 17:02 | PC.NURSE ---
Straight cath attempted in effort to get sample for UA, but unable to get more than 5cc urine into tube. Patient's attends wet with urine and bloody, mucous-like gelatinous stool. Patient cleaned up and attends changed. Bladder scan shows 35-45cc in bladder. Patient guards abdomen, yells, Stop! Stop! when lower abdomen is touched and straight cath performed.
[2021-12-29 19:24] LABS: Appearance Urine UA CLOUDY; Bilirubin Urine UA NEGATIVE (NEGATIVE); Color Urine UA YELLOW; Glucose Urine UA TRACE g/dL (Negative); Ketones Urine UA NEGATIVE (NEGATIVE); Leukocyte Esterase Urine UA 2+ (NEGATIVE); Nitrite Urine UA NEGATIVE (Negative); Occult Blood Urine UA 3+ (Negative); Protein Urine UA TRACE (Negative); Specific Gravity Urine UA 1.025 (1.000-1.035); Urobilinogen Urine UA 0.2 E.U./dL (0.2)
[2021-12-29 19:43] LABS: Bacteria Urine Many (>30); Culture Indicated Urine Specimen Cultured; RBC Urine 1-5/HPF (0-5/HPF); Squamous Epithelial Cell Urine None Seen (0-5/HPF); WBC Urine 10-30/HPF (0-5/HPF)
[2021-12-29] MEDS: QUETIAPINE 25 MG TABLET 12.5 MG PO (21:33)
[2021-12-30] VITALS (11 sets, daily range): BP systolic 101–154; BP diastolic 55–94; PULSE 88–131; RESP 12–22; TEMP 36.7–37.3; O2SAT 92–96
--- NOTE | 2021-12-30 | PATH_ITS ---
[facility] Accession Number: [id number] . 01 Material submitted: . colon - SIGMOID RECTAL MUCOSA . 02 Diagnosis: Sigmoid Rectal Mucosa: Superficial portions of colorectal mucosa with patchy features of ischemic change; negative for dysplasia or malignancy. Please see comment. MRV 01/01/2022 1641 Local . 02 Comment: The differential diagnosis includes ischemia due to trauma/prolapse, true vascular ischemia, and ischemia due to infection (i.e. enterohemorrhagic E.coli, C. difficile, etc.). . 02 Electronically signed: . Gia Schreiber MD, Pathologist NPI- [id number] . 01 Gross description: . SIGMOID RECTAL MUCOSA: Received in formalin are 3 fragment(s) of bunch, soft tissue measuring 0.4 x 0.2 x 0.2 cm to 0.1 x 0.1 x 0.1 cm submitted entirely in 1 cassette(s) /CPE 12/31/2021 0437 Local . 02 Pathologist provided ICD-10: K62.2 . 02 CPT . 440229 Specimen Comment: A courtesy copy of this report has been sent to [phone] Performed at: 01 [facility] [address], [place], [place] [id number] MD Daniel Starr MD Phone: [phone] Performed at: 02 [facility] [address] [place], [place] [id number] MD Keri Ayala MD Phone: [phone]
--- NOTE | 2021-12-30 08:20 | PC.NURSE ---
Dr. Gonzales returns call to say to go ahead and give the metoprolol and lisinopril and to not give rest of golytely. Current stool reported to as mucousy yellow and pink liquidy stool.
[2021-12-30] MEDS: SODIUM CHLORIDE 0.9% 1,000 ML 100 ML IV (08:35)
[2021-12-30] MEDS: cefTRIAXone 1,000 MG in SODIUM CHLORIDE 0.9% 100 ML 200 ML IV (08:35)
[2021-12-30] MEDS: METOPROLOL ER 50 MG TABLET 100 MG PO ×2 (08:36→20:20)
[2021-12-30] MEDS: lisinopriL 20 MG TABLET PO (08:36)
[2021-12-30 08:49] LABS: Hematocrit 35.8 % (36-46); Hemoglobin 11.5 g/dL (12.0-16.0); Mean Corpuscular HGB Conc 32.2 % (30-36); Mean Corpuscular Hemoglobin 28.2 PG (26-34); Mean Corpuscular Volume 87.6 fL (80-100); Platelet Count 125 X10^3/uL (150-400); Red Blood Cell Count 4.08 X10^6/uL (4.0-5.2); Red Cell Distribution Width 14.9 % (11.6-14.8); White Blood Cell Count 25.6 X10^3/uL (4.5-11.0)
[2021-12-30 09:02] LABS: Magnesium 1.8 mg/dL (1.6-2.3)
[2021-12-30 09:11] LABS: BUN Creatinine Ratio 35.4 (6-22); Blood Urea Nitrogen 17 mg/dL (7-17); Calcium 7.4 mg/dL (8.4-10.2); Carbon Dioxide 26 mmol/L (22-32); Chloride 111 mmol/L (98-107); Estimated Glomerular Filt Rate > 60.0 mL/min (>60); Glucose 104 mg/dL (80-110); HEMOLYSIS < 15 (0-50); Sodium 143 mmol/L (137-145)
[2021-12-30 09:17] LABS: Potassium 2.8 mmol/L (3.4-5.1)
[2021-12-30] MEDS: PANTOPRAZOLE 40 MG VIAL IV (09:59)
--- NOTE | 2021-12-30 11:34 | SUR.HOLD ---
Addendum entered by Rosemarie Bal R.N. 12/30/21 11:35: Patient sleeping, LUPILLO Mcgarry states that she told him 'go away' when picked her up from the floor. Original Note: Brought to [facility] by Demarcus Snyder RN and Saud Rios RN. Transferred from bed to stretcher.
--- NOTE | 2021-12-30 11:41 | PM.CN ---
History of Present Illness Consult details Date Patient Seen: 12/30/21 Time Patient Seen: 11:41 Chief complaint: GI Bleed Reason for consult: BRBPR for 3 days . Requesting provider: Aliyah Linares Narrative: Lives in SNF. Has had constipation issues. Daughter had her brought in for concerns of constipation and bright red blood per rectum. No other symptoms. anemia is likely chronic with recovery from acute GI bleed recently in a person that likely doesn't generate RBC well on her own. Meds Home Medications and Allergies Home Medications Medication Instructions Recorded Confirmed Type multivitamin 1 cap PO DAILY #0 06/27/10 12/29/21 History quetiapine 50 mg tablet (Seroquel) 12.5 mg PO QDAY #0 01/21/17 12/29/21 History aspirin 81 mg tablet,delayed 81 mg PO DAILY 05/25/19 12/29/21 History release (Adult Low Dose Aspirin) metoprolol tartrate 25 mg tablet 100 mg PO BID 03/06/20 12/29/21 History acetaminophen 325 mg capsule 650 mg PO QID PRN #60 cap 03/14/20 12/29/21 Rx (Tylenol) ferrous gluconate 324 mg (37.5 mg 324 mg PO DAILY 11/20/20 12/29/21 History iron) tablet lisinopril 5 mg tablet 20 mg PO DAILY 11/20/20 12/29/21 History pantoprazole 40 mg tablet,delayed 20 mg PO DAILY 11/20/20 12/29/21 History release (Protonix) polyethylene glycol 3350 17 17 g PO DAILY 11/20/20 12/29/21 History gram/dose oral powder benzocaine 15 mg-menthol 3.6 mg 1 keven MUCOUS MEMBRANE Q4HR PRN 12/29/21 12/29/21 History lozenges sennosides 8.6 mg tablet (senna) 8.6 mg PO BID 12/29/21 12/29/21 History Allergies Allergy/AdvReac Type Severity Reaction Status Date / Time No Known Drug Allergies Allergy Verified 11/20/20 13:05 Review of Systems Review of Systems Narrative: taken from daughter who is not her 24hr resident care manager ROS: Yes unobtainable due to mental condition Exam Vital Signs (past 8 hours): - 12/30/21 07:00 12/30/21 10:05 Temperature 98.4 F Pulse Rate 101 H Respiratory Rate 19 Blood Pressure 129/72 Pulse Oximetry 94 93 Oxygen Delivery Method Room Air Oxygen Flow Rate 0 Const General: cooperative and frail appearing Nutritional Appearance: thin Orientation: awake and confused Limitations: altered mental status Other: dementia HENMT Head: normocephalic and atraumatic Nose: external nose normal Face and sinus: normal facial exam Eyes Sclera: sclerae normal Neck Neck: trachea midline Other: chronic cervical spine curvature Chest Other: thin, no creptus or wounds Resp Effort & Inspection: normal respiratory effort Auscultation: clear to auscultation bilaterally and diminished lung sounds (lower bases) bilaterally Cardio Rate: tachycardic Rhythm: abnormal rhythm GI Palpation: soft Back/Spine/Pelvis Other: kyphosis Skin General: atrophy and ecchymosis Neuro General: patient awake Cognition: abnormal cognition Other: generalized muscle wasting Extrem General: no clubbing, cyanosis or edema and muscle atrophy Psych Appearance: grossly normal Speech and Movement: other (no talking) Affect: indifferent Judgment: poor Objective Labs Result Diagrams: 12/30/21 08:20 12/30/21 08:20 Labs: Laboratory Results - last 24 hr 12/29/21 12/30/21 12/30/21 19:00 08:20 08:20 WBC 25.6 H RBC 4.08 Hgb 11.5 L Hct 35.8 L MCV 87.6 MCH 28.2 MCHC 32.2 RDW 14.9 H Plt Count 125 L Sodium Potassium Chloride Carbon Dioxide BUN Creatinine Estimated GFR BUN/Creatinine Ratio Glucose Calcium Magnesium 1.8 Urine Color Yellow Urine Appearance Cloudy Urine pH 5.0 Ur Specific [place] 1.025 Urine Protein Trace H Urine Glucose (UA) Trace H Urine Ketones Negative Urine Occult Blood 3+ H Urine Nitrate Negative Urine Bilirubin Negative Urine Urobilinogen 0.2 Ur Leukocyte Esterase 2+ H Urine RBC 1-5/hpf Urine WBC 10-30/hpf H Ur Squamous Epith Cells None seen Urine Bacteria Many (>30) H Ur Culture Indicated? Specimen cultured 12/30/21 08:20 WBC RBC Hgb Hct MCV MCH MCHC RDW Plt Count Sodium 143 Potassium 2.8 L Chloride 111 H Carbon Dioxide 26 BUN 17 Creatinine 0.48 L Estimated GFR > 60.0 BUN/Creatinine Ratio 35.4 H Glucose 104 Calcium 7.4 L Magnesium Urine Color Urine Appearance Urine pH Ur Specific [place] Urine Protein Urine Glucose (UA) Urine Ketones Urine Occult Blood Urine Nitrate Urine Bilirubin Urine Urobilinogen Ur Leukocyte Esterase Urine RBC Urine WBC Ur Squamous Epith Cells Urine Bacteria Ur Culture Indicated? [facility] Medical History Compression fracture Dehydration Edema Essential hypertension Fracture, finger Leukemia Memory deficit Paroxysmal atrial fibrillation Syncope Urinary incontinence Surgical History H/O spinal fusion (05/29/19) H/O: hysterectomy History of 2 sections Social History household members: family Tobacco & Substance Use Smoking Status: Former smoker alcohol intake: never substance use type: does not use Assessment & Plan Assessment & Plan narrative: Bright red blood per rectum on concerns for constipation in the SNF. No active bleeding now. Anemia likely more chronic and due to malnutrition than acute. Plan: colonoscopy for what may be hemorrhoidal bleeding. COVID-19 COVID-19 status: Negative Time Spent With Patient Time with patient: less than 30 minutes Critical Care time: I spent a total of [] minutes of critical care time on this patient's care today; this time is exclusive of procedural time.
[2021-12-30] MEDS: POTASSIUM CHLORIDE IN WATER 10 MEQ/100 ML PIGGYBACK 100 MEQ IV ×4 (11:54→15:32)
[2021-12-30] MEDS: LACTATED RINGERS 1,000 ML 42 ML IV (11:55)
--- NOTE | 2021-12-30 11:56 | SUR.HOLD ---
Addendum entered by Rosemarie Bal R.N. 12/30/21 11:58: HR regular rate/rhythm, Lungs clear on left, unable to hear on the right per LUPILLO Mcgarry. LIGHT BULB TESTER informed. Original Note: pre-op assessment not done as patient is not responding to questions. K+ initiated on IV pump.
--- NOTE | 2021-12-30 12:15 | PM.OP.COLON ---
Operative Date/Time/Diagnoses Date of procedure: 12/30/21 Time of procedure: 12:17 Pre-op diagnosis: bright red blood per rectum Post-op diagnosis: same Procedure & Clinicians Study performed: Flexible sigmoidoscopy with cold focep biopsy using anesthesia. Same procedure as scheduled: Yes Indications: Bright red blood per rectum Atrial fibrillation not on anticoagulation intentionally. Surgeon: Alisson Gonzales Procedure Notes SCOAP/Timeout: Done Procedure in detail: Preop diagnosis: Bright red blood per rectum Postop diagnosis: Same Operative procedure: Flexible sigmoidoscopy with cold forceps biopsy Surgeon: Kina Gonzales MD Anesthetic: Mac Findings: Ischemic colitis to the rectum. Unable to navigate safely to the more proximal demarcation line. Cold forceps biopsies taken Procedure: Patient placed in lateral position. Rectal exam performed showing decreased tone no masses. Scope inserted into the rectum only able to advance approximately 20 cm due to severe ischemia areas concerning for necrosis. All normal architecture of the sigmoid rectal mucosa is obliterated by the edema. Cold forceps biopsies were taken and the scope was withdrawn no retroflex performed. Impression: Ischemic colitis in the face of on anticoagulated atrial fibrillation. Not a surgical candidate should she decline or progress in her necrosis. Plan: Supportive care. Can have up to a full liquid diet with Ensure for nutrition. Blood transfusions as needed. Multivitamin with iron. Findings: other findings (Ischemic colitis) Specimen(s): other (Biopsies taken of the sigmoid rectal mucosa) Complications: none Impression: Not a surgical candidate should she decline clinically or progress with necrosis of the colon to result in perforation Post-procedure Disposition: PACU
--- NOTE | 2021-12-30 12:22 | DI.CT.S_ITS ---
PROCEDURE: CT ABDOMEN PELVIS W CON INDICATIONS: Abdominal pain. Possible ischemic colitis. TECHNIQUE: After the administration of intravenous contrast, axial sections acquired from the lung bases to the pubic symphysis. Coronal and sagittal reformats were performed. For radiation dose reduction, the following was used: automated exposure control, adjustment of mA and/or kV according to patient size. COMPARISON: [facility], CT, CT ABDOMEN W CON, 04/24/2020, 19:05. [facility], CT, CT ABDOMEN PELVIS W CON, 02/23/2020, 15:26. FINDINGS: Lower thorax: Small bibasilar pleural effusions are present. Moderate hiatal hernia, improved from the prior Liver: The liver is diffusely decreased in attenuation without focal mass lesion. Biliary system: Cholelithiasis without evidence of acute cholecystitis. Common bile duct is dilated and redundant, similar prior Pancreas: Unremarkable without mass or inflammation evident. Spleen: Normal in size and density. Adrenals: Normal morphology and density. Reproductive system: Unremarkable as visualized. Urinary system: Normal renal size and attenuation. Unchanged renal cysts. No renal calculi, hydronephrosis, or solid mass present. Diffuse bladder wall thickening as well as bladder diverticulum arising from the dome of the bladder remains stable from the prior Gastrointestinal system: There is severe wall thickening and pericolonic inflammatory change involving the descending, sigmoid colon as well as the rectum. No evidence of pneumatosis, abscess or obstruction. Peritoneal spaces: No mesenteric or retroperitoneal adenopathy. No free air. No free fluid. Vasculature: Aortic atherosclerotic vascular calcification noted without evidence of aneurysm. Abdominal wall: Small wide-mouth ventral incisional hernia contains loop of bowel without obstruction. Right inguinal hernia contains fat without bowel involvement. Musculoskeletal: Normal bone mineralization. Degenerative disc disease and arthropathy noted in lower lumbar spine. T11, T12, L2 and L4 compression fractures associated with retropulsed fracture fragment and severe central stenosis at L2-3 remains unchanged from the prior. IMPRESSION: 1. Acute colitis involving the descending, sigmoid and rectum. No evidence of pneumatosis. Nevertheless, infectious, inflammatory and ischemic etiologies considered. 2. Bibasilar pleural effusions and moderate hiatal hernia. 3. Stable chronic findings as detailed above. Approved by: Darrius Sandoval M.D. on 12/30/2021 at 14:42
--- NOTE | 2021-12-30 12:41 | P.PN_ITS ---
Subjective Subjective Date Patient Seen: 12/30/21 Time Patient Seen: 08:00 Interval history: She has no complaints. She has had no further bleeding today. She colonoscopy showed findings of ischemia Exam Vital Signs (past 8 hours): - 12/30/21 07:00 12/30/21 10:05 12/30/21 12:20 Temperature 98.4 F 98.7 F Pulse Rate 101 H 98 H Respiratory Rate 19 12 Blood Pressure 129/72 105/55 L Pulse Oximetry 94 93 92 12/30/21 12:25 12/30/21 12:30 Temperature Pulse Rate 110 H 95 H Respiratory Rate 12 12 Blood Pressure 101/75 108/70 Pulse Oximetry 92 92 Oxygen Delivery Method Nasal Cannula Oxygen Flow Rate 2 Narrative Exam Narrative: Gen: no acute distress Resp: clear bilaterally CV: irregularly irregular, no murmur Abd: soft, diffuse mild tenderness, no rebound/guarding Objective Labs Result Diagrams: 12/30/21 08:20 12/30/21 08:20 Labs: Laboratory Results - last 24 hr 12/29/21 12/30/21 12/30/21 19:00 08:20 08:20 WBC 25.6 H RBC 4.08 Hgb 11.5 L Hct 35.8 L MCV 87.6 MCH 28.2 MCHC 32.2 RDW 14.9 H Plt Count 125 L Sodium Potassium Chloride Carbon Dioxide BUN Creatinine Estimated GFR BUN/Creatinine Ratio Glucose Calcium Magnesium 1.8 Urine Color Yellow Urine Appearance Cloudy Urine pH 5.0 Ur Specific [place] 1.025 Urine Protein Trace H Urine Glucose (UA) Trace H Urine Ketones Negative Urine Occult Blood 3+ H Urine Nitrate Negative Urine Bilirubin Negative Urine Urobilinogen 0.2 Ur Leukocyte Esterase 2+ H Urine RBC 1-5/hpf Urine WBC 10-30/hpf H Ur Squamous Epith Cells None seen Urine Bacteria Many (>30) H Ur Culture Indicated? Specimen cultured 12/30/21 08:20 WBC RBC Hgb Hct MCV MCH MCHC RDW Plt Count Sodium 143 Potassium 2.8 L Chloride 111 H Carbon Dioxide 26 BUN 17 Creatinine 0.48 L Estimated GFR > 60.0 BUN/Creatinine Ratio 35.4 H Glucose 104 Calcium 7.4 L Magnesium Urine Color Urine Appearance Urine pH Ur Specific [place] Urine Protein Urine Glucose (UA) Urine Ketones Urine Occult Blood Urine Nitrate Urine Bilirubin Urine Urobilinogen Ur Leukocyte Esterase Urine RBC Urine WBC Ur Squamous Epith Cells Urine Bacteria Ur Culture Indicated? PFSH Medical History Compression fracture Dehydration Edema Essential hypertension Fracture, finger Leukemia Memory deficit Paroxysmal atrial fibrillation Syncope Urinary incontinence Surgical History H/O spinal fusion (05/29/19) H/O: hysterectomy History of 2 sections Social History household members: family Smoking Status: Former smoker alcohol intake: never substance use type: does not use Assessment & Plan Assessment & Plan narrative: Amber Mota is admitted for further evaluation and management of what appears to be a rectal bleed. 1. Acute lower GI bleed from ischemic colitis -bleeding has resolved -colonoscopy concerning for ischemia -CT abdomen/pelvis ordered for further evaluation of ischemia -broad abx for now with meropenem -full liquid diet 2. Atrial fibrillation with RVR, chronic -She was worked up and diagnosed with paroxsysmal atrial fibrillation in 2018. -Last echo done in March 2020 indicated an EF of 55-60% with right ventricular dilation and and pulmonary hypertension, both atriums are moderate to severely dilated. She also has calcified mitral valve leaflets with mild to moderate regurgitation, and severe tricuspid regurgitation and severe pulmonary hypertension. -She will be continued on metoprolol 4. Essential hypertension, chronic -stop lisinopril 5. Dementia with behavioral disturbance, chronic -Continue home doses of quetiapine 12.5 mg at bedtime Time Spent With Patient Critical Care time: I spent a total of [] minutes of critical care time on this patient's care today; this time is exclusive of procedural time. Quality VTE Deep Vein Thrombosis/Pulmonary Embolism Present on Admission: No
--- NOTE | 2021-12-30 12:50 | SUR.PHASEI ---
upon transfer to CT scan patient woke up. was able to answer simple questions. easily and quickly falls back asleep. denies pain.
--- NOTE | 2021-12-30 12:53 | CM.DPC ---
DCP/Assessment: Reviewed chart. Patient is a 86yr old female admitted to [facility] with suspected GI bleed. Primary payor is 1)Medicare 2)Medicaid. Patient is fci resident at [facility]. DIVE SUPERINTENDENT placed call to February and she reports that patient can return whenever medically stable. Per provider, d/c expected within the next 24-48hrs. RN reports that she spoke briefly with daughter/Senia on 12-29-21 and she confirms that plan is for patient to return to [facility]. P: [facility] when medically stable. Daughter/Senia to be notified at [phone]. ANALILIA Olmos Discharge Planning/Care Management Advanced directive, confirm from FAMILY Start: 12/29/21 02:33 Freq: Q24H Status: Active Protocol: Document 12/29/21 02:33 CS (Rec: 12/29/21 05:04 CS [id number]) Advance Directive, confirm on record Time 23:00 Person contacted pt Copy received No Document 12/30/21 02:33 CS (Rec: 12/30/21 03:33 CS [id number]) Advance Directive, confirm on record Time 23:00 Person contacted pt Copy received No Time 03:33 Person contacted patient Copy received No CM Discharge Assessment Start: 12/30/21 12:01 Freq: Status: Active Protocol: Document 12/30/21 12:43 KJS (Rec: 12/30/21 12:53 KJS [id number]) Discharge Planning Assessment 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 Yes Advance Directives on File No: Unknown History Provided By Patient,Family Member,Medical Record Prior Living Arrangements Skilled Nurse Facility Household Members family Type of transporation used prior to Relies on Others admit Facility Name Admitted From: [facility] Willing to Return to Facility? Yes: Return to [facility] Is patient alert and oriented? No: Dementia Caregiver for Another No Patient/Family Preference [facility] Facility Barriers to Discharge No Discharge Plan [facility] Facility Transportation Arrangement Facility to provide transport. Referrals Initiated [facility] SNF[facility]HH Preference Patient resides at [facility] Contact Name/Phone February [phone] Review Status In Process Next Review Type Continued Stay Review
--- NOTE | 2021-12-30 13:20 | PC.NURSE ---
Patient returns from colonoscopy and Ct scan, put back on tele, appears to be in afib, hospitalist notified. Other than heart rate of 119-127 vitals are WNL, patient drowsy but answers direct questions appropriately, IV potassium second bag hung and is going in, SCD's on bilaterally.
[2021-12-30] MEDS: MEROPENEM 500 MG in SODIUM CHLORIDE 0.9% 100 ML 200 ML IV ×2 (13:37→20:21)
[2021-12-30] MEDS: SODIUM CHLORIDE 0.9% 1,000 ML 1000 ML IV (14:26)
[2021-12-30] MEDS: MAGNESIUM SULFATE 2 GM/50 ML PIGGYBACK IV (15:31)
[2021-12-30] MEDS: POTASSIUM CHLORIDE 20 MEQ TAB 40 MEQ PO (15:31)
[2021-12-30 19:14] LABS: BUN Creatinine Ratio 34.1 (6-22); Blood Urea Nitrogen 15 mg/dL (7-17); Carbon Dioxide 20 mmol/L (22-32); Chloride 114 mmol/L (98-107); Estimated Glomerular Filt Rate > 60.0 mL/min (>60); Glucose 138 mg/dL (80-110); HEMOLYSIS 26 (0-50); Potassium 3.9 mmol/L (3.4-5.1); Sodium 140 mmol/L (137-145)
[2021-12-30] MEDS: QUETIAPINE 25 MG TABLET 12.5 MG PO (20:17)
[2021-12-31 00:45] VITALS: O2SAT 94
[2021-12-31] MEDS: SODIUM CHLORIDE 0.9% 1,000 ML 100 ML IV ×2 (00:51→20:35)
[2021-12-31] MEDS: MEROPENEM 500 MG in SODIUM CHLORIDE 0.9% 100 ML 200 ML IV ×4 (01:18→18:59)
[2021-12-31 08:20] VITALS: BP 129/76; PULSE 124
[2021-12-31] MEDS: METOPROLOL ER 50 MG TABLET 100 MG PO ×2 (08:20→20:32)
[2021-12-31 08:49] VITALS: BP 129/76; PULSE 124; RESP 20; TEMP 36.5; O2SAT 94
[2021-12-31 13:37] LABS: Albumin 2.7 g/dL (3.5-5.0)
--- NOTE | 2021-12-31 14:05 | PM.PN.1 ---
Subjective Subjective Date Patient Seen: 12/31/21 Time Patient Seen: 08:00 Interval history: She denies pain today. She had no further GI bleeding per staff. Exam Vital Signs (past 8 hours): - 12/31/21 08:20 12/31/21 08:49 Temperature 97.7 F Pulse Rate 124 H 124 H Respiratory Rate 20 Blood Pressure 129/76 129/76 Pulse Oximetry 94 Oxygen Delivery Method Room Air Oxygen Flow Rate 0 Narrative Exam Narrative: Gen: no acute distress Resp: clear bilaterally CV: irregularly irregular, no murmur Abd: soft, nontender, no rebound/guarding Objective Labs Result Diagrams: 12/30/21 08:20 12/30/21 18:45 Labs: Laboratory Results - last 24 hr 12/30/21 12/30/21 18:45 18:45 Sodium 140 Potassium 3.9 Chloride 114 H Carbon Dioxide 20 L BUN 15 Creatinine 0.44 L Estimated GFR > 60.0 BUN/Creatinine Ratio 34.1 H Glucose 138 H Calcium 7.0 L Albumin 2.7 L PFSH Medical History Compression fracture Dehydration Edema Essential hypertension Fracture, finger Leukemia Memory deficit Paroxysmal atrial fibrillation Syncope Urinary incontinence Surgical History H/O spinal fusion (05/29/19) H/O: hysterectomy History of 2 sections Social History household members: family Smoking Status: Former smoker alcohol intake: never substance use type: does not use Assessment & Plan Assessment & Plan narrative: Amber Mota is admitted for further evaluation and management of what appears to be a rectal bleed. 1. Acute lower GI bleed from ischemic colitis -bleeding has resolved -colonoscopy concerning for ischemia -CT abdomen/pelvis ordered for further evaluation of ischemia -broad abx for now with meropenem -full liquid diet and advance as tolerated 2. Atrial fibrillation with RVR, chronic -She was worked up and diagnosed with paroxsysmal atrial fibrillation in 2018. -Last echo done in March 2020 indicated an EF of 55-60% with right ventricular dilation and and pulmonary hypertension, both atriums are moderate to severely dilated. She also has calcified mitral valve leaflets with mild to moderate regurgitation, and severe tricuspid regurgitation and severe pulmonary hypertension. -She will be continued on metoprolol 4. Essential hypertension, chronic -stop lisinopril 5. Dementia with behavioral disturbance, chronic -Continue home doses of quetiapine 12.5 mg at bedtime Dispo: possible discharge tomorrow back to her facility Time Spent With Patient Critical Care time: I spent a total of [] minutes of critical care time on this patient's care today; this time is exclusive of procedural time. Quality VTE Deep Vein Thrombosis/Pulmonary Embolism Present on Admission: No
[2021-12-31 19:44] VITALS: BP 154/78; PULSE 114; RESP 19; TEMP 37.2; O2SAT 95
[2021-12-31 20:32] VITALS: BP 157/78; PULSE 114
[2021-12-31] MEDS: QUETIAPINE 25 MG TABLET 12.5 MG PO (20:32)
[2021-12-31 21:14] VITALS: BP 135/70; PULSE 123
[2022-01-01] MEDS: MEROPENEM 500 MG in SODIUM CHLORIDE 0.9% 100 ML 200 ML IV ×2 (01:43→06:39)
[2022-01-01 05:46] LABS: Hematocrit 34.6 % (36-46); Hemoglobin 11.2 g/dL (12.0-16.0); Mean Corpuscular HGB Conc 32.2 % (30-36); Mean Corpuscular Hemoglobin 28.3 PG (26-34); Mean Corpuscular Volume 87.9 fL (80-100); Platelet Count 134 X10^3/uL (150-400); Red Blood Cell Count 3.94 X10^6/uL (4.0-5.2); Red Cell Distribution Width 15.1 % (11.6-14.8); White Blood Cell Count 20.9 X10^3/uL (4.5-11.0)
[2022-01-01 05:51] LABS: BUN Creatinine Ratio 26.1 (6-22); Blood Urea Nitrogen 12 mg/dL (7-17); Calcium 7.2 mg/dL (8.4-10.2); Carbon Dioxide 23 mmol/L (22-32); Chloride 116 mmol/L (98-107); Estimated Glomerular Filt Rate > 60.0 mL/min (>60); Glucose 103 mg/dL (80-110); HEMOLYSIS < 15 (0-50); Potassium 3.6 mmol/L (3.4-5.1); Sodium 144 mmol/L (137-145)
[2022-01-01] MEDS: SODIUM CHLORIDE 0.9% 1,000 ML 100 ML IV (06:38)
[2022-01-01 08:20] VITALS: BP 150/89; PULSE 112
[2022-01-01] MEDS: METOPROLOL ER 50 MG TABLET 200 MG PO (08:20)
[2022-01-01 09:12] VITALS: BP 150/89; PULSE 111; RESP 14; TEMP 36.4; O2SAT 95
--- NOTE | 2022-01-01 10:44 | P.DS_ITS ---
History of Present Illness History of Present Illness Chief complaint: GI Bleed Narrative: Per admitting provider: Amber Mota is an 86 y.o. resident of [facility] with indolent CLL, atrial fibrillation not anticoagulated, hypertension, and dementia who was transferred to the ED due to having bloody stool. Patient is unable to provide a history due to her dementia, but daughter is present to provide a history.? Daughter states that the patient has had lifelong constipation and normally uses stool softeners and laxatives on a regular basis.? She states that she has been under pressure by the facility to take her off those medications in addition to her medications to help control agitation as a result of her dementia.? She states that the patient has had a several day history of ?the runs?.? She was concerned with the bloody bowel movements that she might be having upper GI bleeding.? The patient was at [facility] in April of 2020 with an upper GI bleed that turned out to be due to taking alendronate and having and esophagitis that was found on upper endoscopy.? During that stay she was also very constipated and efforts were made to help clear the impaction.? The patient can not answer questions however she denies any pain or issues and the daughter states that the patient will never endorse any problems. Upon presentation to the emergency department she was in AFib with RVR and is known to be and proxy is so small atrial fibrillation she was initially anticoagulated with aspirin but that was discontinued due to recent history of GI bleeds.? Patient was administered IV Protonix 40 mg in the ED. she is afebrile, blood pressure 153/68, heart rate 109, respiratory rate 18, oxygen saturation of 92% on 2 L and she weighs 58.5 kg.? Her WBC is 19.9 indicative of her CLL, hemoglobin and hematocrit are within normal limits, her platelet count is 142, glucose is slightly the elevated at 164, and COVID-19 PCR is negative.? She is in a positive blood type however is unlikely she will need a blood transfusion. Discharge Providers Provider Date of admission: 12/29/21 01:30 Discharge Date: 01/01/22 Primary care physician: Radha Farfan Consults: 12/29/21 01:43 Consult to General Surgery Routine Comment: Consulting Provider: Alisson Gonzales Reason for consultation: GI bleed Has provider been notified: Yes 12/31/21 17:54 Consult to Dietitian, Adult Routine Comment: Reason For Exam: eats very little like a bird per daughter. Discharge provider: Naeem Schmid MD Summary Hospital Course Discharge Diagnosis: 1. Acute lower GI bleed from ischemic colitis 2. Atrial fibrillation with RVR, chronic 3. UTI 4. Hypertension 5. Dementia, chronic 6. CLL Hospital Course: Ms. Mota was admitted with GI bleeding. She had this self resolved. Colonoscopy and CT abdomen were concerning for colitis, probably ischemic colitis. She was treated empirically with antibiotics. She also had a UTI and was treated with antibiotics. She was discharged with levaquin and flagyl to complete a course of treatment. She had an increase in her metoprolol due to RVR with improvement. Her lisinopril was stopped to prevent her blood pressure from being on the lower side. Her aspirin was stopped due to the bleeding. Surgery said that she would not be a good candidate for surgery if her ischemia worsened. She was able to tolerate a regular diet with no pain. Exam Vital Signs (past 8 hours): - 01/01/22 08:20 01/01/22 09:12 Temperature 97.6 F Pulse Rate 112 H 111 H Respiratory Rate 14 Blood Pressure 150/89 H 150/89 H Pulse Oximetry 95 Oxygen Delivery Method Room Air Oxygen Flow Rate 0 Narrative Exam Narrative: Gen: no acute distress Resp: clear bilaterally CV: irregularly irregular, no murmur Abd: soft, nontender, no rebound/guarding Objective Labs Result Diagrams: 01/01/22 05:25 01/01/22 05:25 Labs: Laboratory Results - last 24 hr 12/30/21 01/01/22 01/01/22 18:45 05:25 05:25 WBC 20.9 H RBC 3.94 L Hgb 11.2 L Hct 34.6 L MCV 87.9 MCH 28.3 MCHC 32.2 RDW 15.1 H Plt Count 134 L Sodium 144 Potassium 3.6 Chloride 116 H Carbon Dioxide 23 BUN 12 Creatinine 0.46 L Estimated GFR > 60.0 BUN/Creatinine Ratio 26.1 H Glucose 103 Calcium 7.2 L Albumin 2.7 L PFSH Medical History Compression fracture Dehydration Edema Essential hypertension Fracture, finger Leukemia Memory deficit Paroxysmal atrial fibrillation Syncope Urinary incontinence Surgical History H/O spinal fusion (05/29/19) H/O: hysterectomy History of 2 sections Social History household members: family Smoking Status: Former smoker alcohol intake: never substance use type: does not use Discharge Plan Discharge Plan Patient Disposition: Assisted Living Provider Discharge Comment: Ms. Mota came in to the hospital with GI bleeding. She had ischemic colitis. She was started on antibiotics. She also had a UTI. She should complete antibiotics. For her colitis she should make sure her blood pressures run on the slightly higher side and stay hydrated. Her aspirin was stopped as was one of her blood pressure medications. Discharge orders & Medications Discharge Orders: Discharge (Order); Ordered 01/01/22 Ordered By: Naeem Schmid Prescriptions: New metoprolol succinate 50 mg Tablet Extended Release 24 Hr 200 mg PO BID Qty: 60 0RF levofloxacin 750 mg tablet 750 mg PO DAILY Qty: 4 0RF metronidazole 500 mg tablet 500 mg PO Q8H Qty: 12 0RF Continued multivitamin Capsule 1 cap PO DAILY Qty: 0 0RF quetiapine [Seroquel] 50 MG tablet 12.5 mg PO QDAY Qty: 0 0RF ferrous gluconate 324 mg (37.5 mg iron) tablet 324 mg PO DAILY 0RF polyethylene glycol 3350 17 gram/dose powder 17 g PO DAILY 0RF pantoprazole [Protonix] 40 mg tablet,delayed release (DR/EC) 20 mg PO DAILY 0RF acetaminophen [Tylenol] 325 mg capsule 650 mg PO QID PRN (Reason: pain) Qty: 60 0RF benzocaine-menthol 15-3.6 mg Lozenge 1 keven MUCOUS MEMBRANE Q4HR PRN (Reason: Sore Throat) 0RF Discontinued lisinopril 5 mg tablet 20 mg PO DAILY 0RF Rx Instructions: Hold for SBP<110 or DBP <60 aspirin [Adult Low Dose Aspirin] 81 mg Tablet,Delayed Release (Dr/Ec) 81 mg PO DAILY 0RF metoprolol tartrate 25 mg tablet 100 mg PO BID 0RF Label Comments: Dose change per daughter Rx Instructions: Hold for SBP<100 or DBP<50, or HR<60 sennosides [senna] 8.6 mg Tablet 8.6 mg PO BID 0RF Follow up/Referrals: Radha Farfan [Primary Care Provider] - Diet/Activity/Treatments Diet: Diet as Tolerated Liquid consistency: Normal/Thin Food texture: Regular Discharge Data Primary Care Provider: Radha Farfan Quality VTE Deep Vein Thrombosis/Pulmonary Embolism Present on Admission: No
[2022-01-01 11:14] LABS: COVID19 -Nasal RAPID Negative (Negative)
[2022-01-01 11:35] VITALS: O2SAT 95
--- NOTE | 2022-01-01 11:54 | PC.NURSE ---
Pt to transfer back to [facility] at 1300. Report called to Jyotsna from [facility] and all questions answered. PT will be packed up and ready for discharge for 1300.
--- NOTE | 2022-01-01 13:26 | PC.NURSE ---
Pt out via w/c by [employer] personnel with daughter and all belongings.
--- NOTE | 2022-01-02 09:24 | CM.DPNOTE ---
DC Note Late Entry Patient discharged 01.01.22 and accepted for return at [facility], where patient lives. This [employer] coordinated DC yesterday w/ assist from EVELYN Orta. Patient/family agreeable to this plan Plan: DC back to [facility] yesterday 01.01.22 via w/c C19 PCR updated and all DC ppk faxed to February at [facility] H+R JW
== END 2022-01-01 13:27 | DRG 394 ==
LOC: ED 12-29 01:31 → AC 12-29 01:31
PROVIDERS: Internal Medicine; Surgery; Admitting Provider Nurse Practitioner Family; Emergency Provider Emergency Medicine; PCP Physician Assistant Medical; Referring Provider Emergency Medicine; Visit Provider Nurse Practitioner Family
PROC: 0DJD8ZZ Inspection of Lower Intestinal Tract, Via Natural or Artificial Opening Endoscopic (ICD-10-PCS; CPT 45378; principal; 2021-12-30 12:15)
DX: K55.9 Vascular disorder of intestine, unspecified (principal); I48.20 Chronic atrial fibrillation, unspecified; F03.91 Unspecified dementia, unspecified severity, with behavioral disturbance; C91.10 Chronic lymphocytic leukemia of B-cell type not having achieved remission; K92.1 Melena; N39.0 Urinary tract infection, site not specified; K59.00 Constipation, unspecified; I10 Essential (primary) hypertension; D64.9 Anemia, unspecified; Z20.822 Contact with and (suspected) exposure to COVID-19; Z87.891 Personal history of nicotine dependence
CPT/HCPCS: 36415; 45333; 74018; 74177; 80048; 80053; 80076; 81001; 82040; 83605; 83735; 85007; 85025; 85027; 85610; 85730; 86850; 86900; 86901; 87077; 87086; 87635; 94760; 94762; 96374; 99232; 99284; C9803; C9113; J0696; J2185; J3475; Q9967

== ENCOUNTER 2022-01-15 15:08 | Inpatient (IN) | payer MEDICARE, MEDICAID, SELFPAY ==
[2022-01-15] VITALS (19 sets, daily range): BP systolic 122–161; BP diastolic 57–117; PULSE 73–124; RESP 16–24; TEMP 35.9–37.3; O2SAT 88–95; BMI 26.2
[2022-01-15 16:11] LABS: Appearance Urine UA CLOUDY; Bilirubin Urine UA 2+ (NEGATIVE); Color Urine UA YELLOW; Glucose Urine UA NEGATIVE (Negative); Ketones Urine UA 1+ (NEGATIVE); Leukocyte Esterase Urine UA TRACE (NEGATIVE); Nitrite Urine UA NEGATIVE (Negative); Occult Blood Urine UA 1+ (Negative); Protein Urine UA 1+ (Negative); Specific Gravity Urine UA >=1.030 (1.000-1.035); Urobilinogen Urine UA 0.2 E.U./dL (0.2)
[2022-01-15 16:13] LABS: Hemoglobin 12.5 g/dL (12.0-16.0); Mean Corpuscular HGB Conc 31.4 % (30-36); Mean Corpuscular Volume 89.3 fL (80-100); Platelet Count 252 X10^3/uL (150-400); Red Blood Cell Count 4.48 X10^6/uL (4.0-5.2); Red Cell Distribution Width 15.3 % (11.6-14.8)
[2022-01-15 16:18] LABS: Add Manual Diff / Slide Review YES
[2022-01-15 16:19] LABS: White Blood Cell Count 57.7 X10^3/uL (4.5-11.0)
[2022-01-15 16:22] LABS: INR 1.6 (0.9-1.3); Prothrombin Time 18.2 SECONDS (10.1-12.7)
[2022-01-15 16:27] LABS: Ictotest Urine Negative (Negative); RBC Urine 5-10/HPF (0-5/HPF)
[2022-01-15 16:28] LABS: Bacteria Urine Moderate (10-30); Culture Indicated Urine Specimen Cultured; Mucus Urine 2+ (Negative); Squamous Epithelial Cell Urine 0-1 /HPF (0-5/HPF); WBC Urine 10-30/HPF (0-5/HPF)
[2022-01-15 16:29] LABS: Albumin 3.3 g/dL (3.5-5.0); Albumin Globulin Ratio 1.1 (1.0-2.8); Alkaline Phosphatase 87 U/L (38-126); Aspartate Aminotransferase 29 IU/L (14-36); BUN Creatinine Ratio 23.1 (6-22); Bilirubin Total 1.7 mg/dL (0.2-1.3); Blood Urea Nitrogen 15 mg/dL (7-17); Calcium 8.2 mg/dL (8.4-10.2); Carbon Dioxide 28 mmol/L (22-32); Chloride 105 mmol/L (98-107); Creatine Kinase 28 U/L (30-135); Estimated Glomerular Filt Rate > 60 mL/min (>60); Globulin 2.9 g/dL (1.7-4.1); Glucose 117 mg/dL (80-110); HEMOLYSIS < 15 (0-50); Potassium 4.7 mmol/L (3.4-5.1); Sodium 142 mmol/L (137-145); Total Protein 6.2 g/dL (6.3-8.2)
[2022-01-15 16:31] LABS: COVID19 -Nasal RAPID Negative (Negative)
[2022-01-15 16:36] LABS: Alanine Aminotransferase 17 IU/L (<35)
[2022-01-15 16:41] LABS: NT-proBNP (BNP-Adult 18+) 6950 pg/mL (<450); PTT Partial Thromboplastin Tim 28 SECONDS (26.4-36.2); Troponin I < 0.012 ng/mL (0.01-0.034)
[2022-01-15 16:46] LABS: Procalcitonin 0.09 ng/mL (<0.5)
--- NOTE | 2022-01-15 17:02 | ED_ITS ---
HPI - Neuro Symptoms/Deficit General Chief Complaint: Neuro Symptoms/Deficit Stated Complaint: edema Time Seen by Provider: 01/15/22 15:31 Source: EMS Mode of arrival: EMS Limitations: altered mental status History of Present Illness HPI Narrative: The patient has dementia. She was sent here from her nursing facility. She is not acting well. She has an elevated WBC count. She has not had a cough, or fever. She has no complaints of abdominal pain. She is incontinent. She denies dysuria. She was seen here 12/30/2021. CT of the abdomen reveals colitis of descending sigmoid and rectum. She had bloody stool at that time. WBC count is always elevated due to CLL. Colonoscopy was performed due to the GI bleeding, ischemic colitis was noted. She is to the antibiotics, discharged on Levaquin and Flagyl. On Anticoagulants: No Related Data Home Medications Medication Instructions Recorded Confirmed multivitamin 1 cap PO DAILY #0 06/27/10 12/29/21 quetiapine 50 mg tablet (Seroquel) 12.5 mg PO QDAY #0 01/21/17 12/29/21 ferrous gluconate 324 mg (37.5 mg 324 mg PO DAILY 11/20/20 12/29/21 iron) tablet pantoprazole 40 mg tablet,delayed 20 mg PO DAILY 11/20/20 12/29/21 release (Protonix) polyethylene glycol 3350 17 17 g PO DAILY 11/20/20 12/29/21 gram/dose oral powder benzocaine 15 mg-menthol 3.6 mg 1 keven MUCOUS MEMBRANE Q4HR PRN 12/29/21 12/29/21 lozenges Previous Rx's Medication Instructions Recorded acetaminophen 325 mg capsule 650 mg PO QID PRN #60 cap 03/14/20 (Tylenol) levofloxacin 750 mg tablet 750 mg PO DAILY #4 tab 01/01/22 metoprolol succinate 50 mg 200 mg PO BID #60 tab 01/01/22 tablet,extended release 24 hr metronidazole 500 mg tablet 500 mg PO Q8H #12 tab 01/01/22 Allergies Allergy/AdvReac Type Severity Reaction Status Date / Time No Known Drug Allergies Allergy Verified 11/20/20 13:05 Review of Systems Review of Systems Narrative: As noted HPI. The patient is not oriented, can give minimal information. Her daughter also does not have initial information. Hematologic/Lymphatic On Anticoagulants: No Patient History Medical History (Updated 01/15/22 @ 20:50 by Daljit Irwin MD) Compression fracture Dehydration Edema Essential hypertension Fracture, finger GI bleed Ischemic colitis Leukemia Memory deficit Paroxysmal atrial fibrillation Syncope Urinary incontinence Surgical History H/O spinal fusion (05/29/19) H/O: hysterectomy History of 2 sections Social History household members: family Smoking Status: Former smoker alcohol intake: never substance use type: does not use Smoking Status: Former smoker alcohol intake frequency: a few times a month Substance Use Type: does not use Exam Initial Vital Signs Initial Vital Signs: Vital Signs Pulse Rate 102 H 01/15/22 15:16 Blood Pressure 148/90 H 01/15/22 15:16 Pulse Oximetry 93 01/15/22 15:16 Const General: cooperative, No acute distress and other (Minimally responsive.) HENMT Head: normocephalic and atraumatic Face and sinus: normal facial exam Throat: posterior oropharynx normal Eyes General: appearance normal, both eyes and all related structures Neck Neck: No JVD Chest Chest: normal inspection of the chest Resp Effort & Inspection: normal respiratory effort Auscultation: clear to auscultation bilaterally Cardio Rate: tachycardic Rhythm: abnormal rhythm irregularly irregular Heart Sounds: S1 normal and S2 normal GI Inspection: normal to inspection Palpation: soft, No mass and No tender Percussion: no dullness to percussion Auscultation: normal bowel sounds Back/Spine/Pelvis Back: normal to inspection and No CVA tenderness Skin Other: Erythema across the sacral area. No open ulcers. Neuro General: patient alert, oriented ([place] to person only.) and no focal motor deficits Cranial Nerves: CN's II-XI intact bilaterally Extrem Other: 4+ bilateral lower extremity edema. Psych Mental Status: mental status grossly normal Other: Flat affect. Minimally responsive. Course Course Course Narrative: The patient has AFib with CHF. Heart rate varied from 100-110. The rate was not addressed. She has CHF with 4+ peripheral edema, BNP 6950. However, she also had elevated lactic acid at 3.0. Cath UA would confirm a UTI. Due to the elevated BNP, a normal saline bolus initiated because of the lactic acid level was aborted at 200 mL. Her blood pressure was 130s systolic when the normal saline boluses ceased. She has UTI, she has no fever. She is normotensive. I discussed the situation with Dr. Samuels, hospitalist, sepsis is unlikely. However, I neither continued a normal saline bolus, nor started diuresis, due to the possibility of sepsis. It is noted that her lactic acid level did improve to 1.5 following admission. Diuresis and further management of the AFib will be left to the hospitalist. Orders Ordered: ED Orders 01/15/22 15:18 Type and Screen Stat 01/15/22 15:27 EKG-12 Lead Stat 01/15/22 15:42 Ictotest Urine Stat Urinalysis and Microscopic Stat Urine Culture Stat 01/15/22 15:53 BNP [NT-proBNP (BNP-Adult 18+)] Stat Complete Blood Count AUTO DIFF Stat Comprehensive Metabolic Panel Stat Lactate (Lactic Acid) Stat Partial Thromboplastin Time Stat Procalcitonin Stat Prothrombin Time INR Stat Troponin & CK Cardiac Panel Stat 01/15/22 15:55 COVID19 -Nasal RAPID/Pre-Proc Stat 01/15/22 16:06 Blood Culture Stat 01/15/22 17:04 EKG-12 Lead Stat Sodium Chloride (Normal Saline 0.9%) 1,000 mls @ 1,000 mls/hr IV BOLUS PRN PRN Reason: Fluid replacement Last Infusion: 01/15/22 17:45 Dose: 0 mls/hr Documented by: Admin: 01/15/22 17: Dose: 1,000 mls/hr Documented by: [email or web address] Discontinued Medications Piperacillin Sod/Tazobactam (Sod 4.5 gm/ Sodium Chloride) 100 mls @ 200 mls/hr IV NOW ONE Stop: 01/15/22 17:12 Last Infusion: 01/15/22 17:55 Dose: 0 mls/hr Documented by: Admin: 01/15/22 17: Dose: 200 mls/hr Documented by: [email or web address] Vital Signs Vital signs: Vital Signs - 8 hr 01/15/22 15:16 01/15/22 15:22 01/15/22 15:39 Temperature 98.5 F Pulse Rate 102 H 76 73 Respiratory Rate 20 Blood Pressure 148/90 H 148/90 H Pulse Oximetry 93 93 93 01/15/22 15:42 01/15/22 15:53 01/15/22 16:00 Temperature 96.6 F L 98.4 F 98.8 F Pulse Rate 124 H 113 H 117 H Respiratory Rate 20 22 24 Blood Pressure 148/113 H 136/117 H 148/113 H Pulse Oximetry 93 92 93 01/15/22 16:30 01/15/22 17:00 01/15/22 17:08 Temperature 99.1 F 99.1 F 99.1 F Pulse Rate 122 H 110 H 116 H Respiratory Rate 22 23 23 Blood Pressure 161/70 H 122/89 Pulse Oximetry 93 92 92 01/15/22 17:30 01/15/22 18:00 01/15/22 18:26 Temperature 99.1 F 99.1 F 98.8 F Pulse Rate 113 H 108 H 110 H Respiratory Rate 23 20 22 Blood Pressure 126/97 H Pulse Oximetry 92 92 95 01/15/22 18:30 01/15/22 18:31 01/15/22 19:00 Temperature 98.8 F 98.8 F 98.8 F Pulse Rate 106 H 108 H 111 H Respiratory Rate 23 22 20 Blood Pressure 144/80 H 129/73 Pulse Oximetry 92 01/15/22 19:30 01/15/22 19:31 Temperature 98.8 F 98.8 F Pulse Rate 110 H 104 H Respiratory Rate 19 19 Blood Pressure 145/57 H Pulse Oximetry 89 L 88 L MDM - Neuro Symptoms/Deficit Lab Data Result diagrams: 01/15/22 15:53 01/15/22 15:53 Labs: Lab Results 01/15/22 01/15/22 01/15/22 Range/Units 15:18 15:42 15:53 WBC 57.7 H* (4.5-11.0) X10^3/uL RBC 4.48 (4.0-5.2) X10^6/uL Hgb 12.5 (12.0-16.0) g/dL Hct 40.0 (36-46) % MCV 89.3 (80-100) fL MCH 28.0 (26-34) PG MCHC 31.4 (30-36) % RDW 15.3 H (11.6-14.8) % Plt Count 252 (150-400) X10^3/uL Neut % (Auto) Not Reportable Lymph % (Auto) Not Reportable [place] % (Auto) Not Reportable Eos % (Auto) Not Reportable Baso % (Auto) Not Reportable Lymph # (Auto) Not Reportable [place] # (Auto) Not Reportable Baso # (Auto) Not Reportable Total Counted 100 Seg Neutrophils % 13.0 L (38-70) % Lymphocytes % (Manual) 86.0 H (25-45) % Eosinophils % (Manual) 1.0 L (2-4) % Neutrophils # (Manual) 7501 H (7570-8517) /uL RBC Morphology See below Polychromasia 1+ H PT (10.1-12.7) SECONDS INR (0.9-1.3) APTT (26.4-36.2) SECONDS Sodium (137-145) mmol/L Potassium (3.4-5.1) mmol/L Chloride (98-107) mmol/L Carbon Dioxide (22-32) mmol/L BUN (7-17) mg/dL Creatinine (0.52-1.04) mg/dL Estimated GFR (>60) mL/min BUN/Creatinine Ratio (6-22) Glucose (80-110) mg/dL Lactate (0.7-2.1) mmol/L Calcium (8.4-10.2) mg/dL Total Bilirubin (0.2-1.3) mg/dL AST (14-36) IU/L ALT (<35) IU/L Alkaline Phosphatase (38-126) U/L Total Creatine Kinase (30-135) U/L CK-MB (CK-2) CK-MB (CK-2) Rel Index Troponin I (0.01-0.034) ng/mL NT-Pro-B Natriuret Pep (<450) pg/mL Total Protein (6.3-8.2) g/dL Albumin (3.5-5.0) g/dL Globulin (1.7-4.1) g/dL Albumin/Globulin Ratio (1.0-2.8) Procalcitonin (<0.5) ng/mL Urine Color Yellow Urine Appearance Cloudy Urine pH 5.0 (4.5-8.0) Ur Specific [place] >=1.030 H (1.000-1.035) Urine Protein 1+ H (Negative) Urine Glucose (UA) Negative (Negative) g/dL Urine Ketones 1+ H (NEGATIVE) Urine Occult Blood 1+ H (Negative) Urine Nitrate Negative (Negative) Urine Bilirubin 2+ H (NEGATIVE) Ur Bilirubin Confirm Negative (Negative) Urine Urobilinogen 0.2 (0.2) E.U./dL Ur Leukocyte Esterase Trace H (NEGATIVE) Urine RBC 5-10/hpf H (0-5/HPF) Urine WBC 10-30/hpf H (0-5/HPF) Ur Squamous Epith Cells 0-1 /hpf (0-5/HPF) Urine Bacteria Moderate (10-30) H (None) Urine Mucus 2+ H (Negative) Urine Yeast 30-100/hpf H (None) Ur Culture Indicated? Specimen cultured SARS-CoV-2 (PCR) (Negative) Blood Type A Positive Antibody Screen Negative 01/15/22 01/15/22 01/15/22 Range/Units 15:53 15:53 15:53 WBC (4.5-11.0) X10^3/uL RBC (4.0-5.2) X10^6/uL Hgb (12.0-16.0) g/dL Hct (36-46) % MCV (80-100) fL MCH (26-34) PG MCHC (30-36) % RDW (11.6-14.8) % Plt Count (150-400) X10^3/uL Neut % (Auto) Lymph % (Auto) [place] % (Auto) Eos % (Auto) Baso % (Auto) Lymph # (Auto) [place] # (Auto) Baso # (Auto) Total Counted Seg Neutrophils % (38-70) % Lymphocytes % (Manual) (25-45) % Eosinophils % (Manual) (2-4) % Neutrophils # (Manual) (1830-1912) /uL RBC Morphology Polychromasia PT 18.2 H (10.1-12.7) SECONDS INR 1.6 H (0.9-1.3) APTT 28 (26.4-36.2) SECONDS Sodium 142 (137-145) mmol/L Potassium 4.7 (3.4-5.1) mmol/L Chloride 105 (98-107) mmol/L Carbon Dioxide 28 (22-32) mmol/L BUN 15 (7-17) mg/dL Creatinine 0.65 (0.52-1.04) mg/dL Estimated GFR > 60 (>60) mL/min BUN/Creatinine Ratio 23.1 H (6-22) Glucose 117 H (80-110) mg/dL Lactate (0.7-2.1) mmol/L Calcium 8.2 L (8.4-10.2) mg/dL Total Bilirubin 1.7 H (0.2-1.3) mg/dL AST 29 (14-36) IU/L ALT 17 (<35) IU/L Alkaline Phosphatase 87 (38-126) U/L Total Creatine Kinase (30-135) U/L CK-MB (CK-2) CK-MB (CK-2) Rel Index Troponin I (0.01-0.034) ng/mL NT-Pro-B Natriuret Pep (<450) pg/mL Total Protein 6.2 L (6.3-8.2) g/dL Albumin 3.3 L (3.5-5.0) g/dL Globulin 2.9 (1.7-4.1) g/dL Albumin/Globulin Ratio 1.1 (1.0-2.8) Procalcitonin (<0.5) ng/mL Urine Color Urine Appearance Urine pH (4.5-8.0) Ur Specific [place] (1.000-1.035) Urine Protein (Negative) Urine Glucose (UA) (Negative) g/dL Urine Ketones (NEGATIVE) Urine Occult Blood (Negative) Urine Nitrate (Negative) Urine Bilirubin (NEGATIVE) Ur Bilirubin Confirm (Negative) Urine Urobilinogen (0.2) E.U./dL Ur Leukocyte Esterase (NEGATIVE) Urine RBC (0-5/HPF) Urine WBC (0-5/HPF) Ur Squamous Epith Cells (0-5/HPF) Urine Bacteria (None) Urine Mucus (Negative) Urine Yeast (None) Ur Culture Indicated? SARS-CoV-2 (PCR) (Negative) Blood Type Antibody Screen 01/15/22 01/15/22 01/15/22 Range/Units 15:53 15:53 15:53 WBC (4.5-11.0) X10^3/uL RBC (4.0-5.2) X10^6/uL Hgb (12.0-16.0) g/dL Hct (36-46) % MCV (80-100) fL MCH (26-34) PG MCHC (30-36) % RDW (11.6-14.8) % Plt Count (150-400) X10^3/uL Neut % (Auto) Lymph % (Auto) [place] % (Auto) Eos % (Auto) Baso % (Auto) Lymph # (Auto) [place] # (Auto) Baso # (Auto) Total Counted Seg Neutrophils % (38-70) % Lymphocytes % (Manual) (25-45) % Eosinophils % (Manual) (2-4) % Neutrophils # (Manual) (4914-5719) /uL RBC Morphology Polychromasia PT (10.1-12.7) SECONDS INR (0.9-1.3) APTT (26.4-36.2) SECONDS Sodium (137-145) mmol/L Potassium (3.4-5.1) mmol/L Chloride (98-107) mmol/L Carbon Dioxide (22-32) mmol/L BUN (7-17) mg/dL Creatinine (0.52-1.04) mg/dL Estimated GFR (>60) mL/min BUN/Creatinine Ratio (6-22) Glucose (80-110) mg/dL Lactate 3.0 H (0.7-2.1) mmol/L Calcium (8.4-10.2) mg/dL Total Bilirubin (0.2-1.3) mg/dL AST (14-36) IU/L ALT (<35) IU/L Alkaline Phosphatase (38-126) U/L Total Creatine Kinase 28 L (30-135) U/L CK-MB (CK-2) TNP CK-MB (CK-2) Rel Index TNP Troponin I < 0.012 (0.01-0.034) ng/mL NT-Pro-B Natriuret Pep 6950 H (<450) pg/mL Total Protein (6.3-8.2) g/dL Albumin (3.5-5.0) g/dL Globulin (1.7-4.1) g/dL Albumin/Globulin Ratio (1.0-2.8) Procalcitonin 0.09 (<0.5) ng/mL Urine Color Urine Appearance Urine pH (4.5-8.0) Ur Specific [place] (1.000-1.035) Urine Protein (Negative) Urine Glucose (UA) (Negative) g/dL Urine Ketones (NEGATIVE) Urine Occult Blood (Negative) Urine Nitrate (Negative) Urine Bilirubin (NEGATIVE) Ur Bilirubin Confirm (Negative) Urine Urobilinogen (0.2) E.U./dL Ur Leukocyte Esterase (NEGATIVE) Urine RBC (0-5/HPF) Urine WBC (0-5/HPF) Ur Squamous Epith Cells (0-5/HPF) Urine Bacteria (None) Urine Mucus (Negative) Urine Yeast (None) Ur Culture Indicated? SARS-CoV-2 (PCR) (Negative) Blood Type Antibody Screen 01/15/22 01/15/22 Range/Units 15:55 18:14 WBC (4.5-11.0) X10^3/uL RBC (4.0-5.2) X10^6/uL Hgb (12.0-16.0) g/dL Hct (36-46) % MCV (80-100) fL MCH (26-34) PG MCHC (30-36) % RDW (11.6-14.8) % Plt Count (150-400) X10^3/uL Neut % (Auto) Lymph % (Auto) [place] % (Auto) Eos % (Auto) Baso % (Auto) Lymph # (Auto) [place] # (Auto) Baso # (Auto) Total Counted Seg Neutrophils % (38-70) % Lymphocytes % (Manual) (25-45) % Eosinophils % (Manual) (2-4) % Neutrophils # (Manual) (0050-8596) /uL RBC Morphology Polychromasia PT (10.1-12.7) SECONDS INR (0.9-1.3) APTT (26.4-36.2) SECONDS Sodium (137-145) mmol/L Potassium (3.4-5.1) mmol/L Chloride (98-107) mmol/L Carbon Dioxide (22-32) mmol/L BUN (7-17) mg/dL Creatinine (0.52-1.04) mg/dL Estimated GFR (>60) mL/min BUN/Creatinine Ratio (6-22) Glucose (80-110) mg/dL Lactate 1.5 (0.7-2.1) mmol/L Calcium (8.4-10.2) mg/dL Total Bilirubin (0.2-1.3) mg/dL AST (14-36) IU/L ALT (<35) IU/L Alkaline Phosphatase (38-126) U/L Total Creatine Kinase (30-135) U/L CK-MB (CK-2) CK-MB (CK-2) Rel Index Troponin I (0.01-0.034) ng/mL NT-Pro-B Natriuret Pep (<450) pg/mL Total Protein (6.3-8.2) g/dL Albumin (3.5-5.0) g/dL Globulin (1.7-4.1) g/dL Albumin/Globulin Ratio (1.0-2.8) Procalcitonin (<0.5) ng/mL Urine Color Urine Appearance Urine pH (4.5-8.0) Ur Specific [place] (1.000-1.035) Urine Protein (Negative) Urine Glucose (UA) (Negative) g/dL Urine Ketones (NEGATIVE) Urine Occult Blood (Negative) Urine Nitrate (Negative) Urine Bilirubin (NEGATIVE) Ur Bilirubin Confirm (Negative) Urine Urobilinogen (0.2) E.U./dL Ur Leukocyte Esterase (NEGATIVE) Urine RBC (0-5/HPF) Urine WBC (0-5/HPF) Ur Squamous Epith Cells (0-5/HPF) Urine Bacteria (None) Urine Mucus (Negative) Urine Yeast (None) Ur Culture Indicated? SARS-CoV-2 (PCR) Negative (Negative) Blood Type Antibody Screen Imaging Data Chest x-ray: Radiologist's Impression: No acute cardiopulmonary findings. ECG Data Attestation: I personally reviewed and interpreted this ECG as follows: (AFib rate 111 beats per minute. Low-voltage QRS. Poor R-wave progression to the anterior leads. No acute ST T wave elevation.) Critical Care Time Critical Care Time Critical Care Time: Yes Total Critical Care Time: 50 Attestation: Critical care time included initial assessment, review of medical records, review of EKG, lab in radiology data. The patient has dementia, but the clinical situation was reviewed with the patient's daughter. Admissions accepted. The case was discussed with the admitting hospitalist. Discharge Plan Departure Patient Disposition: Admitted As Inpatient Clinical Impression: Atrial fibrillation with RVR, Congestive heart failure, Urinary tract infection, Elevated lactic acid level, Dementia, Chronic lymphocytic leukemia Admit Date/Time: 01/15/22 19:44 Admit Provider: Goldie Samuels
[2022-01-15] MEDS: PIPERACILLIN/TAZO 4.5 GM in SODIUM CHLORIDE 0.9% 100 ML 200 ML IV (17:21)
[2022-01-15] MEDS: SODIUM CHLORIDE 0.9% 1,000 ML 1000 ML IV (17:22)
[2022-01-15 17:27] LABS: Neutrophils Absolute Manual 7501 /uL (3000-5900); Total Cells Counted 100
[2022-01-15 17:28] LABS: Polychromasia 1+
[2022-01-15 18:06] LABS: Reflexed Lactate in 2 Hours Y
[2022-01-15 18:42] LABS: Lactate 2HR (Lactic Acid Rflx) 1.5 mmol/L (0.7-2.1)
--- NOTE | 2022-01-15 19:30 | PC.NURSE ---
pt lying on stretcher family at bedside, no acute distress noted
--- NOTE | 2022-01-15 19:57 | DI.RAD.S_ITS ---
PROCEDURE: XR CHEST 1V INDICATIONS: CHF TECHNIQUE: One view of the chest was acquired. COMPARISON: [facility], CT, CT ABDOMEN PELVIS W CON, 12/30/2021, 12:51. [facility], CR, XR CHEST 2V, 07/15/2020, 10:41. [facility], CR, XR CHEST 1V, 05/22/2020, 14:28. FINDINGS: Surgical changes and devices: Thoracic spine fixation hardware. Lungs and pleura: Lungs are clear. No pleural effusions or pneumothorax. Mediastinum: Mediastinal contours appear similar. Heart size is enlarged. Bones and chest wall: No suspicious bony lesions. Overlying soft tissues appear unremarkable. IMPRESSION: Cardiomegaly. Lungs appear clear. Dictated by: Zeferino Brock M.D. on 01/15/2022 at 20:51 Approved by: Zeferino Brock M.D. on 01/15/2022 at 20:54
--- NOTE | 2022-01-15 21:50 | PC.NURSE ---
Pt arrived from ED via stretcher at 2039. Pt was accompanied by her daughter Joselin. Pt is A/O to name and only, on RA, and is fatigued but easily woken. Pt's daughter assisted with admission assessment d/t pts hx of dementia. Waiting for current medication list to be sent from [facility]. Pt oriented to room, fall precautions, and call light. Bed in lowest, locked position, alarm set, and call light within reach. Awaiting orders at this time.
[2022-01-16] VITALS (8 sets, daily range): BP systolic 104–150; BP diastolic 53–92; PULSE 99–119; RESP 14–19; TEMP 35.6–36.7; O2SAT 92–95; BMI 26.2
--- NOTE | 2022-01-16 00:26 | P.HP_ITS ---
History of Present Illness History of Present Illness Date Patient Seen: 01/16/22 Time Patient Seen: 00:27 Chief complaint: edema Narrative: Amber Mota is an 86 y.o. resident of [facility] with indolent CLL, paroxysmal atrial fibrillation not anticoagulated due to recent rectal bleed hypertension, and advamced dementia who was transferred to the ED due to not acting well and altered mental status Patient is unable to provide a history due to her dementia, and daughter has left for the evening. She denies pain anywhere, did not know she was at [facility], told her nurse it was 1939. Patient was recently discharged for a GI bleed thought to be due to an ischemic colitis. In the ED, she was deemed to have a diastolic heart failure exacerbation with a pro-bnp of almost 7000 and a urinary tract infection. Her last urine culture grew out Granulicatella adiacensis on 12/29/21, but with no sensitivities. Another sample was drawn today and sent out for culture, now pending.Chest xray was negative for pneumonia, noted cardiomegaly. She is afebrile, blood pressure 141/74, heart rate 111, respiratory rate 16, oxygen saturation 95% on room air she weighs 63 kg with a BMI of 26.2. Her WBC is markedly elevated at 57.7 which is higher than previous likely due to advancement of her CLL, peripheral smear cells are abnormal, INRs 1.6, glucose 117, calcium 8.2, total bilirubin is 1.7, other liver enzymes are within normal limits, troponin is 0.012, proBNP is 6950, procalcitonin is 0.9 and COVID PCR is negative. UA panel is markedly positive for urinary tract infection. He Patient History Medical History Compression fracture Dehydration Edema Essential hypertension Fracture, finger GI bleed Ischemic colitis Leukemia Memory deficit Paroxysmal atrial fibrillation Syncope Urinary incontinence Surgical History H/O spinal fusion (05/29/19) H/O: hysterectomy History of 2 sections Family & Social History Social History: household members none Prior Living Arrangements Skilled Nurse Facility Safety & Behavioral: Feels Safe in Current Unwilling to Answer Environment Been Physically Hurt or Unwilling to Answer Threatened By a Person Tobacco & Substance use: Smoking Status Former smoker alcohol intake never alcohol intake frequency a few times a month Substance Use Type does not use Meds Home Medications and Allergies Home Medications Medication Instructions Recorded Confirmed Type multivitamin 1 cap PO DAILY #0 06/27/10 12/29/21 History quetiapine 50 mg tablet (Seroquel) 12.5 mg PO QDAY #0 01/21/17 12/29/21 History acetaminophen 325 mg capsule 650 mg PO QID PRN #60 cap 03/14/20 12/29/21 Rx (Tylenol) ferrous gluconate 324 mg (37.5 mg 324 mg PO DAILY 11/20/20 12/29/21 History iron) tablet pantoprazole 40 mg tablet,delayed 20 mg PO DAILY 11/20/20 12/29/21 History release (Protonix) polyethylene glycol 3350 17 17 g PO DAILY 11/20/20 12/29/21 History gram/dose oral powder benzocaine 15 mg-menthol 3.6 mg 1 keven MUCOUS MEMBRANE Q4HR PRN 12/29/21 12/29/21 History lozenges levofloxacin 750 mg tablet 750 mg PO DAILY #4 tab 01/01/22 Rx metoprolol succinate 50 mg 200 mg PO BID #60 tab 01/01/22 Rx tablet,extended release 24 hr metronidazole 500 mg tablet 500 mg PO Q8H #12 tab 01/01/22 Rx Allergies Allergy/AdvReac Type Severity Reaction Status Date / Time No Known Drug Allergies Allergy Verified 11/20/20 13:05 Review of Systems Review of Systems ROS: Yes unobtainable due to mental status (She has advanced dementia) Exam Vital Signs (past 8 hours): - 01/15/22 16:30 01/15/22 17:00 01/15/22 17:08 Temperature 99.1 F 99.1 F 99.1 F Pulse Rate 122 H 110 H 116 H Respiratory Rate 22 23 23 Blood Pressure 161/70 H 122/89 Pulse Oximetry 93 92 92 01/15/22 17:30 01/15/22 18:00 01/15/22 18:26 Temperature 99.1 F 99.1 F 98.8 F Pulse Rate 113 H 108 H 110 H Respiratory Rate 23 20 22 Blood Pressure 126/97 H Pulse Oximetry 92 92 95 01/15/22 18:30 01/15/22 18:31 01/15/22 19:00 Temperature 98.8 F 98.8 F 98.8 F Pulse Rate 106 H 108 H 111 H Respiratory Rate 23 22 20 Blood Pressure 144/80 H 129/73 Pulse Oximetry 92 01/15/22 19:30 01/15/22 19:31 01/15/22 20:00 Temperature 98.8 F 98.8 F 98.6 F Pulse Rate 110 H 104 H 113 H Respiratory Rate 19 19 20 Blood Pressure 145/57 H 131/97 H Pulse Oximetry 89 L 88 L 90 L 01/15/22 20:40 Temperature 97.5 F L Pulse Rate 110 H Respiratory Rate 16 Blood Pressure 143/78 H Pulse Oximetry 91 Oxygen Delivery Method Room Air Oxygen Flow Rate 0 Narrative Exam Narrative: Gen: Alert, oriented X 2, thin 86 y.o. female, pale HEENT: normocephalic, atraumatic, conjunctiva clear, sclera non-icteric, oral mucosa pink and moist Neck: supple, full ROM, no JVD, trachea is midline Resp: Lungs CTA, non-labored breathing CV: tachy and irregular, no murmur or rubs Abd: soft, non-tender, normoactive BTs Skin: no lesions or rashes, dry and intact Neuro: Pleasantly confused, alert and oriented X 2 w/no focal deficits. Speech clear and coherent. Extremities: moves all 4 extremities, is ambulatory, negative Yasmani?s sign Psyche: normal mood and affect. Objective Labs Result Diagrams: 01/15/22 15:53 01/15/22 15:53 Labs: Laboratory Results - last 24 hr 01/15/22 01/15/22 01/15/22 15:18 15:42 15:53 WBC 57.7 H* RBC 4.48 Hgb 12.5 Hct 40.0 MCV 89.3 MCH 28.0 MCHC 31.4 RDW 15.3 H Plt Count 252 Neut % (Auto) Not Reportable Lymph % (Auto) Not Reportable Runnels % (Auto) Not Reportable Eos % (Auto) Not Reportable Baso % (Auto) Not Reportable Lymph # (Auto) Not Reportable Runnels # (Auto) Not Reportable Baso # (Auto) Not Reportable Total Counted 100 Seg Neutrophils % 13.0 L Lymphocytes % (Manual) 86.0 H Eosinophils % (Manual) 1.0 L Neutrophils # (Manual) 7501 H RBC Morphology See below Polychromasia 1+ H PT INR APTT Sodium Potassium Chloride Carbon Dioxide BUN Creatinine Estimated GFR BUN/Creatinine Ratio Glucose Lactate Calcium Total Bilirubin AST ALT Alkaline Phosphatase Total Creatine Kinase CK-MB (CK-2) CK-MB (CK-2) Rel Index Troponin I NT-Pro-B Natriuret Pep Total Protein Albumin Globulin Albumin/Globulin Ratio Procalcitonin Urine Color Yellow Urine Appearance Cloudy Urine pH 5.0 Ur Specific Rufe >=1.030 H Urine Protein 1+ H Urine Glucose (UA) Negative Urine Ketones 1+ H Urine Occult Blood 1+ H Urine Nitrate Negative Urine Bilirubin 2+ H Ur Bilirubin Confirm Negative Urine Urobilinogen 0.2 Ur Leukocyte Esterase Trace H Urine RBC 5-10/hpf H Urine WBC 10-30/hpf H Ur Squamous Epith Cells 0-1 /hpf Urine Bacteria Moderate (10-30) H Urine Mucus 2+ H Urine Yeast 30-100/hpf H Ur Culture Indicated? Specimen cultured SARS-CoV-2 (PCR) Blood Type A Positive Antibody Screen Negative 01/15/22 01/15/22 01/15/22 15:53 15:53 15:53 WBC RBC Hgb Hct MCV MCH MCHC RDW Plt Count Neut % (Auto) Lymph % (Auto) Runnels % (Auto) Eos % (Auto) Baso % (Auto) Lymph # (Auto) Runnels # (Auto) Baso # (Auto) Total Counted Seg Neutrophils % Lymphocytes % (Manual) Eosinophils % (Manual) Neutrophils # (Manual) RBC Morphology Polychromasia PT 18.2 H INR 1.6 H APTT 28 Sodium 142 Potassium 4.7 Chloride 105 Carbon Dioxide 28 BUN 15 Creatinine 0.65 Estimated GFR > 60 BUN/Creatinine Ratio 23.1 H Glucose 117 H Lactate Calcium 8.2 L Total Bilirubin 1.7 H AST 29 ALT 17 Alkaline Phosphatase 87 Total Creatine Kinase CK-MB (CK-2) CK-MB (CK-2) Rel Index Troponin I NT-Pro-B Natriuret Pep Total Protein 6.2 L Albumin 3.3 L Globulin 2.9 Albumin/Globulin Ratio 1.1 Procalcitonin Urine Color Urine Appearance Urine pH Ur Specific Rufe Urine Protein Urine Glucose (UA) Urine Ketones Urine Occult Blood Urine Nitrate Urine Bilirubin Ur Bilirubin Confirm Urine Urobilinogen Ur Leukocyte Esterase Urine RBC Urine WBC Ur Squamous Epith Cells Urine Bacteria Urine Mucus Urine Yeast Ur Culture Indicated? SARS-CoV-2 (PCR) Blood Type Antibody Screen 01/15/22 01/15/22 01/15/22 15:53 15:53 15:53 WBC RBC Hgb Hct MCV MCH MCHC RDW Plt Count Neut % (Auto) Lymph % (Auto) Runnels % (Auto) Eos % (Auto) Baso % (Auto) Lymph # (Auto) Runnels # (Auto) Baso # (Auto) Total Counted Seg Neutrophils % Lymphocytes % (Manual) Eosinophils % (Manual) Neutrophils # (Manual) RBC Morphology Polychromasia PT INR APTT Sodium Potassium Chloride Carbon Dioxide BUN Creatinine Estimated GFR BUN/Creatinine Ratio Glucose Lactate 3.0 H Calcium Total Bilirubin AST ALT Alkaline Phosphatase Total Creatine Kinase 28 L CK-MB (CK-2) TNP CK-MB (CK-2) Rel Index TNP Troponin I < 0.012 NT-Pro-B Natriuret Pep 6950 H Total Protein Albumin Globulin Albumin/Globulin Ratio Procalcitonin 0.09 Urine Color Urine Appearance Urine pH Ur Specific Rufe Urine Protein Urine Glucose (UA) Urine Ketones Urine Occult Blood Urine Nitrate Urine Bilirubin Ur Bilirubin Confirm Urine Urobilinogen Ur Leukocyte Esterase Urine RBC Urine WBC Ur Squamous Epith Cells Urine Bacteria Urine Mucus Urine Yeast Ur Culture Indicated? SARS-CoV-2 (PCR) Blood Type Antibody Screen 01/15/22 01/15/22 15:55 18:14 WBC RBC Hgb Hct MCV MCH MCHC RDW Plt Count Neut % (Auto) Lymph % (Auto) Runnels % (Auto) Eos % (Auto) Baso % (Auto) Lymph # (Auto) Runnels # (Auto) Baso # (Auto) Total Counted Seg Neutrophils % Lymphocytes % (Manual) Eosinophils % (Manual) Neutrophils # (Manual) RBC Morphology Polychromasia PT INR APTT Sodium Potassium Chloride Carbon Dioxide BUN Creatinine Estimated GFR BUN/Creatinine Ratio Glucose Lactate 1.5 Calcium Total Bilirubin AST ALT Alkaline Phosphatase Total Creatine Kinase CK-MB (CK-2) CK-MB (CK-2) Rel Index Troponin I NT-Pro-B Natriuret Pep Total Protein Albumin Globulin Albumin/Globulin Ratio Procalcitonin Urine Color Urine Appearance Urine pH Ur Specific Rufe Urine Protein Urine Glucose (UA) Urine Ketones Urine Occult Blood Urine Nitrate Urine Bilirubin Ur Bilirubin Confirm Urine Urobilinogen Ur Leukocyte Esterase Urine RBC Urine WBC Ur Squamous Epith Cells Urine Bacteria Urine Mucus Urine Yeast Ur Culture Indicated? SARS-CoV-2 (PCR) Negative Blood Type Antibody Screen Assessment & Plan Assessment & Plan narrative: Amber Mota is admitted for treatment of a heart failure exacerbation and urinary tract infection. 1. UTI, acute and present on admission * She was administered IV zosyn in the ED and this will be continued * Urine cx pending 2. HFpEF Chads2 VASC score of 8, exacerbation, present on admission * She initially bolused 200 ml NS in the ED due to concerns for sepsis, but requested to stop due to exacerbating her heart failure * Given her high pro-BNP fluid rescusitation is being held, and patient does not appear septic or toxic * Rhythm and rate control with her home dose of metoprolol will be continued * Last echo done in March 2020 indicated an EF of 55-60% with right ventricular dilation and and pulmonary hypertension, both atriums are moderate to severely dilated. She also has calcified mitral valve leaflets with mild to moderate regurgitation, and severe tricuspid regurgitation and severe pulmonary hypertension. 3. 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 * Monitor daily CBC 4. Essential hypertension, chronic * Continue home dose of lisinopril 20 mg p.o. daily 5. Dementia with behavioral disturbance, chronic * Continue home doses of quitiapine 12.5 mg at bedtime VTE Prophylaxis: Wells risk score 4 Bilateral SCDs Patient is admitted to the inpatient service due to the severity of disease, risks of further disease progression and this stay is expected to exceed 2 midnights. FEN: IV fluids: saline lock, diet: heart healthy 2 gram sodium, labs: CBC, C/BMP, liver enzymes, Mag, PT/INR Consultants None Dispo: probable discharge back to [facility] Code status: Full code per her daughter who is her surrogate and POA. [X] I have utilized all available immediate resources to obtain, update, or review of the patient's current medications COVID-19 COVID-19 status: Negative Result date/Date tested (Pos, Neg/Pending): 01/15/22 Time Spent With Patient Critical Care time: I spent a total of [] minutes of critical care time on this patient's care today; this time is exclusive of procedural time. Scores CHADS-VASc Congestive heart failure: yes Hypertension: yes Age 75 years or older: yes Diabetes mellitus: no Stroke, TIA, or TE: yes Vascular disease: yes Age 65 to 74 years: no Sex category (female): Female CHADS-VASc Score: 8 Wells' Criteria for PE Clinical signs and symptoms of DVT: No PE is #1 Dx or equally likely: No Heart rate > 100: Yes Immobilization at least 3 days or surg in previous 4 weeks: Yes History of PE or DVT: No Hemoptysis: No Malignancy w/Treatment within 6 months or palliative: Yes Wells' PE Score total: 4.0 Quality VTE Deep Vein Thrombosis/Pulmonary Embolism Present on Admission: No MIPS - Admit I confirm the patient?s Advance Care Plan is present, Code status is documented, Surrogate decision maker is in patient?s record [If Yes, STOP here]: Yes MIPS - DC The patient has current or prior documentation of left ventricular ejection fraction (LVEF) less than 40%, or moderate or severely depressed left ventricular systolic function.: No A. The patient was prescribed or already taking an Angiotensin-Converting Enzyme (EMILY) Inhibitor, or Angiotensin Receptor Mario (ARB).: Yes B. The patient was prescribed or already taking a beta-mario. [If Yes to Both A & B, STOP here]: Yes
[2022-01-16 01:30] LABS: Magnesium 2.2 mg/dL (1.6-2.3)
[2022-01-16] MEDS: QUETIAPINE 25 MG TABLET 12.5 MG PO ×2 (01:32→08:43)
[2022-01-16] MEDS: PIPERACILLIN/TAZO 3.375 GM in SODIUM CHLORIDE 0.9% 100 ML 25 ML IV ×3 (01:44→17:54)
[2022-01-16] MEDS: SODIUM CHLORIDE 0.9% 250 ML 21 ML IV (05:45)
[2022-01-16 05:52] LABS: Hematocrit 38.7 % (36-46); Hemoglobin 12.3 g/dL (12.0-16.0); Mean Corpuscular HGB Conc 31.7 % (30-36); Mean Corpuscular Hemoglobin 28.3 PG (26-34); Mean Corpuscular Volume 89.3 fL (80-100); Platelet Count 195 X10^3/uL (150-400); Red Blood Cell Count 4.34 X10^6/uL (4.0-5.2); Red Cell Distribution Width 15.4 % (11.6-14.8)
[2022-01-16 05:55] LABS: Magnesium 2.2 mg/dL (1.6-2.3)
[2022-01-16 05:56] LABS: Alanine Aminotransferase 9 IU/L (<35); Alkaline Phosphatase 83 U/L (38-126); Aspartate Aminotransferase 24 IU/L (14-36); Bilirubin Total 1.7 mg/dL (0.2-1.3); Bilirubin Unconjugated 1.4 mg/dL (0.0-1.1); Blood Urea Nitrogen 14 mg/dL (7-17); Calcium 8.1 mg/dL (8.4-10.2); Carbon Dioxide 25 mmol/L (22-32); Chloride 106 mmol/L (98-107); Estimated Glomerular Filt Rate > 60 mL/min (>60); Globulin 2.9 g/dL (1.7-4.1); Glucose 92 mg/dL (80-110); HEMOLYSIS < 15 (0-50); Potassium 4.5 mmol/L (3.4-5.1); Sodium 144 mmol/L (137-145); Total Protein 5.9 g/dL (6.3-8.2)
[2022-01-16 06:37] LABS: Add Manual Diff / Slide Review YES; White Blood Cell Count 40.2 X10^3/uL (4.5-11.0)
[2022-01-16 07:06] LABS: Neutrophils Absolute Manual 22110 /uL (3000-5900); Nucleated Red Blood Cells 1 #/Diff; Total Cells Counted 100
[2022-01-16 07:07] LABS: Smudge Cells 3+
[2022-01-16 07:12] LABS: Polychromasia 1+
[2022-01-16] MEDS: polyethylene glycoL 3350 17 GM POWD.PACK PO (08:41)
[2022-01-16] MEDS: METOPROLOL ER 50 MG TABLET 200 MG PO ×2 (08:43→20:40)
[2022-01-16] MEDS: DOCUSATE 100 MG CAPSULE PO ×2 (08:43→20:40)
[2022-01-16] MEDS: FUROSEMIDE 40 MG TABLET PO (09:39)
[2022-01-16] MEDS: PANTOPRAZOLE DR 40 MG TABLET PO (09:40)
--- NOTE | 2022-01-16 11:10 | CM.DANOTE ---
DCP: Case received, EMR reviewed and met with patient. She is pleasantly confused, but did give permission to contact her daughter, Bhumika. Did speak to daughter, Bhumika, via phone. Introduced self and role. Was able to obtain information regarding patient's current living situation. Was also able to obtain information from [facility] regarding patient's baseline activity level. DCP assessment completed with information currently available. Patient is an 86 year old female who admitted yesterday evening to the care of the hospitalist team. PCP: Dr. Farfan. Payer: confirmed: Medicare/Medicaid. Patient came to the hospital via ambulance from [facility] secondary to having increased heart rate, as well as edema. Patient was noted to have a-fib and CHF, and UTI. According to notes, patient was also sent over to hospital not acting well. Patient does have history of advanced dementia. Checked briefly on patient. She was sitting up in bed, pleasantly confused. She is oriented to self only, not time, year, or place. Confirmed with [facility] that patient is a permanent resident, has been at their facility for about a year. She is a retirement resident. At her baseline, she is wheel-chair bound, and total assist. P: DCP to continue to follow. Hospitalist indicated that patient could be ready to discharge back to [facility] today, if not today, then tomorrow. Will continue to update [facility]. Rajni Calderon RN/Communications Technologist Discharge Planning/Care Management CM Discharge Assessment Start: 01/16/22 11:04 Freq: Status: Active Protocol: Document 01/16/22 11:04 (Rec: 01/16/22 11:06 [id number]) Discharge Planning Assessment Assigned Ignition Expert Rajni Calderon RN/Communications Technologist Advance Directives? No Advance Directives on File No: Unknown History Provided By Patient,Family Member,Medical Record Prior Living Arrangements Skilled Nurse Facility Household Members none,other Comment Patient is a resident of [facility] Type of transporation used prior to Relies on Others admit Independent with ADL's No Is patient alert and oriented? No: To self only Needs Assistance With Bathing,Grooming,Meal Prep, Toileting,Managing Medications ,Home Chores / Shopping Caregiver for Another No DME Already Rented / Owned Wheelchair Patient/Family Preference Alf Facility Barriers to Discharge No Discharge Plan Alf Facility Transportation Arrangement Facility to provide transport. Referrals Initiated Alf Whiteboard Updated in Patient Room with Yes name and ext. # of Ignition Expert Review Status In Process Next Review Type Continued Stay Review
--- NOTE | 2022-01-16 13:30 | DI.ECHO.S_ITS ---
[facility] +---------+ : : [address] [id number] [address] : : : : [id number] : : : : Phone: [phone]---------+ Echocardiogram Report + + :Name: JAMSHID CORLEY Study Date: 01/16/2022 Height: 61 in : :[facility] ReadingLocation: Weight: 138 lb : : Gender: Female BSA: 1.6 m2 : :: 1935 Age: 86 yrs BP: 150/81 mmHg: :Reason For Study: Atrial fibrillation : : Performed By: Vargas Valentin : :Referring: LACHELLE CAMACHO : + + Interpretation Summary The patient was in atrial fibrillation with rapid ventricular response during the exam with a heart rate exceeding 100 bpm. The left ventricular cavity is small. Left ventricular ejection fraction is estimated to be 60 +/- 5%. The right ventricle is mildly dilated. Right ventricular systolic function is at the lower limits of normal. There is severe biatrial enlargement. There is severe tricuspid regurgitation. Compared to the prior echo exam, there has been no change in TR severity. The right ventricular systolic pressure is estimated to be at least 58 mmHg based on an estimated right atrial pressure of 15 mm Hg. Compared to the prior echo exam, there has been a decrease in the severity of pulmonary hypertension. Procedure: A two-dimensional transthoracic echocardiogram with color flow and Doppler was performed. The study quality was technically difficult. Patient very combative. The patient was in atrial fibrillation with rapid ventricular response during the exam with a heart rate exceeding 100 bpm. Left Ventricle: The left ventricular cavity is small. There is normal left ventricular wall thickness. There is no thrombus. Left ventricular systolic function is normal. Left ventricular ejection fraction is estimated to be 60 +/- 5%. Septal motion is consistent with conduction abnormality. Diastolic function could not be accurately assessed due to atrial fibrillation. Right Ventricle: The right ventricle is mildly dilated. Right ventricular systolic function is at the lower limits of normal. Atria: There is severe biatrial enlargement. The left atrium has remained unchanged in size since the prior echo exam. The interatrial septum grossly appears intact with no obvious evidence for an atrial septal defect. Mitral Valve: There is moderate mitral annular calcification. The mitral valve leaflets are mildly calcified. No significant mitral valve stenosis. There is mild mitral regurgitation. Compared to the prior echo study, there has been a decrease in the severity of mitral regurgitation. Aortic Valve: There is mild aortic valve sclerosis. There is no hemodynamically significant valvular aortic stenosis. There is mild aortic regurgitation. Compared to the prior echo study, there has been no change in the severity of aortic regurgitation. Tricuspid Valve: The tricuspid valve leaflets are thickened and/or calcified, but open well. There is severe tricuspid regurgitation. The right ventricular systolic pressure is estimated to be at least 58 mmHg based on an estimated right atrial pressure of 15 mm Hg. Compared to the prior echo exam, there has been no change in TR severity. Compared to the prior echo exam, there has been a decrease in the severity of pulmonary hypertension. Pulmonic Valve: The pulmonic valve is not well visualized. Great Vessels: The aortic root is normal size. There is aortic root sclerosis/calcification. The ascending aorta could not be visualized. The IVC is dilated (diameter is greater than 2.1 cm) and it collapses less than 50% with a sniff. This suggests a high right atrial pressure of 15 mm Hg. Pericardium/ Pleura There is no pericardial effusion. There is no pleural effusion. MMode/2D Measurements & Calculations LVIDd: 3.7 cm LVOT diam: 1.8 cm LVIDs: 2.4 cm Ao root diam: 2.9 cm FS: 36.0 % IVSd: 0.64 cm LVPWd: 0.68 cm LV marquez. diameter/BSA (cm/m^2): 2.3 LV sys. diameter/BSA (cm/m^2): 1.5 LA A4 area: 27.3 cm2 RA long axis: 5.9 cm LA length (vol): 6.9 cm RA area: 22.0 cm2 RA vol: 69.5 ml RA : 43.1 ml/m2 IVC diam: 2.3 cm TAPSE: 1.7 cm Doppler Measurements & Calculations Ao V2 max: 134.0 cm/sec LVOT Max J Luis: 67.2 cm/sec Ao V2 mean: 86.4 cm/sec LV V1 max P.8 mmHg Ao max P.2 mmHg LV V1 VTI: 11.0 cm Ao mean P.4 mmHg ARLNEE(I,D): 1.5 cm2 Ao V2 VTI: 19.1 cm ARLENE(V,D): 1.3 cm2 sev ratio: 0.58 ARLENE indexed to BSA (cm^2/m^2): 0.90 TR max j luis: 327.3 cm/sec SV(LVOT): 27.8 ml TR max P.8 mmHg Reading Physician:05:13 PM
--- NOTE | 2022-01-16 15:27 | PC.NURSE ---
Addendum entered by Channing Linares R.N. 01/16/22 18:59: 1800- Reviewed plan of care with Dr. Torres. Reported HR 110s-130s over the course of the afternoon. No new orders rec'd. Original Note: Called to [facility] and spoke with staff requesting LBM per pt's daughter's request. LBM was 01/15 and is documented as moderate to large and brown. Will update chart and pt's daughter.
[2022-01-16] MEDS: NYSTATIN CREAM 30 GM 1 APPLIC TOP (20:42)
[2022-01-17] VITALS: BP 102/70; PULSE 103; RESP 22; TEMP 36.2; O2SAT 94
[2022-01-17] MEDS: PIPERACILLIN/TAZO 3.375 GM in SODIUM CHLORIDE 0.9% 100 ML 25 ML IV (01:24)
[2022-01-17 04:00] VITALS: BP 162/89; PULSE 107; RESP 24; TEMP 36.4; O2SAT 96
[2022-01-17 05:09] LABS: Alanine Aminotransferase 13 IU/L (<35); Albumin 2.8 g/dL (3.5-5.0); Alkaline Phosphatase 73 U/L (38-126); Aspartate Aminotransferase 24 IU/L (14-36); BUN Creatinine Ratio 17.1 (6-22); Bilirubin Total 1.2 mg/dL (0.2-1.3); Bilirubin Unconjugated 1.1 mg/dL (0.0-1.1); Blood Urea Nitrogen 12 mg/dL (7-17); Calcium 7.5 mg/dL (8.4-10.2); Carbon Dioxide 26 mmol/L (22-32); Chloride 107 mmol/L (98-107); Estimated Glomerular Filt Rate > 60 mL/min (>60); Globulin 2.8 g/dL (1.7-4.1); Glucose 165 mg/dL (80-110); HEMOLYSIS < 15 (0-50); Potassium 3.4 mmol/L (3.4-5.1); Sodium 141 mmol/L (137-145); Total Protein 5.6 g/dL (6.3-8.2)
[2022-01-17 05:27] LABS: Hematocrit 37.2 % (36-46); Hemoglobin 11.5 g/dL (12.0-16.0); Mean Corpuscular Hemoglobin 27.7 PG (26-34); Mean Corpuscular Volume 89.3 fL (80-100); Platelet Count 197 X10^3/uL (150-400); Red Blood Cell Count 4.17 X10^6/uL (4.0-5.2); Red Cell Distribution Width 15.3 % (11.6-14.8)
[2022-01-17] MEDS: PANTOPRAZOLE DR 40 MG TABLET PO (05:45)
--- NOTE | 2022-01-17 06:38 | PC.NURSE ---
Shift note: Patient oriented to self, generally confused. VSS, no signs of distress. Denies any pain/discomfort. Pericare provided, conner cath in placed but seems urine leaking in her brief, conner cath checked and added 5ml water into the conner cath balloon. no bowel movement noted. Antifungal cream applied to patrick-anal area.
[2022-01-17 06:49] LABS: Add Manual Diff / Slide Review YES; White Blood Cell Count 42.2 X10^3/uL (4.5-11.0)
[2022-01-17 06:56] LABS: Neutrophils Absolute Manual 8862 /uL (3000-5900); Total Cells Counted 100
[2022-01-17 06:57] LABS: Polychromasia 1+; Smudge Cells 3+
[2022-01-17 07:26] VITALS: O2SAT 94
[2022-01-17 08:03] VITALS: BP 145/101; PULSE 104; RESP 20; TEMP 36.9; O2SAT 94
[2022-01-17] MEDS: METOPROLOL ER 50 MG TABLET 200 MG PO (08:50)
[2022-01-17] MEDS: dilTIAZem CD 120 MG CAP PO (08:50)
[2022-01-17] MEDS: QUETIAPINE 25 MG TABLET 12.5 MG PO (08:50)
[2022-01-17] MEDS: polyethylene glycoL 3350 17 GM POWD.PACK PO (08:50)
[2022-01-17] MEDS: DOCUSATE 100 MG CAPSULE PO (08:51)
[2022-01-17] MEDS: NYSTATIN CREAM 30 GM 1 APPLIC TOP (08:51)
--- NOTE | 2022-01-17 10:36 | PM.DS.1 ---
History of Present Illness History of Present Illness Chief complaint: edema Narrative: Per SAL Barajas: Amber Mota is an 86 y.o. resident of [facility] with indolent CLL, paroxysmal atrial fibrillation not anticoagulated due to recent rectal bleed hypertension, and advamced dementia who was transferred to the ED due to not acting well and altered mental status Patient is unable to provide a history due to her dementia, and daughter has left for the evening. She denies pain anywhere, did not know she was at [facility], told her nurse it was 1940.? Patient was recently discharged for a GI bleed thought to be due to an ischemic colitis. In the ED, she was deemed to have a diastolic heart failure exacerbation with a pro-bnp of almost 7000 and a urinary tract infection. Her last urine culture grew out?Granulicatella adiacensis on 12/29/21, but with no sensitivities.?Another sample was drawn today and sent out for culture, now pending.Chest xray was negative for pneumonia, noted cardiomegaly.? She is afebrile, blood pressure 141/74, heart rate 111, respiratory rate 16, oxygen saturation 95% on room air she weighs 63 kg with a BMI of 26.2.? Her WBC is markedly elevated at 57.7 which is higher than previous likely due to advancement of her CLL, peripheral smear cells are abnormal, INRs 1.6, glucose 117, calcium 8.2, total bilirubin is 1.7, other liver enzymes are within normal limits, troponin is 0.012, proBNP is 6950, procalcitonin is 0.9 and COVID PCR is negative.? UA panel is markedly positive for urinary tract infection.? Discharge Providers Provider Date of admission: 01/15/22 19:44 Discharge Date: 01/17/22 Primary care physician: Radha Farfan Discharge provider: Kendell Torres DO Summary Hospital Course Discharge Diagnosis: 1. UTI, acute and present on admission 2. Acute on chronic diastolic heart failure, on admission 3. 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 Essential hypertension, chronic 5. Dementia with behavioral disturbance, chronic 6. Skin fungal infection Hospital Course: Amber Mota is an 86 y.o. resident of [facility] with indolent CLL, paroxysmal atrial fibrillation not anticoagulated due to recent rectal bleed hypertension, and advamced dementia who was transferred to the ED from her care facility for altered mental status. After initial evaluation in the emergency room she was found to have an acute cystitis based on her urinalysis and likely diastolic heart failure. She was initially treated with possible sepsis getting Zosyn in the emergency room, and a fluid bolus though this was discontinued over concerns for volume overload given her prior heart failure. The patient was admitted very early in the morning, and later that day her mental status had improved greatly and she seemed to returned to baseline, but the patient remained in atrial fibrillation with rapid ventricular response with a rate of about 120-130. She was started on oral diltiazem in addition to her home metoprolol after results of her echocardiogram which is noted below, and given some slight lower extremity edema she was diuresed with oral Lasix. She complained of no respiratory symptoms and had no complaints shortly after admission. Echocardiogram showed an EF of approximately 60%, with no significant changes compared to her prior studies. She had a slightly low potassium and was given some potassium repletion. The day after admission, with the addition of diltiazem the patient's heart rate had improved to generally the upper 90s on telemetry. Given slight lower extremity edema the patient was discharged on 40 mg of oral Lasix daily, with recommendation to reassess at 1 week to see about cessation or other dose adjustments depending on her signs and symptoms. Urine cultures ultimately did not grow any bacteria but given her presentation she was discharged back to her care facility to complete a course of Macrobid. With regards to recent GI bleeding h/h was consistent with prior studies and she had no melena or hematemesis during her admission. She had a mild rash as well which appeared fungal in the patrick-anal area and was prescribed a nystatin cream for one week. Exam Vital Signs (past 8 hours): - 01/17/22 04:00 01/17/22 07:26 01/17/22 08:03 Temperature 97.5 F L 98.4 F Pulse Rate 107 H 104 H Respiratory Rate 24 20 Blood Pressure 162/89 H 145/101 H Pulse Oximetry 96 94 94 Oxygen Delivery Method Room Air Oxygen Flow Rate 0 Narrative Exam Narrative: Gen: Alert, thin 86 y.o. ? female in no acute distress. Pleasant, Very upbeat and singing with staff during the day. HEENT: normocephalic, atraumatic, conjunctiva clear, sclera non-icteric, oral mucosa pink and moist Neck: supple, full ROM, no JVD, trachea is midline Resp: Lungs CTA bilaterally without wheezes, rhonchi, or rales and non-labored breathing CV: regular rate with normal rhythm. Abd: soft, non-tender, normoactive BTs Skin: no lesions or rashes, dry and intact Neuro: Pleasantly confused, alert and oriented X 2 w/no focal deficits. Speech clear and coherent. Extremities: trace bilateral LE edema, pitting, without tenderness or warmth. No joint effusions Objective Labs Result Diagrams: 01/17/22 04:40 01/17/22 04:40 Labs: Laboratory Results - last 24 hr 01/17/22 01/17/22 01/17/22 04:40 04:40 04:40 WBC 42.2 H* RBC 4.17 Hgb 11.5 L Hct 37.2 MCV 89.3 MCH 27.7 MCHC 31.0 RDW 15.3 H Plt Count 197 Neut % (Auto) Not Reportable Lymph % (Auto) Not Reportable [place] % (Auto) Not Reportable Eos % (Auto) Not Reportable Baso % (Auto) Not Reportable Lymph # (Auto) Not Reportable [place] # (Auto) Not Reportable Baso # (Auto) Not Reportable Total Counted 100 Seg Neutrophils % 20.0 L D Band Neutrophils % 1.0 L Lymphocytes % (Manual) 77.0 H Monocytes % (Manual) 2.0 Neutrophils # (Manual) 8862 H Smudge Cells 3+ H RBC Morphology See below Polychromasia 1+ H Sodium 141 Potassium 3.4 Chloride 107 Carbon Dioxide 26 BUN 12 Creatinine 0.70 Estimated GFR > 60 BUN/Creatinine Ratio 17.1 Glucose 165 H Calcium 7.5 L Magnesium 2.0 Total Bilirubin 1.2 Conjugated Bilirubin 0.0 Unconjugated Bilirubin 1.1 AST 24 ALT 13 Alkaline Phosphatase 73 Total Protein 5.6 L Albumin 2.8 L Globulin 2.8 Albumin/Globulin Ratio 1.0 [facility] History (Updated 01/16/22 @ 01:00 by SAL Barajas) Compression fracture Dehydration Edema Essential hypertension Fracture, finger GI bleed History of GI bleed Ischemic colitis Leukemia Memory deficit Paroxysmal atrial fibrillation Syncope Urinary incontinence Surgical History H/O spinal fusion (05/29/19) H/O: hysterectomy History of 2 sections Social History household members: none and other Smoking Status: Former smoker alcohol intake: never substance use type: does not use Discharge Plan Discharge Plan Patient Disposition: SNF Transfer [facility]: [facility] [facility] Provider Discharge Comment: 86 F admitted with lethargy. Likely due to acute on chronic cystitis. Improved with antibiotics. Also was noted to be in afib with RVR which rate is now improved with oral diltiazem. Echo was unremarkable. Diltiazem was added for additional rate control. Discharge orders & Medications Prescriptions: New furosemide 40 mg Tablet 40 mg PO DAILY 30 Days Qty: 30 0RF nystatin 100,000 unit/gram Cream 1 applic topical BID 7 Days Qty: 15 0RF Rx Instructions: Apply to affected areas twice daily for 1 week diltiazem HCl 120 mg Capsule,Extended Release 24hr 120 mg PO DAILY 30 Days Qty: 30 0RF nitrofurantoin macrocrystal 100 mg capsule 100 mg PO BID 5 Days Qty: 10 0RF Rx Instructions: must administer with a meal/food potassium chloride 20 mEq tablet extended release 20 meq PO DAILY 30 Days Qty: 30 0RF Continued multivitamin Capsule 1 cap PO DAILY Qty: 0 0RF quetiapine [Seroquel] 50 MG tablet 12.5 mg PO QDAY Qty: 0 0RF ferrous gluconate 324 mg (37.5 mg iron) tablet 324 mg PO DAILY 0RF polyethylene glycol 3350 17 gram/dose powder 17 g PO DAILY 0RF pantoprazole [Protonix] 40 mg tablet,delayed release (DR/EC) 20 mg PO DAILY 0RF acetaminophen [Tylenol] 325 mg capsule 650 mg PO QID PRN (Reason: pain) Qty: 60 0RF benzocaine-menthol 15-3.6 mg Lozenge 1 keven MUCOUS MEMBRANE Q4HR PRN (Reason: Sore Throat) 0RF metoprolol succinate 50 mg Tablet Extended Release 24 Hr 200 mg PO BID Qty: 60 0RF Follow up/Referrals: Radha Farfan [Primary Care Provider] - Diet/Activity/Treatments Diet: Diet as Tolerated Activity: As tolerated Discharge Data Primary Care Provider: Radha Farfan Quality VTE Deep Vein Thrombosis/Pulmonary Embolism Present on Admission: No
--- NOTE | 2022-01-17 10:41 | CM.DPC ---
DCP Cont: Dr. Torres indicated that he is planning on discharging patient home today. Updated Bessy at [facility]. Dr. Torres has updated patient's daughter, Bhumika, on her condition. Updated nurse, Christina, and gave her the number for report, for patient is to be picked up at 1300. Awaiting orders, and will fax them to [facility]. P: Dr. Torres is planning on discharging patient back to [facility] today. supervisor insecticide time is at 1300. Rajni Calderon RN/Print Developer
[2022-01-17] MEDS: FUROSEMIDE 40 MG TABLET PO (11:52)
[2022-01-17 12:00] VITALS: BP 140/80; PULSE 101; RESP 19; TEMP 36.6; O2SAT 95
--- NOTE | 2022-01-17 13:27 | PC.NURSE ---
1300: Pt discharging back to [facility]. IV and conner removed, discharge instructions given to facility rep. Pt escorted via personal wheelchair by [facility] staff.
== END 2022-01-17 13:13 | disposition expired | DRG 291 ==
LOC: ED 15:36 → AC 19:45
PROVIDERS: Nurse Practitioner Family; Admitting Provider Internal Medicine; Emergency Provider Emergency Medicine; PCP Physician Assistant Medical; Referring Provider Emergency Medicine; Visit Provider Internal Medicine
DX: I11.0 Hypertensive heart disease with heart failure (principal); I50.33 Acute on chronic diastolic (congestive) heart failure; N39.0 Urinary tract infection, site not specified; F03.91 Unspecified dementia, unspecified severity, with behavioral disturbance; C91.10 Chronic lymphocytic leukemia of B-cell type not having achieved remission; I48.0 Paroxysmal atrial fibrillation; B35.6 Tinea cruris; Z20.822 Contact with and (suspected) exposure to COVID-19; Z87.891 Personal history of nicotine dependence
CPT/HCPCS: 36415; 51701; 71045; 80048; 80053; 80076; 81001; 82550; 83605; 83735; 83880; 84145; 84484; 85007; 85025; 85610; 85730; 86850; 86900; 86901; 87040; 87086; 87635; 93005; 93306; 94762; 96365; 99284; 99291; C9803; J2543